=== PATIENT | male | born 1955 | race Caucasian/White ===

== ENCOUNTER 2016-10-27 09:12 | Emergency (ER) | payer OTHER ==
[~2016-10-27] VITALS: Ht 182.9 cm; Wt 124.7 kg
[~2016-10-27 09:12] MED LIST: ALBUTEROL0.63 MG/1 INH/SOL; AMLODIPINE BESY10 M1 PO; BRILINTA90 M1 PO; BYETTA250 MCG/ML SC; CALCIUM CARBON200 MG PO; CARAFATE1 G1 PO; COMBIVENT RESPIM4 GM PO; COUMADIN 5 MG TA5 MG PO; COUMADIN 7.5 M7.5 MG PO; CRESTOR20 M2 PO; FERROUS SULFAT325 M2 PO; FLUOXETINE HCL40 M1 PO; LABETALOL HYDR200 MG PO; LEVEMIR100 UNIT/1 SC; LISINOPRIL20 MG PO; MEROPENEM1 G1 IV; METOPROLOL TART50 M1 PO; MIRALAX119 GM PO; NOVOLIN R100 UNIT/1 SC; NOVOLOG100 U/ML; NOVOLOG100 UNIT/2 SC; ONE DAILY MULT1 EAC2 PO; OXYCODONE-ACET1 EAC1 PO; PERCOCET 325 MG1 TA3 PO; PERCOCET 5-3251 EACH PO; PRAVASTATIN40 MG PO; PROTONIX40 M3 IV; PROTONIX40 M3 PO; PROZAC40 M1 PO; SOMA350 M1 PO; SYMBICORT 16010.2 GM INH; UNASYN 3000MG3000 MG IV; ZOSYN 4 GM/100100 ML IV
--- NOTE | 2016-10-27 09:20 | ED GENERAL ADULT ---
History of Present Illness General Chief Complaint: Fall Stated Complaint: BIB AMBULANCE FOR FALL Vital Signs & Intake/Output Vital Signs & Intake/Output Vital Signs Date Time Temp Pulse Resp B/P Pulse O2 O2 Flow FiO2 Ox Delivery Rate 10/27 0916 98.1 101 20 178/81 100 Nasal 2.0L Cannula Allergies Coded Allergies: niacin (ITCHING 11/02/15) Reconcile Medications Albuterol Sulfate (Albuterol Sulfate Nebulizer Soln) 1.25 MG/3 ML VIAL.NEB 1 Vial INH/CARON Q8P PRN COPD (Reported) Amlodipine Besylate (Amlodipine) 10 MG TABLET 1 TAB PO DAILY HYPERTENSION ( Reported) Budesonide/Formoterol Fumara (Symbicort 160-4.5 Mcg Inhaler) 160 MCG/4.5 MCG PUF 2 PUF INH BID COPD (Reported) Calcium Carbonate 200 MG TAB.CHEW 500 MG PO BID Gastric Ulcer Carisoprodol (Soma 350MG Tab) 350 MG TABLET 1 TAB PO Q6 PRN PAIN (Reported) Ferrous Sulfate 325 MG TABLET.DR 1 TAB PO BID Anemia Fluoxetine HCl (Prozac) 40 MG CAPSULE 2 CAP PO DAILY MENTAL HEALTH (Reported) Insulin Aspart (Novolog) 100 UNIT/1 ML VIAL 1 UNIT SC TIDAC Blood Suger Blood suger Below 80 Hypoglycemia protocol 80-150 no change 151-200 1 units 201-250 2 units 251-300 3 units 301-350 4 units 351-400 6 units More than 400 10 units call M.D. Insulin Detemir (Levemir) 100 UNIT/1 ML VIAL 20 UNITS SC QPM DIABETES IPRATROPIUM/ALBUTEROL SULFATE (Combivent Inhaler) 14.7 GM AER.W.ADAP 2 PUF INH 4 TIMES/DAY COPD (Reported) Meropenem 1 GM VIAL 1 GM IV IQ8 OsteoMyleitis Metoprolol Tartrate 50 MG TABLET 1 TAB PO BID BLOOD PRESSURE (Reported) Multivitamin (One Daily Multivitamin) 1 EACH TABLET 1 TAB PO DAILY General Well being Oxycodone HCl/Acetaminophen (Oxycodone-Acetaminophen 10-325) 1 EACH TABLET 1 TAB PO Q6H PRN PAIN Pantoprazole Sodium (Protonix) 40 MG TABLET.DR 1 TAB PO DAILY GERD Polyethylene Glycol 3350 (Miralax) 119 GM POWDER 17 GM PO DAILY PRN constipation Rosuvastatin Calcium (Crestor) 20 MG TABLET 1 TAB PO DAILY HIGH CHOLESTEROL ( Reported) Sucralfate (Carafate) 1 GM TABLET 1,000 MG PO 4 TIMES/DAY gastric Ulcer Past History Travel History Traveled to [place] past 21 day No Medical History Neurological: NONE EENT: HEARING LOSS R EAR Cardiovascular: CAD, hypertension, hyperlipidemia, NSTEMI (status post [place]), PVD, STEMI (LOWER EXTREMITY VASCULAR) Respiratory: COPD, HX PE Gastrointestinal: NONE Hepatic: NONE Renal: nephrolithiasis Psychiatric: depression Endocrine: diabetes Blood Disorders: NONE Cancer(s): 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 Flores [facility] Psychosocial History Who do you live with Spouse Services at Home Nursing What is your primary language Turkmen Tobacco Use: Never used ETOH Use: denies use Illicit Drug Use: denies illicit drug use Family History Family History, If Any: FATHER (3 CVAs). , Age 50-60; Cause: CVA (cerebral vascular accident). MOTHER, , Age 60+; Cause: Natural . Departure Departure Condition: Stable Referrals: CHANO SANCHEZ,LAURA Lora (PCP/Family) Departure Forms: Customer Survey General Discharge Information
--- NOTE | 2016-10-27 09:52 | ED UPPER/LOWER EXTREMITY COMPL ---
History of Present Illness General Chief Complaint: Fall Stated Complaint: BIB AMBULANCE FOR FALL Source: patient, family, old records Exam Limitations: no limitations Vital Signs & Intake/Output Vital Signs & Intake/Output Vital Signs Date Time Temp Pulse Resp B/P Pulse O2 O2 Flow FiO2 Ox Delivery Rate 10/27 1037 98.5 90 20 112/60 96 Room Air 10/27 0916 98.1 101 20 178/81 100 Nasal 2.0L Cannula Allergies Coded Allergies: niacin (ITCHING 11/02/15) Reconcile Medications Albuterol Sulfate (Albuterol Sulfate Nebulizer Soln) 1.25 MG/3 ML VIAL.NEB 1 Vial INH/CARON Q8P PRN COPD (Reported) Amlodipine Besylate (Amlodipine) 10 MG TABLET 1 TAB PO DAILY HYPERTENSION ( Reported) Budesonide/Formoterol Fumara (Symbicort 160-4.5 Mcg Inhaler) 160 MCG/4.5 MCG PUF 2 PUF INH BID COPD (Reported) Calcium Carbonate 200 MG TAB.CHEW 500 MG PO BID Gastric Ulcer Carisoprodol (Soma 350MG Tab) 350 MG TABLET 1 TAB PO Q6 PRN PAIN (Reported) Ferrous Sulfate 325 MG TABLET.DR 1 TAB PO BID Anemia Fluoxetine HCl (Prozac) 40 MG CAPSULE 2 CAP PO DAILY MENTAL HEALTH (Reported) Insulin Aspart (Novolog) 100 UNIT/1 ML VIAL 1 UNIT SC TIDAC Blood Suger Blood suger Below 80 Hypoglycemia protocol 80-150 no change 151-200 1 units 201-250 2 units 251-300 3 units 301-350 4 units 351-400 6 units More than 400 10 units call M.D. Insulin Detemir (Levemir) 100 UNIT/1 ML VIAL 20 UNITS SC QPM DIABETES IPRATROPIUM/ALBUTEROL SULFATE (Combivent Inhaler) 14.7 GM AER.W.ADAP 2 PUF INH 4 TIMES/DAY COPD (Reported) Meropenem 1 GM VIAL 1 GM IV IQ8 OsteoMyleitis Metoprolol Tartrate 50 MG TABLET 1 TAB PO BID BLOOD PRESSURE (Reported) Multivitamin (One Daily Multivitamin) 1 EACH TABLET 1 TAB PO DAILY General Well being Oxycodone HCl/Acetaminophen (Oxycodone-Acetaminophen 10-325) 1 EACH TABLET 1 TAB PO Q6H PRN PAIN Pantoprazole Sodium (Protonix) 40 MG TABLET. 1 TAB PO DAILY GERD Polyethylene Glycol 3350 (Miralax) 119 GM POWDER 17 GM PO DAILY PRN constipation Rosuvastatin Calcium (Crestor) 20 MG TABLET 1 TAB PO DAILY HIGH CHOLESTEROL ( Reported) Sucralfate (Carafate) 1 GM TABLET 1,000 MG PO 4 TIMES/DAY gastric Ulcer Triage Note: 61 YEAR OLD MALE TO ER VIA AMBULANCE FROM HIS HOME AFTER A MECHANICAL FALL, PT STATES THAT HE WAS WALKING THROUGH DO[address] AT HOME WITH HIS WALKER WHEN HE MISSED A STEP, PT STATES THAT HE DID NOT FALL , THAT HE WAS ABLE TO CATCH HIMSELF. PT HAS DRESSINGS IN PLACE, TO L FOOT THAT HE HAD DEBREDMENT YESTERDAY BY DR WHITAKER AND DRESSING IN PLACE TO R HEEL, PT NOTED TO HAVE AMPUTATION OF MOST OF HIS R FOOT. PT NOTED TO HAVE BLEEDING SOAKING THROUGH HIS DRESSINGS TO BILATERAL LOWER EXTREMITIES. PT REQUESTING PAIN MEDS , STATES THAT HE TOOK HIS LAST PERCOCET AT 0100 THIS AM AND WAS ON HIS WAY TTO PAIN MANAGEMENT FOR HIS REFILL WHEN HE FELL. Triage Nurses Notes Reviewed? yes HPI: 61-year-old male brought in by ambulance here with his daughter after a fall. 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 He continues to have chronic nonhealing wounds of bilateral lower extremities and was seen by his returning officer Dr. Longoria yesterday and had debridement of these wounds on his feet. He is wearing a special shoe on his left side, he is nonweightbearing on his right side. He was using his roller walker outside trying to get to his pain management doctor's appointment when the walker slid out from in front of him and he fell onto his right stump and also struck his left foot on the ground. He started getting bleeding from both sites which was coming through the dressing and he was transferred here by ambulance for further evaluation. He has moderate pain however he has not taken his usual pain medication today because he was out of his prescription and following up with his pain management doctor today for this. (JOYCE ARREDONDO) Past History Travel History Traveled to [place] past 21 day No Medical History Any Pertinent Medical History? 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 [facility] Psychosocial History Who do you live with Spouse Services at Home Nursing What is your primary language Citizen [place] Tobacco Use: Never used ETOH Use: denies use Illicit Drug Use: denies illicit drug use Family History Family History, If Any: FATHER (3 CVAs). , Age 50-60; Cause: CVA (cerebral vascular accident). MOTHER, , Age 60+; Cause: Natural . Hx Contributory? No (JOYCE ARREDONDO) Review of Systems Review of Systems Constitutional: Reports: see HPI. EENTM: Reports: no symptoms. Respiratory: Reports: no symptoms. Cardiovascular: Reports: no symptoms. Gastrointestinal/Abdominal: Reports: no symptoms. Genitourinary: Reports: no symptoms. Musculoskeletal: Reports: see HPI. Skin: Reports: no symptoms. Neurological/Psychological: Reports: no symptoms. Hematologic/Endocrine: Reports: no symptoms. Immunological: Reports: no symptoms. All Other Systems: Reviewed and Negative (JOYCE ARREDONDO) Physical Exam Physical Exam General Appearance: well developed/nourished Head: atraumatic, normal appearance Eyes: Bilateral: normal appearance, PERRL. Ears, Nose, Throat: normal ENT inspection Neck: normal inspection, supple, full range of motion Cardiovascular/Respiratory: no respiratory distress Back: normal inspection Skin: intact, normal color, warm/dry Comments: Left lower extremity:, Dressing has mild blood noted staining through the dressing. Dressing was removed, the wound on the lateral aspect of the foot shows that there is no active bleeding. There is good healthy tissue present in the wound and no signs of tissue necrosis. There is no swelling or ecchymosis suggestive of fracture. Right lower extremity: Stump site has moderate bloody staining noted through the dressing. Dressing was removed, multiple wounds to the undersurface of the stump site are open but not actively bleeding. There is healthy-appearing tissue without any signs of tissue necrosis. There is no significant acute swelling or ecchymosis suggestive of fracture (JOYCE ARREDONDO) Progress Differential Diagnosis: arterial insufficiency, cellulitis, CHF, compartment syndrome, contusion, dislocation, DVT, fracture, gout, septic arthritis, sprain, tendon injury Plan of Care: Patient was given 10 mg of oxycodone for his chronic pain. I do not feel as though he has any significant injury. His dressings were changed, dry sterile dressing was applied with Coban overtop. Patient tolerated well without complications. He is stable for discharge home, he does not require any further treatment. He needs follow-up with his returning officer as scheduled (JOYCE ARREDONDO) Departure Departure Disposition: HOME OR SELF CARE Condition: Stable Clinical Impression Primary Impression: Visit for wound check Secondary Impressions: Fall Qualifiers: Encounter type: initial encounter Qualified Code: W19.XXXA - Unspecified fall, initial encounter Referrals: CHANO SANCHEZ,LAURA Lora (PCP/Family) Additional Instructions: Please follow up with Dr. Whtiaker as scheduled. Do not put any weight on your right foot as this may cause increased bleeding. Watch for any signs of infection such as redness streaking up the leg, foul- smelling discharge from the wounds, fever or flulike illness Departure Forms: Customer Survey General Discharge Information (JOYCE ARREDONDO) PA/MAINTENANCE PORTER Co-Sign Statement Statement: ED Attending supervision documentation- [] I saw and evaluated the patient. I have also reviewed all the pertinent lab results and diagnostic results. I agree with the findings and the plan of care as documented in the PA's/MAINTENANCE PORTER's documentation. [x] I have reviewed the ED Record and agree with the PA's/MAINTENANCE PORTER's documentation. [] Additions or exceptions (if any) to the PAs/MAINTENANCE PORTER's note and plan are summarized below: [] (KAMILA CHEEMA DO
[2016-10-27 10:37] VITALS: BP 112/60
== END 2016-10-27 11:48 ==
LOC: ERH 09:12
DX: T87.89 Other complications of amputation stump (principal)
CPT/HCPCS: 99281

== ENCOUNTER 2016-11-02 13:23 | Inpatient (IN) | payer OTHER ==
[~2016-11-02] VITALS: Ht 182.9 cm; Wt 124.9 kg
--- NOTE | 2016-11-02 15:17 | ED GENERAL ADULT ---
History of Present Illness General Chief Complaint: Lower Extremity Problems Stated Complaint: BILATERAL FOOT WOUNDS Source: patient, old records Exam Limitations: no limitations Vital Signs & Intake/Output Vital Signs & Intake/Output Vital Signs Date Time Temp Pulse Resp B/P Pulse O2 O2 Flow FiO2 Ox Delivery Rate 11/02 1328 98.2 74 20 157/74 98 Room Air Allergies Coded Allergies: niacin (ITCHING 11/02/15) Reconcile Medications Albuterol Sulfate 0.63 MG/3 ML VIAL.NEB 1 Vial INH/CARON TID PRN BREATHING PROBLEMS (Reported) Amlodipine Besylate 10 MG TABLET 1 TAB PO DAILY HTN (Reported) Budesonide/Formoterol Fumarate (Symbicort 160-4.5 Mcg Inhaler) 160 MCG-4.5 MCG/ ACTUATION HFA.AER.AD 2 PUF INH BID COPD (Reported) Calcium Carbonate 200 MG TAB.CHEW 500 MG PO BID Gastric Ulcer Carisoprodol (SOMA) 350 MG TABLET 1 TAB PO Q6-PRN PRN PAIN (Reported) Ferrous Sulfate 325 MG TABLET.DR 1 TAB PO BID Anemia Fluoxetine HCl (Prozac) 40 MG CAPSULE 2 CAP PO DAILY MENTAL HEALTH (Reported) Insulin Aspart (Novolog) 100 UNIT/1 ML VIAL 1 UNIT SC TIDAC Blood Suger Blood suger Below 80 Hypoglycemia protocol 80-150 no change 151-200 1 units 201-250 2 units 251-300 3 units 301-350 4 units 351-400 6 units More than 400 10 units call M.D. Insulin Detemir (Levemir) 100 UNIT/1 ML VIAL 20 UNITS SC QPM DIABETES Ipratropium/Albuterol Sulfate (Combivent Respimat Inhal [place]) 20 MCG-100 MCG/ ACTUATION MIST.INHAL 2 PUF PO 4 TIMES/DAY COPD (Reported) Metoprolol Tartrate 50 MG TABLET 1 TAB PO BID BLOOD PRESSURE (Reported) Multivitamin (One Daily Multivitamin) 1 EACH TABLET 1 TAB PO DAILY General Well being Oxycodone HCl/Acetaminophen (Oxycodone-Acetaminophen 10-325) 1 EACH TABLET 1 TAB PO Q6H PRN PAIN Pantoprazole Sodium (Protonix) 40 MG TABLET.DR 1 TAB PO DAILY GERD Polyethylene Glycol 3350 (Miralax) 119 GM POWDER 17 GM PO DAILY PRN constipation Rosuvastatin Calcium (Crestor) 20 MG TABLET 1 TAB PO DAILY CHOLESTEROL ( Reported) Sucralfate (Carafate) 1 GM TABLET 1,000 MG PO 4 TIMES/DAY gastric Ulcer Triage Note: PT SENT IN BY DR. WHITAKER TO QUESTIONABLE LEFT FOOT OSTEO. PER DR. WHITAKER PT HAD XRAYS OF LEFT FOOT AND NEED LABS. PT STATES HE IS HAVING ALOT OF PAIN IN HIS LEFT FOOT AND WOULD LIKE PEROCET. PER PT "PLEASE DON'T GIVE ME TYLENOL OR MOTRIN THAT STUFF DOESN'T WORK LIKE PERCOCET DOES" Triage Nurses Notes Reviewed? yes HPI: Patient was seen in the emergency department 6 days ago and followed up at the wound center today. Patient was sent down to the emergency department from the wound center for admission for osteomyelitis. Patient denies any fever or chills. There is no nausea or vomiting. Patient has chronic ulcerations to both lower extremities. Patient has a throbbing pain to his left foot. The pain is constant. The pain increases with ambulation. The patient rates the pain as 6 out of 10. There is no radiation of pain. Past History Travel History Traveled to [place] past 21 day No Medical History Any Pertinent Medical History? 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 Flores [facility] Psychosocial History Who do you live with Spouse Services at Home Nursing What is your primary language Nigerien Tobacco Use: Current Daily Use Daily Tobacco Use Amount/Type: => 5 Cigarettes daily ETOH Use: denies use Illicit Drug Use: denies illicit drug use Family History Family History, If Any: FATHER (3 CVAs). , Age 50-60; Cause: CVA (cerebral vascular accident). MOTHER, , Age 60+; Cause: Natural . Hx Contributory? No Review of Systems Review of Systems Constitutional: Reports: no symptoms. EENTM: Reports: no symptoms. Respiratory: Reports: no symptoms. Cardiovascular: Reports: no symptoms. GI: Reports: no symptoms. Genitourinary: Reports: no symptoms. Musculoskeletal: Reports: see HPI. Skin: Reports: no symptoms. Neurological/Psychological: Reports: no symptoms. Hematologic/Endocrine: Reports: no symptoms. Immunologic/Allergic: Reports: no symptoms. All Other Systems: Reviewed and Negative Physical Exam Physical Exam General Appearance: well developed/nourished, alert, awake, mild distress Head: atraumatic, normal appearance Eyes: Bilateral: PERRL, EOMI. Ears, Nose, Throat: normal pharynx, normal ENT inspection Neck: normal inspection, supple, full range of motion Respiratory: normal breath sounds, chest non-tender, no respiratory distress, lungs clear Cardiovascular: regular rate/rhythm, normal peripheral pulses Gastrointestinal: normal bowel sounds, soft, non-tender Back: normal inspection, normal range of motion Extremities: ULCERATIONS TO BOTH LOWER EXTREMITIES. pARTIAL AMPUTATION OF RIGHT FOOT. Neurologic/Psych: no motor/sensory deficits, awake, alert, oriented x 3 Skin: normal color, warm/dry Core Measures ACS in differential dx? No CVA/TIA Diagnosis: No Severe Sepsis Present: No Septic Shock Present: No Progress Differential Diagnoses I considered the following diagnoses in my evaluation of the patient: [ Osteomyelitis] Plan of Care: Orders Procedure Date/time Status Patient Data 11/02 1616 Active XRY-PORTABLE CHEST XRAY 11/02 1613 Active Admit to inpatient 11/02 1608 Active EKG 11/02 1544 Active BLOOD CULTURE 11/02 1518 Active PARTIAL THROMBOPLASTIN TIME 11/02 1518 Complete PROTHROMBIN TIME 11/02 1518 Complete COMPREHENSIVE METABOLIC PANEL 11/02 1518 Active CBC WITHOUT DIFFERENTIAL 11/02 1518 Complete Current Medications Sig/Taylor Start time Last Medication Dose Stop Time Status Admin Morphine Sulfate 4 MG ONCE ONE 11/02 1630 UNVr (Morphine) 11/02 1631 Laboratory Tests 11/02/16 1552: Sodium Pending, Potassium Pending, Chloride Pending, Carbon Dioxide Pending, Anion Gap Pending, BUN Pending, Creatinine Pending, BUN/Creatinine Ratio Pending , Glucose Pending, Calcium Pending, Total Bilirubin Pending, AST Pending, ALT Pending, Alkaline Phosphatase Pending, Total Protein Pending, Albumin Pending, Globulin Pending, Albumin/Globulin Ratio Pending, PT 12.6 H, INR 1.20 H, APTT 37, CBC w Diff NO MAN DIFF REQ, RBC 3.62 L, MCV 82.3, MCH 26.2 L, RDW 15.1 H, MPV 7.8, Gran % 72.5, Lymphocytes % 16.3 L, Monocytes % 5.8, Eosinophils % 4.9, Basophils % 0.5, Absolute Granulocytes 8.5 H, Absolute Lymphocytes 1.9, Absolute Monocytes 0.7 H, Absolute Eosinophils 0.6, Absolute Basophils 0.1, PUBS MCHC 31.9 L Microbiology 11/02 1552 BLOOD: Blood Culture - RECD 11/02 1518 BLOOD: Blood Culture - ORD Initial ED EKG: NSR, nonspecific ST T wave chg Prior EKG: unchanged Departure Departure Disposition: STILL A PATIENT Condition: Stable Clinical Impression Primary Impression: Osteomyelitis Qualifiers: Osteomyelitis type: other Osteomyelitis location: foot Laterality: left Qualified Code: M86.8X7 - Other osteomyelitis, ankle and foot Referrals: CHANO SANCHEZ,LAURA Lora (PCP/Family) Departure Forms: Customer Survey General Discharge Information Admission Note Spoke With: ZAYRA SANCHEZ,MARIA DE JESUS Alexandre Documentation of Exam: Documentation of any treatments & extenuating circumstances including Concerns Regarding Discharge (functional status, medication knowledge or non-compliance, living conditions, etc.) that warrant an admission rather than observation: [ Patient has osteomyelitis seen on x-ray. Patient will go to the operating room tonight for bone biopsy and then will be admitted for further treatment.] Critical Care Note Critical Care Note Critical Care Time: non-applicable
[2016-11-02 16:02] LABS: ABSOLUTE BASOPHIL COUNT 0.1 /CUMM (0.0-0.2); ABSOLUTE EOSINOPHIL COUNT 0.6 /CUMM (0.0-0.7); ABSOLUTE GRANULOCYTE CT 8.5 /CUMM (1.4-6.5); ABSOLUTE LYMPH COUNT 1.9 /CUMM (1.2-3.4); ABSOLUTE MONOCYTE COUNT 0.7 /CUMM (0.10-0.60); BASOPHIL % 0.5 % (0.0-2.0); EOSINOPHIL % 4.9 % (0-5); GRANULOCYTE % 72.5 % (42.2-75.2); HEMATOCRIT 29.8 % (42-52); MEAN CORPUSCULAR HGB 26.2 PG (27.0-31.0); MEAN CORPUSCULAR HGB CONC 31.9 G/DL (33.0-37.0); MEAN CORPUSCULAR VOLUME 82.3 FL (80.0-94.0); MEAN PLATELET VOLUME 7.8 FL (7.4-10.4); PLATELET COUNT 546 /CUMM (130-400); RBC DISTRIBUTION WIDTH 15.1 % (11.5-14.5); RED BLOOD CELL CT 3.62 /CUMM (4.70-6.10); WHITE BLOOD CELL COUNT 11.7 /CUMM (4.8-10.8)
[2016-11-02 16:12] LABS: PT 12.6 SEC (9.4-12.5); PTT 37 SEC (25-37)
--- NOTE | 2016-11-02 16:21 | History & Physical ---
EFRAIN SANCHEZ,ALF 11/02/16 1270: General Information and HPI MD Statement: I have seen and personally examined JAH CABA and documented this H&P. The patient is a 61 year old M who presented with bilateral foot wounds. Source of Information: patient Exam Limitations: no limitations History of Present Illness: 61 year old male with past medical history of diabetes mellitus, hypertension, CKD, PVD status post stenting in 2009, CAD status post cardiac catheterization in 2014, COPD, obstructive sleep apnea, pulmonary embolism not on anticoagulants , nonhealing ulceration of left foot with osteomyelitis, status post right metatarsal amputation, was sent to the emergency department by wound care clinic earlier today to get assessed for osteomyelitis and possible bone biopsy today. According to patient, he has chronic nonhealing bilateral foot 1, 3 separate lesions on his right foot stump which is status post metatarsal amputation, and some vague linear ulceration on his left sole. He usually has his wound care at [facility] and he recently came to the emergency department 7 days ago after he stomped and started bleeding from right foot, was sent home after 3 hours, and came for a follow-up at [address] Zheng examined him earlier today and referred him to the emergency department for workup of osteomyelitis and possible debridement/bone biopsy if required today. He does not offer any other symptoms, including fever/chills/cough/chest pain/shortness of breath/palpitations/sick contacts/recent travel/vomiting. Of note, he is wheelchair bound and recently, according to the patient, he has been crawling to move around. He was admitted to [facility] in March 2016 for osteomyelitis and was sent to [facility] for 7 months, and was sent back to home only 2 weeks ago. Allergies/Medications Home Med list Albuterol Sulfate 0.63 MG/3 ML VIAL.NEB 1 Vial INH/CARON TID PRN BREATHING PROBLEMS (Reported) Amlodipine Besylate 10 MG TABLET 1 TAB PO DAILY HTN (Reported) Budesonide/Formoterol Fumarate (Symbicort 160-4.5 Mcg Inhaler) 160 MCG-4.5 MCG/ ACTUATION HFA.AER.AD 2 PUF INH BID COPD (Reported) Calcium Carbonate 200 MG TAB.CHEW 500 MG PO BID Gastric Ulcer Carisoprodol (SOMA) 350 MG TABLET 1 TAB PO Q6-PRN PRN PAIN (Reported) Ferrous Sulfate 325 MG TABLET.DR 1 TAB PO BID Anemia Fluoxetine HCl (Prozac) 40 MG CAPSULE 2 CAP PO DAILY MENTAL HEALTH (Reported) Insulin Aspart (Novolog) 100 UNIT/1 ML VIAL 1 UNIT SC TIDAC Blood Suger Blood suger Below 80 Hypoglycemia protocol 80-150 no change 151-200 1 units 201-250 2 units 251-300 3 units 301-350 4 units 351-400 6 units More than 400 10 units call M.D. Insulin Detemir (Levemir) 100 UNIT/1 ML VIAL 20 UNITS SC QPM DIABETES Ipratropium/Albuterol Sulfate (Combivent Respimat Inhal Kensal) 20 MCG-100 MCG/ ACTUATION MIST.INHAL 2 PUF PO 4 TIMES/DAY COPD (Reported) Metoprolol Tartrate 50 MG TABLET 1 TAB PO BID BLOOD PRESSURE (Reported) Multivitamin (One Daily Multivitamin) 1 EACH TABLET 1 TAB PO DAILY General Well being Oxycodone HCl/Acetaminophen (Oxycodone-Acetaminophen 10-325) 1 EACH TABLET 1 TAB PO Q6H PRN PAIN Pantoprazole Sodium (Protonix) 40 MG TABLET.DR 1 TAB PO DAILY GERD Polyethylene Glycol 3350 (Miralax) 119 GM POWDER 17 GM PO DAILY PRN constipation Rosuvastatin Calcium (Crestor) 20 MG TABLET 1 TAB PO DAILY CHOLESTEROL ( Reported) Sucralfate (Carafate) 1 GM TABLET 1,000 MG PO 4 TIMES/DAY gastric Ulcer Past History Travel History Traveled to [place] past 21 day No Medical History Neurological: NONE EENT: HEARING LOSS R EAR Cardiovascular: CAD, hypertension, hyperlipidemia, NSTEMI (status post [place]), PVD, STEMI (LOWER EXTREMITY VASCULAR) Respiratory: COPD, HX PE Gastrointestinal: NONE Hepatic: NONE Renal: nephrolithiasis Psychiatric: depression Endocrine: diabetes Blood Disorders: NONE Cancer(s): NONE CREDIT PROCESSOR/Reproductive: NONE History of MRSA: No History of VRE: No History of CDIFF: No Surgical History Surgical History: STATUS POST RIGHT TMA NEARLY 2 YEARS PRIOR TO ADMISSION STATUS POST GASTRIC BYPASS 2009 STATUS POST RIGHT ESWL s/p lap gastric bypass surgery 2009- Dr. Flores [facility] Past Family/Social History Family History Relations & Conditions if any FATHER (3 CVAs). , Age 50-60; Cause: CVA (cerebral vascular accident). MOTHER, , Age 60+; Cause: Natural . Psychosocial History Where do you live? Home Who Do You Live With? spouse Services at Home: Nursing Primary Language: Tajik Smoking Status: Current Everyday Smoker ETOH Use: denies use Illicit Drug Use: denies illicit drug use Functional Ability ADLs Unknown: dressing, eating, toileting, bathing. Ambulation: unknown IADLs Unknown: shopping, housework, finances, food prep, telephone, transportation, medication admin. Review of Systems Review of Systems Constitutional: Reports: no symptoms. EENTM: Reports: no symptoms. Cardiovascular: Reports: no symptoms. Respiratory: Reports: no symptoms. GI: Reports: no symptoms. Genitourinary: Reports: no symptoms. Musculoskeletal: Reports: no symptoms. Skin: Reports: see HPI. Neurological/Psychological: Reports: no symptoms. Hematologic/Endocrine: Reports: no symptoms. All Other Systems: Reviewed and Negative Exam & Diagnostic Data Last 24 Hrs of Vital Signs/I&O Vital Signs Date Time Temp Pulse Resp B/P Pulse O2 O2 Flow FiO2 Ox Delivery Rate 11/02 1900 96 Nasal 2.0L Cannula 11/02 1847 97.2 89 26 186/84 84 Room Air 11/02 1722 97.6 76 18 183/81 91 Room Air 11/02 1600 Room Air Room Air 11/02 1328 98.2 74 20 157/74 98 Room Air Last 24 Hrs of Labs/Enrique: Laboratory Tests 11/02/16 1552: Anion Gap 9, Estimated GFR 57 L, BUN/Creatinine Ratio 18.5, Glucose 109 H, Calcium 9.6, Total Bilirubin 0.4, AST 28, ALT 39, Alkaline Phosphatase 95, Total Protein 7.4, Albumin 3.3 L, Globulin 4.1, Albumin/Globulin Ratio 0.8 L, PT 12.6 H, INR 1.20 H, APTT 37, CBC w Diff NO MAN DIFF REQ, RBC 3.62 L, MCV 82.3 , MCH 26.2 L, RDW 15.1 H, MPV 7.8, Gran % 72.5, Lymphocytes % 16.3 L, Monocytes % 5.8, Eosinophils % 4.9, Basophils % 0.5, Absolute Granulocytes 8.5 H, Absolute Lymphocytes 1.9, Absolute Monocytes 0.7 H, Absolute Eosinophils 0.6 , Absolute Basophils 0.1, PUBS MCHC 31.9 L Microbiology 11/02 2034 EXTREMITIE: Gross Specimen Examination - RECD 11/02 2034 EXTREMITIE: Gram Stain - RECD 11/02 2034 EXTREMITIE: Gross Specimen Examination - RECD 11/02 2034 EXTREMITIE: Gram Stain - RECD 11/02 1615 BLOOD: Blood Culture - RECD 11/02 1552 BLOOD: Blood Culture - RECD Diagnostic Data EKG Results Normal sinus rhythm with rate 83, low voltage EKG, QRS duration 96, QTC is 456, no obvious ST-T changes noticed CXR Results IMPRESSION: Left basilar airspace disease is concerning for pneumonia given the history of fever. Small left pleural effusion. Recommend follow-up chest x-ray in 6-8 weeks after completion of medical treatment to insure complete resolution and exclude other underlying disease process. DICTATED BY: RICHI SANCHEZ,LADAN DATE/TIME DICTATED:11/02/161638 PACKING HOUSE SUPERVISOR:TURNER DATE/TIME TRANSCRIBED:11/02/161638 Other Results Physical examnination: General: alert, oriented patient, not in distress Head: Normocephalic, atraumatic Eyes: Pupils normal in size, regular, reacting to light and accommodation, EOM normal Ears: B/l normal on inspection Nose: Normal on inspection Throat/mouth: Moist mucosa Neck: Supple, full range of motion, no thyromegaly Heart: Regular rate, regular rhythm Lung: Normal breath sound bilaterally, b/l basal crepts heard, no wheeze heard Abd: Soft, non-tender, no distention appreciated Back: Normal range of motion Extremities: b/l pedal edema present, right foort has metatarsal amputation and three open ulcers over his heel, and left foot has one ulcer over lateral side of his sole extending upto his heel; well-dressed currently with some soakage present b/l Neurologic: Alert, oriented x3, Cranial exam grossly intact, Speech is clear and coherent Psychiatric: Calm, cooperative, coherant Assessment/Plan Assessment: 61 year old male with past medical history of diabetes mellitus, hypertension, CKD, PVD status post stenting in 2009, CAD status post cardiac catheterization in 2014, COPD, obstructive sleep apnea, pulmonary embolism not on anticoagulants , nonhealing ulceration of left foot with osteomyelitis, status post right metatarsal amputation, was sent to the emergency department by wound care clinic earlier today to get assessed for osteomyelitis and possible bone biopsy today. Patient's vitals were stable when he came to the emergency department, labs were significant for leukocytosis at 11.7, anemia with 9.5 hemoglobin and 29.8 hematocrit, platelets 546, potassium slightly high at 5.5, sodium slightly higher range at 142, and creatinine at 1.3. 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 Chest x-ray is suggestive for left-sided pneumonia with small left sided pleural effusion, and suggests follow-up. Patient has not received any antibiotic in the emergency department. Currently, patient is being managed in the general medical floor for the following issues: #Left foot osteomyelitis Patient has obvious signs of posterior myelitis, evident from the wound, x-ray, lab works with leukocytosis, and is planned to undergo the right and bone biopsy later today in the operating theater. -send specimen for bone biopsy, including for culture -Start IV antibiotics only after the specimen has been sent for culture -Await culture reports and narrow antibiotics accordingly -Podiatry service involved, will follow their recommendations #Right-sided foot ulcers -Currently well-dressed -Will follow podiatry recommendation for right-sided pulses as well #Wound care to follow from tomorrow onwards for bilateral wounds and surgery on the left side #Questionable pneumonia Pneumonia is suggested in the chest x-ray, but given his lack of symptoms, will not start IV antibiotics right away, and watch for his symptoms #Diabetes mellitus -Currently on insulin NPO regimen, as he is awaiting surgery -Regular Accu-Cheks ordered -Need to advance diet after surgery according to surgery recommendations, and change the insulin to NovoLog sliding scale #Continue with the rest of the medications for hypertension, hyperlipidemia, chronic kidney disease, anemia, severe peripheral vascular disease -Continue total respiratory care/nebs -We will continue to monitor for any electrolyte disturbance as he has slight hyperkalemia today #Nothing by mouth for now awaiting surgery #Subcutaneous heparin and Alps for DVT prophylaxis, as he has CKD #Full CODE STATUS As Ranked By This Provider Problem List: 1. Osteomyelitis Qualifiers Osteomyelitis type: other Osteomyelitis location: foot Laterality: left Qualified Code: M86.8X7 - Other osteomyelitis, ankle and foot Core Measures/Miscellaneous Acute Coronary Syndrome ACS Diagnosis: No Cerebrovascular Accident CVA/TIA Diagnosis: No Congestive Heart Failure CHF Diagnosis: No Venous Thromboembolism VTE Risk Factors: Age > 40, Previous VTE, Smoking No [facility] VTE prophylaxis d/t: No contraindications No VTE Pharm Prophylaxis d/t: No contraindications VTE Diagnosis: No VTE Type: NONE VTE Confirmed by (Test): NONE Severe Sepsis Severe Sepsis Present: No Septic Shock Septic Shock Present: No Miscellaneous Documentation Attending Case Discussed With: ZAYRA SANCHEZ,MARIA DE JESUS Alexandre Primary Care Physician: LAURA MADDEN MD Patient sees these Specialists Podiatry Level of Patient Care: General Medicine EDU DOYLE 11/02/16 1499: General Information and HPI Allergies/Medications Allergies: Coded Allergies: niacin (ITCHING 11/02/16) Resident Review Statement Resident Statement: examined this patient, discussed with international relations teacher Other Findings: 60-year-old morbidly obese gentleman with past medical history of nonhealing ulceration and osteomyelitis x 2 , status post right transmetatarsal amputation, multiple debridements, right renal stone status post ESWL procedure (03/2016), DM , depression, HTN,CKD,peripheral vascular disease status post stenting (2009), coronary artery disease status post cardiac catheterization (2014), COPD, JOSÉ MIGUEL, PE (not on AC) was sent in by Dr. Zheng from the wound center for bone biopsy for osteomyelitis. The patient has chronic bilateral foot wounds with multiple debridements for osteomyelitis in the past. He follows up with the [facility] with Dr. Zheng. He was seen at the Center last week for bleeding from his wounds and the x-ray of the foot was done. Foot x-ray from October 26 showed ulceration and bilateral feet with soft tissue swelling, irregularity of the left lateral cuneiform and cuboid bone which was concerning for osteomyelitis. He was seen by Dr. Zheng this morning and recommended toget admitted for bone biopsy and possible debridement. Patient reports that he has been having pain in both legs for the past few days. Denies any fever, chills, nausea, vomiting, abdominal pain, chest pain, palpitations, urinary or bowel symptoms. He had a recent fall about a week ago while going to visit his pain doctor. He used to use his walker/wheelchair but now he has been crawling at home for ambulation. He visits the [facility] every week and his takes care of them at home. He had 2 episodes of post pneumonitis in the past and had required PICC lines. His wounds have grown multiple resistant organisms in the past. In the ED temperature 98.2, pulse 74, respiration 20, blood pressure 157/74, saturating 98% on room air Labs showed a count of 11.7, no bandemia, H&H 9.5/29.8(chronic anemia), platelets 546(chronic), potassium 5.5, sodium 142, creatinine 1.3(baseline 1.2- 1.7), normal LFTs, albumin 3.3., INR 1.20 Chest x-ray:Left basilar airspace disease is concerning for pneumonia given the history of fever. Small left pleural effusion. Foot x-ray:Evaluation is very limited due to the extensive foot deformity. There is ulceration in the bilateral feet with soft tissue swelling. Irregularity of the left lateral cuneiform and cuboid bone is concerning for osteomyelitis. Examination: General: Obese, no apparent distress, HEENT: PERRLA, EOMI Neck: Carotids 2+ without bruits. Respiratory: Clear to auscultation Heart: Regular rate and rhythm, without murmurs, without JVD. Abdomen: Soft, nontender, no masses, normoactive bowel sounds. Extremities: Bilateral lower extremity edema 3+. Right foot transmetatarsal resection. Chronic bilateral foot wounds and erythema. . The left foot are unkept and dirty Assessment: * Left foot osteomyelitis * Chronic bilateral leg wounds * ? Pneumonia as seen on chest x-ray * Diabetes mellitus * Hyperkalemia * Hypertension * Hyperlipidemia * CKD * Anemia * Severe peripheral vascular disease * Chronic pains Plan: * Patient is currently going to OR for debridement by Dr. Zheng. Patient has a slight white count however no fevers and he is not and sepsis. We will continue to watch off antibiotics until we have the OR culture results back. Patient has grown multiple resistant organisms in the past and has required broad-spectrum antibiotics. * Continue gentle hydration with IV normal saline. * Blood cultures sent * Wound care consult for chronic leg wounds * BEP tomorrow morning to check potassium levels. No intervention at this time. * Patient's kidney disease and anemia of chronic and is at baseline * NovoLog sliding scale, Levemir(half) the home dose. Accu-Cheks and diabetic diet post OR * Continue home medications amlodipine, metoprolol, rosuvastatin, ipratropium, iron, calcium carbonate * Pain management with Percocet, and IV morphine * Diabetic diet * Subcutaneous heparin and Alps for DVT prophylaxis * Full code ZAYRA SANCHEZ,MARIA DE JESUS 11/02/16 2108: Attending MD Review Statement Attending Statement Attending MD Statement: examined this patient, discuss w/resident/PA/SURGICAL INSTRUMENT MAKER, agreed w/resident/PA/SURGICAL INSTRUMENT MAKER, reviewed EMR data (avail), discussed with nursing, reviewed images Attending Assessment/Plan: 61-year-old male with past medical history of diabetes on insulin, hypertension and previous transmetatarsal amputation of his right foot. He was sent in from the wound care center by Dr. Zheng for suspected osteomyelitis of the left foot. He has known peripheral vascular disease and obesity. At this point the wound doesn't appear cellulitic with no erythema, no fevers and I think we can safely watch him off antibiotics. Dr. Zheng is planning to take him to the OR tonight to get a bone biopsy and a washout and we can tailor antibiotics based on the path and micro. Watch his white count closely off antibiotics. Give his Norvasc and metoprolol for his blood pressure continue his statin. Continue his iron for his chronic anemia. He has mild hyperkalemia with probable CKD and will need to watch that closely. After he comes back from the OR will start him on DVT prophylaxis. Treat his pain now and a bowel regimen
--- NOTE | 2016-11-02 16:52 | RADIOLOGY REPORT ---
EXAMINATION: XR PORTABLE CHEST CLINICAL INFORMATION: Fever. COMPARISON: Chest x-ray of 04/14/2016, 04/04/2016, 01/14/2016 and 07/19/2015. TECHNIQUE: Portable AP view of the chest was obtained. FINDINGS: The cardiomediastinal silhouette is stable with either mild cardiomegaly or prominence of normal cardiac size. There is some retrocardiac opacification with obscuration of the left hemidiaphragm. Mild blunting of the left lateral costal mid sulcus is also noted. There is additionally white band of patchy opacity in the left mid to lower lung field. Right lung is relatively clear. No pneumothorax or pulmonary edema. No acute osseous abnormality. IMPRESSION: Left basilar airspace disease is concerning for pneumonia given the history of fever. Small left pleural effusion. Recommend follow-up chest x-ray in 6-8 weeks after completion of medical treatment to insure complete resolution and exclude other underlying disease process.
--- NOTE | 2016-11-02 17:33 | Admission Certification ---
Admission Certification Certification Statement - As attending physician, I certify that at the time of - admission, based on clinical presentation, severity of - symptoms, need for further diagnostic testing and - therapeutic interventions, and risk of adverse outcomes - without in-hospital treatment, in my clinical assessment, - this patient requires an acute hospital stay for a minimum - of two nights or longer. I have also considered psychsocial - factors such as support system, advanced age, financial - issues, cognitive issues, and failed out-patient treatments, - past re-admission history, safety of patient, and lack of - compliance as applicable. Specific rationale supporting this admission is: Suspected osteomyelitis in a patient with diabetes
--- NOTE | 2016-11-02 21:51 | Operative Report ---
Operative/Inv Procedure Report Surgery Date: 11/02/16 Name of Procedure: 1 open incision and drainage deep to the deep fascia with exposure of the flexor tendon and tendon sheath multiple sites right foot 2 open incision and drainage deep to the D fashion with exposure of the flexor tendon and tendon sheath multiple sites left foot 3 debridement of necrotic bone right foot 4 debridement of necrotic bone left foot 5 intraoperative administration of ankle block anesthesia 6 excisional debridement Pre-Operative Diagnosis: 1 open infected wound right foot 2 open infected wound left foot 3 osteomyelitis right foot 4 osteomyelitis left foot 5 diabetic peripheral neuropathy Post-Operative Diagnosis: The same Estimated Blood Loss: less than 50ml Surgeon/Mathematical Engineering Technician: CECY WHITAKER DPM Anesthesia: moderate sedation, block Operative/Procedure Note Note: After obtaining informed consent the patient was brought to the operating room and placed on the operating table in the supine position. The patient was then securely fastened to the operating table utilizing safety belt. After administration of IV sedation, 10 mL of 0.5% Marcaine plain was infiltrated about the patient's left and right ankles. Within scrubbed prepped and draped in usual aseptic manner. Attention directed to the left foot, where an 8 cm x 6 cm Reeder grade 4 ulceration was identified. A 15 blade was utilized sharply revised skin margins. He dissection was then carried down deep to the D fashion with exposure of the flexor tendon and tendon sheath multiple sites, both proximally and distally. All necrotic and nonviable, infected tissue sharply evacuated from the wound bed. The dissection was then carried down to the periosteum overlying the cuboid laterally. An osteotome and mallet was then utilized to harvest bone specimen from the cuboid. The specimen was sent for both microbiologic and pathologic inspection. Nipple was then irrigated with 3 L of normal sterile saline infusion 50,000 units of bacitracin. Following this, the foot was redraped and the surgeon's top gloves were changed clean gloves. Any bleeding vessels identified were cauterized or ligated as encountered. The foot was then packed with iodoform followed by 4 x 4's EBD pad Kerlix and an Michele wrap. Attention was then directed to the right foot, where again a large full- thickness chronic was identified. A 10 cm x 8 cm Reeder grade 4 ulceration was identified. The wound margins were sharply revised with a 15 blade. The dissection was then carried down deep to the D fashion with exposure of the flexor tendon and tendon sheath multiple sites, both proximally and distally. All necrotic nonviable infected tissue sharply evacuated from the wound bed. Bone specimen identified at the central aspect of the wound bed was then debrided and sent for both pathologic and microbiologic inspection. The open wound was then irrigated with 3 L of normal sterile saline infused with 50,000 units of bacitracin. Following this, the foot was redraped and the surgeon's top gloves were changed clean gloves. Any bleeding vessels identified were cauterized or ligated as encountered. Nipple was then packed with iodoform 4 x 4's EBD pads Kerlix and Michele wrap. The patient was noted to tolerate both procedure and anesthesia well and the patient was transported from the operating room to recovery via signs stable
[2016-11-02 22:56] VITALS: BP 168/78
--- NOTE | 2016-11-03 07:08 | PN- Housestaff ---
Subjective Follow-up For: Possible osteomyelitis Complaints: no complaints Subjective: I followed up and examined the patient today. He underwent surgery yesterday involving incision and drainage of the wound for bilateral feet, including debridement of necrotic bone bilaterally. He was put on supplemental oxygen via nasal cannula since last night, unsure about his respiratory status after the surgery as he normally does not require additional oxygen at home. When I examined him this morning, he was on supplemental oxygen via nasal cannula, resting comfortably, not in distress, and offered no complaints. His vitals have been stable, and no issues reported overnight. However, he started having respiratory distress around 8:45am, was later found to have pulmonary edema, and was managed accordingly. Please see event note from today for details. Review of Systems Constitutional: Reports: no symptoms. EENTM: Reports: no symptoms. Cardiovascular: Reports: no symptoms. Respiratory: Reports: no symptoms. Gastrointestinal: Reports: no symptoms. Genitourinary: Reports: no symptoms. Musculoskeletal: Reports: no symptoms. Skin: Reports: see HPI. Neurological/Psychological: Reports: no symptoms. Hematologic/Endocrine: Reports: no symptoms. Objective Last 24 Hrs of Vital Signs/I&O Vital Signs Date Time Temp Pulse Resp B/P Pulse O2 O2 Flow FiO2 Ox Delivery Rate 11/03 1745 95 Nasal 6.0L Cannula 11/03 1405 98.5 62 22 132/70 97 Nasal 5.0L Cannula 11/03 1345 98.5 62 22 136/74 95 Nasal 6.0L Cannula 11/03 1100 132/72 11/03 1019 24 96 Nasal 8L Cannula 11/03 0909 92 172/88 11/03 0908 92 172/88 11/03 0850 Nasal 8L Cannula 11/03 0850 96 Nasal 8L Cannula 11/03 0845 98.5 92 28 172/88 85 Nasal 7.0L Cannula 11/03 0800 92 Nasal 6.0L Cannula 11/03 0711 99.0 64 18 130/60 97 Nasal 6.0L Cannula 11/03 0000 Nasal 6.0L Cannula 11/02 2301 80 168/78 11/02 2300 91 Nasal 6.0L Cannula 11/02 2256 98.3 80 24 168/78 88 Nasal 5.0L Cannula 11/02 2201 Nasal 2.0L Cannula 11/02 1900 96 Nasal 2.0L Cannula 11/02 1847 97.2 89 26 186/84 84 Room Air Intake & Output 11/03 1600 11/03 0800 11/03 0000 Intake Total 1210 Output Total 1850 750 250 Balance -640 -750 -250 Intake, IV 110 Intake, Oral 1100 Number 0 Bowel Movements Output, Urine 1850 750 250 Patient 122.47 kg 122.47 kg Weight Physical Exam General Appearance: Alert, Oriented X3, Cooperative, No Acute Distress Other Physical Findings: General: alert, oriented patient, not in distress Head: Normocephalic, atraumatic Eyes: Pupils normal in size, regular, reacting to light and accommodation, EOM normal Ears: B/l normal on inspection Nose: Normal on inspection Throat/mouth: Moist mucosa Neck: Supple, full range of motion, no thyromegaly Heart: Regular rate, regular rhythm Lung: Normal breath sound bilaterally, b/l basal crepts heard, no wheeze heard Abd: Soft, non-tender, no distention appreciated Back: Normal range of motion Extremities: b/l pedal edema present, both feet were well dressed, after the surgery yesterday, nose showcase, no bleeding Neurologic: Alert, oriented x3, Cranial exam grossly intact, Speech is clear and coherent Psychiatric: Calm, cooperative, coherant Current Medications: Current Medications Sig/Taylor Start time Last Medication Dose Route Stop Time Status Admin Acetaminophen 325 MG Q6P PRN 11/02 1715 AC PO Albuterol Sulfate 3 ML BID 11/03 1000 AC 11/03 INH 1745 Albuterol Sulfate 3 ML Q6P PRN 11/02 1930 AC INH Albuterol Sulfate 3 ML ONCE ONE 11/02 191 DC 11/02 INH 11/02 191 1900 Amlodipine Besylate 10 MG DAILY 11/03 1000 AC 11/03 PO 0909 Atorvastatin Calcium 20 MG 1700 11/03 1700 DC PO Atorvastatin Calcium 20 MG 1700 11/03 1700 AC 11/03 PO 1722 Budesonide/ 2 PUF BID 11/02 2200 AC 11/03 Formoterol Fumarate INH 0909 Calcium Carbonate 500 MG BID 11/02 2200 AC 11/03 PO 0909 Carisoprodol 350 MG Q6-PRN PRN 11/02 1930 AC 11/03 PO 1317 Fentanyl Citrate 100 MCG .STK-MED ONE 11/02 1944 DC IM 11/02 1945 Ferrous Sulfate 325 MG BID 11/02 2200 AC 11/03 PO 0908 Fluoxetine HCl 40 MG DAILY 11/03 1000 AC 11/03 PO 0909 Furosemide 20 MG DAILY 11/04 1000 AC IV Furosemide 20 MG ONCE ONE 11/03 1700 DC 11/03 IV 11/03 1701 1722 Furosemide 40 MG ONCE ONE 11/03 0900 DC 11/03 IV 11/03 0901 0853 Heparin Sodium 5,000 UNIT Q8 11/03 0837 AC 11/03 (Porcine) SC 1417 Insulin Aspart 0 TIDAC 11/03 0800 AC 11/03 SC 1722 Insulin Detemir 10 UNITS BID 11/02 2200 AC 11/03 SC 1101 Insulin Human Regular 0 Q6 11/02 1914 DC SC Ipratropium [employer] 2.5 ML ONCE ONE 11/02 193 DC INH 11/02 193 Ipratropium [employer] 2.5 ML ONCE ONE 11/02 1915 DC 11/02 INH 11/02 1916 1900 Meropenem 1 GM IQ8 11/03 1800 AC IV Metoprolol Tartrate 50 MG BID 11/02 2200 AC 11/03 PO 0908 Midazolam HCl 2 MG .STK-MED ONE 11/02 194 DC IM 11/02 194 Morphine Sulfate 2 MG Q4P PRN 11/02 171 AC IV Omeprazole 40 MG DAILY AC 11/03 0700 AC PO Ondansetron HCl 8 MG .STK-MED ONE 11/02 194 DC IM 11/02 194 Oxycodone HCl 5 MG Q6P PRN 11/02 1715 AC 11/03 PO 1748 Polyethylene Glycol 17 GM DAILY PRN 11/02 1930 AC PO Sodium Chloride 1,000 ML Q13H 11/02 2000 DC IV 11/03 0859 Sodium Chloride 1,000 ML .Q8H 11/02 1700 DC 11/02 IV 1740 Sodium Polystyrene 60 ML ONCE ONE 11/03 0900 DC 11/03 Sulfonate PO 11/03 0901 0917 Sucralfate 1,000 MG 4 TIMES/DAY 11/02 220 AC 11/03 PO 1722 Last 24 Hrs of Lab/Enrique Results Last 24 Hrs of Labs/Mics: Laboratory Tests 11/03/16 0940: pH 7.30 *L, pCO2 47 H, pO2 82, HCO3 24, ABG O2 Sat (Measured) 93.0 L, Carboxyhemoglobin 1.5, O2 Concentration % 8L, O2 Delivery Method NC, Phlebotomy Draw Site RIGHT RADIAL 11/03/16 0920: Troponin I < 0.01, Yni-V-Lpxpmilqbzq Pept 9010 H 11/03/16 0634: Anion Gap 4 L, Estimated GFR 52 L, BUN/Creatinine Ratio 17.1, CBC w Diff NO MAN DIFF REQ, RBC 2.78 L, MCV 82.4, MCH 26.5 L, RDW 15.0 H, MPV 8.1, Gran % 67.3, Lymphocytes % 18.2 L, Monocytes % 10.9 H, Eosinophils % 2.9, Basophils % 0.7, Absolute Granulocytes 5.4, Absolute Lymphocytes 1.5, Absolute Monocytes 0.9 H, Absolute Eosinophils 0.2, Absolute Basophils 0.1, PUBS MCHC 32.1 L Microbiology 11/02 2034 EXTREMITIE: Gross Specimen Examination - RES 11/02 2034 EXTREMITIE: Gram Stain - RES 11/02 2034 EXTREMITIE: Gross Specimen Examination - RES 11/02 2034 EXTREMITIE: Gram Stain - RES Assessment/Plan Assessment: 61 year old male with past medical history of diabetes mellitus, hypertension, CKD, PVD status post stenting in 2009, CAD status post cardiac catheterization without stent placement in 2014, COPD, obstructive sleep apnea not using O2 at home, pulmonary embolism not on anticoagulants >5 yrs ago, nonhealing ulceration of left foot with osteomyelitis, status post right metatarsal amputation, was sent to the emergency department by wound care clinic earlier today to get assessed for osteomyelitis and possible bone biopsy on 11/02/16. Patient's vitals were stable when he came to the emergency department, labs were significant for leukocytosis at 11.7, anemia with 9.5 hemoglobin and 29.8 hematocrit, platelets 546, potassium slightly high at 5.5, sodium slightly higher range at 142, and creatinine at 1.3. 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 Chest x-ray is suggestive for left-sided pneumonia with small left sided pleural effusion, and suggests follow-up. Patient has not received any antibiotic in the emergency department. Currently, patient is being managed in the general medical floor for the following issues: #Suspected bilateral feet osteomyelitis Patient underwent debridement yesterday and a sample was sent to the lab for analysis. Awaiting results. Hasn't been started on abx so far. Infectious disease service consult appreciated. Will consider vascular surgery reevaluation tomorrow. IV meropenem 1g q8hr started per ID. -Await culture reports and narrow antibiotics accordingly -Will await further Podiatry service recommendations #Acute dyspnea earlier this morning Patient had an acute episode of shortness of breath, was found to be having congestive heart failure/flash pulmonary edema, and was managed accordingly. Please see today's event note for details. #Questionable pneumonia Pneumonia is suggested in the chest x-ray, but given his lack of symptoms, will not start IV antibiotics right away, and watch for his symptoms. -Meropenem started today will cover agents for PNA as well. #Diabetes mellitus -Continue regular Accu-Cheks, Insulin NovoLog Sliding scale, and diabetic diet #Continue with the rest of the medications for hypertension, hyperlipidemia, chronic kidney disease, anemia, severe peripheral vascular disease -Continue total respiratory care/nebs -We will continue to monitor for any electrolyte disturbance as he has slight hyperkalemia today #Nothing by mouth for now awaiting surgery #Subcutaneous heparin and Alps for DVT prophylaxis, as he has CKD #Full CODE STATUS Problem List: 1. Osteomyelitis 2. Flash pulmonary edema 3. CHF (congestive heart failure) 4. Diabetes mellitus 5. CKD (chronic kidney disease) 6. Hypertension 7. Hyperlipidemia Pain Ratin Pain Location: feet Pain Goal: Pain 4 or less Pain Plan: prn Tomorrow's Labs & Rationales: CBC, BEP to follow up on sepsis, syselectrolytemia, patient is receiving lasix from today
[2016-11-03 07:11] VITALS: BP 130/60
[2016-11-03 07:55] LABS: ABSOLUTE BASOPHIL COUNT 0.1 /CUMM (0.0-0.2); ABSOLUTE EOSINOPHIL COUNT 0.2 /CUMM (0.0-0.7); ABSOLUTE GRANULOCYTE CT 5.4 /CUMM (1.4-6.5); ABSOLUTE LYMPH COUNT 1.5 /CUMM (1.2-3.4); ABSOLUTE MONOCYTE COUNT 0.9 /CUMM (0.10-0.60); BASOPHIL % 0.7 % (0.0-2.0); EOSINOPHIL % 2.9 % (0-5); GRANULOCYTE % 67.3 % (42.2-75.2); MEAN CORPUSCULAR HGB 26.5 PG (27.0-31.0); MEAN CORPUSCULAR HGB CONC 32.1 G/DL (33.0-37.0); MEAN CORPUSCULAR VOLUME 82.4 FL (80.0-94.0); MEAN PLATELET VOLUME 8.1 FL (7.4-10.4); PLATELET COUNT 398 /CUMM (130-400); RED BLOOD CELL CT 2.78 /CUMM (4.70-6.10); WHITE BLOOD CELL COUNT 8.1 /CUMM (4.8-10.8)
[2016-11-03 08:24] LABS: HEMATOCRIT 22.9 % (42-52)
[2016-11-03 08:45] VITALS: BP 172/88
--- NOTE | 2016-11-03 08:49 | Event Note ---
Event Note Event Note: Acute Dyspnea today: At 8:30 a.m., I was called by the nursing staff after the patient started having acute episode of shortness of breath, was diaphoretic, could not speak in full sentences, and was also complaining of chest pain. He was requiring more than 6 L of oxygen per minute via nasal cannula. He was put on sitting position, respiratory therapist was by the side who started him on additional oxygen via mask and nebulization as his lungs seemed congested, and had some crackles especially at the bases. His vitals were significant for hypertension with blood pressure 170/88, tachycardia, oxygen saturation 80% with oxygen, tachypnea at 32/min, and afebrile. Patient was given 40 mg of IV Lasix, stat EKG was done which did not show any new changes, stat troponin was sent, which was later found to be less than 0.01 which is normal, stat portable chest x-ray was ordered which showed signs of congestion, resident was notified, attending notified, proBNP ordered as at home which was high. With the suspicion of DVT/PE as he has a history of pulmonary embolism more than 5 years ago in the past and is not in any anticoagulation, ultrasound of bilateral lower extremities was done which was negative, ventilation/perfusion scan of chest was done as his kidney function did not allow a CT angiogram of chest, which also showed low probably of having pulmonary embolism. Patient feels a lot better after IV Lasix, his respiratory status has improved, vitals stable. He is no longer in any distress but oxygen is being continued to be delivered via nasal cannula. Patient also had dropped his hemoglobin from 9.5 to 7.4 after surgery from the labs drawn today, and was thus transfused with 1 unit of PRBC after obtaining consent. Guiac test performed by me: Negative, no GI consult for now. -20 mg of IV Lasix has been ordered to be given after transfusion -20 mg of IV Lasix has been ordered for 10 AM everyday
--- NOTE | 2016-11-03 09:47 | RADIOLOGY REPORT ---
EXAMINATION: XR PORTABLE CHEST CLINICAL INFORMATION: Acute onset shortness of breath. COMPARISON: 04/14/2016 and 11/02/2016 TECHNIQUE: Portable AP view of the chest was obtained. FINDINGS: Cardiac silhouette is mildly enlarged. Also, pulmonary vessels are enlarged and there are interstitial opacities in middle lower lung zones, suggestive of slight worsening interstitial edema. The hazy opacity in the right lower lung zone could be related to edema and/or small layering right pleural effusion. Persistent small left pleural effusion and left retrocardiac opacity. In addition, there is persistent plate like opacity of atelectasis in the left midlung. Atherosclerotic aorta. No acute skeletal findings. IMPRESSION: 1. Cardiomegaly and interstitial pulmonary edema. 2. Persistent nonspecific opacity within the retrocardiac region of the left lower lobe. This opacity could be caused by consolidation and/or atelectasis in addition to the small pleural effusion.
[2016-11-03 11:00] VITALS: BP 132/72
--- NOTE | 2016-11-03 11:21 | ULTRASOUND REPORT ---
EXAMINATION: US TRIPLEX LOWER EXTREMITY, BILATERAL CLINICAL INFORMATION: Shortness of breath. COMPARISON: None TECHNIQUE: Color-flow triplex imaging with spectral analysis and compression Doppler were performed on the bilateral lower extremities. FINDINGS: RIGHT: Common femoral vein is compressible and exhibits a normal phasic waveform; this suggests that the iliac veins are widely patent above. Within the proximal thigh, the visualized profunda femoris vein is patent and the examined greater saphenous vein and saphenofemoral junction are normal. The superficial femoral vein is patent in the proximal, mid and distal thigh. The popliteal vein is patent to the level of the trifurcation. Subcutaneous tissue edema is present within the leg. Calf veins are suboptimally visualized but there is no gross evidence of calf vein thrombosis on color Doppler images. No evidence of Parnell's cyst. LEFT: Common femoral vein is compressible and exhibits a normal phasic waveform. Within the proximal thigh, the visualized profunda femoris vein is patent and the examined greater saphenous vein and saphenofemoral junction are normal. The superficial femoral vein is patent and compressible in the proximal, mid and distal thigh. The popliteal vein is patent to the level of the trifurcation. There is a 3 x 1.2 x 2.2 cm Parnell's cyst. Subcutaneous tissue edema is present within the leg. Calf veins are suboptimally visualized but there is no gross evidence of calf vein thrombosis on color Doppler images. IMPRESSION: 1. No evidence of deep vein thrombosis in either lower extremity. 2. Subcutaneous tissue edema is present within both legs. 3. There is a 3 x 1.2 x 2.2 cm Parnell's cyst of the left popliteal fossa.
[2016-11-03 13:45] VITALS: BP 136/74
[2016-11-03 14:05] VITALS: BP 132/70
--- NOTE | 2016-11-03 14:11 | NUCLEAR MEDICINE REPORT ---
EXAMINATION: PULMONARY VENTILATION PERFUSION STUDY CLINICAL INFORMATION: Acute shortness of breath. COMPARISON: The previous lung scan dated 09/11/2006 is available for comparison. A chest radiograph dated 11/03/2016 is also available for comparison. TECHNIQUE: Serial gamma scintillation camera images were obtained over the posterior chest during the single breath, equilibrium rebreathing and washout of 17.4 mCi Xe 133 gas. The patient then received 4.4 mCi Tc-99m MAA intravenously and a 6-view perfusion study was performed. FINDINGS: Ventilation images: On the single breath image there is volume loss in the left, probably in part due to dilatation of the cardiac silhouette. Decreased ventilation is present across the inferior aspect of the left upper lobe. There is also focal ventilatory defect present laterally in the right upper lobe as well as some mild decrease in activity more inferiorly. There is some redistribution into the right upper lobe and equilibrium phase. During the washout phase is mild diffuse retention in the right lung. Perfusion images: No segmental perfusion defects are present. A nonsegmental perfusion defect is present prostate inferior aspect of the left upper lobe well matched to the ventilation abnormality in this region. The left lung volume appears diminished but is similar in appearance to the ventilation images with dilatation the cardiac silhouette present. No significant perfusion abnormalities are present in the right lung. The decreased volume present on the current study on both the ventilation and perfusion images was not present on the previous study dated 09/11/2006. Some decreased perfusion and ventilation in the left mid lung field is similar but less severe than the abnormality in this region in the inferior aspect of the left upper lobe on the current study. The chest radiograph dated 11/03/2016 shows cardiomegaly and interstitial pulmonary edema. There is an opacity in the mid left lung that corresponds to the focal ventilation and perfusion abnormality described above. IMPRESSION: Very low probability of pulmonary embolism. Ventilation and perfusion abnormality in the left upper lobe, or possibly in the superior segment of the left lower lobe is noted and is in the region of consolidation or atelectasis on the recent chest radiograph. The perfusion abnormality appears smaller than the ventilation abnormality. Additional ventilation abnormality laterally in the right upper lobe is present without corresponding perfusion abnormality, likely due to obstructive airway disease. Cardiomegaly.
--- NOTE | 2016-11-03 15:40 | PN- Att Addend ---
Attending MD Review Statement Attending Statement Attending MD Statement: examined this patient, discuss w/resident/PA/DOMINATRIX, agreed w/resident/PA/DOMINATRIX, reviewed EMR data (avail), discussed w/nursing Attending Assessment/Plan: Laboratory Tests 11/03/16 0940: pH 7.30 *L, pCO2 47 H, pO2 82, HCO3 24, ABG O2 Sat (Measured) 93.0 L, Carboxyhemoglobin 1.5, O2 Concentration % 8L, O2 Delivery Method NC, Phlebotomy Draw Site RIGHT RADIAL 11/03/16 0920: Troponin I < 0.01, Ydk-I-Blmhqhxvoao Pept 9010 H 11/03/16 0634: Anion Gap 4 L, Estimated GFR 52 L, BUN/Creatinine Ratio 17.1, CBC w Diff NO MAN DIFF REQ, RBC 2.78 L, MCV 82.4, MCH 26.5 L, RDW 15.0 H, MPV 8.1, Gran % 67.3, Lymphocytes % 18.2 L, Monocytes % 10.9 H, Eosinophils % 2.9, Basophils % 0.7, Absolute Granulocytes 5.4, Absolute Lymphocytes 1.5, Absolute Monocytes 0.9 H, Absolute Eosinophils 0.2, Absolute Basophils 0.1, PUBS MCHC 32.1 L 11/02/16 1552: Anion Gap 9, Estimated GFR 57 L, BUN/Creatinine Ratio 18.5, Glucose 109 H, Calcium 9.6, Total Bilirubin 0.4, AST 28, ALT 39, Alkaline Phosphatase 95, Total Protein 7.4, Albumin 3.3 L, Globulin 4.1, Albumin/Globulin Ratio 0.8 L, PT 12.6 H, INR 1.20 H, APTT 37, CBC w Diff NO MAN DIFF REQ, RBC 3.62 L, MCV 82.3 , MCH 26.2 L, RDW 15.1 H, MPV 7.8, Gran % 72.5, Lymphocytes % 16.3 L, Monocytes % 5.8, Eosinophils % 4.9, Basophils % 0.5, Absolute Granulocytes 8.5 H, Absolute Lymphocytes 1.9, Absolute Monocytes 0.7 H, Absolute Eosinophils 0.6 , Absolute Basophils 0.1, PUBS MCHC 31.9 L Vital Signs Date Time Temp Pulse Resp B/P Pulse O2 O2 Flow FiO2 Ox Delivery Rate 11/03 1405 98.5 62 22 132/70 97 Nasal 5.0L Cannula 11/03 1345 98.5 62 22 136/74 95 Nasal 6.0L Cannula 11/03 1100 132/72 11/03 1019 24 96 Nasal 8L Cannula 11/03 0909 92 172/88 11/03 0908 92 172/88 11/03 0850 Nasal 8L Cannula 11/03 0850 96 Nasal 8L Cannula 11/03 0845 98.5 92 28 172/88 85 Nasal 7.0L Cannula 11/03 0800 92 Nasal 6.0L Cannula 11/03 0711 99.0 64 18 130/60 97 Nasal 6.0L Cannula 11/03 0000 Nasal 6.0L Cannula 11/02 2301 80 168/78 11/02 2300 91 Nasal 6.0L Cannula 11/02 2256 98.3 80 24 168/78 88 Nasal 5.0L Cannula 11/02 2201 Nasal 2.0L Cannula 11/02 1900 96 Nasal 2.0L Cannula 11/02 1847 97.2 89 26 186/84 84 Room Air 11/02 1722 97.6 76 18 183/81 91 Room Air 11/02 1600 Room Air Room Air Patient seen and examined at bedside. Patient had an episode of shortness of breath this morning with increased oxygen requirement. Patient had an EKG done which did not show any ST T changes suggestive of ischemia. He also had one set of troponin which was negative. Patient also had the chest x-ray which showed pulmonary edema. Patient was given 40 mg of IV Lasix and her proBNP was done which was 9010. His shortness of breath improved with Lasix. His hemoglobin checked this morning was low so patient is being given 1 unit of packed RBC. He will be given another dose of 20 IV Lasix after the transfusion. We will repeat an echocardiogram. His VQ scan done this morning was low probability for pulmonary embolism. We'll follow-up on the Doppler of his lower extremity to rule out DVT . We will do guaiac test on him as he has drop in hemoglobin. If positive will get GI to see the patient. Discussed with patient the care plan. Most likely patient had flash pulmonary edema secondary to CHF. He likely has systolic CHF acute on chronic.
--- NOTE | 2016-11-03 16:23 | Cons- Infect Disease ---
General Information and HPI Consulting Request Date of Consult: 11/03/16 Requested By: RONY SANCHEZ,FROILAN Wiley Reason for Consult: Rule out osteomyelitis both feet Source of Information: patient, old records History of Present Illness: This is a 61-year-old man with diabetes, status post gastric bypass surgery, chronic renal insufficiency, nephrolithiasis, coronary artery disease, status post HI, COPD, pulmonary emboli and peripheral vascular disease, status post right TMA 2-1/2 years prior to admission, with a nonhealing wound since then, treated with 3 courses of IV antibiotics, most recently 6 months prior to admission, at which time he underwent resection of the cuneiforms and midfoot bones of the right foot and resection of the left fourth and fifth toes for osteomyelitis, with an angiogram at that time revealing less than 50% stenosis in the distal left SFA, and with his hospital course complicated by a GI bleed secondary to a large perianastomotic ulcer, discharged to a rehabilitation facility on Meropenem for a 4 week course, with wound VACs in place, debrided periodically by Podiatry and discharged home 2-3 weeks prior to admission, admitted on November 02 after he was sent to the emergency room by Podiatry because of the concern regarding the appearance of both feet with no history of fevers, chills, increased pain or other systemic symptoms. On admission he was afebrile. Laboratory data revealed a white blood cell count of 12,000, BUN/ creatinine 24 and 1.3, with normal liver enzymes, INR 1.20. Urinalysis 15-25 RBC/1-3 WBCs. Chest x-ray revealed left basilar airspace disease with a small left pleural effusion. He was taken to the OR for I&D to the deep fascia and debridement of necrotic bone of both feet. Postop he was followed off antibiotics. He has been afebrile since admission and reports no change in his usual "neuropathic" pain. Allergies/Medications Allergies: Coded Allergies: niacin (ITCHING 11/02/16) Home Med List: Albuterol Sulfate 0.63 MG/3 ML VIAL.NEB 1 Vial INH/CARON TID PRN BREATHING PROBLEMS (Reported) Amlodipine Besylate 10 MG TABLET 1 TAB PO DAILY HTN (Reported) Budesonide/Formoterol Fumarate (Symbicort 160-4.5 Mcg Inhaler) 160 MCG-4.5 MCG/ ACTUATION HFA.AER.AD 2 PUF INH BID COPD (Reported) Calcium Carbonate 200 MG TAB.CHEW 500 MG PO BID Gastric Ulcer Carisoprodol (SOMA) 350 MG TABLET 1 TAB PO Q6-PRN PRN PAIN (Reported) Ferrous Sulfate 325 MG TABLET.DR 1 TAB PO BID Anemia Fluoxetine HCl (Prozac) 40 MG CAPSULE 2 CAP PO DAILY MENTAL HEALTH (Reported) Insulin Aspart (Novolog) 100 UNIT/1 ML VIAL 1 UNIT SC TIDAC Blood Suger Blood suger Below 80 Hypoglycemia protocol 80-150 no change 151-200 1 units 201-250 2 units 251-300 3 units 301-350 4 units 351-400 6 units More than 400 10 units call M.D. Insulin Detemir (Levemir) 100 UNIT/1 ML VIAL 20 UNITS SC QPM DIABETES Ipratropium/Albuterol Sulfate (Combivent Respimat Inhal [place]) 20 MCG-100 MCG/ ACTUATION MIST.INHAL 2 PUF PO 4 TIMES/DAY COPD (Reported) Metoprolol Tartrate 50 MG TABLET 1 TAB PO BID BLOOD PRESSURE (Reported) Multivitamin (One Daily Multivitamin) 1 EACH TABLET 1 TAB PO DAILY General Well being Oxycodone HCl/Acetaminophen (Oxycodone-Acetaminophen 10-325) 1 EACH TABLET 1 TAB PO Q6H PRN PAIN Pantoprazole Sodium (Protonix) 40 MG TABLET. 1 TAB PO DAILY GERD Polyethylene Glycol 3350 (Miralax) 119 GM POWDER 17 GM PO DAILY PRN constipation Rosuvastatin Calcium (Crestor) 20 MG TABLET 1 TAB PO DAILY CHOLESTEROL ( Reported) Sucralfate (Carafate) 1 GM TABLET 1,000 MG PO 4 TIMES/DAY gastric Ulcer Past History Travel History Traveled to [place] past 21 day No Medical History Blood Transfusion Hx: Yes Neurological: NONE EENT: HEARING LOSS R EAR Cardiovascular: CAD, hypertension, hyperlipidemia, NSTEMI (status post HI), PVD, STEMI (LOWER EXTREMITY VASCULAR) Respiratory: COPD Gastrointestinal: NONE Hepatic: NONE Renal: nephrolithiasis Musculoskeletal: NONE Psychiatric: depression Endocrine: diabetes Blood Disorders: NONE, PE Cancer(s): NONE 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 Flores [facility], status post left fourth and fifth toe amputations Family History Relations & Conditions If Any: FATHER (3 CVAs). , Age 50-60; Cause: CVA (cerebral vascular accident). MOTHER, , Age 60+; Cause: Natural . Psychosocial History Where Do You Live? Home Who Do You Live With? spouse Primary Language: Frisian Smoking Status: Current Everyday Smoker ETOH Use: denies use Illicit Drug Use: denies illicit drug use Functional Ability ADLs Unknown: dressing, eating, toileting, bathing. Ambulation: unknown IADLs Unknown: shopping, housework, finances, food prep, telephone, transportation, medication admin. Review of Systems Review of Systems All Other Systems: Reviewed and Negative Exam & Diagnostic Data Last 24 Hrs of Vital Signs/I&O Vital Signs Date Time Temp Pulse Resp B/P Pulse O2 O2 Flow FiO2 Ox Delivery Rate 11/03 1405 98.5 62 22 132/70 97 Nasal 5.0L Cannula 11/03 1345 98.5 62 22 136/74 95 Nasal 6.0L Cannula 11/03 1100 132/72 11/03 1019 24 96 Nasal 8L Cannula 11/03 0909 92 172/88 11/03 0908 92 172/88 11/03 0850 Nasal 8L Cannula 11/03 0850 96 Nasal 8L Cannula 11/03 0845 98.5 92 28 172/88 85 Nasal 7.0L Cannula 11/03 0800 92 Nasal 6.0L Cannula 11/03 0711 99.0 64 18 130/60 97 Nasal 6.0L Cannula 11/03 0000 Nasal 6.0L Cannula 11/02 2301 80 168/78 11/02 2300 91 Nasal 6.0L Cannula 11/02 2256 98.3 80 24 168/78 88 Nasal 5.0L Cannula 11/02 2201 Nasal 2.0L Cannula 11/02 1900 96 Nasal 2.0L Cannula 11/02 1847 97.2 89 26 186/84 84 Room Air 11/02 1722 97.6 76 18 183/81 91 Room Air Intake & Output 11/03 1600 11/03 0800 11/03 0000 Intake Total 1210 Output Total 1850 750 250 Balance -640 -750 -250 Intake, IV 110 Intake, Oral 1100 Number 0 Bowel Movements Output, Urine 1850 750 250 Patient 270 lb 270 lb Weight Physical Exam Other Physical Findings: He is awake and alert, appearing moderately dyspneic. He is afebrile. Skin reveals no rash. HEENT exam is negative. Neck is supple with no adenopathy. Lungs decreased breath sounds at the left base. Heart regular rhythm with no murmur. Abdomen is soft, nontender with positive bowel sounds. Back no CVA tenderness. Extremities dressings intact both feet; bilateral lower extremity edema with mild erythema, nontender to palpation. Neuro is without focality. Last 24 Hours of Lab Results: Laboratory Tests 11/03 11/03 0940 0920 Blood Gas pH (7.35 - 7.45 PH) 7.30 *L pCO2 (35 - 45 TORR) 47 H pO2 (80 - 100 TORR) 82 HCO3 (21 - 28 MEQ/L) 24 ABG O2 Sat (Measured) (>96.0 %) 93.0 L Carboxyhemoglobin (1.5 - 5.0 %) 1.5 O2 Concentration % 8L O2 Delivery Method NC Chemistry Troponin I (<0.11 ng/ml) < 0.01 [id number] Pept (<125 pg/mL) 9010 H Miscellaneous Phlebotomy Draw Site RIGHT RADIAL 11/03 0634 Chemistry Sodium (137 - 145 mmol/L) 139 Potassium (3.5 - 5.1 mmol/L) 5.6 H Chloride (98 - 107 mmol/L) 108 H Carbon Dioxide (22 - 30 mmol/L) 26 Anion Gap (5 - 16) 4 L BUN (9 - 20 mg/dL) 24 H Creatinine (0.7 - 1.2 mg/dL) 1.4 H Estimated GFR (>60 ml/min) 52 L BUN/Creatinine Ratio (7 - 25 %) 17.1 Hematology CBC w Diff NO MAN DIFF REQ WBC (4.8 - 10.8 /CUMM) 8.1 RBC (4.70 - 6.10 /CUMM) 2.78 L Hgb (14.0 - 18.0 G/DL) 7.4 *L Hct (42 - 52 %) 22.9 L MCV (80.0 - 94.0 FL) 82.4 MCH (27.0 - 31.0 PG) 26.5 L RDW (11.5 - 14.5 %) 15.0 H Plt Count (130 - 400 /CUMM) 398 MPV (7.4 - 10.4 FL) 8.1 Gran % (42.2 - 75.2 %) 67.3 Lymphocytes % (20.5 - 51.1 %) 18.2 L Monocytes % (1.7 - 9.3 %) 10.9 H Eosinophils % (0 - 5 %) 2.9 Basophils % (0.0 - 2.0 %) 0.7 Absolute Granulocytes (1.4 - 6.5 /CUMM) 5.4 Absolute Lymphocytes (1.2 - 3.4 /CUMM) 1.5 Absolute Monocytes (0.10 - 0.60 /CUMM) 0.9 H Absolute Eosinophils (0.0 - 0.7 /CUMM) 0.2 Absolute Basophils (0.0 - 0.2 /CUMM) 0.1 PUBS MCHC (33.0 - 37.0 G/DL) 32.1 L Last 24 Hours of Enrique Results: Blood cultures 2 November 02 negative OR cultures November 02 labeled left foot bone pending with gram stain of the right foot specimen revealing rare gram-positive cocci and many gram-negative rods and gram stain of the left foot specimen revealing few white blood cells and few gram-negative rods Diagnostic Data Recent Imaging Findings: Chest x-ray November 03, personally reviewed, reveals cardiomegaly and interstitial pulmonary edema with a persistent nonspecific opacity within the retrocardiac region of the left lower lobe Bilateral lower extremity Dopplers November 03 are negative for DVT; a Parnell's cyst of the left popliteal fossa is noted V/Q scan November 03 very low probability of pulmonary embolism Assessment/Plan Assessment/Plan Impression: This is a 61-year-old man with diabetes, chronic renal insufficiency, coronary artery disease, COPD and peripheral vascular disease, status post right TMA and treatment with several courses of antibiotics for osteomyelitis since then, most recently 6 months prior to admission, with amputation of the left fourth and fifth toes at that time, admitted on November 02 with nonhealing ulcers of both feet, status post debridement of the bone and I&D to the deep fascia of both feet yesterday. His clinical picture is consistent with chronic osteomyelitis of both feet, and he will likely require another prolonged course of IV antibiotics. On his last admission there was discussion regarding BKA of the right foot and, possibly, the left foot, and this may again need to be considered. His angiogram on his last admission did not reveal significant vascular disease, but he may warrant vascular surgery reevaluation. His respiratory distress may be a combination of fluid overload and COPD. Suggestion: 1. Management of CHF and COPD per Medicine 2. Follow-up recent OR cultures 3. Vascular surgery reevaluation 4. Would begin Meropenem 1 g IV every 8 hours pending above Consult Acknowledgment - Thank you for your consult request.
[2016-11-03 21:37] VITALS: BP 170/88
[2016-11-04 06:01] VITALS: BP 160/90
--- NOTE | 2016-11-04 07:31 | PN- Housestaff ---
Subjective Follow-up For: Right foot osteomyelitis Complaints: no complaints Subjective: Patient was in mild respiratory distress since the first thing this morning. He also received additional 20 and 20 mg of IV Lasix overnight. Upon assessment, he was provided with IV methylprednisolone, nebulizations, pulmonary consult, and cardiology consult immediately. Silva catheter was placed to measure his input/output. Patient has been in mild distress overnight, his vitals stable except for his tachypnea. He does not have any complaints. No change in feet wound. Review of Systems Constitutional: Reports: no symptoms. Cardiovascular: Reports: no symptoms. Respiratory: Reports: see HPI, short of breath. Denies: hemoptysis, sputum production, wheezing. Gastrointestinal: Reports: no symptoms. Genitourinary: Reports: no symptoms. Skin: Reports: see HPI. Objective Last 24 Hrs of Vital Signs/I&O Vital Signs Date Time Temp Pulse Resp B/P Pulse O2 O2 Flow FiO2 Ox Delivery Rate 11/04 1348 98.3 69 20 116/84 94 Nasal 8L Cannula 11/04 1014 68 140/60 11/04 1013 68 140/60 11/04 0835 94 Nasal 7.0L Cannula 11/04 0800 93 Nasal 7.0L Cannula 11/04 0747 98.4 62 18 145/64 100 Nasal 6.0L Cannula 11/04 0601 82 28 160/90 93 Nasal 7.0L Cannula 11/04 0556 85 Nasal 7.0L Cannula 11/04 0000 94 Nasal 8L Cannula 11/03 2137 80 24 170/88 94 Nasal 8L Cannula 11/03 2133 80 170/88 Intake & Output 11/04 1600 11/04 0800 11/04 0000 Intake Total 800 830 Output Total 1400 1450 1000 Balance -600 -1450 -170 Intake, Blood 350 Product Intake, Oral 800 480 Number 1 Bowel Movements Output, Urine 1400 1450 1000 Physical Exam General Appearance: Alert, Oriented X3, Cooperative, Moderate Distress Other Physical Findings: General: alert, oriented patient, not in distress Head: Normocephalic, atraumatic Eyes: Pupils normal in size, regular, reacting to light and accommodation, EOM normal Ears: B/l normal on inspection Nose: Normal on inspection Throat/mouth: Moist mucosa Neck: Supple, full range of motion, no thyromegaly Heart: Regular rate, regular rhythm Lung: decreased sound b/l initially today, improved later on repeat exam, b/l basal crepts heard, wheeze heard occassionally Abd: Soft, non-tender, no distention appreciated Back: Normal range of motion Extremities: b/l pedal edema present, both feet were well dressed, no bleeding Neurologic: Alert, oriented x3, Cranial exam grossly intact, Speech is clear and coherent Psychiatric: Calm, cooperative, coherant Current Medications: Current Medications Sig/Taylor Start time Last Medication Dose Route Stop Time Status Admin Acetaminophen 325 MG Q6P PRN 11/02 1715 AC PO Albuterol Sulfate 3 ML BID 11/03 1000 AC 11/04 INH 0835 Albuterol Sulfate 3 ML Q6P PRN 11/02 1930 AC INH Amlodipine Besylate 10 MG DAILY 11/03 1000 AC 11/04 PO 1014 Atorvastatin Calcium 20 MG 1700 11/03 1700 AC 11/04 PO 1720 Budesonide/ 2 PUF BID 11/02 2200 AC 11/04 Formoterol Fumarate INH 1010 Calcium Carbonate 500 MG BID 11/02 2200 AC 11/04 PO 1016 Carisoprodol 350 MG Q6-PRN PRN 11/02 1930 AC 11/04 PO 1028 Dextrose/Sodium 1,000 ML Q13H 11/04 0800 CAN Chloride IV Ferrous Sulfate 325 MG BID 11/02 2200 AC 11/04 PO 1012 Fluoxetine HCl 40 MG DAILY 11/03 1000 AC 11/04 PO 1015 Furosemide 40 MG BID 11/04 2200 DC IV PUSH Furosemide 40 MG 0800,1700 11/04 1700 AC IV PUSH Furosemide 20 MG DAILY 11/04 1000 DC 11/04 IV 0614 Furosemide 20 MG .[IV] 11/04 0715 DC 11/04 IV PUSH 11/04 0716 0718 Furosemide 20 MG ONCE ONE 11/03 2114 DC 11/03 IV 11/03 2116 2119 Heparin Sodium 5,000 UNIT Q8 11/03 0837 AC 11/04 (Porcine) SC 1307 Insulin Aspart 0 TIDAC 11/03 0800 AC 11/04 SC 1720 Insulin Detemir 5 UNITS AT BEDTIME 11/03 2200 AC SC Insulin Detemir 10 UNITS BID 11/02 2200 DC 11/03 SC 1101 Insulin Human Regular 3 UNITS .ST-MED ONE 11/04 0025 DC IV 11/04 0026 Insulin Human Regular 0 Q6 11/03 2359 DC 11/04 SC 0034 Meropenem 1 GM Q8H 11/04 0200 AC 11/04 IV 1036 Meropenem 1 GM IQ8 11/03 1800 DC 11/03 IV 1828 Methylprednisolone 40 MG Q8 11/04 0714 DC 11/04 IV 0718 Metoprolol Tartrate 50 MG BID 11/02 2200 AC 11/04 PO 1013 Morphine Sulfate 2 MG Q4P PRN 11/02 1715 AC 11/04 IV 0647 Omeprazole 40 MG DAILY AC 11/03 0700 AC PO Oxycodone HCl 10 MG Q6P PRN 11/04 1130 AC 11/04 PO 1205 Oxycodone HCl 5 MG Q6P PRN 11/02 1715 DC 11/04 PO 0624 Patient Medication 1 ED .STK-MED ONE 11/04 1337 TN Teaching ED 11/04 1338 Polyethylene Glycol 17 GM DAILY PRN 11/02 1930 AC PO Prednisone 40 MG DAILY 11/05 1000 AC PO 11/08 1001 Sodium Chloride 2 SPRAY Q4P PRN 11/03 2230 AC NIYA Sucralfate 1,000 MG 4 TIMES/DAY 11/02 2200 AC 11/04 PO 1307 Tiotropium [place] 1 PUF DAILY 11/04 1317 AC 11/04 INH 1431 Last 24 Hrs of Lab/Enrique Results Last 24 Hrs of Labs/Mics: Laboratory Tests 11/04/16 1725: pH 7.27 *L, pCO2 56 H, pO2 71 L, HCO3 25, ABG O2 Sat (Measured) 93.0 L, P-50 (Temp Corrected) Y, Carboxyhemoglobin 0.2 L, O2 Concentration % 7L, Temperature 97.1, O2 Delivery Method N/C, Phlebotomy Draw Site RIGHT RADIAL 11/04/16 1707: Troponin I Pending 11/04/16 0730: Anion Gap 7, Estimated GFR 36 L, BUN/Creatinine Ratio 17.4, CBC w Diff NO MAN DIFF REQ, RBC 3.46 L, MCV 83.7, MCH 26.7 L, RDW 15.3 H, MPV 8.4, Gran % 75.3 H, Lymphocytes % 12.1 L, Monocytes % 9.3, Eosinophils % 2.7, Basophils % 0.6, Absolute Granulocytes 9.8 H, Absolute Lymphocytes 1.6, Absolute Monocytes 1.2 H, Absolute Eosinophils 0.4, Absolute Basophils 0.1, PUBS MCHC 31.9 L Microbiology 11/04 1310 LOWER RESP: Respiratory Culture - RES 11/04 1310 LOWER RESP: Gram Stain - RES Assessment/Plan Assessment: 61 year old male with past medical history of diabetes mellitus, hypertension, CKD, PVD status post stenting in 2009, CAD status post cardiac catheterization without stent placement in 2014, COPD, obstructive sleep apnea not using O2 at home, pulmonary embolism not on anticoagulants >5 yrs ago, nonhealing ulceration of left foot with osteomyelitis, status post right metatarsal amputation, was sent to the emergency department by wound care clinic earlier today to get assessed for osteomyelitis and possible bone biopsy on 11/02/16. Patient's vitals were stable when he came to the emergency department, labs were significant for leukocytosis at 11.7, anemia with 9.5 hemoglobin and 29.8 hematocrit, platelets 546, potassium slightly high at 5.5, sodium slightly higher range at 142, and creatinine at 1.3. 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 Chest x-ray is suggestive for left-sided pneumonia with small left sided pleural effusion, and suggests follow-up. Patient has not received any antibiotic in the emergency department. Currently, patient is being managed in the general medical floor for the following issues: #Suspected bilateral feet osteomyelitis Patient underwent debridement yesterday and a sample was sent to the lab for analysis. Awaiting results. Hasn't been started on abx so far. Infectious disease service consult appreciated. Will consider vascular surgery reevaluation tomorrow. IV meropenem 1g q8hr started per ID. -Await culture reports and narrow antibiotics accordingly -Will await further Podiatry service recommendations #Acute hypoxic hypercarbic respiratory failure, secondary to congestive heart failure -Patient still had bilateral chest congestion today, was in moderate respiratory distress, Lasix was given twice overnight, cardio and pulmonary consultation placed. -Patient is also on IV meropenem since yesterday to cover his multiple organisms that were growing according to his microbiology report. While the CT scan shows likelihood of pneumonia, meropenem would cover most of the bugs emperically. -Patient does not have any IV fluids running -Awaiting echo results. -Continue TRC/nebs -Continue Symbicort, started Spiriva according to pulmonary consult -ABG results so 7.27, 56, 71, 25, 93, that is, respiratory acidosis with hypoxia and hypercarbia, requiring a BiPAP. Respiratory therapist called by me to place him on BiPAP after getting consent. -Awaiting troponin and EKG -Pulmonary consult appreciated -Cardiology consult awaited #Diabetes mellitus -Continue regular Accu-Cheks, Insulin NovoLog Sliding scale, and diabetic diet #Continue with the rest of the medications for hypertension, hyperlipidemia, chronic kidney disease, anemia, severe peripheral vascular disease -Continue total respiratory care/nebs -We will continue to monitor for any electrolyte disturbance as he has slight hyperkalemia today #Nothing by mouth for now awaiting surgery #Subcutaneous heparin and Alps for DVT prophylaxis, as he has CKD #Full CODE STATUS Problem List: 1. Osteomyelitis 2. CHF (congestive heart failure) 3. Pneumonia Pain Ratin Pain Location: feet Pain Goal: Pain 4 or less Pain Plan: prn, oxycodone increased from 5 to 10 mg for moderate pain Tomorrow's Labs & Rationales: CBC, BEP, INR, Mg. sepsis patient not doing better.
[2016-11-04 07:47] VITALS: BP 145/64
[2016-11-04 08:43] LABS: ABSOLUTE BASOPHIL COUNT 0.1 /CUMM (0.0-0.2); ABSOLUTE EOSINOPHIL COUNT 0.4 /CUMM (0.0-0.7); ABSOLUTE GRANULOCYTE CT 9.8 /CUMM (1.4-6.5); ABSOLUTE LYMPH COUNT 1.6 /CUMM (1.2-3.4); ABSOLUTE MONOCYTE COUNT 1.2 /CUMM (0.10-0.60); BASOPHIL % 0.6 % (0.0-2.0); EOSINOPHIL % 2.7 % (0-5); GRANULOCYTE % 75.3 % (42.2-75.2); MEAN CORPUSCULAR HGB 26.7 PG (27.0-31.0); MEAN CORPUSCULAR HGB CONC 31.9 G/DL (33.0-37.0); MEAN CORPUSCULAR VOLUME 83.7 FL (80.0-94.0); MEAN PLATELET VOLUME 8.4 FL (7.4-10.4); PLATELET COUNT 465 /CUMM (130-400); RBC DISTRIBUTION WIDTH 15.3 % (11.5-14.5); RED BLOOD CELL CT 3.46 /CUMM (4.70-6.10)
--- NOTE | 2016-11-04 12:15 | Cons- Pulmonary ---
General Information and HPI Consulting Request Date of Consult: 11/04/16 Requested By: Dr. Hickey Reason for Consult: Hypoxemia and dyspnea in the setting of COPD Source of Information: patient Exam Limitations: no limitations History of Present Illness: Mr. Montes is a 61 year old man. Previously seen in office 05/2014. Followed for hx COPD, Sleep apnea, pulmonary emboli remotely currently not on a/ c, tobacco dependence. Admitted for osteomyelitis. S/p podiatric surgery. Developed post operative hypoxemia. V/Q scan with low probability for VTE. Dopplers negative for VTE. CXR with cardiomegaly and interstitial pulmonary edema, retrocardiac opacity on left. He is currently on Symbicort. Has used CPAP previously for JOSÉ MIGUEL, has not followed up in 3 years. o2 saturation 94% on 7LNC. Hemoglobin was 7.4 yesterday. Creatinine worsened to 1.9. Dyspnea overall however improved subjectively, no fevers, no chills. Legs are edematous, dressing intact. Allergies/Medications Allergies: Coded Allergies: niacin (ITCHING 11/02/16) Home Med List: Albuterol Sulfate 0.63 MG/3 ML VIAL.NEB 1 Vial INH/CARON TID PRN BREATHING PROBLEMS (Reported) Amlodipine Besylate 10 MG TABLET 1 TAB PO DAILY HTN (Reported) Budesonide/Formoterol Fumarate (Symbicort 160-4.5 Mcg Inhaler) 160 MCG-4.5 MCG/ ACTUATION HFA.AER.AD 2 PUF INH BID COPD (Reported) Calcium Carbonate 200 MG TAB.CHEW 500 MG PO BID Gastric Ulcer Carisoprodol (SOMA) 350 MG TABLET 1 TAB PO Q6-PRN PRN PAIN (Reported) Ferrous Sulfate 325 MG TABLET.DR 1 TAB PO BID Anemia Fluoxetine HCl (Prozac) 40 MG CAPSULE 2 CAP PO DAILY MENTAL HEALTH (Reported) Insulin Aspart (Novolog) 100 UNIT/1 ML VIAL 1 UNIT SC TIDAC Blood Suger Blood suger Below 80 Hypoglycemia protocol 80-150 no change 151-200 1 units 201-250 2 units 251-300 3 units 301-350 4 units 351-400 6 units More than 400 10 units call M.D. Insulin Detemir (Levemir) 100 UNIT/1 ML VIAL 20 UNITS SC QPM DIABETES Ipratropium/Albuterol Sulfate (Combivent Respimat Inhal [place]) 20 MCG-100 MCG/ ACTUATION MIST.INHAL 2 PUF PO 4 TIMES/DAY COPD (Reported) Metoprolol Tartrate 50 MG TABLET 1 TAB PO BID BLOOD PRESSURE (Reported) Multivitamin (One Daily Multivitamin) 1 EACH TABLET 1 TAB PO DAILY General Well being Oxycodone HCl/Acetaminophen (Oxycodone-Acetaminophen 10-325) 1 EACH TABLET 1 TAB PO Q6H PRN PAIN Pantoprazole Sodium (Protonix) 40 MG TABLET.DR 1 TAB PO DAILY GERD Polyethylene Glycol 3350 (Miralax) 119 GM POWDER 17 GM PO DAILY PRN constipation Rosuvastatin Calcium (Crestor) 20 MG TABLET 1 TAB PO DAILY CHOLESTEROL ( Reported) Sucralfate (Carafate) 1 GM TABLET 1,000 MG PO 4 TIMES/DAY gastric Ulcer Current Medications: Current Medications Sig/Taylor Start time Last Medication Dose Route Stop Time Status Admin Acetaminophen 325 MG Q6P PRN 11/02 1715 AC PO Albuterol Sulfate 3 ML BID 11/03 1000 AC 11/04 INH 0835 Albuterol Sulfate 3 ML Q6P PRN 11/02 1930 AC INH Amlodipine Besylate 10 MG DAILY 11/03 1000 AC 11/04 PO 1014 Atorvastatin Calcium 20 MG 1700 11/03 1700 DC PO Atorvastatin Calcium 20 MG 1700 11/03 1700 AC 11/03 PO 1722 Budesonide/ 2 PUF BID 11/02 2200 AC 11/04 Formoterol Fumarate INH 1010 Calcium Carbonate 500 MG BID 11/02 2200 AC 11/04 PO 1016 Carisoprodol 350 MG Q6-PRN PRN 11/02 1930 AC 11/04 PO 1028 Dextrose/Sodium 1,000 ML Q13H 11/04 0800 CAN Chloride IV Ferrous Sulfate 325 MG BID 11/02 2200 AC 11/04 PO 1012 Fluoxetine HCl 40 MG DAILY 11/03 1000 AC 11/04 PO 1015 Furosemide 40 MG BID 11/04 2200 DC IV PUSH Furosemide 40 MG 0800,1700 11/04 1700 AC IV PUSH Furosemide 20 MG DAILY 11/04 1000 DC 11/04 IV 0614 Furosemide 20 MG .[IV] 11/04 0715 DC 11/04 IV PUSH 11/04 0716 0718 Furosemide 20 MG ONCE ONE 11/03 2114 DC 11/03 IV 11/03 Furosemide 20 MG ONCE ONE 11/03 1700 DC 11/03 IV 11/03 1701 1722 Heparin Sodium 5,000 UNIT Q8 11/03 0837 AC 11/03 (Porcine) SC 2131 Insulin Aspart 0 TIDAC 11/03 0800 AC 11/03 SC 1722 Insulin Detemir 5 UNITS AT BEDTIME 11/03 2200 AC SC Insulin Detemir 10 UNITS BID 11/02 2200 DC 11/03 SC 1101 Insulin Human Regular 3 UNITS .STK-MED ONE 11/04 0025 DC IV 11/04 0026 Insulin Human Regular 0 Q6 11/03 2359 DC 11/04 SC 0034 Meropenem 1 GM Q8H 11/04 0200 AC 11/04 IV 1036 Meropenem 1 GM IQ8 11/03 1800 DC 11/03 IV 1828 Methylprednisolone 40 MG Q8 11/04 0714 DC 11/04 IV 0718 Metoprolol Tartrate 50 MG BID 11/02 2200 AC 11/04 PO 1013 Morphine Sulfate 2 MG Q4P PRN 11/02 1715 AC 11/04 IV 0647 Omeprazole 40 MG DAILY AC 11/03 0700 AC PO Oxycodone HCl 10 MG Q6P PRN 11/04 1130 AC PO Oxycodone HCl 5 MG Q6P PRN 11/02 1715 DC 11/04 PO 0624 Polyethylene Glycol 17 GM DAILY PRN 11/02 1930 AC PO Prednisone 40 MG DAILY 11/05 1000 AC PO 11/08 1001 Sodium Chloride 2 SPRAY Q4P PRN 11/03 2230 AC NIYA Sucralfate 1,000 MG 4 TIMES/DAY 11/02 2200 AC 11/04 PO 1011 Review of Systems Comments 18 point Review of Systems performed. Positive and negative pertinent findings are deliniated in the HPI. Otherwise the ROS is negative. 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 Mark [facility] status post left fourth and fifth toe amputations Family History Relations & Conditions If Any: FATHER (3 CVAs). , Age 50-60; Cause: CVA (cerebral vascular accident). MOTHER, , Age 60+; Cause: Natural . Psychosocial History Where Do You Live? Home Who Do You Live With? spouse Primary Language: Sami Smoking Status: Current Everyday Smoker ETOH Use: denies use Illicit Drug Use: denies illicit drug use Functional Ability ADLs Unknown: dressing, eating, toileting, bathing. Ambulation: unknown IADLs Unknown: shopping, housework, finances, food prep, telephone, transportation, medication admin. Exam & Diagnostic Data Last 24 Hrs of Vital Signs/I&O Vital Signs Date Time Temp Pulse Resp B/P Pulse O2 O2 Flow FiO2 Ox Delivery Rate 11/04 1014 68 140/60 11/04 1013 68 140/60 11/04 0835 94 Nasal 7.0L Cannula 11/04 0800 93 Nasal 7.0L Cannula 11/04 0747 98.4 62 18 145/64 100 Nasal 6.0L Cannula 11/04 0601 82 28 160/90 93 Nasal 7.0L Cannula 11/04 0556 85 Nasal 7.0L Cannula 11/04 0000 94 Nasal 8L Cannula 11/03 2137 80 24 170/88 94 Nasal 8L Cannula 11/03 2133 80 170/88 11/03 1745 95 Nasal 6.0L Cannula 11/03 1600 95 Nasal 6.0L Cannula 11/03 1405 98.5 62 22 132/70 97 Nasal 5.0L Cannula 11/03 1345 98.5 62 22 136/74 95 Nasal 6.0L Cannula Intake & Output 11/04 1600 11/04 0800 11/04 0000 Intake Total 830 Output Total 250 1450 1000 Balance -250 -1450 -170 Intake, Blood 350 Product Intake, Oral 480 Number 1 Bowel Movements Output, Urine 250 1450 1000 Physical Exam Other Physical Findings: gen awake and alert heent ncat cvs s1, s2 lungs diminished bibasilar abd soft bs+ ext edematous, dressing intact Last 48 Hrs of Labs/Enrique: Laboratory Tests 11/04/16 0730: Anion Gap 7, Estimated GFR 36 L, BUN/Creatinine Ratio 17.4, CBC w Diff NO MAN DIFF REQ, RBC 3.46 L, MCV 83.7, MCH 26.7 L, RDW 15.3 H, MPV 8.4, Gran % 75.3 H, Lymphocytes % 12.1 L, Monocytes % 9.3, Eosinophils % 2.7, Basophils % 0.6, Absolute Granulocytes 9.8 H, Absolute Lymphocytes 1.6, Absolute Monocytes 1.2 H, Absolute Eosinophils 0.4, Absolute Basophils 0.1, PUBS MCHC 31.9 L 11/03/16 0940: pH 7.30 *L, pCO2 47 H, pO2 82, HCO3 24, ABG O2 Sat (Measured) 93.0 L, Carboxyhemoglobin 1.5, O2 Concentration % 8L, O2 Delivery Method NC, Phlebotomy Draw Site RIGHT RADIAL 11/03/16 0920: Troponin I < 0.01, [id number] Pept 9010 H 11/03/16 0634: Anion Gap 4 L, Estimated GFR 52 L, BUN/Creatinine Ratio 17.1, CBC w Diff NO MAN DIFF REQ, RBC 2.78 L, MCV 82.4, MCH 26.5 L, RDW 15.0 H, MPV 8.1, Gran % 67.3, Lymphocytes % 18.2 L, Monocytes % 10.9 H, Eosinophils % 2.9, Basophils % 0.7, Absolute Granulocytes 5.4, Absolute Lymphocytes 1.5, Absolute Monocytes 0.9 H, Absolute Eosinophils 0.2, Absolute Basophils 0.1, PUBS MCHC 32.1 L 11/02/16 1552: Anion Gap 9, Estimated GFR 57 L, BUN/Creatinine Ratio 18.5, Glucose 109 H, Calcium 9.6, Total Bilirubin 0.4, AST 28, ALT 39, Alkaline Phosphatase 95, Total Protein 7.4, Albumin 3.3 L, Globulin 4.1, Albumin/Globulin Ratio 0.8 L, PT 12.6 H, INR 1.20 H, APTT 37, CBC w Diff NO MAN DIFF REQ, RBC 3.62 L, MCV 82.3 , MCH 26.2 L, RDW 15.1 H, MPV 7.8, Gran % 72.5, Lymphocytes % 16.3 L, Monocytes % 5.8, Eosinophils % 4.9, Basophils % 0.5, Absolute Granulocytes 8.5 H, Absolute Lymphocytes 1.9, Absolute Monocytes 0.7 H, Absolute Eosinophils 0.6 , Absolute Basophils 0.1, PUBS MCHC 31.9 L Assessment/Plan Impression/Plan: Impression 61 year old man * Hypoxemic respiratory failure - most likely secondary to volume overload, however his anemia and renal failure likely are contributing as well. Hypoxemia also secondary to post operative causes * COPD history * History of pulmonary embolism Plan - prednisone 40mg x 4 days - CT chest without contrast - ECHO - cardiology evaluation recommended - ins/outs - trc/nebs - will need outpt sleep re-evaluation - continue symbicort - pt supposed to be on spiriva - if no contraindication would add DVT prophylaxis at all times Consult Acknowledgment - Thank you for your consult request.
--- NOTE | 2016-11-04 13:04 | CT SCAN REPORT ---
EXAMINATION: CT CHEST WITHOUT CONTRAST CLINICAL INFORMATION: Acute dyspnea since yesterday, partially responding to Lasix. COMPARISON: Radiograph 11/03/2016. TECHNIQUE: Multidetector volumetric CT imaging of the chest was done. Axial MIP volume rendering provided. Sagittal and coronal reformatted images were obtained. DLP: 786 mGy-cm FINDINGS: MAST MAKER: Dense retrocardiac opacity noted. LUNGS: The central airways are patent. Moderate bilateral pleural effusions are present with associated airspace opacity. There is likely a degree of compressive atelectasis of both lower lobes. Additional consolidation is seen within the lingula and dependently in the right upper lobe. Mild septal thickening. Groundglass opacities are seen within the right middle lobe. There is peribronchial cuffing. No pneumothorax. Motion limits evaluation for small nodules. MEDIASTINUM: The heart is enlarged. Coronary artery calcifications are present. There are enlarged mediastinal lymph nodes. For instance, there is a pretracheal node which measures 2.3 x 2.4 cm, series 2 image 24. AXILLA: No lymphadenopathy. UPPER ABDOMEN: Post surgical changes in the region of the stomach suggestive of gastric bypass. OSSEOUS STRUCTURES: No acute or suspicious osseous abnormality. DISH. Multilevel degenerative changes of the spine. IMPRESSION: Moderate bilateral pleural effusions with bilateral lower lobe compressive atelectasis. Additional consolidation seen in the lingula and dependent right upper lobe. Groundglass opacities in the right middle lobe. While some of this could represent atelectasis, an infectious process is also suspected, superimposed on pulmonary edema. Enlarged mediastinal lymph nodes may be reactive, although follow-up is recommended after clinical improvement to assess for change.
--- NOTE | 2016-11-04 13:44 | PN- Infect Dx ---
Subjective Subjective: Afebrile. He notes mild shortness of breath and pain in both feet, similar to his usual "neuropathic" pain Objective Last 24 Hrs of Vital Signs/I&O Vital Signs Date Time Temp Pulse Resp B/P Pulse O2 O2 Flow FiO2 Ox Delivery Rate 11/04 1014 68 140/60 11/04 1013 68 140/60 11/04 0835 94 Nasal 7.0L Cannula 11/04 0800 93 Nasal 7.0L Cannula 11/04 0747 98.4 62 18 145/64 100 Nasal 6.0L Cannula 11/04 0601 82 28 160/90 93 Nasal 7.0L Cannula 11/04 0556 85 Nasal 7.0L Cannula 11/04 0000 94 Nasal 8L Cannula 11/03 2137 80 24 170/88 94 Nasal 8L Cannula 11/03 2133 80 170/88 11/03 1745 95 Nasal 6.0L Cannula 11/03 1600 95 Nasal 6.0L Cannula 11/03 1405 98.5 62 22 132/70 97 Nasal 5.0L Cannula 11/03 1345 98.5 62 22 136/74 95 Nasal 6.0L Cannula Intake & Output 11/04 1600 11/04 0800 11/04 0000 Intake Total 830 Output Total 250 1450 1000 Balance -250 -1450 -170 Intake, Blood 350 Product Intake, Oral 480 Number 1 Bowel Movements Output, Urine 250 1450 1000 Physical Exam Other Physical Findings: He is lethargic but responsive in mild respiratory distress Lungs bilateral rhonchi with crackles at the bases Heart regular rhythm with a 2/6 systolic ejection murmur Extremities dressings intact over both feet Silva catheter now in place Results Last 24 Hours of Lab Results: Laboratory Tests 11/04 729 Chemistry Sodium (137 - 145 mmol/L) 139 Potassium (3.5 - 5.1 mmol/L) 5.3 H Chloride (98 - 107 mmol/L) 107 Carbon Dioxide (22 - 30 mmol/L) 25 Anion Gap (5 - 16) 7 BUN (9 - 20 mg/dL) 33 H Creatinine (0.7 - 1.2 mg/dL) 1.9 H Estimated GFR (>60 ml/min) 36 L BUN/Creatinine Ratio (7 - 25 %) 17.4 Hematology CBC w Diff NO MAN DIFF REQ WBC (4.8 - 10.8 /CUMM) 13.0 H RBC (4.70 - 6.10 /CUMM) 3.46 L Hgb (14.0 - 18.0 G/DL) 9.2 L Hct (42 - 52 %) 29.0 L MCV (80.0 - 94.0 FL) 83.7 MCH (27.0 - 31.0 PG) 26.7 L RDW (11.5 - 14.5 %) 15.3 H Plt Count (130 - 400 /CUMM) 465 H MPV (7.4 - 10.4 FL) 8.4 Gran % (42.2 - 75.2 %) 75.3 H Lymphocytes % (20.5 - 51.1 %) 12.1 L Monocytes % (1.7 - 9.3 %) 9.3 Eosinophils % (0 - 5 %) 2.7 Basophils % (0.0 - 2.0 %) 0.6 Absolute Granulocytes (1.4 - 6.5 /CUMM) 9.8 H Absolute Lymphocytes (1.2 - 3.4 /CUMM) 1.6 Absolute Monocytes (0.10 - 0.60 /CUMM) 1.2 H Absolute Eosinophils (0.0 - 0.7 /CUMM) 0.4 Absolute Basophils (0.0 - 0.2 /CUMM) 0.1 PUBS MCHC (33.0 - 37.0 G/DL) 31.9 L Last 24 Hours of Enrique Results: Blood cultures 2 November 02 negative OR culture November 02 labeled right foot bone positive for gram-positive cocci and gram-negative rods OR culture November 02 labeled left foot bone positive for gram-positive cocci, gram-negative rods and diphtheroids Recent Imaging Studies: CT the chest November 04 reveals moderate bilateral pleural effusions with bilateral lower lobe compressive atelectasis, additional consolidation in the lingula and dependent right upper lobe and ground glass opacities in the right middle lobe Assessment/Plan Impression: Respiratory failure, most likely secondary to fluid overload in the setting of anemia, with a possible component of COPD, for which he was begun on prednisone today, per Pulmonary. Am not convinced he has pneumonia, but Meropenem, begun yesterday for the presumption of bilateral polymicrobial osteomyelitis should cover most of the likely pulmonary pathogens. He remains afebrile but white blood cell count is elevated today, status post debridement of the bone and I&D to the deep fascia of both feet 2 days ago. Given the failure of his wounds to heal feel that further amputation, for example BKA, at least of the right foot, will need to be considered. His creatinine is elevated, possibly secondary to diuresis, status post a dose of Lasix yesterday, versus sepsis versus medication. A Silva catheter was inserted this morning, with no evidence of urinary retention reported. Suggestion: 1. Cardiology evaluation for management of CHF 2. Follow-up final OR cultures 3. Vascular surgery reevaluation 4. Further debridement, with consideration of right BKA, per Podiatry 5. Continue Meropenem pending above
[2016-11-04 13:48] VITALS: BP 116/84
--- NOTE | 2016-11-04 14:05 | ECHOCARDIOGRAM REPORT ---
JAH CABA Age: 61 : 1955 Gender: M Exam Date: 11/03/2016 13:32 Exam Location: [address] [place] [address] Ht (in): 72 Wt (lb): 270 BSA: 2.54 BP: 132 / 72 Ordering Physician: EDU DOYLE, Referring Physician: Eduar Anders MD Technologist: Caryn Hairston [facility] Room Number: 215-02 Indications: SHORTNESS OF BREATH Rhythm: Sinus Technical Quality: Technically difficult study FINDINGS Left Ventricle Mild left ventricular dilatation. Normal left ventricular ejection fraction visually estimated at >55 %. No obvious regional wall motion abnormalities. Normal left ventricular wall thickness. Right Ventricle Normal right ventricular size and function. Right Atrium Normal right atrial size. Left Atrium Normal left atrial size. Mitral Valve Mitral valve thickened. Trace mitral regurgitation. Moderate mitral annular calcification. Mild mitral regurgitation. Aortic Valve Diffuse thickening (sclerosis) of the aortic valve cusps without reduced excursion. Moderate aortic stenosis. Trace to mild aortic regurgitation. Tricuspid Valve Tricuspid valve not well visualized, grossly normal. Trace tricuspid regurgitation. Pulmonic Valve Pulmonic valve not well visualized, grossly normal. Trace pulmonic regurgitation. Pericardium No pericardial effusion. Great Vessels Normal size aortic root. CONCLUSIONS Mild left ventricular dilatation. Normal left ventricular ejection fraction visually estimated at >55 Mild mitral regurgitation. Moderate aortic stenosis. Trace to mild aortic regurgitation. Trace tricuspid regurgitation. Trace pulmonic regurgitation. Eduar Anders M.D. (Electronically Signed) Final Date: 04 November 2016 14:04 MEASUREMENTS (Male / Female) Normal Values 2D ECHO LV Diastolic Diameter PLAX 5.9 cm 4.2 - 5.9 / 3.9 - 5.3 cm LV Systolic Diameter PLAX 4.2 cm 2.1 - 4.0 cm LV Fractional Shortening PLAX 28.8 % 25 - 46 % LV Ejection Fraction 2D Teich 54.6 % IVS Diastolic Thickness 1.1 cm LVPW Diastolic Thickness 1.2 cm LV Relative Wall Thickness 0.4 RV Internal Dim ED PLAX 4.6 cm 1.9 - 3.8 cm LVOT Diameter 2.0 cm Aortic Root Diameter 2.8 cm LA Systolic Diameter LX 3.5 cm 3.0 - 4.0 / 2.7 - 3.8 cm LA Volume 67.0 cm 18 - 58 / 22 - 52 cm DOPPLER AV Peak Velocity 313.0 cm/s AV Peak Gradient 39.2 mmHg AV Mean Velocity 208.0 cm/s AV Mean Gradient 21.0 mmHg AV Velocity Time Integral 73.7 cm LVOT Peak Velocity 122.0 cm/s LVOT Peak Gradient 6.0 mmHg LVOT Mean Velocity 87.1 cm/s LVOT Mean Gradient 3.0 mmHg LVOT Velocity Time Integral 30.3 cm LVOT Stroke Volume 95.2 cm AV Area Cont Eq vti 1.3 cm AV Area Cont Eq pk 1.2 cm MV Peak Velocity 198.0 cm/s MV Peak Gradient 15.7 mmHg MV Mean Velocity 90.9 cm/s MV Mean Gradient 4.3 mmHg Mitral E Point Velocity 167.0 cm/s Mitral A Point Velocity 95.6 cm/s Mitral E to A Ratio 1.7 MV PHT Velocity 203.3 cm/s MV Deceleration Alpine 670.0 cm/s MV Pressure Half Time 91.0 ms MV Area PHT 2.4 cm MV Deceleration Time 257.0 ms TR Peak Velocity 339.0 cm/s TR Peak Gradient 46.0 mmHg Right Atrial Pressure 10.0 mmHg Pulmonary Artery Systolic Pressu 56.0 mmHg Right Ventricular Systolic Press 56.0 mmHg PV Peak Velocity 105.0 cm/s PV Peak Gradient 4.4 mmHg PV Mean Velocity 66.9 cm/s PV Mean Gradient 2.0 mmHg PV Velocity Time Integral 21.5 cm LV E' Lateral Velocity 5.9 cm/s Mitral E to LV E' Lateral Ratio 28.1 LV E' Septal Velocity 5.6 cm/s Mitral E to LV E' Septal Ratio 30.0
--- NOTE | 2016-11-04 16:39 | PN- Att Addend ---
Attending MD Review Statement Attending Statement Attending MD Statement: examined this patient, discuss w/resident/PA/RAILROAD CARMAN, agreed w/resident/PA/RAILROAD CARMAN, reviewed EMR data (avail), discussed w/nursing Attending Assessment/Plan: Laboratory Tests 11/04/16 0730: Anion Gap 7, Estimated GFR 36 L, BUN/Creatinine Ratio 17.4, CBC w Diff NO MAN DIFF REQ, RBC 3.46 L, MCV 83.7, MCH 26.7 L, RDW 15.3 H, MPV 8.4, Gran % 75.3 H, Lymphocytes % 12.1 L, Monocytes % 9.3, Eosinophils % 2.7, Basophils % 0.6, Absolute Granulocytes 9.8 H, Absolute Lymphocytes 1.6, Absolute Monocytes 1.2 H, Absolute Eosinophils 0.4, Absolute Basophils 0.1, PUBS MCHC 31.9 L Vital Signs Date Time Temp Pulse Resp B/P Pulse O2 O2 Flow FiO2 Ox Delivery Rate 11/04 1348 98.3 69 20 116/84 94 Nasal 8L Cannula 11/04 1014 68 140/60 11/04 1013 68 140/60 11/04 0835 94 Nasal 7.0L Cannula 11/04 0800 93 Nasal 7.0L Cannula 11/04 0747 98.4 62 18 145/64 100 Nasal 6.0L Cannula 11/04 0601 82 28 160/90 93 Nasal 7.0L Cannula 11/04 0556 85 Nasal 7.0L Cannula 11/04 0000 94 Nasal 8L Cannula 11/03 2137 80 24 170/88 94 Nasal 8L Cannula 11/03 2133 80 170/88 11/03 1745 95 Nasal 6.0L Cannula Patient seen and examined at bedside in mild respiratory distress. Patient continues to need high flow of oxygen at 7-8 L/m. Patient was seen by logistics supply officer and was given additional Lasix last night as well as a this a.m. and is in put on Lasix 40 mg IV every 12 hours. His creatinine has worsened to 1.9 today and his BUN has also gone up. CT scan of the chest done shows some areas of atelectasis as well as some areas of consolidation. Patient is already on meropenem will continue with that. Given the worsening of his creatinine and him still requiring high flow oxygen and we will hold his evening dose of creatinine and will repeat an ABG, EKG and troponin. Echocardiogram done was reviewed and shows moderate aortic stenosis and right ventricular systolic pressures which is high suggestive of moderate-to -severe pulmonary hypertension. Based on the ABG results we will decide if the patient may benefit from being on BiPAP. Discussed with patient the care plan. We'll increase his Percocet dose to 10 mg instead of the 12/07/24 because of patient complaining that his pain is not well controlled.
--- NOTE | 2016-11-04 19:36 | Cons- Cardiology ---
General Information and HPI Consulting Request Date of Consult: 11/04/16 Requested By: RONY SANCHEZ,FROILAN Wiley Reason for Consult: Persistent dyspnea: ?CHF vs Pulmonary Source of Information: patient, old records Exam Limitations: no limitations History of Present Illness: 61 year old male who appears older than stated age, with past medical history of diabetes mellitus, hypertension, CKD, PVD status post stenting in 2009, CAD status post cardiac catheterization in 2014, COPD, obstructive sleep apnea, prior pulmonary embolism (not on anticoagulants), nonhealing ulceration of left foot with osteomyelitis, status post right metatarsal amputation, who was admitted via the ER after being sent there by the wound care clinic earlier today to get assessed for osteomyelitis. The patient has had one intervention and was apparently scheduled for surgery today which was cancelled due to persistent dyspnea and possible CHF. I was asked to see the patient for further evaluation of his cardiac status. The patient notes to me that he feels his respiratory status in relatively unchanged since admission. He denies any cardiovascular symptoms. He does have a cardiac history as noted above. Allergies/Medications Allergies: Coded Allergies: niacin (ITCHING 11/02/16) Home Med List: Albuterol Sulfate 0.63 MG/3 ML VIAL.NEB 1 Vial INH/CARON TID PRN BREATHING PROBLEMS (Reported) Amlodipine Besylate 10 MG TABLET 1 TAB PO DAILY HTN (Reported) Budesonide/Formoterol Fumarate (Symbicort 160-4.5 Mcg Inhaler) 160 MCG-4.5 MCG/ ACTUATION HFA.AER.AD 2 PUF INH BID COPD (Reported) Calcium Carbonate 200 MG TAB.CHEW 500 MG PO BID Gastric Ulcer Carisoprodol (SOMA) 350 MG TABLET 1 TAB PO Q6-PRN PRN PAIN (Reported) Ferrous Sulfate 325 MG TABLET.DR 1 TAB PO BID Anemia Fluoxetine HCl (Prozac) 40 MG CAPSULE 2 CAP PO DAILY MENTAL HEALTH (Reported) Insulin Aspart (Novolog) 100 UNIT/1 ML VIAL 1 UNIT SC TIDAC Blood Suger Blood suger Below 80 Hypoglycemia protocol 80-150 no change 151-200 1 units 201-250 2 units 251-300 3 units 301-350 4 units 351-400 6 units More than 400 10 units call M.D. Insulin Detemir (Levemir) 100 UNIT/1 ML VIAL 20 UNITS SC QPM DIABETES Ipratropium/Albuterol Sulfate (Combivent Respimat Inhal Olga) 20 MCG-100 MCG/ ACTUATION MIST.INHAL 2 PUF PO 4 TIMES/DAY COPD (Reported) Metoprolol Tartrate 50 MG TABLET 1 TAB PO BID BLOOD PRESSURE (Reported) Multivitamin (One Daily Multivitamin) 1 EACH TABLET 1 TAB PO DAILY General Well being Oxycodone HCl/Acetaminophen (Oxycodone-Acetaminophen 10-325) 1 EACH TABLET 1 TAB PO Q6H PRN PAIN Pantoprazole Sodium (Protonix) 40 MG TABLET.DR 1 TAB PO DAILY GERD Polyethylene Glycol 3350 (Miralax) 119 GM POWDER 17 GM PO DAILY PRN constipation Rosuvastatin Calcium (Crestor) 20 MG TABLET 1 TAB PO DAILY CHOLESTEROL ( Reported) Sucralfate (Carafate) 1 GM TABLET 1,000 MG PO 4 TIMES/DAY gastric Ulcer Past History Travel History Traveled to [place] past 21 day No Medical History Blood Transfusion Hx: Yes Neurological: NONE EENT: HEARING LOSS R EAR Cardiovascular: CAD, hypertension, hyperlipidemia, NSTEMI (status post NM), PVD, STEMI (LOWER EXTREMITY VASCULAR) Respiratory: COPD Gastrointestinal: NONE Hepatic: NONE Renal: nephrolithiasis Musculoskeletal: NONE Psychiatric: depression Endocrine: diabetes Blood Disorders: NONE, PE Cancer(s): NONE 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 Flores [facility] status post left fourth and fifth toe amputations Family History Relations & Conditions If Any: FATHER (3 CVAs). , Age 50-60; Cause: CVA (cerebral vascular accident). MOTHER, , Age 60+; Cause: Natural . Psychosocial History Where Do You Live? Home Who Do You Live With? spouse Primary Language: Togolese Smoking Status: Current Everyday Smoker ETOH Use: denies use Illicit Drug Use: denies illicit drug use Functional Ability ADLs Unknown: dressing, eating, toileting, bathing. Ambulation: unknown IADLs Unknown: shopping, housework, finances, food prep, telephone, transportation, medication admin. ECHO Results (as available) Date of last Echo 11/03/16 EF% 55 Report: CONCLUSIONS Mild left ventricular dilatation. Normal left ventricular ejection fraction visually estimated at >55 Mild mitral regurgitation. Moderate aortic stenosis. Trace to mild aortic regurgitation. Trace tricuspid regurgitation. Trace pulmonic regurgitation. Exam & Diagnostic Data Vital Signs and I&O Vital Signs Date Time Temp Pulse Resp B/P Pulse O2 O2 Flow FiO2 Ox Delivery Rate 11/04 1348 98.3 69 20 116/84 94 Nasal 8L Cannula 11/04 1014 68 140/60 11/04 1013 68 140/60 11/04 0835 94 Nasal 7.0L Cannula 11/04 0800 93 Nasal 7.0L Cannula 11/04 0747 98.4 62 18 145/64 100 Nasal 6.0L Cannula 11/04 0601 82 28 160/90 93 Nasal 7.0L Cannula 11/04 0556 85 Nasal 7.0L Cannula 11/04 0000 94 Nasal 8L Cannula 11/03 2137 80 24 170/88 94 Nasal 8L Cannula 11/03 2133 80 170/88 Intake & Output 11/04 1600 11/04 0800 11/04 0000 11/03 1600 11/03 0800 11/03 0000 Intake Total 723 462 5135 Output Total 1400 1450 1000 1850 750 250 Balance -600 -1450 -170 -640 -750 -250 Intake, Blood 350 Product Intake, IV 110 Intake, Oral 746 637 3112 Number 1 0 Bowel Movements Output, Urine 1400 1450 1000 1850 750 250 Patient 270 lb 270 lb Weight Physical Exam: General: alert, oriented patient, not in distress: VSS; increased FiO2 requirement HEENT: normal Neck: Supple, full range of motion, no thyromegaly; JVP normal; carotids normal bilaterally Heart: Regular rate, regular rhythm; 1/6 systolic murmur Lung: Bilateral rhonchi with slightly decreased breath sounds Abd: Soft, non-tender, no distention appreciated Extremities: b/l pedal edema present, right foort has metatarsal amputation and three open ulcers over his heel, and left foot has one ulcer over lateral side of his sole extending upto his heel; well-dressed currently with some soakage present b/l Neurologic: Nonfocal Labs/Enrique Results: Laboratory Tests 11/04 11/04 11/04 1725 1707 0730 Blood Gas pH (7.35 - 7.45 PH) 7.27 *L pCO2 (35 - 45 TORR) 56 H pO2 (80 - 100 TORR) 71 L HCO3 (21 - 28 MEQ/L) 25 ABG O2 Sat (Measured) (>96.0 %) 93.0 L P-50 (Temp Corrected) Y Carboxyhemoglobin (1.5 - 5.0 %) 0.2 L O2 Concentration % 7L Temperature (97.0 - 100.0 FARH) 97.1 O2 Delivery Method N/C Chemistry Sodium (137 - 145 mmol/L) 139 Potassium (3.5 - 5.1 mmol/L) 5.3 H Chloride (98 - 107 mmol/L) 107 Carbon Dioxide (22 - 30 mmol/L) 25 Anion Gap (5 - 16) 7 BUN (9 - 20 mg/dL) 33 H Creatinine (0.7 - 1.2 mg/dL) 1.9 H Estimated GFR (>60 ml/min) 36 L BUN/Creatinine Ratio (7 - 25 %) 17.4 Troponin I (<0.11 ng/ml) < 0.01 Hematology CBC w Diff NO MAN DIFF REQ WBC (4.8 - 10.8 /CUMM) 13.0 H RBC (4.70 - 6.10 /CUMM) 3.46 L Hgb (14.0 - 18.0 G/DL) 9.2 L Hct (42 - 52 %) 29.0 L MCV (80.0 - 94.0 FL) 83.7 MCH (27.0 - 31.0 PG) 26.7 L RDW (11.5 - 14.5 %) 15.3 H Plt Count (130 - 400 /CUMM) 465 H MPV (7.4 - 10.4 FL) 8.4 Gran % (42.2 - 75.2 %) 75.3 H Lymphocytes % (20.5 - 51.1 %) 12.1 L Monocytes % (1.7 - 9.3 %) 9.3 Eosinophils % (0 - 5 %) 2.7 Basophils % (0.0 - 2.0 %) 0.6 Absolute Granulocytes (1.4 - 6.5 /CUMM) 9.8 H Absolute Lymphocytes (1.2 - 3.4 /CUMM) 1.6 Absolute Monocytes (0.10 - 0.60 /CUMM) 1.2 H Absolute Eosinophils (0.0 - 0.7 /CUMM) 0.4 Absolute Basophils (0.0 - 0.2 /CUMM) 0.1 PUBS MCHC (33.0 - 37.0 G/DL) 31.9 L Miscellaneous Phlebotomy Draw Site RIGHT RADIAL 11/03 11/03 0940 0920 Blood Gas pH (7.35 - 7.45 PH) 7.30 *L pCO2 (35 - 45 TORR) 47 H pO2 (80 - 100 TORR) 82 HCO3 (21 - 28 MEQ/L) 24 ABG O2 Sat (Measured) (>96.0 %) 93.0 L Carboxyhemoglobin (1.5 - 5.0 %) 1.5 O2 Concentration % 8L O2 Delivery Method NC Chemistry Troponin I (<0.11 ng/ml) < 0.01 Qsv-Q-Imannuxvlar Pept (<125 pg/mL) 9010 H Miscellaneous Phlebotomy Draw Site RIGHT RADIAL 11/03 0634 Chemistry Sodium (137 - 145 mmol/L) 139 Potassium (3.5 - 5.1 mmol/L) 5.6 H Chloride (98 - 107 mmol/L) 108 H Carbon Dioxide (22 - 30 mmol/L) 26 Anion Gap (5 - 16) 4 L BUN (9 - 20 mg/dL) 24 H Creatinine (0.7 - 1.2 mg/dL) 1.4 H Estimated GFR (>60 ml/min) 52 L BUN/Creatinine Ratio (7 - 25 %) 17.1 Hematology CBC w Diff NO MAN DIFF REQ WBC (4.8 - 10.8 /CUMM) 8.1 RBC (4.70 - 6.10 /CUMM) 2.78 L Hgb (14.0 - 18.0 G/DL) 7.4 *L Hct (42 - 52 %) 22.9 L MCV (80.0 - 94.0 FL) 82.4 MCH (27.0 - 31.0 PG) 26.5 L RDW (11.5 - 14.5 %) 15.0 H Plt Count (130 - 400 /CUMM) 398 MPV (7.4 - 10.4 FL) 8.1 Gran % (42.2 - 75.2 %) 67.3 Lymphocytes % (20.5 - 51.1 %) 18.2 L Monocytes % (1.7 - 9.3 %) 10.9 H Eosinophils % (0 - 5 %) 2.9 Basophils % (0.0 - 2.0 %) 0.7 Absolute Granulocytes (1.4 - 6.5 /CUMM) 5.4 Absolute Lymphocytes (1.2 - 3.4 /CUMM) 1.5 Absolute Monocytes (0.10 - 0.60 /CUMM) 0.9 H Absolute Eosinophils (0.0 - 0.7 /CUMM) 0.2 Absolute Basophils (0.0 - 0.2 /CUMM) 0.1 PUBS MCHC (33.0 - 37.0 G/DL) 32.1 L Diagnostic Data CXR Results FINDINGS: Cardiac silhouette is mildly enlarged. Also, pulmonary vessels are enlarged and there are interstitial opacities in middle lower lung zones, suggestive of slight worsening interstitial edema. The hazy opacity in the right lower lung zone could be related to edema and/or small layering right pleural effusion. Persistent small left pleural effusion and left retrocardiac opacity. In addition, there is persistent plate like opacity of atelectasis in the left midlung. Atherosclerotic aorta. No acute skeletal findings. IMPRESSION: 1. Cardiomegaly and interstitial pulmonary edema. 2. Persistent nonspecific opacity within the retrocardiac region of the left lower lobe. This opacity could be caused by consolidation and/or atelectasis in addition to the small pleural effusion. Other Results Chest CT: IMPRESSION: Moderate bilateral pleural effusions with bilateral lower lobe compressive atelectasis. Additional consolidation seen in the lingula and dependent right upper lobe. Groundglass opacities in the right middle lobe. While some of this could represent atelectasis, an infectious process is also suspected, superimposed on pulmonary edema. Enlarged mediastinal lymph nodes may be reactive, although follow-up is recommended after clinical improvement to assess for change. V/Q scan: MPRESSION: Very low probability of pulmonary embolism. Ventilation and perfusion abnormality in the left upper lobe, or possibly in the superior segment of the left lower lobe is noted and is in the region of consolidation or atelectasis on the recent chest radiograph. The perfusion abnormality appears smaller than the ventilation abnormality. Additional ventilation abnormality laterally in the right upper lobe is present without corresponding perfusion abnormality, likely due to obstructive airway disease. Cardiomegaly. Assessment/Plan Assessment/Plan Assesment: 1. Hypoxemic respiratory failure - likley multifactorial (HFpEF, COPD, atelectasis / consolidation; etc) with moderate bilateral pleural effusions and elevated proBNP 2. HFpEF 3. COPD 4. History of CAD 5. Left foot osteomyelitis. 6. Worsening acute renal insufficiency 7. Normocytic anemia 8. Mild hyperkalemia Recommendations: -For now I would either back off on lasix diuresis in view of the patient's increasing creatinine or diurese more gently with close monitoring of the creatinine. Note that the patient's I/Os are 4000- over the last 48 hours. -Consider renal ultraound to rule out other causes of creatinine elevation. -Follow recommendations as per Pulmonary -Consideration for possible thoracentesis if necessary to improve respiratory status. -Echo reports moderate although examination and the doppler values on the echo do not support this. Echo to be reviewed. -Further plans after the above. Consult Acknowledgment - Thank you for your consult request.
--- NOTE | 2016-11-04 21:35 | ULTRASOUND REPORT ---
EXAMINATION: RENAL ULTRASOUND CLINICAL INFORMATION: Worsening creatinine. COMPARISON: None. TECHNIQUE: Real-time imaging of the kidneys and bladder. FINDINGS: RIGHT KIDNEY: There is neither hydronephrosis nor nephrolithiasis. The right kidney measures 11.7 cm. LEFT KIDNEY: There is neither hydronephrosis nor nephrolithiasis. The left kidney measures 11.2 cm. BLADDER: A catheter is in place within the urinary bladder. There is no pelvic free fluid. IMPRESSION: Neither hydronephrosis nor nephrolithiasis.
[2016-11-04 22:00] VITALS: BP 125/70
[2016-11-05 07:08] VITALS: BP 130/58
[2016-11-05 08:17] LABS: ABSOLUTE BASOPHIL COUNT 0.1 /CUMM (0.0-0.2); ABSOLUTE EOSINOPHIL COUNT 0.1 /CUMM (0.0-0.7); ABSOLUTE GRANULOCYTE CT 6.3 /CUMM (1.4-6.5); ABSOLUTE LYMPH COUNT 2.2 /CUMM (1.2-3.4); ABSOLUTE MONOCYTE COUNT 0.8 /CUMM (0.10-0.60); BASOPHIL % 0.6 % (0.0-2.0); EOSINOPHIL % 1.2 % (0-5); GRANULOCYTE % 66.1 % (42.2-75.2); HEMATOCRIT 25.7 % (42-52); MEAN CORPUSCULAR HGB 26.7 PG (27.0-31.0); MEAN CORPUSCULAR VOLUME 83.2 FL (80.0-94.0); PLATELET COUNT 333 /CUMM (130-400); RBC DISTRIBUTION WIDTH 15.1 % (11.5-14.5); RED BLOOD CELL CT 3.09 /CUMM (4.70-6.10); WHITE BLOOD CELL COUNT 9.5 /CUMM (4.8-10.8)
[2016-11-05 08:29] LABS: PT 11.8 SEC (9.4-12.5)
--- NOTE | 2016-11-05 09:05 | PN- Housestaff ---
See Addendum Subjective Follow-up For: Osteomyelitis Subjective: Patient is seen and examined at bedside. He is seated comfortably in bed and having breakfast. Patient does not endorse any acute complaints including fever , chills, nausea, vomiting or chest pain, palpitation or dizziness, shortness of breath, abdominal pain or dysuria. No acute overnight event reported by nursing staff. Review of Systems Constitutional: Reports: no symptoms. Objective Last 24 Hrs of Vital Signs/I&O Vital Signs Date Time Temp Pulse Resp B/P Pulse O2 O2 Flow FiO2 Ox Delivery Rate 11/05 1534 97.8 80 22 126/70 98 Nasal 2.0L Cannula 11/05 1016 97 Nasal 8L Cannula 11/05 0804 61 130/58 11/05 0804 61 130/58 11/05 0800 Nasal 8L Cannula 11/05 0708 98.2 61 20 130/58 99 Nasal 8L Cannula 11/05 0558 81 99 11/05 0251 57 98 11/05 0026 55 98 11/05 0020 58 99 11/05 0000 BIPAP 40% 11/04 2200 97.1 59 22 125/70 100 BIPAP 11/04 2159 59 125/70 Intake & Output 11/05 1600 11/05 0800 04 0000 Intake Total 720 120 480 Output Total 800 250 450 Balance -80 -130 30 Intake, Oral 720 120 480 Number 1 Bowel Movements Output, Urine 800 250 450 Physical Exam General Appearance: Alert, Oriented X3, Cooperative Other Physical Findings: Head: Normocephalic, atraumatic Eyes: Pupils normal in size, regular, reacting to light and accommodation, EOM normal Ears: B/l normal on inspection Nose: Normal on inspection Throat/mouth: Moist mucosa Neck: Supple, full range of motion, no thyromegaly Heart: Regular rate, regular rhythm Lung: decreased sound b/l initially today, improved later on repeat exam, b/l basal crepts heard, wheeze heard occassionally Abd: Soft, non-tender, no distention appreciated Back: Normal range of motion Extremities: b/l pedal edema present, both feet were well dressed, no bleeding Current Medications: Current Medications Sig/Taylor Start time Last Medication Dose Route Stop Time Status Admin Acetaminophen 325 MG Q6P PRN 11/02 1715 AC PO Albuterol Sulfate 3 ML BID 11/03 1000 AC 11/05 INH 1004 Albuterol Sulfate 3 ML Q6P PRN 11/02 1930 AC INH Amlodipine Besylate 10 MG DAILY 11/03 1000 AC 11/05 PO 0804 Atorvastatin Calcium 20 MG 1700 11/03 1700 AC 11/04 PO 1720 Budesonide/ 2 PUF BID 11/02 2200 AC 11/05 Formoterol Fumarate INH 0805 Calcium Carbonate 500 MG BID 11/02 2200 AC 11/05 PO 0804 Carisoprodol 350 MG Q6-PRN PRN 11/02 1930 AC 11/04 PO 1028 Ferrous Sulfate 325 MG BID 11/02 2200 AC 11/05 PO 0804 Fluoxetine HCl 40 MG DAILY 11/03 1000 AC 11/05 PO 0804 Furosemide 40 MG BID 11/04 2200 DC IV PUSH Furosemide 40 MG 0800,1700 11/04 1700 AC 11/05 IV PUSH 0803 Heparin Sodium 5,000 UNIT Q8 11/03 0837 AC 11/05 (Porcine) SC 1253 Insulin Aspart 0 TIDAC 11/03 0800 AC 11/05 SC 1254 Insulin Detemir 5 UNITS AT BEDTIME 11/03 2200 AC SC Meropenem 1 GM Q8H 11/04 0200 AC 11/05 IV 0803 Metoprolol Tartrate 50 MG BID 11/02 2200 AC 11/05 PO 0804 Morphine Sulfate 2 MG Q4P PRN 11/02 1715 AC 11/05 IV 1254 Omeprazole 40 MG DAILY AC 11/03 0700 AC 11/05 PO 0604 Oxycodone HCl 10 MG Q6P PRN 11/04 1130 AC 11/05 PO 1253 Polyethylene Glycol 17 GM DAILY PRN 11/02 1930 AC PO Prednisone 40 MG DAILY 11/05 1000 AC 11/05 PO 11/08 1001 0804 Sodium Chloride 2 SPRAY Q4P PRN 11/03 2230 AC NIYA Sucralfate 1,000 MG 4 TIMES/DAY 11/02 2200 AC 11/05 PO 1253 Tiotropium [place] 1 PUF DAILY 11/04 1317 AC 11/05 INH 0804 Last 24 Hrs of Lab/Enrique Results Last 24 Hrs of Labs/Mics: Laboratory Tests 11/05/16 0634: Anion Gap 8, Estimated GFR 39 L, BUN/Creatinine Ratio 25.6 H, Magnesium 1.7, PT 11.8, INR 1.13, CBC w Diff NO MAN DIFF REQ, RBC 3.09 L, MCV 83.2, MCH 26.7 L, RDW 15.1 H, MPV 9.0, Gran % 66.1, Lymphocytes % 23.4, Monocytes % 8.7, Eosinophils % 1.2, Basophils % 0.6, Absolute Granulocytes 6.3, Absolute Lymphocytes 2.2, Absolute Monocytes 0.8 H, Absolute Eosinophils 0.1, Absolute Basophils 0.1, PUBS MCHC 32.0 L 11/05/16 0210: pH 7.31 L, pCO2 51 H, pO2 102 H, HCO3 25, ABG O2 Sat (Measured) 97.0, P-50 ( Temp Corrected) Y, Carboxyhemoglobin 0.6 L, O2 Concentration % 40%, Temperature 97.1, Respiration Rate 20, O2 Delivery Method VISION-FFM, Vent Mode ST, Expiratory Pressure 6, Inspiratory Pressure 16, Phlebotomy Draw Site RIGHT RADIAL 11/04/16 1725: pH 7.27 *L, pCO2 56 H, pO2 71 L, HCO3 25, ABG O2 Sat (Measured) 93.0 L, P-50 (Temp Corrected) Y, Carboxyhemoglobin 0.2 L, O2 Concentration % 7L, Temperature 97.1, O2 Delivery Method N/C, Phlebotomy Draw Site RIGHT RADIAL 11/04/16 1707: Troponin I < 0.01 Assessment/Plan Assessment: 61 year old male with past medical history of diabetes mellitus, hypertension, CKD, PVD status post stenting in 2009, CAD status post cardiac catheterization without stent placement in 2014, COPD, obstructive sleep apnea not using O2 at home, pulmonary embolism not on anticoagulants >5 yrs ago, nonhealing ulceration of left foot with osteomyelitis, status post right metatarsal amputation, was sent to the emergency department by wound care clinic earlier today to get assessed for osteomyelitis and possible bone biopsy on 11/02/16. Patient's vitals were stable when he came to the emergency department, labs were significant for leukocytosis at 11.7, anemia with 9.5 hemoglobin and 29.8 hematocrit, platelets 546, potassium slightly high at 5.5, sodium slightly higher range at 142, and creatinine at 1.3. 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 Chest x-ray is suggestive for left-sided pneumonia with small left sided pleural effusion, and suggests follow-up. Patient has not received any antibiotic in the emergency department. Currently, patient is being managed in the general medical floor for the following issues: #Suspected bilateral feet osteomyelitis Patient underwent debridement yesterday and a sample was sent to the lab for analysis. Awaiting results. Hasn't been started on abx so far. Infectious disease service consult appreciated. Will consider vascular surgery reevaluation tomorrow. IV meropenem 1g q8hr started per ID. -Microbial cultures remarkable for multiple organisms including Pseudomonas and enterococcus. Patient was initially placed on meropenem therefore this will provide adequate coverage. -In anticipation of worsening renal function, and the requirement of prolonged antibiotic therapy, probably line will be more feasible. -Will await further Podiatry service recommendations #Acute hypoxic hypercarbic respiratory failure, secondary to congestive heart failure -Patient still had bilateral chest congestion today, was in moderate respiratory distress, Lasix was given twice overnight, cardio and pulmonary consultation placed. ACS was ruled out. Possible cause of acute hypoxic hypercarbic respiratory failure is multifactorial. Repeat ABG showed improvement in with CO2 and resolved acidosis, patient did receive BiPAP therapy. In the setting of worsening creatinine, cardiology recommended holding off diuretics for now. We' ll continue with prednisone taper for now. #Diabetes mellitus -Continue regular Accu-Cheks, Insulin NovoLog Sliding scale, and diabetic diet #Continue with the rest of the medications for hypertension, hyperlipidemia, chronic kidney disease, anemia, severe peripheral vascular disease -Continue total respiratory care/nebs -We will continue to monitor for any electrolyte disturbance as he has slight hyperkalemia today #Subcutaneous heparin and Alps for DVT prophylaxis, as he has CKD #Full CODE STATUS Problem List: 1. LAINA (acute kidney injury) 2. Osteomyelitis Pain Ratin Pain Location: extremities Pain Goal: Remain pain free Pain Plan: Per pain pathway Tomorrow's Labs & Rationales: CBC-turning infection BEP-AK
--- NOTE | 2016-11-05 10:48 | PN- Infect Dx ---
Subjective Subjective: Afebrile. He reports improvement in his shortness of breath. He continues to note pain in both feet. Objective Last 24 Hrs of Vital Signs/I&O Vital Signs Date Time Temp Pulse Resp B/P Pulse O2 O2 Flow FiO2 Ox Delivery Rate 11/05 1016 97 Nasal 8L Cannula 11/05 0804 61 130/58 11/05 0804 61 130/58 11/05 0800 Nasal 8L Cannula 11/05 0708 98.2 61 20 130/58 99 Nasal 8L Cannula 11/05 0558 81 99 11/05 0251 57 98 11/05 0026 55 98 11/05 0020 58 99 11/05 0000 BIPAP 40% 11/04 2200 97.1 59 22 125/70 100 BIPAP 11/04 2159 59 125/70 11/04 1600 Nasal 8L Cannula 11/04 1348 98.3 69 20 116/84 94 Nasal 8L Cannula Intake & Output 11/05 1600 11/05 0800 11/05 0000 Intake Total 120 480 Output Total 250 450 Balance -130 30 Intake, Oral 120 480 Output, Urine 250 450 Physical Exam Other Physical Findings: He appears comfortable in no acute distress Lungs scattered rhonchi, improved from yesterday's exam Heart regular rhythm with a 2/6 systolic ejection murmur Extremities both feet with dressings intact Silva catheter is in place Results Last 24 Hours of Lab Results: Laboratory Tests 11/05 11/05 0634 0210 Blood Gas pH (7.35 - 7.45 PH) 7.31 L pCO2 (35 - 45 TORR) 51 H pO2 (80 - 100 TORR) 102 H HCO3 (21 - 28 MEQ/L) 25 ABG O2 Sat (Measured) (>96.0 %) 97.0 P-50 (Temp Corrected) Y Carboxyhemoglobin (1.5 - 5.0 %) 0.6 L O2 Concentration % 40% Temperature (97.0 - 100.0 FARH) 97.1 Respiration Rate (BPM) 20 O2 Delivery Method VISION-FFM Vent Mode ST Expiratory Pressure (CM H2O P) 6 Inspiratory Pressure (CM H2O P) 16 Chemistry Sodium (137 - 145 mmol/L) 139 Potassium (3.5 - 5.1 mmol/L) 4.9 Chloride (98 - 107 mmol/L) 105 Carbon Dioxide (22 - 30 mmol/L) 26 Anion Gap (5 - 16) 8 BUN (9 - 20 mg/dL) 46 H Creatinine (0.7 - 1.2 mg/dL) 1.8 H Estimated GFR (>60 ml/min) 39 L BUN/Creatinine Ratio (7 - 25 %) 25.6 H Magnesium (1.6 - 2.3 mg/dL) 1.7 Coagulation PT (9.4 - 12.5 SEC) 11.8 INR (0.90 - 1.17) 1.13 Hematology CBC w Diff NO MAN DIFF REQ WBC (4.8 - 10.8 /CUMM) 9.5 RBC (4.70 - 6.10 /CUMM) 3.09 L Hgb (14.0 - 18.0 G/DL) 8.2 L Hct (42 - 52 %) 25.7 L MCV (80.0 - 94.0 FL) 83.2 MCH (27.0 - 31.0 PG) 26.7 L RDW (11.5 - 14.5 %) 15.1 H Plt Count (130 - 400 /CUMM) 333 MPV (7.4 - 10.4 FL) 9.0 Gran % (42.2 - 75.2 %) 66.1 Lymphocytes % (20.5 - 51.1 %) 23.4 Monocytes % (1.7 - 9.3 %) 8.7 Eosinophils % (0 - 5 %) 1.2 Basophils % (0.0 - 2.0 %) 0.6 Absolute Granulocytes (1.4 - 6.5 /CUMM) 6.3 Absolute Lymphocytes (1.2 - 3.4 /CUMM) 2.2 Absolute Monocytes (0.10 - 0.60 /CUMM) 0.8 H Absolute Eosinophils (0.0 - 0.7 /CUMM) 0.1 Absolute Basophils (0.0 - 0.2 /CUMM) 0.1 PUBS MCHC (33.0 - 37.0 G/DL) 32.0 L Miscellaneous Phlebotomy Draw Site RIGHT RADIAL 11/04 11/04 1384 1988 Blood Gas pH (7.35 - 7.45 PH) 7.27 *L pCO2 (35 - 45 TORR) 56 H pO2 (80 - 100 TORR) 71 L HCO3 (21 - 28 MEQ/L) 25 ABG O2 Sat (Measured) (>96.0 %) 93.0 L P-50 (Temp Corrected) Y Carboxyhemoglobin (1.5 - 5.0 %) 0.2 L O2 Concentration % 7L Temperature (97.0 - 100.0 FARH) 97.1 O2 Delivery Method N/C Chemistry Troponin I (<0.11 ng/ml) < 0.01 Miscellaneous Phlebotomy Draw Site RIGHT RADIAL Last 24 Hours of Enrique Results: Blood cultures 2 November 02 remain negative OR culture November 02 labeled right foot positive for Enterobacter sensitive to Meropenem, Pseudomonas sensitive to Meropenem and Enterococcus sensitivities pending OR culture November 02 labeled left foot positive for Serratia sensitive to Meropenem, Pseudomonas sensitive to Meropenem, and Staph coag-negative Sputum culture November 04 mixed norbert Recent Imaging Studies: Renal ultrasound November 04 negative Assessment/Plan Impression: Improved with decreased respiratory distress with diuresis and now on steroids for what is felt to be a combination of fluid overload and, possibly, an exacerbation of COPD. 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 He remains afebrile with white blood cell count now normal, status post debridement of the bone and I&D to the deep fascia of both feet 3 days ago. Given the failure of his wounds to heal feel that further amputation, for example BKA, at least of the right foot, which was considered on his previous admission, will need to be considered. In any event he will likely require long-term IV access in anticipation of another prolonged course of IV antibiotics. His creatinine remains elevated though slightly decreased from yesterday, and, given his chronic renal insufficiency, he may require Pro-Line a rather than a PICC. Suggestion: 1. Vascular surgery reevaluation 2. Further debridement, with consideration of right BKA, per Podiatry 3. Will need to consider long-term IV access (for example Pro-Line) as noted above 4. Continue Meropenem
--- NOTE | 2016-11-05 13:32 | PN- Pulmonary ---
Subjective HPI/Critical Care Issues: The patient is awake and alert. Chart reviewed. The patient was admitted for osteomyelitis and is status post podiatry surgery. He developed postoperative hypoxemia, and was worked up for VTE without any significant findings. Chest x- ray did show cardiomegaly and pulmonary edema with a retrocardiac left opacity. He reports having ongoing chest congestion and dyspnea on exertion however he feels improved overall. He denies any chest pain, fever or chills. His oxygen requirement remains at 8 L nasal cannula with saturations in the high 90s. Objective Current Medications: Current Medications Sig/Taylor Start time Last Medication Dose Route Stop Time Status Admin Acetaminophen 325 MG Q6P PRN 11/02 1715 AC PO Albuterol Sulfate 3 ML BID 11/03 1000 AC 11/05 INH 1004 Albuterol Sulfate 3 ML Q6P PRN 11/02 1930 AC INH Amlodipine Besylate 10 MG DAILY 11/03 1000 AC 11/05 PO 0804 Atorvastatin Calcium 20 MG 1700 11/03 1700 AC 11/04 PO 1720 Budesonide/ 2 PUF BID 11/02 2200 AC 11/05 Formoterol Fumarate INH 0805 Calcium Carbonate 500 MG BID 11/02 2200 AC 11/05 PO 0804 Carisoprodol 350 MG Q6-PRN PRN 11/02 1930 AC 11/04 PO 1028 Ferrous Sulfate 325 MG BID 11/02 2200 AC 11/05 PO 0804 Fluoxetine HCl 40 MG DAILY 11/03 1000 AC 11/05 PO 0804 Furosemide 40 MG BID 11/04 2200 DC IV PUSH Furosemide 40 MG 0800,1700 11/04 1700 AC 11/05 IV PUSH 0803 Heparin Sodium 5,000 UNIT Q8 11/03 0837 AC 11/05 (Porcine) SC 1253 Insulin Aspart 0 TIDAC 11/03 0800 AC 11/05 SC 1254 Insulin Detemir 5 UNITS AT BEDTIME 11/03 2200 AC SC Meropenem 1 GM Q8H 11/04 0200 AC 11/05 IV 0803 Metoprolol Tartrate 50 MG BID 11/02 2200 AC 11/05 PO 0804 Morphine Sulfate 2 MG Q4P PRN 11/02 1715 AC 11/05 IV 1254 Omeprazole 40 MG DAILY AC 11/03 0700 AC 11/05 PO 0604 Oxycodone HCl 10 MG Q6P PRN 11/04 1130 AC 11/05 PO 1253 Patient Medication 1 ED .STK-MED ONE 11/04 1337 DC Teaching ED 11/04 1338 Polyethylene Glycol 17 GM DAILY PRN 11/02 1930 AC PO Prednisone 40 MG DAILY 11/05 1000 AC 11/05 PO 11/08 1001 0804 Sodium Chloride 2 SPRAY Q4P PRN 11/03 2230 AC NIYA Sucralfate 1,000 MG 4 TIMES/DAY 11/02 2200 AC 11/05 PO 1253 Tiotropium [place] 1 PUF DAILY 11/04 1317 AC 11/05 INH 0804 Vital Signs & I&O Last 24 Hrs of Vitals and I&O: Vital Signs Date Time Temp Pulse Resp B/P Pulse O2 O2 Flow FiO2 Ox Delivery Rate 11/05 1016 97 Nasal 8L Cannula 11/05 0804 61 130/58 11/05 0804 61 130/58 11/05 0800 Nasal 8L Cannula 11/05 0708 98.2 61 20 130/58 99 Nasal 8L Cannula 11/05 0558 81 99 11/05 0251 57 98 11/05 0026 55 98 11/05 0020 58 99 11/05 0000 BIPAP 40% 11/04 2200 97.1 59 22 125/70 100 BIPAP 11/04 2159 59 125/70 11/04 1600 Nasal 8L Cannula 11/04 1348 98.3 69 20 116/84 94 Nasal 8L Cannula Intake & Output 11/05 1600 11/05 0800 11/05 0000 Intake Total 120 480 Output Total 250 450 Balance -130 30 Intake, Oral 120 480 Output, Urine 250 450 Exam General Appearance: obese, no acute distress Head: atraumatic, normal appearance Neck: supple Respiratory: bilateral rhonchi with adequate air entry, the lungs expand symmetrically Cardiovascular: regular rate/rhythm, soft systolic ejection murmur heard Abdomen: obese, soft, nontender Extremities: chronic lower extremity edema with bilateral dressings intact Skin: warm/dry Results Last 24 Hrs of Lab Results: Laboratory Tests 11/05/16 0634: Anion Gap 8, Estimated GFR 39 L, BUN/Creatinine Ratio 25.6 H, Magnesium 1.7, PT 11.8, INR 1.13, CBC w Diff NO MAN DIFF REQ, RBC 3.09 L, MCV 83.2, MCH 26.7 L, RDW 15.1 H, MPV 9.0, Gran % 66.1, Lymphocytes % 23.4, Monocytes % 8.7, Eosinophils % 1.2, Basophils % 0.6, Absolute Granulocytes 6.3, Absolute Lymphocytes 2.2, Absolute Monocytes 0.8 H, Absolute Eosinophils 0.1, Absolute Basophils 0.1, PUBS MCHC 32.0 L 11/05/16 0210: pH 7.31 L, pCO2 51 H, pO2 102 H, HCO3 25, ABG O2 Sat (Measured) 97.0, P-50 ( Temp Corrected) Y, Carboxyhemoglobin 0.6 L, O2 Concentration % 40%, Temperature 97.1, Respiration Rate 20, O2 Delivery Method VISION-FFM, Vent Mode ST, Expiratory Pressure 6, Inspiratory Pressure 16, Phlebotomy Draw Site RIGHT RADIAL 11/04/16 1725: pH 7.27 *L, pCO2 56 H, pO2 71 L, HCO3 25, ABG O2 Sat (Measured) 93.0 L, P-50 (Temp Corrected) Y, Carboxyhemoglobin 0.2 L, O2 Concentration % 7L, Temperature 97.1, O2 Delivery Method N/C, Phlebotomy Draw Site RIGHT RADIAL 11/04/16 1707: Troponin I < 0.[address] Scan Findings: Moderate bilateral pleural effusions with bilateral lower lobe compressive atelectasis. Additional consolidation seen in the lingula and dependent right upper lobe. Groundglass opacities in the right middle lobe. While some of this could represent atelectasis, an infectious process is also suspected, superimposed on pulmonary edema. Enlarged mediastinal lymph nodes may be reactive, although follow-up is recommended after clinical improvement to assess for change. Impression/Plan Impression/Plan Impression/Plan: 1. Improving respiratory failure, thought to be multifactorial postoperatively. Etiologies include pulmonary edema as well as an acute exacerbation of COPD. Superimposed pneumonia is not excluded and the patient is on meropenem for polymicrobial osteomyelitis. 2. History of pulmonary emboli. 3. Severe obstructive sleep apnea, on nocturnal BiPAP. 4. Morbid obesity. Recommendations: * Continue prednisone 40 mg for 4 days. * Follow-up cardiology recommendations. * Continue with diuresis. * Strict I's and O's. * If the patient's respiratory status does not improve with diuresis, he may require ultrasound-guided thoracentesis. * Continue TRC/nebs. * Continue Symbicort. * Continue nocturnal BiPAP. * Agree that the patient will require an outpatient sleep reevaluation. * Continue antibiotics as per ID. * DVT prophylaxis at all times. * Continue all supportive care.
[2016-11-05 15:34] VITALS: BP 126/70
[2016-11-05 22:12] VITALS: BP 140/62
[2016-11-06 07:00] VITALS: BP 156/72
--- NOTE | 2016-11-06 07:48 | PN- Housestaff ---
EFRAIN SANCHEZ,ALF 11/06/16 0748: Subjective Follow-up For: Osteoarthritis Complaints: no complaints Subjective: I followed up and examined the patient today. He was alert, oriented, not in distress, did not offer any complaints, vitals were stable overnight, except that he required oxygen via nasal cannula at 3 L/m. No overnight issues. His dressing remains the same, Dr. Zheng notified today. He did not suggest any dressing changes today. Later during the day, he required BiPAP as his oxygen saturation decreased to 88 % on 3 L/m, and was later taken off BiPAP after an hour. Review of Systems Constitutional: Reports: no symptoms. EENTM: Reports: no symptoms. Cardiovascular: Reports: no symptoms. Respiratory: Reports: no symptoms. Gastrointestinal: Reports: no symptoms. Genitourinary: Reports: no symptoms. Musculoskeletal: Reports: no symptoms. Skin: Reports: see HPI. Neurological/Psychological: Reports: no symptoms. Hematologic/Endocrine: Reports: no symptoms. Objective Last 24 Hrs of Vital Signs/I&O Vital Signs Date Time Temp Pulse Resp B/P Pulse O2 O2 Flow FiO2 Ox Delivery Rate 11/06 1924 97 Nasal 3.0L Cannula 11/06 1600 92 Nasal 3.0L Cannula 11/06 1453 98.2 70 20 136/60 92 Nasal 3.0L Cannula 11/06 1249 97 Nasal 3.0L Cannula 11/06 1245 98.3 74 22 138/64 94 Nasal 3.0L Cannula 11/06 1239 61 97 11/06 1228 81 94 11/06 1228 94 BIPAP 50% / 0918 60 156/72 / 0918 60 156/72 11/06 0819 93 Nasal 3.0L Cannula 11/06 0800 93 Nasal 3.0L Cannula 11/06 0700 97.6 60 20 156/72 93 Nasal 3.0L Cannula 11/06 0609 64 98 / 0327 57 94 11/06 0034 66 94 11/06 0032 83 99 11/06 0000 Nasal 5.0L Cannula 11/05 2212 98.0 72 20 140/62 95 Nasal 5.0L Cannula 11/05 2205 92 97 11/05 2140 130/64 Intake & Output 11/06 1600 / 0800 11/06 0000 Intake Total 800 250 500 Output Total 1850 1100 2000 Balance -1050 -850 -1500 Intake, IV 0 10 Intake, Oral 800 240 500 Number 0 Bowel Movements Output, Urine 185 1100 1999 Physical Exam General Appearance: Alert, Oriented X3, Cooperative, No Acute Distress Other Physical Findings: Head: Normocephalic, atraumatic Eyes: Pupils normal in size, regular, reacting to light and accommodation, EOM normal Ears: B/l normal on inspection Nose: Normal on inspection Throat/mouth: Moist mucosa Neck: Supple, full range of motion, no thyromegaly Heart: Regular rate, regular rhythm Lung: decreased sound b/l over lung bases, normal breath sounds anteriorly, no wheeze heard today Abd: Soft, non-tender, no distention appreciated Back: Normal range of motion Extremities: b/l pedal edema present, both feet were well dressed, no bleeding Current Medications: Current Medications Sig/Taylor Start time Last Medication Dose Route Stop Time Status Admin Acetaminophen 325 MG Q6P PRN 11/02 1715 AC PO Albuterol Sulfate 3 ML BID 11/03 1000 AC 11/06 INH 1923 Albuterol Sulfate 3 ML Q6P PRN 11/02 1930 AC INH Amlodipine Besylate 10 MG DAILY 11/03 1000 AC 11/06 PO 0918 Atorvastatin Calcium 20 MG 1700 11/03 1700 AC 11/06 PO 1604 Budesonide/ 2 PUF BID 11/02 2200 AC 11/06 Formoterol Fumarate INH 0917 Calcium Carbonate 500 MG BID 11/02 2200 AC 11/06 PO 0919 Carisoprodol 350 MG Q6-PRN PRN 11/02 1930 AC 11/04 PO 1028 Ferrous Sulfate 325 MG BID 11/02 2200 AC 11/06 PO 0918 Fluoxetine HCl 40 MG DAILY 11/03 1000 AC 11/06 PO 0918 Furosemide 40 MG 0800,1700 11/04 1700 AC 11/06 IV PUSH 1604 Heparin Sodium 5,000 UNIT Q8 11/03 0837 AC 11/06 (Porcine) SC 1443 Insulin Aspart 0 TIDAC 11/03 0800 AC 11/06 SC 1612 Insulin Detemir 5 UNITS AT BEDTIME 11/03 2200 AC 11/05 SC 2141 Meropenem 1 GM Q8H 11/04 0200 AC 11/06 IV 1751 Metoprolol Tartrate 50 MG BID 11/02 2200 AC 11/06 PO 0918 Morphine Sulfate 2 MG Q4P PRN 11/02 1715 AC 11/06 IV 0702 Omeprazole 40 MG DAILY AC 11/03 0700 AC 11/06 PO 0523 Oxycodone HCl 10 MG Q6P PRN 11/04 1130 AC 11/06 PO 1248 Polyethylene Glycol 17 GM DAILY PRN 11/02 1930 AC PO Prednisone 40 MG DAILY 11/05 1000 AC 11/06 PO 11/08 1001 0918 Senna/Docusate Sodium 1 TAB BID PRN 11/05 2030 AC PO Sodium Chloride 2 SPRAY Q4P PRN 11/03 2230 AC NIYA Sucralfate 1,000 MG 4 TIMES/DAY 11/02 2200 AC 11/06 PO 1751 Tiotropium [place] 1 PUF DAILY 11/04 1317 AC 11/06 INH 0917 Last 24 Hrs of Lab/Enrique Results Last 24 Hrs of Labs/Mics: Laboratory Tests 11/06/16 0644: Anion Gap 5, Estimated GFR 41 L, BUN/Creatinine Ratio 30.6 H, Magnesium 1.7, CBC w Diff NO MAN DIFF REQ, RBC 2.97 L, MCV 82.3, MCH 26.7 L, RDW 15.8 H, MPV 8.6, Gran % 65.9, Lymphocytes % 23.6, Monocytes % 8.8, Eosinophils % 0.9, Basophils % 0.8, Absolute Granulocytes 6.3, Absolute Lymphocytes 2.3, Absolute Monocytes 0.8 H, Absolute Eosinophils 0.1, Absolute Basophils 0.1, PUBS MCHC 32.4 L Assessment/Plan Assessment: 61 year old male with past medical history of diabetes mellitus, hypertension, CKD, PVD status post stenting in 2009, CAD status post cardiac catheterization without stent placement in 2014, COPD, obstructive sleep apnea not using O2 at home, pulmonary embolism not on anticoagulants >5 yrs ago, nonhealing ulceration of left foot with osteomyelitis, status post right metatarsal amputation, was sent to the emergency department by wound care clinic earlier on the day of admission to get assessed for osteomyelitis and possible bone biopsy on 11/02/16. Patient's vitals were stable when he came to the emergency department, labs were significant for leukocytosis at 11.7, anemia with 9.5 hemoglobin and 29.8 hematocrit, platelets 546, potassium slightly high at 5.5, sodium slightly higher range at 142, and creatinine at 1.3. 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 Chest x-ray is suggestive for left-sided pneumonia with small left sided pleural effusion, and suggests follow-up. Patient has not received any antibiotic in the emergency department. Currently, patient is being managed in the general medical floor for the following issues: #Suspected bilateral feet osteomyelitis Patient underwent debridement and a sample was sent to the lab for analysis, lab results showing mixed norbert. Infectious disease service consult appreciated. Vascular surgery reevaluation was requested since Monday. -Currently is on IV meropenem 1g q8hr, has been afebrile -Microbial cultures remarkable for multiple organisms including Pseudomonas and enterococcus. Meropenem will provide adequate coverage. -Podiatry service was consulted over phone today, and a tentative plan to go for debridement/surgical procedure was made for Monday. If so, patient will be maintained nothing by mouth from Monday midnight. #Acute hypoxic hypercarbic respiratory failure, secondary to congestive heart failure/possible pneumonia -On and Monday last week, patient developed acute hypoxic hypercarbic respiratory failure, secondary to congestive heart failure and possible pneumonia as seen on CT scan. He was treated with IV Lasix, meropenem was already on board, that would cover for pneumonia. Cardiology and pulmonology services were consulted. Due to worsening creatinine, Lasix was held however since Monday. Patient has been on BiPAP intermittently since then. #Diabetes mellitus -Continue regular Accu-Cheks, Insulin NovoLog Sliding scale, and diabetic diet #Continue with the rest of the medications for hypertension, hyperlipidemia, chronic kidney disease, anemia, severe peripheral vascular disease -Continue total respiratory care/nebs -We will continue to monitor for any electrolyte disturbance #Subcutaneous heparin and Alps for DVT prophylaxis, as he has CKD #Full CODE STATUS Problem List: 1. Osteomyelitis 2. Acute respiratory failure with hypoxia and hypercarbia 3. CHF (congestive heart failure) 4. Pneumonia 5. Diabetes mellitus Pain Ratin Pain Location: Over bilateral feet, when present Pain Goal: Pain 4 or less Pain Plan: prn meds, including oxycodone 10 mg as he takes at home Tomorrow's Labs & Rationales: CBC, BEP, INR to follow up with sepsis, dyslipidemia, and bleeding tendency VILMA SANCHEZ,AMIR 11/06/16 1304: Attending MD Review Statement Attending Statement Attending MD Statement: examined this patient, discuss w/resident/PA/SEWING SUPERVISOR, agreed w/resident/PA/SEWING SUPERVISOR, reviewed EMR data (avail), discussed with nursing
[2016-11-06 08:18] LABS: ABSOLUTE BASOPHIL COUNT 0.1 /CUMM (0.0-0.2); ABSOLUTE EOSINOPHIL COUNT 0.1 /CUMM (0.0-0.7); ABSOLUTE GRANULOCYTE CT 6.3 /CUMM (1.4-6.5); ABSOLUTE LYMPH COUNT 2.3 /CUMM (1.2-3.4); ABSOLUTE MONOCYTE COUNT 0.8 /CUMM (0.10-0.60); BASOPHIL % 0.8 % (0.0-2.0); EOSINOPHIL % 0.9 % (0-5); GRANULOCYTE % 65.9 % (42.2-75.2); HEMATOCRIT 24.5 % (42-52); MEAN CORPUSCULAR HGB 26.7 PG (27.0-31.0); MEAN CORPUSCULAR HGB CONC 32.4 G/DL (33.0-37.0); MEAN CORPUSCULAR VOLUME 82.3 FL (80.0-94.0); MEAN PLATELET VOLUME 8.6 FL (7.4-10.4); PLATELET COUNT 359 /CUMM (130-400); RBC DISTRIBUTION WIDTH 15.8 % (11.5-14.5); RED BLOOD CELL CT 2.97 /CUMM (4.70-6.10); WHITE BLOOD CELL COUNT 9.6 /CUMM (4.8-10.8)
[2016-11-06 12:45] VITALS: BP 138/64
--- NOTE | 2016-11-06 12:48 | PN- Pulmonary ---
Subjective HPI/Critical Care Issues: The patient is awake and alert. He reports feeling improved overall. His oxygen requirement is down to 2 L nasal cannula. He denies shortness of breath. He has no chest pain, fever, chills, sputum production or any other associated issues. He remains nonambulatory. Objective Current Medications: Current Medications Sig/Taylor Start time Last Medication Dose Route Stop Time Status Admin Acetaminophen 325 MG Q6P PRN 11/02 1715 AC PO Albuterol Sulfate 3 ML BID 11/03 1000 AC 11/06 INH 1227 Albuterol Sulfate 3 ML Q6P PRN 11/02 1930 AC INH Amlodipine Besylate 10 MG DAILY 11/03 1000 AC 11/06 PO 0918 Atorvastatin Calcium 20 MG 1700 11/03 1700 AC 11/05 PO 1727 Budesonide/ 2 PUF BID 11/02 2200 AC 11/06 Formoterol Fumarate INH 0917 Calcium Carbonate 500 MG BID 11/02 2200 AC 11/06 PO 0919 Carisoprodol 350 MG Q6-PRN PRN 11/02 1930 AC 11/04 PO 1028 Ferrous Sulfate 325 MG BID 11/02 2200 AC 11/06 PO 0918 Fluoxetine HCl 40 MG DAILY 11/03 1000 AC 11/06 PO 0918 Furosemide 40 MG 0800,1700 11/04 1700 AC 11/06 IV PUSH 0735 Heparin Sodium 5,000 UNIT Q8 11/03 0837 AC 11/06 (Porcine) SC 0523 Insulin Aspart 0 TIDAC 11/03 0800 AC 11/05 SC 1726 Insulin Detemir 5 UNITS AT BEDTIME 11/03 2200 AC 11/05 SC 2141 Meropenem 1 GM Q8H 11/04 0200 AC 11/06 IV 0919 Metoprolol Tartrate 50 MG BID 11/02 2200 AC 11/06 PO 0918 Morphine Sulfate 2 MG Q4P PRN 11/02 1715 AC 11/06 IV 0702 Omeprazole 40 MG DAILY AC 11/03 0700 AC 11/06 PO 0523 Oxycodone HCl 10 MG Q6P PRN 11/04 1130 AC 11/06 PO 0523 Polyethylene Glycol 17 GM DAILY PRN 11/02 1930 AC PO Prednisone 40 MG DAILY 11/05 1000 AC 11/06 PO 11/08 1001 0918 Senna/Docusate Sodium 1 TAB BID PRN 11/05 2030 AC PO Sodium Chloride 2 SPRAY Q4P PRN 11/03 2230 AC NIYA Sucralfate 1,000 MG 4 TIMES/DAY 11/02 220 AC 11/06 PO 0918 Tiotropium [place] 1 PUF DAILY 11/04 1317 AC 11/06 INH 0917 Vital Signs & I&O Last 24 Hrs of Vitals and I&O: Vital Signs Date Time Temp Pulse Resp B/P Pulse O2 O2 Flow FiO2 Ox Delivery Rate 11/06 1239 61 97 11/06 1228 81 94 11/06 1228 94 BIPAP 50% 11/06 0918 60 156/72 11/06 0918 60 156/72 11/06 0819 93 Nasal 3.0L Cannula 11/06 08 93 Nasal 3.0L Cannula 11/06 0700 97.6 60 20 156/72 93 Nasal 3.0L Cannula 11/06 0609 64 98 11/06 0327 57 94 11/06 0034 66 94 11/06 0032 83 99 11/06 0000 Nasal 5.0L Cannula 11/05 2212 98.0 72 20 140/62 95 Nasal 5.0L Cannula 11/05 2205 92 97 11/05 2140 130/64 04 1846 95 Nasal 5.0L Cannula 11/05 1600 Nasal 5.0L Cannula 11/05 1534 97.8 80 22 126/70 98 Nasal 2.0L Cannula Intake & Output 11/06 1600 11/06 0800 11/06 0000 Intake Total 250 500 Output Total 1100 2000 Balance -850 -1500 Intake, IV 10 Intake, Oral 240 500 Output, Urine 1100 1999 Exam General Appearance: obese, no acute distress Head: atraumatic, normal appearance Neck: supple Respiratory: bilateral rhonchi with adequate air entry, the lungs expand symmetrically Cardiovascular: regular rate/rhythm, soft systolic ejection murmur heard Abdomen: obese, soft, nontender Extremities: chronic lower extremity edema with bilateral dressings intact Skin: warm/dry Results Last 24 Hrs of Lab Results: Laboratory Tests 11/06/16 0644: Anion Gap 5, Estimated GFR 41 L, BUN/Creatinine Ratio 30.6 H, Magnesium 1.7, CBC w Diff NO MAN DIFF REQ, RBC 2.97 L, MCV 82.3, MCH 26.7 L, RDW 15.8 H, MPV 8.6, Gran % 65.9, Lymphocytes % 23.6, Monocytes % 8.8, Eosinophils % 0.9, Basophils % 0.8, Absolute Granulocytes 6.3, Absolute Lymphocytes 2.3, Absolute Monocytes 0.8 H, Absolute Eosinophils 0.1, Absolute Basophils 0.1, PUBS MCHC 32.4 L Diagnostic Data ECHO Findings: Mild left ventricular dilatation. Normal left ventricular ejection fraction visually estimated at >55. Impression/Plan Impression/Plan Impression/Plan: 1. Improving respiratory failure, thought to be multifactorial postoperatively. Etiologies include pulmonary edema as well as an acute exacerbation of COPD. Superimposed pneumonia is not excluded and the patient is on meropenem for polymicrobial osteomyelitis. 2. History of pulmonary emboli. 3. Severe obstructive sleep apnea, on nocturnal BiPAP. 4. Morbid obesity. Recommendations: * Continue prednisone 40 mg for 2 more days. * Continue with diuresis. * Strict I's and O's. * If the patient's respiratory status does not improve with diuresis, he may require ultrasound-guided thoracentesis. He does however appear improved today. * Continue TRC/nebs. * Continue Symbicort. * Continue nocturnal BiPAP. * Agree that the patient will require an outpatient sleep reevaluation. * Continue antibiotics as per ID. * DVT prophylaxis at all times. * Continue all supportive care.
[2016-11-06 14:53] VITALS: BP 136/60
[2016-11-06 21:44] VITALS: BP 138/70
[2016-11-07 06:40] VITALS: BP 164/64
--- NOTE | 2016-11-07 07:33 | PN- Housestaff ---
EFRAIN SANCHEZ,ALF 11/07/16 0733: Subjective Follow-up For: Right foot osteoarthritis Complaints: no complaints Subjective: I followed up and examined the patient today. He is lying comfortably on his bed. He does not have any complaints, vitals have been stable and no overnight issues reported. Review of Systems Constitutional: Reports: no symptoms. Cardiovascular: Reports: no symptoms. Respiratory: Reports: no symptoms. Gastrointestinal: Reports: no symptoms. Genitourinary: Reports: no symptoms. Musculoskeletal: Reports: no symptoms. Skin: Reports: see HPI. Neurological/Psychological: Reports: no symptoms. Objective Last 24 Hrs of Vital Signs/I&O Vital Signs Date Time Temp Pulse Resp B/P Pulse O2 O2 Flow FiO2 Ox Delivery Rate 11/07 1543 98.6 64 18 138/70 94 Nasal 3.0L Cannula 11/07 0941 66 158/62 11/07 0941 66 158/62 11/07 0829 92 Nasal 3.0L Cannula 11/07 0800 95 Nasal 3.0L Cannula 11/07 0640 98.0 51 18 164/64 99 Nasal 3.0L Cannula 11/07 0544 50 99 / 0331 61 95 / 0007 60 100 / 0003 98 Nasal 3.0L Cannula 11/07 0000 BIPAP 11/06 2158 62 138/70 04/ 2144 98.0 62 18 138/70 97 Nasal 3.0L Cannula 11/06 1924 97 Nasal 3.0L Cannula Intake & Output 11/07 1600 /03 0800 04/ 0000 Intake Total 800 600 Output Total 2100 750 3000 Balance -1300 -750 -2400 Intake, Oral 800 600 Number 1 Bowel Movements Output, Urine 2100 750 3000 Physical Exam General Appearance: Alert, Oriented X3, Cooperative, No Acute Distress Other Physical Findings: Head: Normocephalic, atraumatic Eyes: Pupils normal in size, regular, reacting to light and accommodation, EOM normal Ears: B/l normal on inspection Nose: Normal on inspection Throat/mouth: Moist mucosa Neck: Supple, full range of motion, no thyromegaly Heart: Regular rate, regular rhythm Lung: decreased sound b/l over lung bases, normal breath sounds anteriorly, no wheeze heard today Abd: Soft, non-tender, no distention appreciated Back: Normal range of motion Extremities: b/l pedal edema present, both feet were well dressed, no bleeding Current Medications: Current Medications Sig/Taylor Start time Last Medication Dose Route Stop Time Status Admin Acetaminophen 325 MG Q6P PRN 11/02 1715 AC PO Albuterol Sulfate 3 ML BID 11/03 1000 AC 11/07 INH 0828 Albuterol Sulfate 3 ML Q6P PRN 11/02 1930 AC INH Amlodipine Besylate 10 MG DAILY 11/03 1000 AC 11/07 PO 0941 Atorvastatin Calcium 20 MG 1700 11/03 1700 AC 11/06 PO 1604 Budesonide/ 2 PUF BID 11/02 2200 AC 11/07 Formoterol Fumarate INH 0943 Calcium Carbonate 500 MG BID 11/02 2200 AC 11/07 PO 0942 Carisoprodol 350 MG Q6-PRN PRN 11/02 1930 AC 11/04 PO 1028 Ferrous Sulfate 325 MG BID 11/02 2200 AC 11/07 PO 0941 Fluoxetine HCl 40 MG DAILY 11/03 1000 AC 11/07 PO 0941 Furosemide 40 MG 0800,1700 11/04 1700 AC 11/07 IV PUSH 0840 Heparin Sodium 5,000 UNIT Q8 11/03 0837 AC 11/07 (Porcine) SC 1308 Insulin Aspart 0 TIDAC 11/03 0800 DC 11/06 SC 1612 Insulin Detemir 5 UNITS AT BEDTIME 11/03 2200 AC 11/06 SC 2158 Insulin Human Regular 0 Q6 11/08 0600 AC SC Meropenem 1 GM Q8H 11/04 0200 AC 11/07 IV 0947 Metoprolol Tartrate 50 MG BID 11/02 2200 AC 11/07 PO 0941 Morphine Sulfate 2 MG Q4P PRN 11/02 1715 AC 11/07 IV 1438 Omeprazole 40 MG DAILY AC 11/03 0700 AC 11/07 PO 0607 Oxycodone HCl 10 MG Q6P PRN 11/04 1130 AC 11/07 PO 1617 Patient Medication 1 ED .STK-MED ONE 11/07 1351 DC Teaching ED 11/07 1352 Polyethylene Glycol 17 GM DAILY PRN 11/02 1930 AC PO Prednisone 40 MG DAILY 11/05 1000 AC 11/07 PO 11/08 1001 0941 Senna/Docusate Sodium 1 TAB BID PRN 11/05 2030 AC 11/07 PO 0942 Sodium Chloride 2 SPRAY Q4P PRN 11/03 2230 AC NIYA Sucralfate 1,000 MG 4 TIMES/DAY 11/02 2200 AC 11/07 PO 1308 Tiotropium [place] 1 PUF DAILY 11/04 1317 AC 11/07 INH 0943 Last 24 Hrs of Lab/Enrique Results Last 24 Hrs of Labs/Mics: Laboratory Tests 11/07/16 0626: Anion Gap 4 L, Estimated GFR 52 L, BUN/Creatinine Ratio 37.1 H, Magnesium 1.7 , PT 12.3, INR 1.17, CBC w Diff NO MAN DIFF REQ, RBC 3.19 L, MCV 82.2, MCH 26.8 L, RDW 15.5 H, MPV 8.3, Gran % 59.4, Lymphocytes % 29.8, Monocytes % 9.5 H, Eosinophils % 0.6, Basophils % 0.7, Absolute Granulocytes 5.4, Absolute Lymphocytes 2.7, Absolute Monocytes 0.9 H, Absolute Eosinophils 0.1, Absolute Basophils 0.1, PUBS MCHC 32.6 L Assessment/Plan Assessment: 61 year old male with past medical history of diabetes mellitus, hypertension, CKD, PVD status post stenting in 2009, CAD status post cardiac catheterization without stent placement in 2014, COPD, obstructive sleep apnea not using O2 at home, pulmonary embolism not on anticoagulants >5 yrs ago, nonhealing ulceration of left foot with osteomyelitis, status post right metatarsal amputation, was sent to the emergency department by wound care clinic earlier on the day of admission to get assessed for osteomyelitis and possible bone biopsy on 11/02/16. Patient's vitals were stable when he came to the emergency department, labs were significant for leukocytosis at 11.7, anemia with 9.5 hemoglobin and 29.8 hematocrit, platelets 546, potassium slightly high at 5.5, sodium slightly higher range at 142, and creatinine at 1.3. 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 Chest x-ray is suggestive for left-sided pneumonia with small left sided pleural effusion, and suggests follow-up. Patient has not received any antibiotic in the emergency department. Currently, patient is being managed in the general medical floor for the following issues: #Suspected bilateral feet osteomyelitis Patient underwent debridement and a sample was sent to the lab for analysis, lab results showing mixed norbert. Infectious disease service consult appreciated. Vascular surgery reevaluation was requested since Monday. -Currently is on IV meropenem 1g q8hr, has been afebrile -Microbial cultures remarkable for multiple organisms including Pseudomonas and enterococcus. Meropenem will provide adequate coverage. -Plan to go for debridement/surgical procedure was made for tomorrow, and the patient is being maintained nothing by mouth from Monday midnight. #Acute hypoxic hypercarbic respiratory failure, secondary to congestive heart failure/possible pneumonia -On and Monday last week, patient developed acute hypoxic hypercarbic respiratory failure, secondary to congestive heart failure and possible pneumonia as seen on CT scan. He was treated with IV Lasix, meropenem was already on board, that would cover for pneumonia. Cardiology and pulmonology services were consulted. Due to worsening creatinine, Lasix was held however since Monday. Patient has been on BiPAP intermittently since then. #Diabetes mellitus -Continue regular Accu-Cheks, Insulin NovoLog Sliding scale, and diabetic diet -Nothing by mouth from midnight and insulin Novolin regular from then until his surgery #Continue with the rest of the medications for hypertension, hyperlipidemia, chronic kidney disease, anemia, severe peripheral vascular disease -Continue total respiratory care/nebs -We will continue to monitor for any electrolyte disturbance #Diet: Diabetic diet, will be NPO from [place] for procedure tomorrow #Subcutaneous heparin and Alps for DVT prophylaxis, as he has CKD #Full CODE STATUS Problem List: 1. Osteomyelitis 2. Diabetes mellitus type 2 in obese 3. CHF (congestive heart failure) 4. CKD (chronic kidney disease) Pain Ratin Pain Location: left foot Pain Goal: Remain pain free Pain Plan: prn Tomorrow's Labs & Rationales: BEP, INR for procedure surgical tomorrow TERENCE HELTON MD 11/07/16 1541: Attending MD Review Statement Attending Statement Attending Statement: examined this patient, discuss w/resident/PA/SILVERWARE SUPERVISOR, agreed w/resident/PA/SILVERWARE SUPERVISOR, reviewed EMR data (avail), discussed with nursing, discussed with case mgmt, amended to note Attending Assessment/Plan: Patient seen and examined. Lying comfortably in bed and not in any distress. No issues overnight reported by nursing staff. Denies shortness of breath. He did require BiPAP therapy yesterday but has been stable overnight. Maintaining saturation on 3 L of oxygen. Chest x-ray shows some improvement of bilateral pleural effusion. On examination he has diminished breath sounds in the lungs bilaterally. He has bilateral 2+ pedal edema. Both feet are wrapped up with no drainage. Recommendations: -Continue IV diuretic therapy for now. Continue to monitor input output. -His renal function is currently stable. We'll transition to oral diuretic therapy in the next 24-48 hours depending on his oxygen requirement. -Continue IV antibiotic therapy. Follow-up with the ID service will duration of therapy.
[2016-11-07 08:16] LABS: ABSOLUTE BASOPHIL COUNT 0.1 /CUMM (0.0-0.2); ABSOLUTE EOSINOPHIL COUNT 0.1 /CUMM (0.0-0.7); ABSOLUTE GRANULOCYTE CT 5.4 /CUMM (1.4-6.5); ABSOLUTE LYMPH COUNT 2.7 /CUMM (1.2-3.4); ABSOLUTE MONOCYTE COUNT 0.9 /CUMM (0.10-0.60); BASOPHIL % 0.7 % (0.0-2.0); EOSINOPHIL % 0.6 % (0-5); GRANULOCYTE % 59.4 % (42.2-75.2); HEMATOCRIT 26.2 % (42-52); MEAN CORPUSCULAR HGB 26.8 PG (27.0-31.0); MEAN CORPUSCULAR HGB CONC 32.6 G/DL (33.0-37.0); MEAN CORPUSCULAR VOLUME 82.2 FL (80.0-94.0); MEAN PLATELET VOLUME 8.3 FL (7.4-10.4); PLATELET COUNT 419 /CUMM (130-400); RBC DISTRIBUTION WIDTH 15.5 % (11.5-14.5); RED BLOOD CELL CT 3.19 /CUMM (4.70-6.10)
[2016-11-07 08:20] LABS: PT 12.3 SEC (9.4-12.5)
--- NOTE | 2016-11-07 11:09 | RADIOLOGY REPORT ---
EXAMINATION: XR PORTABLE CHEST CLINICAL INFORMATION: Acute dyspnea. COMPARISON: Chest CT 11/04/2016. TECHNIQUE: Portable AP view of the chest was obtained. FINDINGS: There is a persistent left-sided pleural effusion with associated atelectasis and/or infiltrate. Known right-sided pleural effusion and atelectasis and/or infiltrate is less prominent than the previous chest x-ray. IMPRESSION: Stable appearing chest x-ray.
--- NOTE | 2016-11-07 11:23 | PN- Infect Dx ---
Subjective Subjective: Afebrile. He feels better with decreased respiratory distress. He notes chronic pain in both feet. Objective Last 24 Hrs of Vital Signs/I&O Vital Signs Date Time Temp Pulse Resp B/P Pulse O2 O2 Flow FiO2 Ox Delivery Rate 11/07 0941 66 158/62 11/07 0941 66 158/62 11/07 0829 92 Nasal 3.0L Cannula 11/07 0640 98.0 51 18 164/64 99 Nasal 3.0L Cannula 11/07 0544 50 99 11/07 0331 61 95 11/07 0007 60 100 11/07 0003 98 Nasal 3.0L Cannula 11/07 0000 BIPAP 11/06 2158 62 138/70 11/06 2144 98.0 62 18 138/70 97 Nasal 3.0L Cannula 11/06 1924 97 Nasal 3.0L Cannula 11/06 1600 92 Nasal 3.0L Cannula 11/06 1453 98.2 70 20 136/60 92 Nasal 3.0L Cannula 11/06 1249 97 Nasal 3.0L Cannula 11/06 1245 98.3 74 22 138/64 94 Nasal 3.0L Cannula 11/06 1239 61 97 11/06 1228 81 94 11/06 1228 94 BIPAP 50% Intake & Output 11/07 1600 11/07 0800 11/07 0000 Intake Total 600 Output Total 750 3000 Balance -750 -2400 Intake, Oral 600 Output, Urine 750 3000 Physical Exam Other Physical Findings: He appears comfortable in no acute distress Lungs decreased breath sounds at the bases Heart regular rhythm with no murmur Extremities dressings intact over both feet Results Last 24 Hours of Lab Results: Laboratory Tests 11/07 625 Chemistry Sodium (137 - 145 mmol/L) 139 Potassium (3.5 - 5.1 mmol/L) 4.2 Chloride (98 - 107 mmol/L) 104 Carbon Dioxide (22 - 30 mmol/L) 31 H Anion Gap (5 - 16) 4 L BUN (9 - 20 mg/dL) 52 H Creatinine (0.7 - 1.2 mg/dL) 1.4 H Estimated GFR (>60 ml/min) 52 L BUN/Creatinine Ratio (7 - 25 %) 37.1 H Magnesium (1.6 - 2.3 mg/dL) 1.7 Coagulation PT (9.4 - 12.5 SEC) 12.3 INR (0.90 - 1.17) 1.17 Hematology CBC w Diff NO MAN DIFF REQ WBC (4.8 - 10.8 /CUMM) 9.0 RBC (4.70 - 6.10 /CUMM) 3.19 L Hgb (14.0 - 18.0 G/DL) 8.6 L Hct (42 - 52 %) 26.2 L MCV (80.0 - 94.0 FL) 82.2 MCH (27.0 - 31.0 PG) 26.8 L RDW (11.5 - 14.5 %) 15.5 H Plt Count (130 - 400 /CUMM) 419 H MPV (7.4 - 10.4 FL) 8.3 Gran % (42.2 - 75.2 %) 59.4 Lymphocytes % (20.5 - 51.1 %) 29.8 Monocytes % (1.7 - 9.3 %) 9.5 H Eosinophils % (0 - 5 %) 0.6 Basophils % (0.0 - 2.0 %) 0.7 Absolute Granulocytes (1.4 - 6.5 /CUMM) 5.4 Absolute Lymphocytes (1.2 - 3.4 /CUMM) 2.7 Absolute Monocytes (0.10 - 0.60 /CUMM) 0.9 H Absolute Eosinophils (0.0 - 0.7 /CUMM) 0.1 Absolute Basophils (0.0 - 0.2 /CUMM) 0.1 PUBS MCHC (33.0 - 37.0 G/DL) 32.6 L Last 24 Hours of Enrique Results: OR culture labeled right foot bone November 02 positive for Enterococcus resistant to Ampicillin, Enterobacter, Pseudomonas and coag-negative Staph OR culture labeled left foot bone positive for Pseudomonas, Serratia, Staph simulans and diphtheroids Sputum culture November 04 mixed norbert Blood cultures November 02 negative Recent Imaging Studies: Chest x-ray November 07 persistent left-sided effusion with associated atelectasis and/or infiltrate Assessment/Plan Impression: Overall improved with decreased respiratory distress on Lasix and prednisone for what was felt to be a combination of fluid overload and, possibly, an exacerbation of COPD. He remains afebrile with white blood cell count normal on Meropenem Day 4 for bilateral polymicrobial osteomyelitis, status post debridement of the bone and I&D to the deep fascia of both feet 5 days ago. When OR culture did grow Enterococcus resistant to Ampicillin, which would imply resistance to Meropenem, but would defer on Vancomycin at this time, as am not convinced this is a true pathogen. Given the failure of his wounds to heal feel that further amputation, for example BKA, at least of the right foot, which was considered on his previous admission, will need to be considered. In any event he will likely require long-term IV access in anticipation of another prolonged course of IV antibiotics. His creatinine remains elevated though decreasing, and, given his chronic renal insufficiency, he may require a Pro-Line rather than a PICC. He is apparently scheduled for a return to the OR in the a.m. Suggestion: 1. Vascular surgery reevaluation 2. Await Podiatry follow-up regarding further debridement versus BKA of the right foot 3. Would pursue placement of a Pro-Line 4. Continue Meropenem
--- NOTE | 2016-11-07 11:47 | PN- Pulmonary ---
Subjective HPI/Critical Care Issues: pt seen and examined sats improved significantly on 3LNC from 7 feels much better chronic pain in feet Objective Current Medications: Current Medications Sig/Taylor Start time Last Medication Dose Route Stop Time Status Admin Acetaminophen 325 MG Q6P PRN 11/02 1715 AC PO Albuterol Sulfate 3 ML BID 11/03 1000 AC 11/07 INH 0828 Albuterol Sulfate 3 ML Q6P PRN 11/02 1930 AC INH Amlodipine Besylate 10 MG DAILY 11/03 1000 AC 11/07 PO 0941 Atorvastatin Calcium 20 MG 1700 11/03 1700 AC 11/06 PO 1604 Budesonide/ 2 PUF BID 11/02 2200 AC 11/07 Formoterol Fumarate INH 0943 Calcium Carbonate 500 MG BID 11/02 2200 AC 11/07 PO 0942 Carisoprodol 350 MG Q6-PRN PRN 11/02 1930 AC 11/04 PO 1028 Ferrous Sulfate 325 MG BID 11/02 2200 AC 11/07 PO 0941 Fluoxetine HCl 40 MG DAILY 11/03 1000 AC 11/07 PO 0941 Furosemide 40 MG 0800,1700 11/04 1700 AC 11/07 IV PUSH 0840 Heparin Sodium 5,000 UNIT Q8 11/03 0837 AC 11/07 (Porcine) SC 0608 Insulin Aspart 0 TIDAC 11/03 0800 AC 11/06 SC 1612 Insulin Detemir 5 UNITS AT BEDTIME 11/03 2200 AC 11/06 SC 2158 Meropenem 1 GM Q8H 11/04 0200 AC 11/07 IV 0947 Metoprolol Tartrate 50 MG BID 11/02 2200 AC 11/07 PO 0941 Morphine Sulfate 2 MG Q4P PRN 11/02 1715 AC 11/07 IV 0616 Omeprazole 40 MG DAILY AC 11/03 0700 AC 11/07 PO 0607 Oxycodone HCl 10 MG Q6P PRN 11/04 1130 AC 11/07 PO 0950 Polyethylene Glycol 17 GM DAILY PRN 11/02 1930 AC PO Prednisone 40 MG DAILY 11/05 1000 AC 11/07 PO 04 1001 0941 Senna/Docusate Sodium 1 TAB BID PRN 11/05 2030 AC 11/07 PO 0942 Sodium Chloride 2 SPRAY Q4P PRN 11/03 2230 AC NIYA Sucralfate 1,000 MG 4 TIMES/DAY 11/02 2200 AC 11/07 PO 0941 Tiotropium [place] 1 PUF DAILY 11/04 1317 AC 11/07 INH 0943 Vital Signs & I&O Last 24 Hrs of Vitals and I&O: Vital Signs Date Time Temp Pulse Resp B/P Pulse O2 O2 Flow FiO2 Ox Delivery Rate 11/07 940 66 158/62 11/07 0941 66 158/62 11/07 0829 92 Nasal 3.0L Cannula 11/07 0800 95 Nasal 3.0L Cannula 11/07 0640 98.0 51 18 164/64 99 Nasal 3.0L Cannula 11/07 0544 50 99 11/07 0331 61 95 11/07 0007 60 100 11/07 0003 98 Nasal 3.0L Cannula 11/07 0000 BIPAP 11/06 2158 62 138/70 11/06 2144 98.0 62 18 138/70 97 Nasal 3.0L Cannula 11/06 1924 97 Nasal 3.0L Cannula 11/06 1600 92 Nasal 3.0L Cannula 11/06 1453 98.2 70 20 136/60 92 Nasal 3.0L Cannula 11/06 1249 97 Nasal 3.0L Cannula 11/06 1245 98.3 74 22 138/64 94 Nasal 3.0L Cannula 11/06 1239 61 97 11/06 1228 81 94 11/06 1228 94 BIPAP 50% Intake & Output 11/07 1600 11/07 0800 11/07 0000 Intake Total 600 Output Total 750 3000 Balance -750 -2400 Intake, Oral 600 Output, Urine 750 3000 Exam Other Physical Findings: gen awake and alert heent ncat cvs s1, s2 lungs diminished bibasilar abd soft bs+ ext edematous, dressing intact Results Last 24 Hrs of Lab Results: Laboratory Tests 11/07/16 0626: Anion Gap 4 L, Estimated GFR 52 L, BUN/Creatinine Ratio 37.1 H, Magnesium 1.7 , PT 12.3, INR 1.17, CBC w Diff NO MAN DIFF REQ, RBC 3.19 L, MCV 82.2, MCH 26.8 L, RDW 15.5 H, MPV 8.3, Gran % 59.4, Lymphocytes % 29.8, Monocytes % 9.5 H, Eosinophils % 0.6, Basophils % 0.7, Absolute Granulocytes 5.4, Absolute Lymphocytes 2.7, Absolute Monocytes 0.9 H, Absolute Eosinophils 0.1, Absolute Basophils 0.1, PUBS MCHC 32.6 L Impression/Plan Impression/Plan Impression/Plan: Impression 61 year old man * Hypoxemic respiratory failure - most likely secondary to volume overload, however his anemia and renal failure likely are contributing as well. Hypoxemia also secondary to post operative causes * COPD history * History of pulmonary embolism Plan - complete prednisone as ordered - ins/outs - trc/nebs - will need outpt sleep re-evaluation - continue symbicort - pt supposed to be on spiriva - if no contraindication would add - if continues to improve no need for thoracentesis - repeat CXR today - portable DVT prophylaxis at all times
--- NOTE | 2016-11-07 14:48 | PN- Cardiology ---
Subjective Subjective: The patient reports that he is feeling somewhat better. Shortness of breath is improving. No chest pain. No palpitations. No diaphoresis. No lightheadedness or dizziness. Objective Vital Signs and I&Os Vital Signs Date Time Temp Pulse Resp B/P Pulse O2 O2 Flow FiO2 Ox Delivery Rate 11/07 0941 66 158/62 11/07 0941 66 158/62 11/07 0829 92 Nasal 3.0L Cannula 11/07 0800 95 Nasal 3.0L Cannula 11/07 0640 98.0 51 18 164/64 99 Nasal 3.0L Cannula 11/07 0544 50 99 11/07 0331 61 95 11/07 0007 60 100 11/07 0003 98 Nasal 3.0L Cannula 11/07 0000 BIPAP 11/06 2158 62 138/70 11/06 2144 98.0 62 18 138/70 97 Nasal 3.0L Cannula 11/06 1924 97 Nasal 3.0L Cannula 11/06 1600 92 Nasal 3.0L Cannula 11/06 1453 98.2 70 20 136/60 92 Nasal 3.0L Cannula Intake & Output 11/07 1600 11/07 0800 / 0000 11/06 1600 11/06 0800 11/06 0000 Intake Total 600 800 250 500 Output Total 750 3000 1850 1100 1999 Balance -750 -2400 -1050 -850 -1500 Intake, IV 0 10 Intake, Oral 600 800 240 500 Number 0 Bowel Movements Output, Urine 750 3000 1850 1100 1999 Physical Exam: Gen: The patient is in no acute distress HEENT: Normal nose, ears, and oropharynx. Pupils equal bilaterally. Conjunctiva normal. Neck: Supple with no JVD, no masses, and no thyromegaly Lungs: scattered rhonchi bilaterally with normal respiratory effort Heart: RRR, S1, S2, 1/6 systolic murmur. 1+ peripheral edema, 1+ pulses in the lower extremities bilaterally Abdomen: Soft, nontender, no masses. No hepatomegaly. No splenomegaly Extremities: No clubbing or cyanosis. right foot amputation and ulcers noted. Left foot ulcer noted. Current Medications: Current Medications Sig/Taylor Start time Last Medication Dose Route Stop Time Status Admin Acetaminophen 325 MG Q6P PRN 11/02 1715 AC PO Albuterol Sulfate 3 ML BID 11/03 1000 AC 11/07 INH 0828 Albuterol Sulfate 3 ML Q6P PRN 11/02 1930 AC INH Amlodipine Besylate 10 MG DAILY 11/03 1000 AC 11/07 PO 0941 Atorvastatin Calcium 20 MG 1700 11/03 1700 AC 11/06 PO 1604 Budesonide/ 2 PUF BID 11/02 2200 AC 11/07 Formoterol Fumarate INH 0943 Calcium Carbonate 500 MG BID 11/02 2200 AC 11/07 PO 0942 Carisoprodol 350 MG Q6-PRN PRN 11/02 1930 AC 11/04 PO 1028 Ferrous Sulfate 325 MG BID 11/02 2200 AC 11/07 PO 0941 Fluoxetine HCl 40 MG DAILY 11/03 1000 AC 11/07 PO 0941 Furosemide 40 MG 0800,1700 11/04 1700 AC 11/07 IV PUSH 0840 Heparin Sodium 5,000 UNIT Q8 11/03 0837 AC 11/07 (Porcine) SC 1308 Insulin Aspart 0 TIDAC 11/03 0800 AC 11/06 SC 1612 Insulin Detemir 5 UNITS AT BEDTIME 11/03 2200 AC 11/06 SC 2158 Meropenem 1 GM Q8H 11/04 0200 AC 11/07 IV 0947 Metoprolol Tartrate 50 MG BID 11/02 2200 AC 11/07 PO 0941 Morphine Sulfate 2 MG Q4P PRN 11/02 1715 AC 11/07 IV 1438 Omeprazole 40 MG DAILY AC 11/03 0700 AC 11/07 PO 0607 Oxycodone HCl 10 MG Q6P PRN 11/04 1130 AC 11/07 PO 0950 Patient Medication 1 ED .ST-MED ONE 11/07 1351 [place] Teaching ED 11/07 1352 Polyethylene Glycol 17 GM DAILY PRN 11/02 1930 AC PO Prednisone 40 MG DAILY 11/05 1000 AC 11/07 PO 11/08 1001 0941 Senna/Docusate Sodium 1 TAB BID PRN 11/05 2030 AC 11/07 PO 0942 Sodium Chloride 2 SPRAY Q4P PRN 11/03 2230 AC NIYA Sucralfate 1,000 MG 4 TIMES/DAY 11/02 2200 AC 11/07 PO 1308 Tiotropium [place] 1 PUF DAILY 11/04 1317 AC 11/07 INH 0943 Results Last 48 Hrs of Labs/Mics: Laboratory Tests 11/07/16 0626: Anion Gap 4 L, Estimated GFR 52 L, BUN/Creatinine Ratio 37.1 H, Magnesium 1.7 , PT 12.3, INR 1.17, CBC w Diff NO MAN DIFF REQ, RBC 3.19 L, MCV 82.2, MCH 26.8 L, RDW 15.5 H, MPV 8.3, Gran % 59.4, Lymphocytes % 29.8, Monocytes % 9.5 H, Eosinophils % 0.6, Basophils % 0.7, Absolute Granulocytes 5.4, Absolute Lymphocytes 2.7, Absolute Monocytes 0.9 H, Absolute Eosinophils 0.1, Absolute Basophils 0.1, PUBS MCHC 32.6 L 11/06/16 0644: Anion Gap 5, Estimated GFR 41 L, BUN/Creatinine Ratio 30.6 H, Magnesium 1.7, CBC w Diff NO MAN DIFF REQ, RBC 2.97 L, MCV 82.3, MCH 26.7 L, RDW 15.8 H, MPV 8.6, Gran % 65.9, Lymphocytes % 23.6, Monocytes % 8.8, Eosinophils % 0.9, Basophils % 0.8, Absolute Granulocytes 6.3, Absolute Lymphocytes 2.3, Absolute Monocytes 0.8 H, Absolute Eosinophils 0.1, Absolute Basophils 0.1, PUBS MCHC 32.4 L Recent Imaging Studies: Chest x-ray: There is a persistent left-sided pleural effusion with associated atelectasis and/or infiltrate. Known right-sided pleural effusion and atelectasis and/or infiltrate is less prominent than the previous chest x-ray. Assessment/Plan Assessment/Plan 1. Acute diastolic heart failure, improving 2. COPD with possible exacerbation 3. Left foot osteomyelitis 4. Renal insufficiency Plan: * Continue IV Lasix * Monitor input and output with daily weights * Check basic metabolic profile daily * Continue other cardiac medications. Continue telemetry? Not applicable
[2016-11-07 15:43] VITALS: BP 138/70
--- NOTE | 2016-11-07 16:19 | Patient Discharge Instructions ---
Discharge Instructions General Discharge Information You were seen/treated for: Osteomyelitis of the right foot You had these procedures: Debridement per podiatry service Watch for these problems: Fever, bleeding from the 1, excessive swelling, severe pain over the foot Special Instructions: Please get a chest x-ray in 1 week's time of discharge and follow-up with her primary care physician for that. Please obtain an appointment for a sleep study as an outpatient as recommended by Dr. Diehl, enterprise mobility architect and follow-up with him within one month of discharge. Please follow-up with Dr. Zheng, podiatry service, within 7-10 days of discharge. Please follow-up with your primary care physician within 7-10 days of your discharge. Continue to use your CPAP at night as tolerated with autopap 4-18. Stop taking Lasix, follow up with your nitrator operator for revaluation. Please get weekly ESR (blood test), and follow up with the test result with your PCP. You need total four weeks of MEROPENEM (TILL DECEMBER 06, 2016) via IV ( Proline) since your last surgical procedure. Please return to emergency if symptoms worsen. Diet Continue normal diet: No Recommended Diet: Diabetic Activity Full Activity/No Limits: No Activity Limited to: No weight bearing Acute Coronary Syndrome Inclusion Criteria At DC or during hospital stay patient has or had the following: ACS DIAGNOSIS No Discharge Core Measures Meds if any: Prescribed or Continued at Discharge Meds if any: NOT Prescribed or Continued at Discharge Congestive Heart Failure Inclusion Criteria At DC or during hospital stay patient has or had the following: CHF DIAGNOSIS No Discharge Core Measures Meds if any: Prescribed or Continued at Discharge Meds if any: NOT Prescribed or Continued at Discharge Cerebrovascular accident Inclusion Criteria At DC or during hospital stay patient has or had the following: CVA/TIA Diagnosis No Discharge Core Measures Meds if any: Prescribed or Continued at Discharge Meds if any: NOT Prescribed or Continued at Discharge Venous thromboembolism Inclusion Criteria VTE Diagnosis No VTE Type NONE VTE Confirmed by (Test) NONE Discharge Core Measures - Per Current guidelines, there needs to be overlap - treatment for the first 5 days of Warfarin therapy. - If discharged on Warfarin prior to 5 days of - overlap therapy, the patient will need to be - assessed for post discharge needs including - *Post discharge parental anticoagulation - *Warfarin and/or parental anticoagulation education - *Follow up date to check INR post discharge At least 5 days overlap therapy as Inpatient No Meds if any: Prescribed or Continued at Discharge Note: Overlap Therapy is Warfarin and Anticoagulant Meds if any: NOT Prescribed or Continued at Discharge Note: Overlap Therapy is Warfarin and Anticoagulant Meds if any: NOT Prescribed or Continued at Discharge Meds if any: NOT Prescribed or Continued at Discharge
[2016-11-07 22:07] VITALS: BP 124/60
--- NOTE | 2016-11-08 06:47 | PN- Housestaff ---
EFRAIN SANCHEZ,ALF 11/08/16 0647: Subjective Follow-up For: Osteomyelitis Complaints: no complaints Subjective: Followed up and examined the patient today, patient is comfortable, not in distress, no complaints, no overnight issues, awaiting surgery later today, his nothing by mouth and IV fluids running at 50 mL per hour with D5 W 1/2NS. Review of Systems Constitutional: Reports: no symptoms. Cardiovascular: Reports: no symptoms. Gastrointestinal: Reports: no symptoms. Genitourinary: Reports: no symptoms. Musculoskeletal: Reports: back pain (not new). Objective Last 24 Hrs of Vital Signs/I&O Vital Signs Date Time Temp Pulse Resp B/P Pulse O2 O2 Flow FiO2 Ox Delivery Rate 11/08 1339 95 Nasal 3.0L Cannula 11/08 0959 53 168/78 11/08 0959 53 168/73 11/08 0800 93 Nasal 3.0L Cannula 11/08 0715 97.9 51 20 138/60 95 BIPAP 11/08 0014 60 99 11/08 0000 99 Nasal 3.0L Cannula 11/07 2226 54 98 11/07 2207 98.7 57 20 124/60 98 Nasal 3.0L Cannula 11/07 2159 60 160/69 11/07 1825 95 Nasal 3.0L Cannula Intake & Output 11/08 1600 11/08 0800 11/08 0000 Intake Total 430 800 Output Total 1950 1000 2150 Balance -1520 -1000 -1350 Intake, IV 400 Intake, Oral 30 800 Number 0 Bowel Movements Output, Urine 1950 1000 2150 Physical Exam General Appearance: Alert, Oriented X3, Cooperative, No Acute Distress Other Physical Findings: Head: Normocephalic, atraumatic Eyes: Pupils normal in size, regular, reacting to light and accommodation, EOM normal Ears: B/l normal on inspection Nose: Normal on inspection Throat/mouth: Moist mucosa Neck: Supple, full range of motion, no thyromegaly Heart: Regular rate, regular rhythm Lung: normal breath sounds heard b/l Abd: Soft, non-tender, no distention appreciated Back: Normal range of motion Extremities: b/l pedal edema present, redness present but not new, both feet were well dressed, no bleeding Current Medications: Current Medications Sig/Taylor Start time Last Medication Dose Route Stop Time Status Admin Acetaminophen 325 MG Q6P PRN 11/02 1715 AC PO Albuterol Sulfate 3 ML BID 11/03 1000 AC 11/08 INH 1230 Albuterol Sulfate 3 ML Q6P PRN 11/02 1930 AC INH Amlodipine Besylate 10 MG DAILY 11/03 1000 AC 11/08 PO 0959 Atorvastatin Calcium 20 MG 1700 11/03 1700 AC 11/08 PO 1620 Budesonide/ 2 PUF BID 11/02 2200 AC 11/08 Formoterol Fumarate INH 0957 Calcium Carbonate 500 MG BID 11/02 2200 AC 11/07 PO 0942 Carisoprodol 350 MG Q6-PRN PRN 11/02 1930 AC 11/04 PO 1028 Dextrose/Sodium 1,000 ML Q20H 11/08 0815 DC 11/08 Chloride IV 11/09 0414 0936 Ferrous Sulfate 325 MG BID 11/02 2200 AC 11/08 PO 0956 Fluoxetine HCl 40 MG DAILY 11/03 1000 AC 11/08 PO 0956 Furosemide 40 MG 0800,1700 11/04 1700 AC 11/08 IV PUSH 1620 Heparin Sodium 5,000 UNIT Q8 11/03 0837 AC 11/08 (Porcine) SC 0703 Insulin Aspart 0 TIDAC 11/09 0800 AC SC Insulin Detemir 5 UNITS AT BEDTIME 11/03 2200 AC 11/07 SC 2200 Insulin Human Regular 0 Q6 11/08 0600 DC 11/08 SC 1229 Meropenem 1 GM Q8H 11/04 0200 AC 11/08 IV 1621 Metoprolol Tartrate 50 MG BID 11/02 2200 AC 11/08 PO 0959 Morphine Sulfate 2 MG ONCE ONE 11/08 0130 DC 11/08 IV 11/08 0131 0141 Morphine Sulfate 2 MG Q4P PRN 11/02 1715 AC 11/08 IV 1613 Omeprazole 40 MG DAILY AC 11/03 0700 AC 11/08 PO 0705 Oxycodone HCl 10 MG Q6P PRN 11/04 1130 AC 11/08 PO 1230 Polyethylene Glycol 17 GM DAILY PRN 11/02 1930 AC PO Prednisone 40 MG DAILY 11/05 1000 DC 11/08 PO 11/08 1001 1004 Senna/Docusate Sodium 1 TAB BID PRN 11/05 2030 AC 11/07 PO 0942 Sodium Chloride 2 SPRAY Q4P PRN 11/03 2230 AC NIYA Sucralfate 1,000 MG 4 TIMES/DAY 11/02 2200 AC 11/08 PO 1620 Tiotropium [place] 1 PUF DAILY 11/04 1317 AC 11/08 INH 0956 Last 24 Hrs of Lab/Enrique Results Last 24 Hrs of Labs/Mics: Laboratory Tests 11/08/16 0720: Anion Gap 3 L, Estimated GFR 52 L, BUN/Creatinine Ratio 34.3 H, PT 12.8 H, INR 1.22 H Assessment/Plan Assessment: 61 year old male with past medical history of diabetes mellitus, hypertension, CKD, PVD status post stenting in 2009, CAD status post cardiac catheterization without stent placement in 2014, COPD, obstructive sleep apnea not using O2 at home, pulmonary embolism not on anticoagulants >5 yrs ago, nonhealing ulceration of left foot with osteomyelitis, status post right metatarsal amputation, was sent to the emergency department by wound care clinic earlier on the day of admission to get assessed for osteomyelitis and possible bone biopsy on 11/02/16. Patient's vitals were stable when he came to the emergency department, labs were significant for leukocytosis at 11.7, anemia with 9.5 hemoglobin and 29.8 hematocrit, platelets 546, potassium slightly high at 5.5, sodium slightly higher range at 142, and creatinine at 1.3. 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 Chest x-ray is suggestive for left-sided pneumonia with small left sided pleural effusion, and suggests follow-up. Patient has not received any antibiotic in the emergency department. Currently, patient is being managed in the general medical floor for the following issues: #Suspected bilateral feet osteomyelitis Patient underwent debridement, sample from lab results showing mixed norbert. Infectious disease service on board, who suggested IV meropenem 1g q8hr, has remained afebrile. He underwent another debridement procedure today, and is pending recommendation from podiatry. He will need long-term IV antibiotics and is planned to have a line placed on under IR guidance tomorrow morning. -We will continue following podiatry. -We will continue following infectious disease. #Suspected peripheral vascular disease Vascular surgery was consulted and has recommended arterial Doppler study of bilateral lower extremities which if normal we will not assess any further, but if not then he might need an angiogram in depending on the results, he might need a major amputation. Awaiting results of arterial Doppler study tomorrow. -Will follow vascular surgery. #Acute hypoxic hypercarbic respiratory failure, secondary to congestive heart failure/possible pneumonia He had been hypoxic, hypercarbic respiratory failure since last , 2016, due to flash pulmonary edema, secondary to fluid overload with a history of congestive heart failure, and a component of his COPD acting up requiring him BiPAP intermittently. His respiratory status however has been stable since past 3 days. He does require additional oxygen via nasal cannula at 3 L/m. -We will continue following pulmonology. -We will continue following cardiology.. #Diabetes mellitus -Continue regular Accu-Cheks, Insulin NovoLog Sliding scale, and diabetic diet -Nothing by mouth from midnight and insulin Novolin regular from then until his proline placement tomorrow #Continue with the rest of the medications for hypertension, hyperlipidemia, chronic kidney disease, anemia, severe peripheral vascular disease -Continue total respiratory care/nebs -We will continue to monitor for any electrolyte disturbance #Diet: Diabetic diet, will be NPO from [place] for procedure tomorrow #Subcutaneous heparin and Alps for DVT prophylaxis, as he has CKD #Full CODE STATUS Problem List: 1. Osteomyelitis 2. Acute respiratory failure with hypoxia and hypercarbia 3. CHF (congestive heart failure) 4. Diabetes mellitus 5. CKD (chronic kidney disease) 6. Peripheral vascular disease Pain Ratin Pain Location: feet Pain Goal: Pain 4 or less Pain Plan: prn Tomorrow's Labs & Rationales: CBC, BEP, INR after surgery, and a day of NPO TERENCE HELTON MD 11/08/16 1030: Attending MD Review Statement Attending Statement Attending Statement: examined this patient, discuss w/resident/PA/TILE MOLDER HAND, agreed w/resident/PA/TILE MOLDER HAND, reviewed EMR data (avail), discussed with nursing, discussed with case mgmt, amended to note Attending Assessment/Plan: Patient seen and examined. Resting comfortably and not in any acute distress. No issues overnight reported by nursing staff. Patient reports been controlled with current regimen. He is scheduled to return to the OR later on today. He denies any shortness of breath or cough. He continues to require 3 L of oxygen to maintain saturation. He is on CPAP therapy at home but does not use this regularly. He has been on nocturnal BiPAP therapy here in the hospital. On examination he has no jugular venous distention. Heart sounds are regular. He has diminished breath sounds in the lungs bilaterally. He continues of bilateral lower extremity edema slightly improved compared to yesterday. Recommendations: -Patient scheduled to return to the OR today. -Recommend follow-up by the vascular surgery service for further evaluation of peripheral vascular disease. -Continue antibiotic therapy. Schedule placement of proline as recommended by the ID service. -Continue nocturnal BiPAP therapy. Wean off oxygen supplementation as tolerated. -Continue diuretic therapy with Lasix IV. Recommend transitioning to oral diuretic therapy time of discharge.
[2016-11-08 07:15] VITALS: BP 138/60
[2016-11-08 08:51] LABS: PT 12.8 SEC (9.4-12.5)
--- NOTE | 2016-11-08 12:44 | PN- Pulmonary ---
Subjective HPI/Critical Care Issues: pt seen and examined awaiting for podiatric procedure today NPO overnight fluids are ordered iv no n/v/d/c 3LNC Objective Current Medications: Current Medications Sig/Taylor Start time Last Medication Dose Route Stop Time Status Admin Acetaminophen 325 MG Q6P PRN 11/02 1715 AC PO Albuterol Sulfate 3 ML BID 11/03 1000 AC 11/08 INH 1230 Albuterol Sulfate 3 ML Q6P PRN 11/02 1930 AC INH Amlodipine Besylate 10 MG DAILY 11/03 1000 AC 11/08 PO 0959 Atorvastatin Calcium 20 MG 1700 11/03 1700 AC 11/07 PO 1747 Budesonide/ 2 PUF BID 11/02 2200 AC 11/08 Formoterol Fumarate INH 0957 Calcium Carbonate 500 MG BID 11/02 2200 AC 11/07 PO 0942 Carisoprodol 350 MG Q6-PRN PRN 11/02 1930 AC 11/04 PO 1028 Dextrose/Sodium 1,000 ML Q20H 11/08 0815 AC 11/08 Chloride IV 11/09 0414 0936 Ferrous Sulfate 325 MG BID 11/02 2200 AC 11/08 PO 0956 Fluoxetine HCl 40 MG DAILY 11/03 1000 AC 11/08 PO 0956 Furosemide 40 MG 0800,1700 11/04 1700 AC 11/08 IV PUSH 0936 Heparin Sodium 5,000 UNIT Q8 11/03 0837 AC 11/08 (Porcine) SC 0703 Insulin Aspart 0 TIDAC 11/03 0800 DC 11/06 [place] 1612 Insulin Detemir 5 UNITS AT BEDTIME 11/03 2200 AC 11/07 SC 2200 Insulin Human Regular 0 Q6 11/08 0600 AC 11/08 SC 1229 Meropenem 1 GM Q8H 11/04 0200 AC 11/08 IV 0951 Metoprolol Tartrate 50 MG BID 11/02 2200 AC 11/08 PO 0959 Morphine Sulfate 2 MG ONCE ONE 11/08 0130 DC 11/08 IV 11/08 0131 0141 Morphine Sulfate 2 MG Q4P PRN 11/02 1715 AC 11/08 IV 0950 Omeprazole 40 MG DAILY AC 11/03 0700 AC 11/08 PO 0705 Oxycodone HCl 10 MG Q6P PRN 11/04 1130 AC 11/08 PO 1230 Patient Medication 1 ED .STK-MED ONE 11/07 1351 AR Teaching ED 11/07 1352 Polyethylene Glycol 17 GM DAILY PRN 11/02 1930 AC PO Prednisone 40 MG DAILY 11/05 1000 DC 11/08 PO 11/08 1001 1004 Senna/Docusate Sodium 1 TAB BID PRN 11/05 2030 AC 11/07 PO 0942 Sodium Chloride 2 SPRAY Q4P PRN 11/03 2230 AC NIYA Sucralfate 1,000 MG 4 TIMES/DAY 11/02 2200 AC 11/08 PO 0956 Tiotropium [place] 1 PUF DAILY 11/04 1317 AC 11/08 INH 0956 Vital Signs & I&O Last 24 Hrs of Vitals and I&O: Vital Signs Date Time Temp Pulse Resp B/P Pulse O2 O2 Flow FiO2 Ox Delivery Rate 11/08 0959 53 168/78 11/08 0959 53 168/73 11/08 0715 97.9 51 20 138/60 95 BIPAP 11/08 0014 60 99 11/08 0000 99 Nasal 3.0L Cannula 11/07 2226 54 98 11/07 2207 98.7 57 20 124/60 98 Nasal 3.0L Cannula 11/07 2159 60 160/69 11/07 1825 95 Nasal 3.0L Cannula 11/07 1600 Nasal 3.0L Cannula 11/07 1543 98.6 64 18 138/70 94 Nasal 3.0L Cannula Intake & Output 11/08 1600 11/08 0800 11/08 0000 Intake Total 800 Output Total 550 1000 2150 Balance -550 -1000 -1350 Intake, Oral 800 Output, Urine 550 1000 2150 Exam Other Physical Findings: gen awake and alert heent ncat cvs s1, s2 lungs diminished bibasilar abd soft bs+ ext edematous, dressing intact Results Last 24 Hrs of Lab Results: Laboratory Tests 11/08/16 0720: Anion Gap 3 L, Estimated GFR 52 L, BUN/Creatinine Ratio 34.3 H, PT 12.8 H, INR 1.22 H Impression/Plan Impression/Plan Impression/Plan: Impression 61 year old man * Improved - Hypoxemic respiratory failure * History of pulmonary embolism * Osteomyelitis Plan - off prednisone - ins/outs - trc/nebs - will need outpt sleep re-evaluation - continue symbicort and spiriva DVT prophylaxis at all times
--- NOTE | 2016-11-08 14:22 | Operative Report ---
Operative/Inv Procedure Report Surgery Date: 11/08/16 Name of Procedure: 1 open incision and drainage deep to the D fashion with exposure of the flexor tendon and tendon sheath multiple sites left foot 2 open incision and drainage deep to the deep fascia with exposure of the flexor tendon and tendon sheath multiple sites right foot 3 debridement of necrotic bone left foot 4 intraoperative administration of negative pressure wound therapy left foot 5 intraoperative administration of ankle block anesthesia 6 excisional debridement Pre-Operative Diagnosis: 1 open necrotic wound left foot 2 open necrotic wound right foot 3 osteomyelitis left foot Post-Operative Diagnosis: The same Estimated Blood Loss: less than 50ml Surgeon/Safety Deposit Clerk: ELLIE ALBERTO DPM Anesthesia: moderate sedation, block Operative/Procedure Note Note: After obtaining informed consent the patient was brought to the operating room and placed on the operating table in the supine position. The patient was then securely fastened to the operating table utilizing safety belt. After administration of IV sedation, 10 mL of 0.5% Marcaine plain was infiltrated about the patient's left and right ankles. The left and right feet were then scrubbed prepped and draped in usual aseptic manner. Attention directed to the left foot, where a large full-thickness necrotic was identified. A 15 blade was utilized to sharply revised skin margins. The dissection was then carried down deep to the D fashion with exposure of the flexor tendon and tendon sheath multiple sites, both proximally and distally. All necrotic nonviable and infected tissue sharply evacuated from the wound bed. A rongeur was utilized to sharply debridement all nonviable and necrotic bone noted at the lateral foot. Specimen was sent for pathologic inspection. Nipple was then irrigated with 3 L of normal sterile saline infused with 50,000 units of bacitracin. Following this the foot was redraped and the surgeon's top gloves were exchanged for clean gloves. Any bleeding vessels identified were cauterized or ligated as encountered. Additional hemostasis was obtained with Gelfoam. Next, the pressure wound therapy was applied followed by a Kerlix and an Michele wrap. Attention was then directed to the right foot, where a 12 cm x 6 cm full- thickness necrotic was identified. Again, a routine blade was utilized sharply revised skin margins. The dissection was then carried down deep to the fashion with exposure of the flexor tendon and tendon sheath multiple sites right foot. All necrotic nonviable infected tissue sharply evacuated from the wound bed. Nipple was then irrigated with 3 L of normal sterile saline infusion 50,000 units of bacitracin. Following this, the foot was redraped and the surgeon's top gloves were changed clean gloves. Any bleeding vessels identified were cauterized or ligated as encountered. No was then packed with Gelfoam 4 x 4's Kerlix EBD pads and an Michele wrap. The patient was noted tolerate both procedure and anesthesia well and the patient was transported from the operating room to recovery with vital signs stable.
--- NOTE | 2016-11-08 15:41 | Cons- Vascular Surgery ---
General Information and HPI Consulting Request Date of Consult: 11/08/16 Requested By: RONY SANCHEZ,FROILAN Wiley History of Present Illness: 61-year-old gentleman with diabetes and multiple other medical issues admitted to the hospital with chronic bilateral feet osteomyelitis. He has undergone I&D and debridement by Dr. Zheng. I performed a bilateral lower extremity angiogram in April 2016 which did not show any significant peripheral arterial disease at that time. I was asked to see the patient regarding adequacy of arterial perfusion as well as possible need for major amputation. Allergies/Medications Allergies: Coded Allergies: niacin (ITCHING 11/02/16) Home Med List: Albuterol Sulfate 0.63 MG/3 ML VIAL.NEB 1 Vial INH/CARON TID PRN BREATHING PROBLEMS (Reported) Amlodipine Besylate 10 MG TABLET 1 TAB PO DAILY HTN (Reported) Budesonide/Formoterol Fumarate (Symbicort 160-4.5 Mcg Inhaler) 160 MCG-4.5 MCG/ ACTUATION HFA.AER.AD 2 PUF INH BID COPD (Reported) Calcium Carbonate 200 MG TAB.CHEW 500 MG PO BID Gastric Ulcer Carisoprodol (SOMA) 350 MG TABLET 1 TAB PO Q6-PRN PRN PAIN (Reported) Ferrous Sulfate 325 MG TABLET.DR 1 TAB PO BID Anemia Fluoxetine HCl (Prozac) 40 MG CAPSULE 2 CAP PO DAILY MENTAL HEALTH (Reported) Insulin Aspart (Novolog) 100 UNIT/1 ML VIAL 1 UNIT SC TIDAC Blood Suger Blood suger Below 80 Hypoglycemia protocol 80-150 no change 151-200 1 units 201-250 2 units 251-300 3 units 301-350 4 units 351-400 6 units More than 400 10 units call M.D. Insulin Detemir (Levemir) 100 UNIT/1 ML VIAL 20 UNITS SC QPM DIABETES Ipratropium/Albuterol Sulfate (Combivent Respimat Inhal [place]) 20 MCG-100 MCG/ ACTUATION MIST.INHAL 2 PUF PO 4 TIMES/DAY COPD (Reported) Metoprolol Tartrate 50 MG TABLET 1 TAB PO BID BLOOD PRESSURE (Reported) Multivitamin (One Daily Multivitamin) 1 EACH TABLET 1 TAB PO DAILY General Well being Oxycodone HCl/Acetaminophen (Oxycodone-Acetaminophen 10-325) 1 EACH TABLET 1 TAB PO Q6H PRN PAIN Pantoprazole Sodium (Protonix) 40 MG TABLET.DR 1 TAB PO DAILY GERD Polyethylene Glycol 3350 (Miralax) 119 GM POWDER 17 GM PO DAILY PRN constipation Rosuvastatin Calcium (Crestor) 20 MG TABLET 1 TAB PO DAILY CHOLESTEROL ( Reported) Sucralfate (Carafate) 1 GM TABLET 1,000 MG PO 4 TIMES/DAY gastric Ulcer Past History Medical History Blood Transfusion Hx: Yes Neurological: NONE EENT: HEARING LOSS R EAR Cardiovascular: CAD, hypertension, hyperlipidemia, NSTEMI (status post [place]), PVD, STEMI (LOWER EXTREMITY VASCULAR) Respiratory: COPD Gastrointestinal: NONE Hepatic: NONE Renal: nephrolithiasis Musculoskeletal: NONE Psychiatric: depression Endocrine: diabetes Blood Disorders: NONE, PE Cancer(s): NONE 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 Flores [facility] status post left fourth and fifth toe amputations Family History Relations & Conditions If Any: FATHER (3 CVAs). , Age 50-60; Cause: CVA (cerebral vascular accident). MOTHER, , Age 60+; Cause: Natural . Psychosocial History Where Do You Live? Home Who Do You Live With? spouse Primary Language: Luxembourgish Smoking Status: Current Everyday Smoker ETOH Use: denies use Illicit Drug Use: denies illicit drug use Functional Ability ADLs Unknown: dressing, eating, toileting, bathing. Ambulation: unknown IADLs Unknown: shopping, housework, finances, food prep, telephone, transportation, medication admin. Employment History Retired? unknown Review of Systems Review of Systems: Patient denies headache, dizziness, cough, palpitation, diarrhea or constipation Exam & Diagnostic Data Vital Signs and I&O Vital Signs Date Time Temp Pulse Resp B/P Pulse O2 O2 Flow FiO2 Ox Delivery Rate 11/08 1339 95 Nasal 3.0L Cannula 11/08 0959 53 168/78 11/08 0959 53 168/73 11/08 0800 93 Nasal 3.0L Cannula 11/08 0715 97.9 51 20 138/60 95 BIPAP 11/08 0014 60 99 11/08 0000 99 Nasal 3.0L Cannula 11/07 2226 54 98 11/07 2207 98.7 57 20 124/60 98 Nasal 3.0L Cannula 11/07 2159 60 160/69 11/07 1825 95 Nasal 3.0L Cannula 11/07 1600 Nasal 3.0L Cannula 11/07 1543 98.6 64 18 138/70 94 Nasal 3.0L Cannula Intake & Output 11/08 1600 11/08 0800 11/08 0000 11/07 1600 11/07 0800 11/07 0000 Intake Total 430 800 800 600 Output Total 1950 1000 2150 2100 750 3000 Balance -1520 -1000 -1350 -1300 -750 -2400 Intake, IV 400 Intake, Oral 30 800 800 600 Number 0 1 Bowel Movements Output, Urine 1950 1000 2150 2100 750 3000 Physical Exam: Patient is alert and oriented 3 Lungs: Clear to auscultation bilaterally Cardiac vascular: Regular rate and rhythm Abdomen: Soft, nontender and nondistended Extremities: There is palpable femoral pulses bilaterally. I am unable to pulse exam feet as there both dressed. Assessment/Plan Assessment/Plan 61-year-old man with diabetes and multiple other medical issues presents with chronic bilateral feet ulcer myelitis. According to the angiogram on April 2016, he did not demonstrate have significant arterial disease. He has had chronic osteomyelitis of bilateral feet. Dr. Zheng is currently debriding and performing wound care on his feet. In terms of adequacy of perfusion to his feet, I would first recommend to obtain an arterial ultrasound of bilateral lower extremity. He may need an angiogram after the ultrasound was performed. If there is good arterial perfusion and there is no other treatment useful for positive results of his feet, he may need a major amputation. Thank you for asking me to be involved in the care of this patient. I will follow with you Consult Acknowledgment - Thank you for your consult request. Attending MD Review Statement Attending Statement Attending MD Statement: examined this patient, discuss w/resident/PA/LEAD MEDICAL TECHNOLOGIST
[2016-11-08 16:00] VITALS: BP 174/76
--- NOTE | 2016-11-08 17:16 | PN- Cardiology ---
Subjective Subjective: The patient is seen after returning from the operating room after debridement of his left lower extremity. He reports he is feeling well from a cardiac standpoint. No chest pain. No shortness of breath. No palpitations. No diaphoresis. No nausea or vomiting. Objective Vital Signs and I&Os Vital Signs Date Time Temp Pulse Resp B/P Pulse O2 O2 Flow FiO2 Ox Delivery Rate 11/08 1339 95 Nasal 3.0L Cannula 11/08 0959 53 168/78 11/08 0959 53 168/73 11/08 0800 93 Nasal 3.0L Cannula 11/08 0715 97.9 51 20 138/60 95 BIPAP 11/08 0014 60 99 11/08 0000 99 Nasal 3.0L Cannula 11/07 2226 54 98 11/07 2207 98.7 57 20 124/60 98 Nasal 3.0L Cannula 11/07 2159 60 160/69 11/07 1825 95 Nasal 3.0L Cannula Intake & Output 11/08 1600 11/08 0800 11/08 0000 11/07 1600 11/07 0800 11/07 0000 Intake Total 430 800 800 600 Output Total 1950 1000 2150 2100 750 3000 Balance -1520 -1000 -1350 -1300 -750 -2400 Intake, IV 400 Intake, Oral 30 800 800 600 Number 0 1 Bowel Movements Output, Urine 1950 1000 2150 2100 750 3000 Physical Exam: Gen: The patient is in no acute distress HEENT: Normal nose, ears, and oropharynx. Pupils equal bilaterally. Conjunctiva normal. Neck: Supple with no JVD, no masses, and no thyromegaly Lungs: scattered rhonchi bilaterally with normal respiratory effort Heart: RRR, S1, S2, 1/6 systolic murmur. 1+ peripheral edema, 1+ pulses in the lower extremities bilaterally Abdomen: Soft, nontender, no masses. No hepatomegaly. No splenomegaly Extremities: No clubbing or cyanosis. right foot amputation and ulcers noted. Left foot ulcer noted. Current Medications: Current Medications Sig/Taylor Start time Last Medication Dose Route Stop Time Status Admin Acetaminophen 325 MG Q6P PRN 11/02 1715 AC PO Albuterol Sulfate 3 ML BID 11/03 1000 AC 11/08 INH 1230 Albuterol Sulfate 3 ML Q6P PRN 11/02 1930 AC INH Amlodipine Besylate 10 MG DAILY 11/03 1000 AC 11/08 PO 0959 Atorvastatin Calcium 20 MG 1700 11/03 1700 AC 11/08 PO 1620 Budesonide/ 2 PUF BID 11/02 2200 AC 11/08 Formoterol Fumarate INH 0957 Calcium Carbonate 500 MG BID 11/02 2200 AC 11/07 PO 0942 Carisoprodol 350 MG Q6-PRN PRN 11/02 1930 AC 11/04 PO 1028 Dextrose/Sodium 1,000 ML Q20H 11/09 0000 AC Chloride IV 11/09 1959 Dextrose/Sodium 1,000 ML Q20H 11/08 0815 DC 11/08 Chloride IV 11/09 0414 0936 Ferrous Sulfate 325 MG BID 11/02 2200 AC 11/08 PO 0956 Fluoxetine HCl 40 MG DAILY 11/03 1000 AC 11/08 PO 0956 Furosemide 40 MG 0800,1700 11/04 1700 AC 11/08 IV PUSH 1620 Heparin Sodium 5,000 UNIT Q8 11/03 0837 AC 11/08 (Porcine) SC 0703 Insulin Aspart 0 TIDAC 11/09 0800 AC SC Insulin Detemir 5 UNITS AT BEDTIME 11/03 2200 AC 11/07 SC 2200 Insulin Human Regular 0 Q6 11/09 0600 AC SC Insulin Human Regular 0 Q6 / 0600 DC 11/08 SC 1229 Meropenem 1 GM Q8H 11/04 0200 AC 11/08 IV 1621 Metoprolol Tartrate 50 MG BID 11/02 2200 AC 11/08 PO 0959 Morphine Sulfate 2 MG ONCE ONE 11/08 0130 DC 11/08 IV 11/08 0131 0141 Morphine Sulfate 2 MG Q4P PRN 11/02 1715 AC 11/08 IV 1613 Omeprazole 40 MG DAILY AC 11/03 0700 AC 11/08 PO 0705 Oxycodone HCl 10 MG Q6P PRN 11/04 1130 AC 11/08 PO 1230 Polyethylene Glycol 17 GM DAILY PRN 11/02 1930 AC PO Prednisone 40 MG DAILY 11/05 1000 DC 11/08 PO 11/08 1001 1004 Senna/Docusate Sodium 1 TAB BID PRN 11/05 2030 AC 11/07 PO 0942 Sodium Chloride 2 SPRAY Q4P PRN 11/03 2230 AC NIYA Sucralfate 1,000 MG 4 TIMES/DAY 11/02 2200 AC 11/08 PO 1620 Tiotropium [place] 1 PUF DAILY 11/04 1317 AC 11/08 INH 0956 Results Last 48 Hrs of Labs/Mics: Laboratory Tests 11/08/16 0720: Anion Gap 3 L, Estimated GFR 52 L, BUN/Creatinine Ratio 34.3 H, PT 12.8 H, INR 1.22 H 11/07/16 0626: Anion Gap 4 L, Estimated GFR 52 L, BUN/Creatinine Ratio 37.1 H, Magnesium 1.7 , PT 12.3, INR 1.17, CBC w Diff NO MAN DIFF REQ, RBC 3.19 L, MCV 82.2, MCH 26.8 L, RDW 15.5 H, MPV 8.3, Gran % 59.4, Lymphocytes % 29.8, Monocytes % 9.5 H, Eosinophils % 0.6, Basophils % 0.7, Absolute Granulocytes 5.4, Absolute Lymphocytes 2.7, Absolute Monocytes 0.9 H, Absolute Eosinophils 0.1, Absolute Basophils 0.1, PUBS MCHC 32.6 L Assessment/Plan Assessment/Plan 1. Acute diastolic heart failure, improving 2. COPD with possible exacerbation 3. Left foot osteomyelitis 4. Renal insufficiency Plan: * Continue IV Lasix * Monitor input and output with daily weights * Check basic metabolic profile daily * Continue other cardiac medications. Continue telemetry? Not applicable
[2016-11-08 21:32] VITALS: BP 146/66
[2016-11-09 00:04] VITALS: BP 160/66
[2016-11-09 06:51] VITALS: BP 150/70
--- NOTE | 2016-11-09 08:01 | PN- Housestaff ---
EFRAIN SANCHEZ,ALF 11/09/16 0801: Subjective Follow-up For: Osteomyelitis Subjective: Patient followed up and examined by me today. He is lying comfortably in his bed, not in distress, got his surgery yesterday, pain scale overnight was maximum of 7, he is currently nothing by mouth, awaiting a Proline placement and later an arterial ultrasound of his lower extremities. Meropenem Day 7 today. Vitals have been stable overnight, no overnight issues. Review of Systems Constitutional: Reports: no symptoms. Cardiovascular: Reports: no symptoms. Respiratory: Reports: no symptoms. Gastrointestinal: Reports: no symptoms. Genitourinary: Reports: no symptoms. Musculoskeletal: Reports: see HPI. Skin: Reports: see HPI. Neurological/Psychological: Reports: no symptoms. Objective Last 24 Hrs of Vital Signs/I&O Vital Signs Date Time Temp Pulse Resp B/P Pulse O2 O2 Flow FiO2 Ox Delivery Rate 11/09 1552 97.8 53 18 148/78 97 Nasal 2.0L Cannula 11/09 1525 Nasal 2.0L Cannula 11/09 1342 Nasal 2.0L Cannula 11/09 0930 64 146/68 / 0930 64 146/68 11/09 0915 98.2 64 18 146/68 94 Nasal 1.5L Cannula 11/09 0800 94 Nasal 2.0L Cannula 11/09 0752 95 Nasal 1.0L Cannula 11/09 0651 98.2 47 20 150/70 98 Nasal 3.0L Cannula 11/09 0009 98 / 0008 98 Nasal 2.0L Cannula 11/09 0004 98.2 58 20 160/66 99 Nasal 3.0L Cannula 11/09 0000 96 Nasal 2.0L Cannula 11/08 2132 98.1 64 22 146/66 96 Nasal 2.0L Cannula 11/08 2126 98.1 64 22 146/66 /04 1935 94 Nasal 2.0L Cannula 11/08 1600 974.0 60 20 174/76 95 Nasal 3.0L Cannula Intake & Output 11/09 1600 / 0800 04/05 0000 Intake Total 400 550 Output Total 2200 1999 800 Balance -1800 -1450 -800 Intake, IV 400 550 Intake, Oral 0 Number 0 Bowel Movements Output, 50 Drainage Output, Urine 2200 1999 750 Patient 124.738 kg Weight Physical Exam General Appearance: Alert, Oriented X3, Cooperative, No Acute Distress Other Physical Findings: Head: Normocephalic, atraumatic Eyes: Pupils normal in size, regular, reacting to light and accommodation, EOM normal Ears: B/l normal on inspection Nose: Normal on inspection Throat/mouth: Moist mucosa Neck: Supple, full range of motion, no thyromegaly Heart: Regular rate, regular rhythm Lung: normal breath sounds heard b/l Abd: Soft, non-tender, no distention appreciated Back: Normal range of motion Extremities: b/l pedal edema present, redness present but not new, both feet were well dressed, WoundVac on left foot, no bleeding Current Medications: Current Medications Sig/Taylor Start time Last Medication Dose Route Stop Time Status Admin Acetaminophen 325 MG Q6P PRN 11/02 1715 AC PO Albuterol Sulfate 3 ML BID 11/03 1000 AC 11/09 INH 0745 Albuterol Sulfate 3 ML Q6P PRN 11/02 1930 AC INH Amlodipine Besylate 10 MG DAILY 11/03 1000 AC 11/09 PO 0930 Atorvastatin Calcium 20 MG 1700 11/03 1700 AC 11/08 PO 1620 Budesonide/ 2 PUF BID 11/02 2200 AC 11/09 Formoterol Fumarate INH 0929 Calcium Carbonate 500 MG BID 11/02 2200 AC 11/09 PO 0931 Carisoprodol 350 MG Q6-PRN PRN 11/02 1930 AC 11/04 PO 1028 Dextrose/Sodium 1,000 ML Q20H 11/09 0000 DC 11/09 Chloride IV 11/09 1959 0108 Dextrose/Sodium 1,000 ML Q20H 11/08 0815 DC 11/08 Chloride IV 11/09 0414 0936 Ferrous Sulfate 325 MG BID 11/02 2200 AC 11/09 PO 0930 Fluoxetine HCl 40 MG DAILY 11/03 1000 AC 11/09 PO 0930 Furosemide 40 MG DAILY 11/10 1000 AC PO Furosemide 40 MG 7:30 AM, & 4:30 PM 11/09 1630 DC PO Furosemide 40 MG 0800,1700 11/04 1700 DC 11/09 IV PUSH 0822 Heparin Sodium 0 .STK-MED ONE 11/09 1239 DC (Porcine) IV Heparin Sodium 5,000 UNIT Q8 11/03 0837 AC 11/09 (Porcine) SC 0637 Insulin Aspart 0 TIDAC 11/09 1700 AC SC Insulin Aspart 0 TIDAC 11/09 0800 DC SC Insulin Detemir 5 UNITS AT BEDTIME 11/03 2200 AC 11/08 SC 2126 Insulin Human Regular 0 Q6 11/09 06 DC 11/09 SC 0637 Insulin Human Regular 0 Q6 11/08 0600 DC 11/08 SC 1229 Lidocaine 0 .STK-MED ONE 11/09 1239 DC .ROUTE Lidocaine/Epinephrine 0 .STK-MED ONE 11/09 1240 DC .ROUTE Meropenem 1 GM Q8H 11/04 0200 AC 11/09 IV 0928 Metoprolol Tartrate 50 MG BID 11/02 2200 AC 11/09 PO 0930 Morphine Sulfate 2 MG Q4P PRN 11/02 1715 DC 11/09 IV 0637 Omeprazole 40 MG DAILY AC 11/03 0700 AC 11/09 PO 0637 Oxycodone HCl 10 MG Q6P PRN 11/04 1130 AC 11/09 PO 0824 Oxycodone/ 1 TAB Q4P PRN 11/09 1030 AC 11/09 Acetaminophen PO 1535 Patient Medication 1 ED ONE ONE 11/09 1330 DC Teaching ED 11/09 1331 Polyethylene Glycol 17 GM DAILY PRN 11/02 1930 AC PO Senna/Docusate Sodium 1 TAB BID PRN 11/05 2030 AC 11/09 PO 0930 Sodium Chloride 2 SPRAY Q4P PRN 11/03 2230 AC NIYA Sucralfate 1,000 MG 4 TIMES/DAY 11/02 2200 AC 11/09 PO 0930 Tiotropium [place] 1 PUF DAILY 11/04 1317 AC 11/09 INH 0928 Last 24 Hrs of Lab/Enrique Results Last 24 Hrs of Labs/Mics: Laboratory Tests 11/09/16 0634: Anion Gap 1 L, Estimated GFR > 60, BUN/Creatinine Ratio 45.0 H, PT 12.3, INR 1.17, CBC w Diff NO MAN DIFF REQ, RBC 3.13 L, MCV 82.6, MCH 26.5 L, RDW 15.5 H, MPV 9.0, Gran % 58.4, Lymphocytes % 31.9, Monocytes % 8.0, Eosinophils % 0.6, Basophils % 1.1, Absolute Granulocytes 6.0, Absolute Lymphocytes 3.3, Absolute Monocytes 0.8 H, Absolute Eosinophils 0.1, Absolute Basophils 0.1, PUBS MCHC 32.1 L Assessment/Plan Assessment: 61 year old male with past medical history of diabetes mellitus, hypertension, CKD, PVD status post stenting in 2009, CAD status post cardiac catheterization without stent placement in 2014, COPD, obstructive sleep apnea not using O2 at home, pulmonary embolism not on anticoagulants >5 yrs ago, nonhealing ulceration of left foot with osteomyelitis, status post right metatarsal amputation, was sent to the emergency department by wound care clinic earlier on the day of admission to get assessed for osteomyelitis and possible bone biopsy on 11/02/16. Patient's vitals were stable when he came to the emergency department, labs were significant for leukocytosis at 11.7, anemia with 9.5 hemoglobin and 29.8 hematocrit, platelets 546, potassium slightly high at 5.5, sodium slightly higher range at 142, and creatinine at 1.3. 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 Chest x-ray is suggestive for left-sided pneumonia with small left sided pleural effusion, and suggests follow-up. Patient has not received any antibiotic in the emergency department. Currently, patient is being managed in the general medical floor for the following issues: #Suspected bilateral feet osteomyelitis Patient underwent debridement, sample from lab results showing mixed norbert. Infectious disease service on board, who suggested IV meropenem 1g q8hr DAY 7 TODAY, has remained afebrile. He underwent another debridement procedure today, and is pending recommendation from podiatry. He will need long-term IV antibiotics and is planned to have a line placed on under IR guidance tomorrow morning. -We will continue following podiatry. -We will continue following infectious disease. #Suspected peripheral vascular disease Vascular surgery was consulted and has recommended arterial Doppler study of bilateral lower extremities which if normal we will not assess any further, but if not then he might need an angiogram in depending on the results, he might need a major amputation. Awaiting results of arterial Doppler study done earlier today. -Will follow vascular surgery. #Acute hypoxic hypercarbic respiratory failure, secondary to congestive heart failure/possible pneumonia He had been hypoxic, hypercarbic respiratory failure since last , 2016, due to flash pulmonary edema, secondary to fluid overload with a history of congestive heart failure, and a component of his COPD acting up requiring him BiPAP intermittently. His respiratory status however has been stable now. -Taper his oxygen. -We will continue following pulmonology. -We will continue following cardiology. #Diabetes mellitus -Continue regular Accu-Cheks, Insulin NovoLog Sliding scale, and diabetic diet -Nothing by mouth from midnight and insulin Novolin regular from then until his proline placement tomorrow #Continue with the rest of the medications for hypertension, hyperlipidemia, chronic kidney disease, anemia, severe peripheral vascular disease -Continue total respiratory care/nebs -We will continue to monitor for any electrolyte disturbance #Diet: Diabetic diet #Subcutaneous heparin and Alps for DVT prophylaxis, as he has CKD #Full CODE STATUS Problem List: 1. Osteomyelitis 2. Diabetes mellitus type 2 in obese 3. Hypertension 4. Peripheral vascular disease 5. CHF (congestive heart failure) 6. CKD (chronic kidney disease) Pain Ratin Pain Location: b/l feet Pain Goal: Pain 4 or less Pain Plan: prn Tomorrow's Labs & Rationales: CBC, BEP to follow sepsis, and renal function, getting lasix, switched to PO today DA[facility] 11/09/16 1329: Attending MD Review Statement Attending Statement Attending MD Statement: examined this patient, discuss w/resident/PA/GAS PLANT WORKER, agreed w/resident/PA/GAS PLANT WORKER, reviewed EMR data (avail), discussed with nursing, discussed with case mgmt, amended to note Attending Assessment/Plan: Patient seen and examined. Resting comfortably and not in any distress. No issues overnight reported by nursing staff. His oxygen requirement is improving. No cold medications reported following his wound debridement yesterday. Vascular surgery evaluation appreciated. Recommendations are being made for an arterial ultrasound. On examination he appears to have improved air entry bilateral bases today. Peripheral edema appears to be improving. Recommendations: -Transition patient to Lasix 40 mg orally daily. -Continue to wean off oxygen supplementation as tolerated. -Please refer patient to the pulmonary service as an outpatient upon discharge for repeat sleep evaluation. -Discontinue his CPAP therapy at nighttime upon discharge. -Follow-up arterial Doppler. If no evidence of significant occlusive disease patient may be discharged to [facility] facility tomorrow. -If he does show evidence of significant arterial disease he will need consideration for further vascular intervention.
[2016-11-09 08:19] LABS: PT 12.3 SEC (9.4-12.5)
[2016-11-09 08:28] LABS: ABSOLUTE BASOPHIL COUNT 0.1 /CUMM (0.0-0.2); ABSOLUTE EOSINOPHIL COUNT 0.1 /CUMM (0.0-0.7); ABSOLUTE LYMPH COUNT 3.3 /CUMM (1.2-3.4); ABSOLUTE MONOCYTE COUNT 0.8 /CUMM (0.10-0.60); BASOPHIL % 1.1 % (0.0-2.0); EOSINOPHIL % 0.6 % (0-5); GRANULOCYTE % 58.4 % (42.2-75.2); HEMATOCRIT 25.8 % (42-52); MEAN CORPUSCULAR HGB 26.5 PG (27.0-31.0); MEAN CORPUSCULAR HGB CONC 32.1 G/DL (33.0-37.0); MEAN CORPUSCULAR VOLUME 82.6 FL (80.0-94.0); PLATELET COUNT 314 /CUMM (130-400); RBC DISTRIBUTION WIDTH 15.5 % (11.5-14.5); RED BLOOD CELL CT 3.13 /CUMM (4.70-6.10); WHITE BLOOD CELL COUNT 10.3 /CUMM (4.8-10.8)
[2016-11-09 09:15] VITALS: BP 146/68
--- NOTE | 2016-11-09 10:49 | PN- Pulmonary ---
Subjective HPI/Critical Care Issues: pt seen and examined s/p OR doing well comfortable down to 1.5LNC no new events no dyspnea at rest Objective Current Medications: Current Medications Sig/Taylor Start time Last Medication Dose Route Stop Time Status Admin Acetaminophen 325 MG Q6P PRN 11/02 1715 AC PO Albuterol Sulfate 3 ML BID 11/03 1000 AC 11/09 INH 0745 Albuterol Sulfate 3 ML Q6P PRN 11/02 1930 AC INH Amlodipine Besylate 10 MG DAILY 11/03 1000 AC 11/09 PO 0930 Atorvastatin Calcium 20 MG 1700 11/03 1700 AC 11/08 PO 1620 Budesonide/ 2 PUF BID 11/02 2200 AC 11/09 Formoterol Fumarate INH 0929 Calcium Carbonate 500 MG BID 11/02 2200 AC 11/09 PO 0931 Carisoprodol 350 MG Q6-PRN PRN 11/02 1930 AC 11/04 PO 1028 Dextrose/Sodium 1,000 ML Q20H 11/09 0000 AC 11/09 Chloride IV 11/09 1959 0108 Dextrose/Sodium 1,000 ML Q20H 11/08 0815 DC 11/08 Chloride IV 11/09 0414 0936 Fentanyl Citrate 100 MCG .STK-MED ONE 11/08 1105 DC IM 11/08 1106 Ferrous Sulfate 325 MG BID 11/02 2200 AC 11/09 PO 0930 Fluoxetine HCl 40 MG DAILY 11/03 1000 AC 11/09 PO 0930 Furosemide 40 MG 7:30 AM, & 4:30 PM 11/09 1630 AC PO Furosemide 40 MG 0800,1700 11/04 1700 DC 11/09 IV PUSH 0822 Heparin Sodium 5,000 UNIT Q8 11/03 0837 AC 11/09 (Porcine) SC 0637 Insulin Aspart 0 TIDAC 11/09 0800 AC SC Insulin Detemir 5 UNITS AT BEDTIME 11/03 2200 AC 11/08 SC 2126 Insulin Human Regular 0 Q6 11/09 0600 AC 11/09 SC 0637 Insulin Human Regular 0 Q6 11/08 0600 DC 11/08 SC 1229 Meropenem 1 GM Q8H 11/04 0200 AC 11/09 IV 0928 Metoprolol Tartrate 50 MG BID 11/02 2200 AC 11/09 PO 0930 Midazolam HCl 2 MG .STK-MED ONE 11/08 1105 DC IM 11/08 1106 Morphine Sulfate 2 MG Q4P PRN 11/02 1715 DC 11/09 IV 0637 Omeprazole 40 MG DAILY AC 11/03 0700 AC 11/09 PO 0637 Oxycodone HCl 10 MG Q6P PRN 11/04 1130 AC 11/09 PO 0824 Oxycodone/ 1 TAB Q4P PRN 11/09 1030 AC Acetaminophen PO Polyethylene Glycol 17 GM DAILY PRN 11/02 1930 AC PO Senna/Docusate Sodium 1 TAB BID PRN 11/05 2030 AC 11/09 PO 0930 Sodium Chloride 2 SPRAY Q4P PRN 11/03 2230 AC NIYA Sucralfate 1,000 MG 4 TIMES/DAY 11/02 2200 AC 11/09 PO 0930 Tiotropium [place] 1 PUF DAILY 11/04 1317 AC 11/09 INH 0928 Vital Signs & I&O Last 24 Hrs of Vitals and I&O: Vital Signs Date Time Temp Pulse Resp B/P Pulse O2 O2 Flow FiO2 Ox Delivery Rate 11/09 0930 64 146/68 11/09 0930 64 146/68 11/09 0800 94 Nasal 2.0L Cannula 11/09 0752 95 Nasal 1.0L Cannula 11/09 0651 98.2 47 20 150/70 98 Nasal 3.0L Cannula 11/09 0009 98 11/09 0008 98 Nasal 2.0L Cannula 11/09 0004 98.2 58 20 160/66 99 Nasal 3.0L Cannula 11/09 0000 96 Nasal 2.0L Cannula 11/08 2132 98.1 64 22 146/66 96 Nasal 2.0L Cannula 11/08 2126 98.1 64 22 146/66 11/08 1935 94 Nasal 2.0L Cannula 11/08 1600 974.0 60 20 174/76 95 Nasal 3.0L Cannula 11/08 1339 95 Nasal 3.0L Cannula Intake & Output 11/09 1600 11/09 0800 11/09 0000 Intake Total 550 Output Total 1999 800 Balance -1450 -800 Intake, IV 550 Output, 50 Drainage Output, Urine 2000 750 Patient 275 lb Weight Exam Other Physical Findings: gen awake and alert heent ncat cvs s1, s2 lungs diminished bibasilar abd soft bs+ ext edematous, dressing intact Results Last 24 Hrs of Lab Results: Laboratory Tests 11/09/16 0634: Anion Gap 1 L, Estimated GFR > 60, BUN/Creatinine Ratio 45.0 H, PT 12.3, INR 1.17, CBC w Diff NO MAN DIFF REQ, RBC 3.13 L, MCV 82.6, MCH 26.5 L, RDW 15.5 H, MPV 9.0, Gran % 58.4, Lymphocytes % 31.9, Monocytes % 8.0, Eosinophils % 0.6, Basophils % 1.1, Absolute Granulocytes 6.0, Absolute Lymphocytes 3.3, Absolute Monocytes 0.8 H, Absolute Eosinophils 0.1, Absolute Basophils 0.1, PUBS MCHC 32.1 L Impression/Plan Impression/Plan Impression/Plan: Impression 61 year old man * Improved - Hypoxemic respiratory failure * History of pulmonary embolism * Osteomyelitis Plan - ins/outs - trc/nebs - will need outpt sleep re-evaluation - continue symbicort and spiriva - off prednisone DVT prophylaxis at all times
--- NOTE | 2016-11-09 13:39 | Discharge Summary ---
Visit Information Visit Dates Admission Date: 11/02/16 Discharge Date: 11/18/16 Hospital Course Course Attending Physician: TERENCE HELTON M.D Primary Care Physician: CHANO SANCHEZ,LAURA Lora Hospital Course: Mr Montes is a pleasant 60-year-old morbidly obese gentleman with past medical history of nonhealing ulceration and osteomyelitis x 2 , status post right transmetatarsal amputation, multiple debridements, right renal stone status post ESWL procedure (03/2016), DM, depression, HTN,CKD,peripheral vascular disease status post stenting (2009), coronary artery disease status post cardiac catheterization (2014), COPD, JOSÉ MIGUEL, PE (not on AC) was sent in by Dr. Zheng from the wound center for bone biopsy for osteomyelitis. Labs showed a count of 11.7, no bandemia, H&H 9.5/29.8(chronic anemia), platelets 546(chronic), potassium 5.5, sodium 142, creatinine 1.3(baseline 1.2- 1.7), normal LFTs, albumin 3.3., INR 1.20. Chest x-ray:Left basilar airspace disease is concerning for pneumonia given the history of fever. Small left pleural effusion. Foot x-ray:Evaluation is very limited due to the extensive foot deformity. There is ulceration in the bilateral feet with soft tissue swelling. Irregularity of the left lateral cuneiform and cuboid bone is concerning for osteomyelitis. He was managed in the general medical floor for the following issues: #Bilateral feet osteomyelitis S/P RIGHT BELOW KNEE AMPUTATION: Patient underwent debridement on 11/02/[address] Zheng and another repeat washout on 2016 .His wound specimen grew multiple organisms including Enterobacter cloaca K , Pseudomonas aeruginosa, enterococcus, staph coagulase negative, gram-positive cocci, Serratia, staph simulans, diphtheroids. Patient was evaluated by infectious disease who recommended starting the patient on meropenem as he has grown multiple resistant organisms in the past. Patient remained afebrile on IV antibiotics without a white count. He went into flash pulmonary edema after the first debridement and was treated with IV Lasix, IV steroids and BiPAP. The second debridement was delayed because of his unstable respiratory status. Patient improved and had repeated debridement. He will require long-term antibiotics and therefore a PROLINE was placed on 11/09/2016. An arterial Doppler was ordered showed scattered atherosclerotic calcification, greatest in the right common femoral artery. Triphasic and biphasic waveforms are seen throughout. The dorsalis pedis arteries were not visualized secondary to overlying bandages. No hemodynamically significant stenosis note. Patient had right transtibial amputation on 11/15/16. He tolerated the procedure well. Will follow up with Podiatry and Vascular surgery within 7-10 days of discharge. He needs weekly ESR checked and report results to his PCP. He needs total four weeks of MEROPENEM ( TILL DECEMBER 06, 2016) through the Proline placed by IR. PICC was not placed considering his CKD status. S/P BKA 11/17/16. He was started on oxycontin 10mg q12 for pain control. Pain is adequately controlled #Acute hypoxic hypercarbic respiratory failure due to pulmonary edema(CHF) and ? Pneumonia/atelectasis: Patient went into flash pulmonary edema and was in hypoxic hypercarbic respiratory failure post the first debridement on 2016. A VQ scan was done to rule out pulmonary embolism due to poor kidney function and Doppler lower extremities ruled out DVT. Chest x-ray showed mild right-sided pleural effusion which improved with IV Lasix. There was also some nonspecific opacity on chest x-ray questionable pneumonia however patient was already covered with IV antibiotics meropenem. EKG and troponins were negative and ACS was ruled out. Patient was diuresed aggressively which improved his respiratory status. He was started on BiPAP which he was using intermittently during the hospital stay. TRC nebs were continued [id number]. Symbicort and Spiriva were continued. He was also treated with a short course of steroids for questionable COPD exacerbation. Cardiology and pulmonology were on board. Patient was transitioned to by mouth Lasix with improvement of his respiratory status. He wouldn't really require a sleep study as an outpatient. Patient needs and repeat chest x-ray as an outpatient in one week of discharge to evaluate the respiratory status. He needs to follow-up with cash sales audit clerk Dr. Diehl within 2 weeks of discharge. Also, he needs a sleep study evaluation for his JOSÉ MIGUEL. #Diabetes mellitus: He was placed on regular Accu-Cheks, Insulin NovoLog Sliding scale, and diabetic diet. #Continued with the rest of the home medications for hypertension, hyperlipidemia, chronic kidney disease, anemia, severe peripheral vascular disease. # Diabetic diet. #Subcutaneous heparin and ALPS was provided for DVT prophylaxis. #He holds a full CODE STATUS. Complications: Acute hypoxic hypercarbic respiratory failure, secondary to flash pulmonary edema on 11/03/2016 and on 11/04/16. Did require BiPAP ventilation, but no invasive endotracheal intubation. Allergies: Coded Allergies: niacin (ITCHING 11/02/16) Disposition Summary Disposition Principal Diagnosis: Bilateral feet osteomyelitis Additional Diagnosis: Acute hypoxic hypercarbic respiratory failure, secondary to congestive heart failure HFpEF, COPD, Peripheral vascular disease, Diabetes mellitus, Hypertension, coronary artery disease, status postcardiac catheterization without stent placement, pulmonary embolism not on anticoagulants more than 5 years ago, nonhealing ulceration over both feet, status post right metatarsal amputation, chronic kidney disease. Discharge Disposition: SNF Discharge Instructions General Discharge Information Code Status: Full Code Patient's Diet: Diabetic diet Patient's Activity: Nonweightbearing status, wheelchair-bound Follow-Up Instructions/Appts: Please get a chest x-ray in 1 week's time of discharge and follow-up with her primary care physician for that. Please obtain an appointment for a sleep study as an outpatient as recommended by Dr. Diehl, cash sales audit clerk and follow-up with him within 7-10 days of discharge. Please follow-up with Dr. Zheng, podiatry service, within 7-10 days of discharge. Please follow-up with your primary care physician within 7-10 days of your discharge. Please return to emergency if symptoms worsen. Medications at Discharge Discharge Medications: Stop taking the following medications: Ipratropium/Albuterol Sulfate (Combivent Respimat Inhal [place]) 20 MCG-100 MCG/ ACTUATION MIST.INHAL ORAL 4 TIMES A DAY Continue taking these medications: Carisoprodol (SOMA) 350 MG TABLET 1 Tablet ORAL EVERY 6 HOURS NEEDED as needed for PAIN Comments: Last Taken: 11/16/16 Time: 6:30 pM Budesonide/Formoterol Fumarate (Symbicort 160-4.5 Mcg Inhaler) 160 MCG-4.5 MCG/ ACTUATION HFA.AER.AD 2 Puff Inhale through mouth TWICE DAILY Comments: Last Taken: 11/18/16 Time: 1000 AM Fluoxetine HCl (Prozac) 40 MG CAPSULE 2 Capsule ORAL DAILY Comments: Last Taken: 11/18/16 Time: 1000 AM Amlodipine Besylate (Amlodipine Besylate) 10 MG TABLET 1 Tablet ORAL DAILY Comments: Last Taken: 11/18/16 Time: 1000 AM Albuterol Sulfate (Albuterol Sulfate) 0.63 MG/3 ML VIAL.NEB 1 Vial Inhale Solution THREE TIMES DAILY as needed for BREATHING PROBLEMS Comments: Last Taken: 11/17/16 Time: 6PM Rosuvastatin Calcium (Crestor) 20 MG TABLET 1 Tablet ORAL DAILY Comments: LIPITOR GIVEN IN HOSPITAL Last Taken: 11/17/16 Time: 1700 PM Metoprolol Tartrate (Metoprolol Tartrate) 50 MG TABLET 1 Tablet ORAL TWICE DAILY Comments: Last Taken: 11/18/16 Time: 1000 AM Insulin Detemir (Levemir) 100 UNIT/1 ML VIAL 20 Units Inject into fatty tissue Every night Days = 28 Comments: Last Taken: 11/17/16 Time: 2130 AM Calcium Carbonate (Calcium Carbonate) 200 MG TAB.CHEW 500 Milligram ORAL TWICE DAILY Days = 30 Comments: Last Taken: 11/18/16 Time: 1000 AM Sucralfate (Carafate) 1 GM TABLET 1,000 Milligram ORAL 4 TIMES A DAY Days = 30 Comments: Last Taken: 11/18/16 Time: 1:30 PM Polyethylene Glycol 3350 (Miralax) 119 GM POWDER 17 Gram ORAL DAILY as needed for constipation Days = 10 Comments: NOT GIVEN IN HOSPITAL Ferrous Sulfate (Ferrous Sulfate) 325 MG TABLET.DR 1 Tablet ORAL TWICE DAILY Qty = 30 Comments: Last Taken: 11/18/16 Time: 1000 AM Multivitamin (One Daily Multivitamin) 1 EACH TABLET 1 Tablet ORAL DAILY Qty = 30 Comments: NOT GIVEN IN HOSPITAL Pantoprazole Sodium (Protonix) 40 MG TABLET.DR 1 Tablet ORAL DAILY Qty = 30 Comments: PRILOSEC GIVEN Last Taken: 11/18/16 Time: 0600 AM Insulin Aspart (Novolog) 100 UNIT/1 ML VIAL 1 Unit Inject into fatty tissue 3 TIMES DAILY BEFORE MEALS Days = 28 Instructions: Blood suger Below 80 Hypoglycemia protocol 80-150 no change 151-200 1 units 201-250 2 units 251-300 3 units 301-350 4 units 351-400 6 units More than 400 10 units call M.D. Comments: NOT GIVEN Aripiprazole (Abilify) 2 MG TABLET 1 Tablet ORAL DAILY Comments: Last Taken: 11/18/16 Time: 1000 AM Start taking the following new medications: Gabapentin (Gabapentin) 300 MG CAPSULE 300 Milligram ORAL EVERY 8 HOURS Qty = 90 No Refills Comments: Last Taken: 11/18/16 Time: 1:30 PM Tiotropium [place] (Spiriva) 18 MCG CAP.W.DEV 1 Puff Inhale through mouth DAILY Qty = 1 No Refills Comments: Last Taken: 11/21/16 Time: 10:00 AM Oxycodone HCl (Oxycontin) 10 MG TAB.ER.12H 10 Milligram ORAL EVERY 12 HOURS Qty = 60 No Refills Comments: Last Taken: 11/18/16 Time: 10:00 AM Polyethylene Glycol 3350 (Miralax) 17 GRAM/DOSE POWDER 17 Gram ORAL DAILY NEEDED as needed for constipation Qty = 30 No Refills Comments: Last Taken: 11/17/16 Time: 8:00 AM Sennosides/Docusate Sodium (Senna Plus Tablet) 8.6 MG-50 MG TABLET 1 Tablet ORAL TWICE DAILY as needed for CONSTIPATION Qty = 60 No Refills Comments: Last Taken: 11/17/16 Time: 9:0 PM Meropenem (Meropenem) 1 GRAM VIAL 1 G INTRAVEN EVERY 8 HOURS Qty = 90 No Refills Instructions: TILL 12/13/16 Comments: Last Taken: 11/18/16 Time: 10:00 AM The following medications have been changed: Old: Oxycodone HCl/Acetaminophen (Oxycodone-Acetaminophen 10-325) 1 EACH TABLET 1 Tablet ORAL Q6H as needed for PAIN Qty = 15 New: Oxycodone HCl/Acetaminophen (Oxycodone-Acetaminophen 10-325) 10 MG-325 MG TABLET 1 Tablet ORAL Every 4 hours as needed for PAIN Qty = 180 Comments: Last Taken: 11/18/16 Time: 1000 AM Copies To: JULIANNE ARGUETA,PRISCILLA MADDEN MD,LAURA Lora; DENISE ASNCHEZ,RIK KEBEDE MD,MAYLIN Attending MD Review Statement Documenting Attending: TERENCE HELTON M.D Other Findings: Patient is medically stable to be discharged Attending MD Review Statement Documenting Attending: TERENCE HELTON M.D
[2016-11-09 15:52] VITALS: BP 148/78
--- NOTE | 2016-11-09 16:16 | ULTRASOUND REPORT ---
PROLINE INSERTION (TUNNELED PICC) Clinical history: Osteomyelitis. Proline required for long-term intravenous antibiotics. Interventional radiologist: Juan José Galarza M.D. Anesthesia: 1% local lidocaine. Fluoroscopic Time: 0.3 minutes Procedure in Detail: Informed consent was obtained from the patient prior to the procedure. During this process, the procedure and potential alternatives were explained along with the intended outcome and benefits. The risks of the procedure including the possibility of an unsuccessful procedure, as well as the risk of not doing the procedure were discussed. The patient was given the opportunity to ask questions regarding the procedure and appeared competent to make decisions. A signed consent form which documents this discussion was placed in the medical record. Following informed consent, the patient was placed supine on the fluoroscopic table. The right neck and upper chest were prepped and draped in usual sterile fashion. A time out procedure was performed. Real-time ultrasound was performed to obtained venous mapping and vascular access assessment. Using standard interventional, sterile and Seldinger technique a micro-stick system was utilized to enter into the right internal jugular vein. A wire was introduced into the superior vena cava and measurements were taken. The wire was advanced into the IVC to confirm venous placement. At this time the tunneling location was determined and anesthetized with 1% lidocaine with epinephrine. A small rula was made in the upper right chest and the catheter was tunneled subcutaneously to the venotomy site. The catheter was cut at 27 cm. At this time the microcatheter was exchanged for a peel-away sheath. The wire and inner portion of the peel-away sheath were then quickly removed and the overlying catheter advanced through the peel-away sheath. Fluoroscopic imaging was used to verify positioning at the cavoatrial junction. Both lumens were aspirated and flushed to ensure patency. The PROLINE catheter was secured into position using a StatLock device. A sterile dressing was placed over the site. The venotomy site was closed with Dermabond. The patient tolerated the procedure well and was discharged from the department in good condition. Complications: None. ULTRASOUND-GUIDED VASCULAR ACCESS: Ultrasound was used to identify the right internal jugular vein. The right internal jugular vein was confirmed to be patent. Real time imaging confirmed needle access into the right internal jugular vein. An image was saved for permanent recording in PACS. IMPRESSION: Successful ultrasound and fluoroscopically guided placement of a PROLINE catheter via the right internal jugular vein.
--- NOTE | 2016-11-09 16:27 | PN- Infect Dx ---
Subjective Subjective: Afebrile without complaints Objective Last 24 Hrs of Vital Signs/I&O Vital Signs Date Time Temp Pulse Resp B/P Pulse O2 O2 Flow FiO2 Ox Delivery Rate 11/09 1552 97.8 53 18 148/78 97 Nasal 2.0L Cannula 11/09 1525 Nasal 2.0L Cannula 11/09 1342 Nasal 2.0L Cannula 11/09 0930 64 146/68 11/09 0930 64 146/68 11/09 0915 98.2 64 18 146/68 94 Nasal 1.5L Cannula 11/09 0800 94 Nasal 2.0L Cannula 11/09 0752 95 Nasal 1.0L Cannula 11/09 0651 98.2 47 20 150/70 98 Nasal 3.0L Cannula 11/09 0009 98 11/09 0008 98 Nasal 2.0L Cannula 11/09 0004 98.2 58 20 160/66 99 Nasal 3.0L Cannula 11/09 0000 96 Nasal 2.0L Cannula 11/08 2132 98.1 64 22 146/66 96 Nasal 2.0L Cannula 11/08 2126 98.1 64 22 146/66 11/08 1935 94 Nasal 2.0L Cannula Intake & Output 11/09 1600 11/09 0800 11/09 0000 Intake Total 400 550 Output Total 2200 1999 800 Balance -1800 -1450 -800 Intake, IV 400 550 Intake, Oral 0 Number 0 Bowel Movements Output, 50 Drainage Output, Urine 2200 1999 750 Patient 275 lb Weight Physical Exam Other Physical Findings: He appears comfortable in no acute distress Chest Pro-Line in place in the right upper chest Extremities dressings intact over both feet, with wound VAC in place on the left Results Last 24 Hours of Lab Results: Laboratory Tests 11/09 0634 Chemistry Sodium (137 - 145 mmol/L) 137 Potassium (3.5 - 5.1 mmol/L) 4.5 Chloride (98 - 107 mmol/L) 100 Carbon Dioxide (22 - 30 mmol/L) 35 H Anion Gap (5 - 16) 1 L BUN (9 - 20 mg/dL) 54 H Creatinine (0.7 - 1.2 mg/dL) 1.2 Estimated GFR (>60 ml/min) > 60 BUN/Creatinine Ratio (7 - 25 %) 45.0 H Coagulation PT (9.4 - 12.5 SEC) 12.3 INR (0.90 - 1.17) 1.17 Hematology CBC w Diff NO MAN DIFF REQ WBC (4.8 - 10.8 /CUMM) 10.3 RBC (4.70 - 6.10 /CUMM) 3.13 L Hgb (14.0 - 18.0 G/DL) 8.3 L Hct (42 - 52 %) 25.8 L MCV (80.0 - 94.0 FL) 82.6 MCH (27.0 - 31.0 PG) 26.5 L RDW (11.5 - 14.5 %) 15.5 H Plt Count (130 - 400 /CUMM) 314 MPV (7.4 - 10.4 FL) 9.0 Gran % (42.2 - 75.2 %) 58.4 Lymphocytes % (20.5 - 51.1 %) 31.9 Monocytes % (1.7 - 9.3 %) 8.0 Eosinophils % (0 - 5 %) 0.6 Basophils % (0.0 - 2.0 %) 1.1 Absolute Granulocytes (1.4 - 6.5 /CUMM) 6.0 Absolute Lymphocytes (1.2 - 3.4 /CUMM) 3.3 Absolute Monocytes (0.10 - 0.60 /CUMM) 0.8 H Absolute Eosinophils (0.0 - 0.7 /CUMM) 0.1 Absolute Basophils (0.0 - 0.2 /CUMM) 0.1 PUBS MCHC (33.0 - 37.0 G/DL) 32.1 L Last 24 Hours of Enrique Results: No recent cultures Assessment/Plan Impression: Stable status post I&D of both feet with debridement of necrotic bone and wound VAC placement of the left foot 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 He has been evaluated by Vascular surgery, and, as discussed and previously noted, right BKA may need to be considered. His respiratory status has improved on Lasix and prednisone for what was felt to be a combination of fluid overload and an exacerbation of COPD. He remains afebrile with white blood cell count normal on Meropenem Day 6 and this will need to be continued, at least for the left foot osteomyelitis, for 4 weeks from his most recent debridement. Suggestion: 1. Follow-up arterial Dopplers, with possible angiogram based on these results 2. Further management of his right foot, with possible BKA, based on above 3. Repeat ESR and follow weekly 4. Continue Meropenem to plan on 4 weeks from his most recent debridement ( until December 06)
[2016-11-09 22:46] VITALS: BP 134/68
[2016-11-10 05:50] VITALS: BP 140/80
--- NOTE | 2016-11-10 07:42 | PN- Housestaff ---
EFRAIN SANCHEZ,ALF 11/10/16 0742: Subjective Follow-up For: Osteomyelitis Complaints: no complaints Subjective: I followed up and examined the patient today. He is resting comfortably in bed, does not have any complaints, not in acute distress, vitals have been stable overnight, no overnight issues. We are waiting for his bilateral lower extremity arterial Doppler scan study results. Review of Systems Constitutional: Reports: no symptoms. Cardiovascular: Reports: no symptoms. Respiratory: Reports: no symptoms. Gastrointestinal: Reports: no symptoms. Genitourinary: Reports: no symptoms. Musculoskeletal: Reports: no symptoms. Skin: Reports: see HPI. Neurological/Psychological: Reports: no symptoms. Objective Last 24 Hrs of Vital Signs/I&O Vital Signs Date Time Temp Pulse Resp B/P Pulse O2 O2 Flow FiO2 Ox Delivery Rate 11/10 1410 98.0 63 20 134/60 96 Nasal 2.0L Cannula 11/10 1030 94 Nasal 2.0L Cannula 11/10 0836 51 140/80 11/10 0835 51 140/80 11/10 0800 Nasal 1.5L Cannula 11/10 0557 72 95 / 0550 98.6 51 20 140/80 97 Nasal 2.0L Cannula 11/10 0021 55 98 04/ 0000 BIPAP 11/09 2246 97.7 52 18 134/68 97 Nasal 2.0L Cannula 11/09 2221 50 96 / 2137 53 148/78 11/09 1855 94 Nasal 2.0L Cannula 11/09 1600 93 Nasal 1.5L Cannula 11/09 1552 97.8 53 18 148/78 97 Nasal 2.0L Cannula Intake & Output 11/10 1600 06 0800 11/10 0000 Intake Total 491 400 Output Total 1 550 602 Balance -1 -59 -202 Intake, IV 11 Intake, Oral 480 400 Number 1 Bowel Movements Output, Stool 1 2 Output, Urine 550 600 Patient 116.573 kg Weight Physical Exam General Appearance: Alert, Oriented X3, Cooperative, No Acute Distress Other Physical Findings: Head: Normocephalic, atraumatic Eyes: Pupils normal in size, regular, reacting to light and accommodation, EOM normal Ears: B/l normal on inspection Nose: Normal on inspection Throat/mouth: Moist mucosa Neck: Supple, full range of motion, no thyromegaly Heart: Regular rate, regular rhythm Lung: normal breath sounds heard b/l Abd: Soft, non-tender, no distention appreciated Back: Normal range of motion Extremities: b/l pedal edema present, both feet were well dressed, WoundVac on left foot, no bleeding Current Medications: Current Medications Sig/Taylor Start time Last Medication Dose Route Stop Time Status Admin Acetaminophen 325 MG Q6P PRN 11/02 1715 AC PO Albuterol Sulfate 3 ML BID 11/03 1000 AC 11/10 INH 1029 Albuterol Sulfate 3 ML Q6P PRN 11/02 1930 AC INH Amlodipine Besylate 10 MG DAILY 11/03 1000 AC 11/10 PO 0836 Aripiprazole 2 MG DAILY 11/10 1000 AC 11/10 PO 1154 Atorvastatin Calcium 20 MG 1700 11/03 1700 AC 11/09 PO 1808 Budesonide/ 2 PUF BID 11/02 2200 AC 11/10 Formoterol Fumarate INH 0833 Calcium Carbonate 500 MG BID 11/02 2200 AC 11/10 PO 0833 Carisoprodol 350 MG Q6-PRN PRN 11/09 2345 AC 11/10 PO 1045 Carisoprodol 350 MG Q6-PRN PRN 11/02 1930 DC 11/04 PO 1028 Dextrose/Sodium 1,000 ML Q20H 11/09 0000 DC 11/09 Chloride IV 11/09 195 0108 Ferrous Sulfate 325 MG BID 11/02 2200 AC 11/10 PO 0833 Fluoxetine HCl 40 MG DAILY 11/03 1000 AC 11/10 PO 0834 Furosemide 40 MG DAILY 11/10 1000 AC 11/10 PO 0834 Heparin Sodium 5,000 UNIT Q8 11/03 0837 AC 11/10 (Porcine) SC 1338 Insulin Aspart 0 TIDAC 11/09 1700 AC 11/10 SC 1155 Insulin Detemir 5 UNITS AT BEDTIME 11/03 2200 AC 11/09 SC 2141 Insulin Human Regular 0 Q6 11/09 0600 DC 11/09 SC 0637 Meropenem 1 GM Q8H 11/04 0200 AC 11/10 IV 0832 Metoprolol Tartrate 50 MG BID 11/02 2200 AC 11/10 PO 0835 Omeprazole 40 MG DAILY AC 11/03 0700 AC 11/10 PO 0607 Oxycodone HCl 10 MG Q6P PRN 11/04 1130 AC 11/10 PO 0748 Oxycodone/ 1 TAB Q4P PRN 11/09 1030 AC 11/10 Acetaminophen PO 1338 Polyethylene Glycol 17 GM DAILY PRN 11/02 1930 AC PO Senna/Docusate Sodium 1 TAB BID PRN 11/05 2030 AC 11/09 PO 0930 Sodium Chloride 2 SPRAY Q4P PRN 11/03 2230 AC NIYA Sucralfate 1,000 MG 4 TIMES/DAY 11/02 2200 AC 11/10 PO 1338 Tiotropium [place] 1 PUF DAILY 11/04 1317 AC 11/10 INH 0832 Last 24 Hrs of Lab/Enrique Results Last 24 Hrs of Labs/Mics: Laboratory Tests 11/10/16 0545: Anion Gap 4 L, Estimated GFR 57 L, BUN/Creatinine Ratio 36.2 H, CBC w Diff NO MAN DIFF REQ, RBC 3.20 L, MCV 83.1, MCH 26.6 L, RDW 15.5 H, MPV 8.6, Gran % 60.1, Lymphocytes % 30.7, Monocytes % 7.3, Eosinophils % 1.5, Basophils % 0.4, Absolute Granulocytes 4.9, Absolute Lymphocytes 2.5, Absolute Monocytes 0.6, Absolute Eosinophils 0.1, Absolute Basophils 0, PUBS MCHC 32.0 L, ESR Westergren 74 H Assessment/Plan Assessment: 61 year old male with past medical history of diabetes mellitus, hypertension, CKD, PVD status post stenting in 2009, CAD status post cardiac catheterization without stent placement in 2014, COPD, obstructive sleep apnea not using O2 at home, pulmonary embolism not on anticoagulants >5 yrs ago, nonhealing ulceration of left foot with osteomyelitis, status post right metatarsal amputation, was sent to the emergency department by wound care clinic earlier on the day of admission to get assessed for osteomyelitis and possible bone biopsy on 11/02/16. Patient's vitals were stable when he came to the emergency department, labs were significant for leukocytosis at 11.7, anemia with 9.5 hemoglobin and 29.8 hematocrit, platelets 546, potassium slightly high at 5.5, sodium slightly higher range at 142, and creatinine at 1.3. 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 Chest x-ray is suggestive for left-sided pneumonia with small left sided pleural effusion, and suggests follow-up. Patient has not received any antibiotic in the emergency department. Currently, patient is being managed in the general medical floor for the following issues: #Suspected bilateral feet osteomyelitis Patient underwent debridement, sample from lab results showing mixed norbert. Infectious disease service on board, who suggested IV meropenem 1g q8hr DAY 8 TODAY, has remained afebrile. He underwent another debridement procedure today, and is pending recommendation from podiatry. He will need long-term IV antibiotics and is planned to have a line placed on under IR guidance tomorrow morning. -We will continue following podiatry. -We will continue following infectious disease. #Suspected peripheral vascular disease Vascular surgery was consulted and has recommended arterial Doppler study of bilateral lower extremities which shows biphasic and triphasic waveforms in both lower limbs, except for dorsalis pedis bilaterally due to bandages over them. Vascular surgeon called back after planning for below knee amputation Monday () if he is still here as an inpatient. #Acute hypoxic hypercarbic respiratory failure, secondary to congestive heart failure/possible pneumonia He had been hypoxic, hypercarbic respiratory failure on 11/03/2016 and on , due to flash pulmonary edema, secondary to fluid overload with a history of congestive heart failure, and a component of his COPD acting up requiring him BiPAP intermittently. His respiratory status however has been stable now. -Taper his oxygen. -We will continue following pulmonology. Sleep study to be done as an outpatient. -We will continue following cardiology. #Diabetes mellitus -Continue regular Accu-Cheks, Insulin NovoLog Sliding scale, and diabetic diet #Continue with the rest of the medications for hypertension, hyperlipidemia, chronic kidney disease, anemia, severe peripheral vascular disease -Continue total respiratory care/nebs -We will continue to monitor for any electrolyte disturbance #Diet: Diabetic diet #Subcutaneous heparin and Alps for DVT prophylaxis, as he has CKD #Full CODE STATUS Problem List: 1. Osteomyelitis 2. Diabetes mellitus 3. CKD (chronic kidney disease) 4. CHF (congestive heart failure) Pain Ratin Pain Location: feet Pain Goal: Pain 4 or less Pain Plan: prn meds are in place Tomorrow's Labs & Rationales: - TERENCE HELTON MD 11/10/16 1513: Attending MD Review Statement Attending Statement Attending MD Statement: examined this patient, discuss w/resident/PA/EXAMINATION PROCTOR, agreed w/resident/PA/EXAMINATION PROCTOR, reviewed EMR data (avail), discussed with nursing, discussed with case mgmt, amended to note Attending Assessment/Plan: Patient seen and examined. Resting comfortably and not in any distress. No issues overnight reported by nursing staff. He has no new complaints today. His oxygen requirement is improving and is currently down to 2 L oxygen saturating 96%. I did have a conversation with the vascular surgeon today. He has also been in consultation with the infectious disease specialist and bag sealer. Due to continued progression of his chronic leg ulcer despite repeated courses of antibiotic therapy this he has been made to proceed with below-knee amputation. Vascular surgery service will be discussing this further with the patient. Tentative date for the OR his next Monday. Patient is otherwise medically stable however he does not have a bed available to halfway facility. If he is unable to be discharged tomorrow he will remain in the hospital until his procedure can be done safely next week.
[2016-11-10 08:24] LABS: ABSOLUTE BASOPHIL COUNT 0 /CUMM (0.0-0.2); ABSOLUTE EOSINOPHIL COUNT 0.1 /CUMM (0.0-0.7); ABSOLUTE GRANULOCYTE CT 4.9 /CUMM (1.4-6.5); ABSOLUTE LYMPH COUNT 2.5 /CUMM (1.2-3.4); ABSOLUTE MONOCYTE COUNT 0.6 /CUMM (0.10-0.60); BASOPHIL % 0.4 % (0.0-2.0); EOSINOPHIL % 1.5 % (0-5); GRANULOCYTE % 60.1 % (42.2-75.2); HEMATOCRIT 26.6 % (42-52); MEAN CORPUSCULAR HGB 26.6 PG (27.0-31.0); MEAN CORPUSCULAR VOLUME 83.1 FL (80.0-94.0); MEAN PLATELET VOLUME 8.6 FL (7.4-10.4); PLATELET COUNT 358 /CUMM (130-400); RBC DISTRIBUTION WIDTH 15.5 % (11.5-14.5); WHITE BLOOD CELL COUNT 8.2 /CUMM (4.8-10.8)
[2016-11-10] MEDS ORDERED: MEROPENEM1 G1 IV (08:24)
--- NOTE | 2016-11-10 08:32 | ULTRASOUND REPORT ---
EXAMINATION: US-BILAT LOW EXTR ARTERIAL DOP CLINICAL INFORMATION: 61-year-old male with PVD and chronic nonhealing wound. COMPARISON: 06/19/2014 TECHNIQUE: Real-time ultrasound and Doppler techniques (integrating B-mode 2-D vascular images, Doppler spectral analysis and color flow Doppler imaging) were utilized to interrogate the lower extremities. FINDINGS: Right lower extremity: Common femoral artery: 228 cm/sec; triphasic waveform. Moderate amount of calcified plaque is seen within the common femoral artery. Superficial femoral artery proximal: 162 cm/sec; biphasic waveform Superficial femoral artery mid portion: 128 cm/sec; triphasic waveform Superficial femoral artery distal: 142 cm/sec; triphasic waveform Profunda artery: 284 cm/sec; triphasic waveform Popliteal artery: 69 cm/sec; biphasic waveform Posterior tibial artery: 56 cm/sec; biphasic waveform Anterior tibial artery: 52 cm/sec; biphasic waveform Dorsalis pedis artery: Not visualized secondary to overlying bandage. Left lower extremity: Common femoral artery: 232 cm/sec; triphasic waveform Superficial femoral artery proximal: 234 cm/sec; triphasic waveform Superficial femoral artery mid portion: 184 cm/sec; triphasic waveform Superficial femoral artery distal: 160 cm/sec; triphasic waveform Profunda artery: 266 cm/sec; triphasic waveform Popliteal artery: 104 cm/sec; biphasic waveform Posterior tibial artery: 81 cm/sec; biphasic waveform Anterior tibial artery: 78 cm/sec; biphasic waveform Dorsalis pedis artery: Not visualized secondary to overlying bandage. ADDITIONAL FINDINGS: None. IMPRESSION: Scattered atherosclerotic calcification, greatest in the right common femoral artery. Triphasic and biphasic waveforms are seen throughout. The dorsalis pedis arteries were not visualized secondary to overlying bandages. No definite hemodynamically significant stenosis identified. Please note that greater sensitivity and specificity can be obtained with pre-and post exercise PVRs with TUNDE calculations. Also consider dedicated CTA for further anatomical detail.
[2016-11-10] MEDS ORDERED: ABILIFY2 MG PO (09:39)
--- NOTE | 2016-11-10 11:49 | PN- Pulmonary ---
Subjective HPI/Critical Care Issues: pt seen and examined doing well no respiratory complaints at rest no fevers Objective Current Medications: Current Medications Sig/Taylor Start time Last Medication Dose Route Stop Time Status Admin Acetaminophen 325 MG Q6P PRN 11/02 1715 AC PO Albuterol Sulfate 3 ML BID 11/03 1000 AC 11/10 INH 1029 Albuterol Sulfate 3 ML Q6P PRN 11/02 1930 AC INH Amlodipine Besylate 10 MG DAILY 11/03 1000 AC 11/10 PO 0836 Aripiprazole 2 MG DAILY 11/10 1000 AC PO Atorvastatin Calcium 20 MG 1700 11/03 1700 AC 11/09 PO 1808 Budesonide/ 2 PUF BID 11/02 2200 AC 11/10 Formoterol Fumarate INH 0833 Calcium Carbonate 500 MG BID 11/02 2200 AC 11/10 PO 0833 Carisoprodol 350 MG Q6-PRN PRN 11/09 2345 AC 11/10 PO 1045 Carisoprodol 350 MG Q6-PRN PRN 11/02 1930 DC 11/04 PO 1028 Dextrose/Sodium 1,000 ML Q20H 11/09 0000 DC 11/09 Chloride IV 11/09 1959 0108 Ferrous Sulfate 325 MG BID 11/02 2200 AC 11/10 PO 0833 Fluoxetine HCl 40 MG DAILY 11/03 1000 AC 11/10 PO 0834 Furosemide 40 MG DAILY 11/10 1000 AC 11/10 PO 0834 Furosemide 40 MG 7:30 AM, & 4:30 PM 11/09 1630 DC PO Heparin Sodium 0 .STK-MED ONE 11/09 1239 DC (Porcine) IV Heparin Sodium 5,000 UNIT Q8 11/03 0837 AC 11/10 (Porcine) SC 0607 Insulin Aspart 0 TIDAC 11/09 1700 AC SC Insulin Detemir 5 UNITS AT BEDTIME 11/03 2200 AC 11/09 SC 2141 Insulin Human Regular 0 Q6 11/09 0600 DC 11/09 SC 0637 Lidocaine 0 .STK-MED ONE 11/09 1239 DC .ROUTE Lidocaine/Epinephrine 0 .STK-MED ONE 11/09 1240 DC .ROUTE Meropenem 1 GM Q8H 11/04 0200 AC 11/10 IV 0832 Metoprolol Tartrate 50 MG BID 11/02 2200 AC 11/10 PO 0835 Omeprazole 40 MG DAILY AC 11/03 0700 AC 11/10 PO 0607 Oxycodone HCl 10 MG Q6P PRN 11/04 1130 AC 11/10 PO 0748 Oxycodone/ 1 TAB Q4P PRN 11/09 1030 AC 11/10 Acetaminophen PO 0902 Patient Medication 1 ED ONE ONE 11/09 1330 DC Teaching ED 11/09 1331 Polyethylene Glycol 17 GM DAILY PRN 11/02 1930 AC PO Senna/Docusate Sodium 1 TAB BID PRN 11/05 2030 AC 11/09 PO 0930 Sodium Chloride 2 SPRAY Q4P PRN 11/03 2230 AC NIYA Sucralfate 1,000 MG 4 TIMES/DAY 11/02 2200 AC 11/10 PO 0833 Tiotropium [place] 1 PUF DAILY 11/04 1317 AC 11/10 INH 0832 Vital Signs & I&O Last 24 Hrs of Vitals and I&O: Vital Signs Date Time Temp Pulse Resp B/P Pulse O2 O2 Flow FiO2 Ox Delivery Rate 11/10 1030 94 Nasal 2.0L Cannula 11/10 0836 51 140/80 11/10 0835 51 140/80 11/10 0800 Nasal 1.5L Cannula 11/10 0557 72 95 11/10 0550 98.6 51 20 140/80 97 Nasal 2.0L Cannula 11/10 0021 55 98 11/10 0000 BIPAP 11/09 2246 97.7 52 18 134/68 97 Nasal 2.0L Cannula 11/09 2221 50 96 11/09 2137 53 148/78 11/09 1855 94 Nasal 2.0L Cannula 11/09 1600 93 Nasal 1.5L Cannula 11/09 1552 97.8 53 18 148/78 97 Nasal 2.0L Cannula 11/09 1525 Nasal 2.0L Cannula 11/09 1342 Nasal 2.0L Cannula Intake & Output 11/10 1600 06 0800 11/10 0000 Intake Total 491 400 Output Total 550 602 Balance -59 -202 Intake, IV 11 Intake, Oral 480 400 Number 1 Bowel Movements Output, Stool 2 Output, Urine 550 600 Patient 257 lb Weight Exam Other Physical Findings: gen awake and alert heent ncat cvs s1, s2 lungs diminished bibasilar abd soft bs+ ext edematous, dressing intact Results Last 24 Hrs of Lab Results: Laboratory Tests 11/10/16 0545: Anion Gap 4 L, Estimated GFR 57 L, BUN/Creatinine Ratio 36.2 H, CBC w Diff NO MAN DIFF REQ, RBC 3.20 L, MCV 83.1, MCH 26.6 L, RDW 15.5 H, MPV 8.6, Gran % 60.1, Lymphocytes % 30.7, Monocytes % 7.3, Eosinophils % 1.5, Basophils % 0.4, Absolute Granulocytes 4.9, Absolute Lymphocytes 2.5, Absolute Monocytes 0.6, Absolute Eosinophils 0.1, Absolute Basophils 0, PUBS MCHC 32.0 L, ESR Westergren 74 H Impression/Plan Impression/Plan Impression/Plan: Impression 61 year old man * Improved - Hypoxemic respiratory failure * History of pulmonary embolism * Osteomyelitis Plan - trc/nebs - will need outpt sleep re-evaluation - continue symbicort and spiriva - off prednisone - monitor ins/outs DVT prophylaxis at all times Call with any questions
[2016-11-10 14:10] VITALS: BP 134/60
[2016-11-10 21:59] VITALS: BP 126/58
[2016-11-11 07:25] VITALS: BP 136/70
--- NOTE | 2016-11-11 08:48 | PN- Housestaff ---
EFRAIN SANCHEZ,ALF 11/11/16 0847: Subjective Follow-up For: Osteomyelitis Complaints: no complaints Subjective: I followed up and examined the patient today. He is resting comfortably in bed, not in acute distress, has tolerated food well after the surgery, doesn't complain of pain or of anything else. Vitals have been stable, no issues overnight. Silva still in place. Review of Systems Constitutional: Reports: no symptoms. Cardiovascular: Reports: no symptoms. Respiratory: Reports: no symptoms. Gastrointestinal: Reports: no symptoms. Genitourinary: Reports: no symptoms. Musculoskeletal: Reports: no symptoms. Objective Last 24 Hrs of Vital Signs/I&O Vital Signs Date Time Temp Pulse Resp B/P Pulse O2 O2 Flow FiO2 Ox Delivery Rate 11/11 1156 98.7 62 18 136/70 11/11 1011 62 136/70 11/11 1011 62 136/70 11/11 1003 96 Nasal 2.0L Cannula 11/11 0800 93 Nasal 2.0L Cannula 11/11 0725 99.1 49 18 136/70 93 Nasal 3.0L Cannula 11/11 0547 59 98 11/11 0334 49 98 11/11 0018 98 11/11 0016 60 98 / 0000 Nasal 2.0L Cannula 11/10 2227 60 98 11/10 2159 97.4 54 18 126/58 95 Nasal 2.0L Cannula 11/10 2135 54 126/58 / 1900 95 Nasal 2.0L Cannula Intake & Output 11/11 1600 11/11 0800 04/ 0000 Intake Total 800 Output Total 118 576 0533 Balance -145 -750 -2200 Intake, Oral 800 Output, Urine 764 789 8673 Patient 122.924 kg Weight Physical Exam General Appearance: Alert, Oriented X3, Cooperative, No Acute Distress Other Physical Findings: Head: Normocephalic, atraumatic Eyes: Pupils normal in size, regular, reacting to light and accommodation, EOM normal Ears: B/l normal on inspection Nose: Normal on inspection Throat/mouth: Moist mucosa Neck: Supple, full range of motion, no thyromegaly Heart: Regular rate, regular rhythm Lung: normal breath sounds heard b/l Abd: Soft, non-tender, no distention appreciated, Silva catheter in place. Back: Normal range of motion Extremities: b/l pedal edema present, both feet were well dressed, WoundVac on left foot, no bleeding Current Medications: Current Medications Sig/Taylor Start time Last Medication Dose Route Stop Time Status Admin Acetaminophen 325 MG Q6P PRN 11/02 1715 AC PO Albuterol Sulfate 3 ML BID 11/03 1000 AC 11/11 INH 0958 Albuterol Sulfate 3 ML Q6P PRN 11/02 1930 AC INH Amlodipine Besylate 10 MG DAILY 11/03 1000 AC 11/11 PO 1011 Aripiprazole 2 MG DAILY 11/10 1000 AC 11/11 PO 1010 Atorvastatin Calcium 20 MG 1700 11/03 1700 AC 11/10 PO 1634 Budesonide/ 2 PUF BID 11/02 2200 AC 11/11 Formoterol Fumarate INH 1011 Calcium Carbonate 500 MG BID 11/02 2200 AC 11/11 PO 1010 Carisoprodol 350 MG Q6-PRN PRN 11/09 2345 AC 11/11 PO 0316 Ferrous Sulfate 325 MG BID 11/02 2200 AC 11/11 PO 1010 Fluoxetine HCl 40 MG DAILY 11/03 1000 AC 11/11 PO 1011 Furosemide 40 MG DAILY 11/10 1000 AC 11/11 PO 0820 Heparin Sodium 5,000 UNIT Q8 11/03 0837 AC 11/11 (Porcine) SC 1328 Insulin Aspart 0 TIDAC 11/09 1700 AC 11/10 SC 1155 Insulin Detemir 5 UNITS AT BEDTIME 11/03 2200 AC 11/10 SC 2136 Meropenem 1 GM Q8H 11/04 0200 AC 11/11 IV 1010 Metoprolol Tartrate 50 MG BID 11/02 2200 AC 11/11 PO 1011 Omeprazole 40 MG DAILY AC 11/03 0700 AC 11/11 PO 0603 Oxycodone HCl 10 MG Q6P PRN 11/04 1130 AC 11/11 PO 1328 Oxycodone/ 1 TAB Q4P PRN 11/09 1030 AC 11/11 Acetaminophen PO 0820 Patient Medication 1 ED ONE ONE 11/11 1415 DC Teaching ED 11/11 1416 Polyethylene Glycol 17 GM DAILY PRN 11/02 1930 AC PO Senna/Docusate Sodium 1 TAB BID PRN 11/05 2030 AC 11/11 PO 1010 Sodium Chloride 2 SPRAY Q4P PRN 11/03 2230 AC NIYA Sucralfate 1,000 MG 4 TIMES/DAY 11/02 2200 AC 11/11 PO 1328 Tiotropium [place] 1 PUF DAILY 11/04 1317 AC 11/11 INH 1010 Assessment/Plan Assessment: 61 year old male with past medical history of diabetes mellitus, hypertension, CKD, PVD status post stenting in 2009, CAD status post cardiac catheterization without stent placement in 2014, COPD, obstructive sleep apnea not using O2 at home, pulmonary embolism not on anticoagulants >5 yrs ago, nonhealing ulceration of left foot with osteomyelitis, status post right metatarsal amputation, was sent to the emergency department by wound care clinic earlier on the day of admission to get assessed for osteomyelitis and possible bone biopsy on 11/02/16. Patient's vitals were stable when he came to the emergency department, labs were significant for leukocytosis at 11.7, anemia with 9.5 hemoglobin and 29.8 hematocrit, platelets 546, potassium slightly high at 5.5, sodium slightly higher range at 142, and creatinine at 1.3. 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 Chest x-ray is suggestive for left-sided pneumonia with small left sided pleural effusion, and suggests follow-up. Patient has not received any antibiotic in the emergency department. Currently, patient is being managed in the general medical floor for the following issues: #Suspected bilateral feet osteomyelitis Patient underwent debridement, sample from lab results showing mixed norbert. Infectious disease service on board, who suggested IV meropenem 1g q8hr DAY 9 TODAY, has remained afebrile. He underwent another debridement procedure today, and is pending recommendation from podiatry. He will need long-term IV antibiotics and is planned to have a line placed on under IR guidance tomorrow morning. -We will continue following podiatry. -We will continue following infectious disease. #Peripheral vascular disease Vascular surgery was consulted and has recommended arterial Doppler study of bilateral lower extremities which shows biphasic and triphasic waveforms in both lower limbs, except for dorsalis pedis bilaterally due to bandages over them. Vascular surgeon called back after planning for below knee amputation Monday () if he is still here as an inpatient, or as an outpatient if he is already discharged by then. Risk of surgery calculation: Her CRI score of patient score is 3 points, that ie, group IV, 11% risk of major cardiac events during surgery. This has been explained to the patient. #Acute hypoxic hypercarbic respiratory failure, secondary to congestive heart failure/possible pneumonia He had been hypoxic, hypercarbic respiratory failure on 11/03/2016 and on , due to flash pulmonary edema, secondary to fluid overload with a history of congestive heart failure, and a component of his COPD acting up requiring him BiPAP intermittently. His respiratory status however has been stable now. -Taper his oxygen. He is currently requiring oxygen at 2 L/m via nasal cannula. -We will continue following pulmonology. Sleep study to be done as an outpatient. -We will continue following cardiology. #Diabetes mellitus -Continue regular Accu-Cheks, Insulin NovoLog Sliding scale, and diabetic diet #Continue with the rest of the medications for hypertension, hyperlipidemia, chronic kidney disease, anemia, severe peripheral vascular disease -Continue total respiratory care/nebs -We will continue to monitor for any electrolyte disturbance #Discharge disposition: Patient is medically stable, but requires a short-term rehabilitation facility until he gets his below-knee amputation on the right side possibly Monday or earlier according to vascular surgery/podiatry. He is awaiting placement at a short-term rehabilitation as of now, is a possible discharge later today. #Diet: Diabetic diet #Subcutaneous heparin and Alps for DVT prophylaxis, as he has CKD #Full CODE STATUS Problem List: 1. Osteomyelitis 2. Diabetes mellitus 3. CHF (congestive heart failure) 4. Hypertension Pain Ratin Pain Location: feet Pain Goal: Pain 4 or less Pain Plan: prn Tomorrow's Labs & Rationales: - TERENCE HELTON MD 11/11/16 1716: Attending MD Review Statement Attending Statement Attending MD Statement: examined this patient, discuss w/resident/PA/MUD ANALYSIS OPERATOR, agreed w/resident/PA/MUD ANALYSIS OPERATOR, reviewed EMR data (avail), discussed with nursing, discussed with case mgmt, amended to note Attending Assessment/Plan: Patient seen and examined. Resting comfortably not in any acute distress. No issues overnight reported by nursing staff. He remains afebrile hemodynamically stable. A bed has been obtained for him at a [facility] facility. Plans are to discharge the patient today and have a follow-up with the vascular surgery service for amputation planned for next week. Patient verbalizes understanding of this plan and is in agreement. He'll continue on his meropenem as recommended by the ID service. He will be discharged on Lasix 40 mg orally daily.
--- NOTE | 2016-11-11 09:02 | PN- Pulmonary ---
Subjective HPI/Critical Care Issues: pt seen and examined no events afebrile on 3LNC saturating 93% pain controlled no n/v/d/c, no davis, no cp Objective Current Medications: Current Medications Sig/Taylor Start time Last Medication Dose Route Stop Time Status Admin Acetaminophen 325 MG Q6P PRN 11/02 1715 AC PO Albuterol Sulfate 3 ML BID 11/03 1000 AC 11/10 INH 1900 Albuterol Sulfate 3 ML Q6P PRN 11/02 1930 AC INH Amlodipine Besylate 10 MG DAILY 11/03 1000 AC 11/10 PO 0836 Aripiprazole 2 MG DAILY 11/10 1000 AC 11/10 PO 1154 Atorvastatin Calcium 20 MG 1700 11/03 1700 AC 11/10 PO 1634 Budesonide/ 2 PUF BID 11/02 2200 AC 11/10 Formoterol Fumarate INH 2136 Calcium Carbonate 500 MG BID 11/02 2200 AC 11/10 PO 2136 Carisoprodol 350 MG Q6-PRN PRN 11/09 2345 AC 11/11 PO 0316 Ferrous Sulfate 325 MG BID 11/02 2200 AC 11/10 PO 2135 Fluoxetine HCl 40 MG DAILY 11/03 1000 AC 11/10 PO 0834 Furosemide 40 MG DAILY 11/10 1000 AC 11/11 PO 0820 Heparin Sodium 5,000 UNIT Q8 11/03 0837 AC 11/11 (Porcine) SC 0603 Insulin Aspart 0 TIDAC 11/09 1700 AC 11/10 SC 1155 Insulin Detemir 5 UNITS AT BEDTIME 11/03 2200 AC 11/10 SC 2136 Meropenem 1 GM Q8H 11/04 0200 AC 11/11 IV 0206 Metoprolol Tartrate 50 MG BID 11/02 2200 AC 11/10 PO 2135 Omeprazole 40 MG DAILY AC 11/03 0700 AC 11/11 PO 0603 Oxycodone HCl 10 MG Q6P PRN 11/04 1130 AC 11/11 PO 0603 Oxycodone/ 1 TAB Q4P PRN 11/09 1030 AC 11/11 Acetaminophen PO 0820 Polyethylene Glycol 17 GM DAILY PRN 11/02 1930 AC PO Senna/Docusate Sodium 1 TAB BID PRN 11/05 2030 AC 11/09 PO 0930 Sodium Chloride 2 SPRAY Q4P PRN 11/03 2230 AC NIYA Sucralfate 1,000 MG 4 TIMES/DAY 11/02 2200 AC 11/10 PO 2135 Tiotropium [place] 1 PUF DAILY 11/04 1317 AC 11/10 INH 0832 Vital Signs & I&O Last 24 Hrs of Vitals and I&O: Vital Signs Date Time Temp Pulse Resp B/P Pulse O2 O2 Flow FiO2 Ox Delivery Rate 11/11 0625 99.1 49 18 136/70 93 Nasal 3.0L Cannula 11/11 0547 59 98 11/11 0334 49 98 11/11 0018 98 11/11 0016 60 98 11/11 0000 Nasal 2.0L Cannula 11/10 2227 60 98 11/10 2159 97.4 54 18 126/58 95 Nasal 2.0L Cannula 11/10 2135 54 126/58 11/10 1900 95 Nasal 2.0L Cannula 11/10 1410 98.0 63 20 134/60 96 Nasal 2.0L Cannula 11/10 1030 94 Nasal 2.0L Cannula Intake & Output 11/11 1600 11/11 0800 11/11 0000 Intake Total Output Total 750 2200 Balance -750 -2200 Output, Urine 750 2200 Patient 271 lb Weight Exam Other Physical Findings: gen awake and alert heent ncat cvs s1, s2 lungs diminished bibasilar abd soft bs+ ext edematous, dressing intact Impression/Plan Impression/Plan Impression/Plan: Impression 61 year old man * Improved - Hypoxemic respiratory failure * History of pulmonary embolism * Osteomyelitis Plan - trc/nebs - will need outpt sleep re-evaluation - continue symbicort and spiriva - monitor ins/outs DVT prophylaxis at all times Call with any questions
--- NOTE | 2016-11-11 11:44 | PN- Infect Dx ---
Subjective Subjective: Afebrile without new complaints Objective Last 24 Hrs of Vital Signs/I&O Vital Signs Date Time Temp Pulse Resp B/P Pulse O2 O2 Flow FiO2 Ox Delivery Rate 11/11 1011 62 136/70 11/11 1011 62 136/70 11/11 1003 96 Nasal 2.0L Cannula 11/11 0725 99.1 49 18 136/70 93 Nasal 3.0L Cannula 11/11 0547 59 98 11/11 0334 49 98 11/11 0018 98 11/11 0016 60 98 11/11 0000 Nasal 2.0L Cannula 11/10 2227 60 98 11/10 2159 97.4 54 18 126/58 95 Nasal 2.0L Cannula 11/10 2135 54 126/58 11/10 1900 95 Nasal 2.0L Cannula 11/10 1410 98.0 63 20 134/60 96 Nasal 2.0L Cannula Intake & Output 11/11 1600 11/11 0800 11/11 0000 Intake Total Output Total 298 497 2898 Balance -120 -750 -2200 Output, Urine 084 293 0246 Patient 271 lb Weight Physical Exam Other Physical Findings: He appears comfortable in no acute distress Chest Pro-Line in the right upper chest with no inflammation at the site Lungs decreased breath sounds at the left base Heart regular rhythm with no murmur Extremities dressings intact both feet, with wound VAC in place on the left Silva catheter remains in place Results Last 24 Hours of Lab Results: Laboratory Tests 11/10 0545 Chemistry Sodium (137 - 145 mmol/L) 139 Potassium (3.5 - 5.1 mmol/L) 4.2 Chloride (98 - 107 mmol/L) 100 Carbon Dioxide (22 - 30 mmol/L) 35 H Anion Gap (5 - 16) 4 L BUN (9 - 20 mg/dL) 47 H Creatinine (0.7 - 1.2 mg/dL) 1.3 H Estimated GFR (>60 ml/min) 57 L BUN/Creatinine Ratio (7 - 25 %) 36.2 H Hematology CBC w Diff NO MAN DIFF REQ WBC (4.8 - 10.8 /CUMM) 8.2 RBC (4.70 - 6.10 /CUMM) 3.20 L Hgb (14.0 - 18.0 G/DL) 8.5 L Hct (42 - 52 %) 26.6 L MCV (80.0 - 94.0 FL) 83.1 MCH (27.0 - 31.0 PG) 26.6 L RDW (11.5 - 14.5 %) 15.5 H Plt Count (130 - 400 /CUMM) 358 MPV (7.4 - 10.4 FL) 8.6 Gran % (42.2 - 75.2 %) 60.1 Lymphocytes % (20.5 - 51.1 %) 30.7 Monocytes % (1.7 - 9.3 %) 7.3 Eosinophils % (0 - 5 %) 1.5 Basophils % (0.0 - 2.0 %) 0.4 Absolute Granulocytes (1.4 - 6.5 /CUMM) 4.9 Absolute Lymphocytes (1.2 - 3.4 /CUMM) 2.5 Absolute Monocytes (0.10 - 0.60 /CUMM) 0.6 Absolute Eosinophils (0.0 - 0.7 /CUMM) 0.1 Absolute Basophils (0.0 - 0.2 /CUMM) 0 PUBS MCHC (33.0 - 37.0 G/DL) 32.0 L ESR Westergren (0 - 10 MM) 74 H Last 24 Hours of Enrique Results: No recent cultures Assessment/Plan Impression: Stable status post I&D of both feet with debridement of necrotic bone and wound VAC placement of 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 He is apparently scheduled for a right BKA on November 15. He remains afebrile with white blood cell count normal on Meropenem Day 8 and this will need to be continued for the left foot osteomyelitis for 4 weeks from his most recent debridement. Suggestion: 1. Await right BKA, scheduled for November 15 2. Remove Silva catheter 3. Follow ESR weekly 4. Continue Meropenem to plan on 4 weeks from his most recent debridement ( until December 06)
[2016-11-11 11:56] VITALS: BP 136/70
--- NOTE | 2016-11-11 12:25 | PN- Cardiology ---
Subjective Subjective: The patient seems to be doing well today. His respiratory status is stable. He has not had any cardiac symptoms at the moment. Apparently the patient is to be discharged to short-term rehabilitation today and be readmitted on Monday for his surgical procedure. Objective Vital Signs and I&Os Vital Signs Date Time Temp Pulse Resp B/P Pulse O2 O2 Flow FiO2 Ox Delivery Rate 11/11 1156 98.7 62 18 136/70 11/11 1011 62 136/70 11/11 1011 62 136/70 11/11 1003 96 Nasal 2.0L Cannula 11/11 08 93 Nasal 2.0L Cannula 11/11 0725 99.1 49 18 136/70 93 Nasal 3.0L Cannula 11/11 0547 59 98 11/11 0334 49 98 11/11 0018 98 11/11 0016 60 98 11/11 0000 Nasal 2.0L Cannula 11/10 2227 60 98 11/10 2159 97.4 54 18 126/58 95 Nasal 2.0L Cannula 11/10 2135 54 126/58 11/10 1900 95 Nasal 2.0L Cannula 11/10 1410 98.0 63 20 134/60 96 Nasal 2.0L Cannula Intake & Output 11/11 1600 11/11 0811/11 0000 11/10 1600 11/10 0800 11/10 0000 Intake Total 491 400 Output Total 351 665 9492 1 550 602 Balance -120 -750 -2200 -1 -59 -202 Intake, IV 11 Intake, Oral 480 400 Number 1 Bowel Movements Output, Stool 1 2 Output, Urine 719 552 0040 550 600 Patient 271 lb 257 lb Weight Current Medications: Current Medications Sig/Taylor Start time Last Medication Dose Route Stop Time Status Admin Acetaminophen 325 MG Q6P PRN 11/02 1715 AC PO Albuterol Sulfate 3 ML BID 11/03 1000 AC 11/11 INH 0958 Albuterol Sulfate 3 ML Q6P PRN 11/02 1930 AC INH Amlodipine Besylate 10 MG DAILY 11/03 1000 AC 11/11 PO 1011 Aripiprazole 2 MG DAILY 11/10 1000 AC 11/11 PO 1010 Atorvastatin Calcium 20 MG 1700 11/03 1700 AC 11/10 PO 1634 Budesonide/ 2 PUF BID 11/02 2199 AC 11/11 Formoterol Fumarate INH 1011 Calcium Carbonate 500 MG BID 11/02 2199 AC 11/11 PO 1010 Carisoprodol 350 MG Q6-PRN PRN 11/09 2345 AC 11/11 PO 0316 Ferrous Sulfate 325 MG BID 11/02 220 AC 11/11 PO 1010 Fluoxetine HCl 40 MG DAILY 11/03 1000 AC 11/11 PO 1011 Furosemide 40 MG DAILY 11/10 1000 AC 11/11 PO 0820 Heparin Sodium 5,000 UNIT Q8 11/03 0837 AC 11/11 (Porcine) SC 0603 Insulin Aspart 0 TIDAC 11/09 1700 AC 11/10 SC 1155 Insulin Detemir 5 UNITS AT BEDTIME 11/03 2200 AC 11/10 SC 2136 Meropenem 1 GM Q8H 11/04 0200 AC 11/11 IV 1010 Metoprolol Tartrate 50 MG BID 11/02 220 AC 11/11 PO 1011 Omeprazole 40 MG DAILY AC 11/03 0700 AC 11/11 PO 0603 Oxycodone HCl 10 MG Q6P PRN 11/04 1130 AC 11/11 PO 0603 Oxycodone/ 1 TAB Q4P PRN 11/09 1030 AC 11/11 Acetaminophen PO 0820 Polyethylene Glycol 17 GM DAILY PRN 11/02 1930 AC PO Senna/Docusate Sodium 1 TAB BID PRN 11/05 2030 AC 11/11 PO 1010 Sodium Chloride 2 SPRAY Q4P PRN 11/03 2230 AC NIYA Sucralfate 1,000 MG 4 TIMES/DAY 11/02 2200 AC 11/11 PO 1010 Tiotropium [place] 1 PUF DAILY 11/04 1317 AC 11/11 INH 1010 Results Last 48 Hrs of Labs/Mics: Laboratory Tests 11/10/16 0545: Anion Gap 4 L, Estimated GFR 57 L, BUN/Creatinine Ratio 36.2 H, CBC w Diff NO MAN DIFF REQ, RBC 3.20 L, MCV 83.1, MCH 26.6 L, RDW 15.5 H, MPV 8.6, Gran % 60.1, Lymphocytes % 30.7, Monocytes % 7.3, Eosinophils % 1.5, Basophils % 0.4, Absolute Granulocytes 4.9, Absolute Lymphocytes 2.5, Absolute Monocytes 0.6, Absolute Eosinophils 0.1, Absolute Basophils 0, PUBS MCHC 32.0 L, ESR Westergren 74 H Assessment/Plan Assessment/Plan Assessment: 1. Hypoxemic respiratory failure - likley multifactorial (HFpEF, COPD, atelectasis / consolidation; etc) with moderate bilateral pleural effusions and elevated proBNP 2. HFpEF 3. COPD 4. History of CAD 5. Left foot osteomyelitis. 6. Worsening acute renal insufficiency 7. Normocytic anemia 8. Mild hyperkalemia Recommendations: -Continue current cardiac medications for now. -As noted above, discharged to short-term rehabilitation pending. -If necessary, we will be available to follow the patient next week when he is admitted for his surgical procedure. -Otherwise, the patient's his follow-up with Dr. Anders as an outpatient. Continue telemetry? No
[2016-11-11 16:10] VITALS: BP 146/73
[2016-11-11 21:44] VITALS: BP 138/62
[2016-11-12 07:09] VITALS: BP 138/61
--- NOTE | 2016-11-12 08:27 | PN- Housestaff ---
KAYLEE SANCHEZ,[facility] 11/12/16 0826: Subjective Follow-up For: Osteomyelitis Subjective: Patient was seen and examined this morning, vital signs are stable, no overnight events reported by the nurse of the patient. Patient offered no new complaint. Wound VAC on the left foot functioning well and sucking mostly red fluid. He denied chest pain, shortness of breath, coughing, he is in 2 L oxygen saturating well, no abdominal pain, no nausea or vomiting. Review of Systems Constitutional: Reports: see HPI. Objective Last 24 Hrs of Vital Signs/I&O Vital Signs Date Time Temp Pulse Resp B/P Pulse O2 O2 Flow FiO2 Ox Delivery Rate 11/12 1045 96 Nasal 2.0L Cannula 11/12 0927 56 132/58 11/12 0926 56 132/58 11/12 0800 93 Nasal 2.0L Cannula 11/12 0709 98.1 54 20 138/61 95 Nasal 2.0L Cannula 11/12 0357 68 95 11/12 0024 48 98 11/12 0000 96 Nasal 2.0L Cannula 11/11 2212 87 98 11/11 2144 98.1 60 18 138/62 99 Nasal 2.0L Cannula 11/11 2100 60 138/62 11/11 1942 96 Nasal 2.0L Cannula 11/11 1636 Nasal 2.0L Cannula 11/11 1610 97.1 58 18 146/73 98 Nasal 2.0L Cannula 11/11 1553 93 Nasal 2.0L Cannula 11/11 1156 98.7 62 18 136/70 Intake & Output 11/12 1600 08 0800 11/12 0000 Intake Total 240 1200 Output Total 325 825 Balance -85 375 Intake, Oral 240 1200 Output, Urine 325 825 Patient 123.972 kg Weight Physical Exam General Appearance: Alert, Oriented X3, Cooperative, No Acute Distress Skin: No Rashes HEENT: Atraumatic, PERRLA, EOMI, Mucous Membr. moist/pink Neck: Supple Cardiovascular: Regular Rate, Normal S1, Normal S2, pansystolic murmur Lungs: Clear to Auscultation, Normal Air Movement Abdomen: Normal Bowel Sounds, Soft, No Tenderness Neurological: Normal Speech, Strength at 5/5 X4 Ext, Normal Tone, Sensation Intact, Cranial Nerves 3-12 NL, Reflexes 2+ Extremities: No Clubbing, No Cyanosis, No Edema, bilateral PDL edema, both feet wrapped in bandages no bleeding , left foot wound vac Assessment/Plan Assessment: 61 year old male with past medical history of diabetes mellitus, hypertension, CKD, PVD status post stenting in 2009, CAD status post cardiac catheterization without stent placement in 2014, COPD, obstructive sleep apnea not using O2 at home, pulmonary embolism not on anticoagulants >5 yrs ago, nonhealing ulceration of left foot with osteomyelitis, status post right metatarsal amputation, was sent to the emergency department by wound care clinic earlier on the day of admission to get assessed for osteomyelitis and possible bone biopsy on 11/02/16. Patient's vitals were stable when he came to the emergency department, labs were significant for leukocytosis at 11.7, anemia with 9.5 hemoglobin and 29.8 hematocrit, platelets 546, potassium slightly high at 5.5, sodium slightly higher range at 142, and creatinine at 1.3. 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 Chest x-ray is suggestive for left-sided pneumonia with small left sided pleural effusion, and suggests follow-up. Patient has not received any antibiotic in the emergency department. Currently, patient is being managed in the general medical floor for the following issues: #Suspected bilateral feet osteomyelitis Patient underwent debridement, sample from lab results showing mixed norbert. Infectious disease service on board, who suggested IV meropenem 1g q8hr DAY10, -We will continue following podiatry. -We will continue following infectious disease. #Peripheral vascular disease Vascular surgery was consulted and has recommended arterial Doppler study of bilateral lower extremities which shows biphasic and triphasic waveforms in both lower limbs, except for dorsalis pedis bilaterally due to bandages over them. Vascular surgeon called back after planning for below knee amputation Monday () if he is still here as an inpatient, or as an outpatient if he is already discharged by then. Risk of surgery calculation: Her CRI score of patient score is 3 points, that ie, group IV, 11% risk of major cardiac events during surgery. This has been explained to the patient. #Acute hypoxic hypercarbic respiratory failure, secondary to congestive heart failure/possible pneumonia He had been hypoxic, hypercarbic respiratory failure on 11/03/2016 and on , due to flash pulmonary edema, secondary to fluid overload with a history of congestive heart failure, and a component of his COPD acting up requiring him BiPAP intermittently. His respiratory status however has been stable now. -Taper his oxygen. He is currently requiring oxygen at 2 L/m via nasal cannula. -We will continue following pulmonology. Sleep study to be done as an outpatient. -We will continue following cardiology. #Diabetes mellitus -Continue regular Accu-Cheks, Insulin NovoLog Sliding scale, and diabetic diet #Continue with the rest of the medications for hypertension, hyperlipidemia, chronic kidney disease, anemia, severe peripheral vascular disease -Continue total respiratory care/nebs -We will continue to monitor for any electrolyte disturbance #Discharge disposition: Patient is medically stable, but requires a short-term rehabilitation facility until he gets his below-knee amputation on the right side possibly Monday or earlier according to vascular surgery/podiatry. He is awaiting placement at a short-term rehabilitation as of now, is a possible discharge later today. #Diet: Diabetic diet #Subcutaneous heparin and Alps for DVT prophylaxis, as he has CKD #Full CODE STATUS Problem List: 1. Osteomyelitis Pain Ratin Pain Location: Bilateral lower extermity Pain Goal: Pain 4 or less Pain Plan: severe pain pathway Tomorrow's Labs & Rationales: NONE TERENCE HELTON MD 11/12/16 1123: Attending MD Review Statement Attending Statement Attending MD Statement: examined this patient, discuss w/resident/PA/EMERGENCY RESPONSE OFFICER, agreed w/resident/PA/EMERGENCY RESPONSE OFFICER, reviewed EMR data (avail), discussed with nursing, amended to note Attending Assessment/Plan: Patient seen and examined. Resting comfortably not in acute distress. No issues overnight. Discharge was planned yesterday however patient remains in the hospital pending approval for discharge by his insurance company. In view of this it is prudent for patient to remain till Monday for his amputation. He has no complaints this morning. He remains afebrile and hemodynamically stable. We'll continue him on IV meropenem. We'll continue current dose of Lasix and continue to wean off oxygen as tolerated. Repeat chest x-ray on Monday to evaluate resolution of his pleural effusions.
--- NOTE | 2016-11-12 12:21 | PN- Pulmonary ---
Subjective HPI/Critical Care Issues: Patient is comfortable today he is seen and examined. He is awaiting surgery on Monday and is currently awaiting either discharged to rehabilitation or perhaps they until the surgery is performed. His respiratory status is at baseline he saturating 96% on 2 L nasal cannula and his temperature is 98.1. Objective Current Medications: Current Medications Sig/Taylor Start time Last Medication Dose Route Stop Time Status Admin Acetaminophen 325 MG Q6P PRN 11/02 1715 AC PO Albuterol Sulfate 3 ML BID 11/03 1000 AC 11/12 INH 1038 Albuterol Sulfate 3 ML Q6P PRN 11/02 1930 AC INH Amlodipine Besylate 10 MG DAILY 11/03 1000 AC 11/12 PO 0927 Aripiprazole 2 MG DAILY 11/10 1000 AC 11/12 PO 0926 Atorvastatin Calcium 20 MG 1700 11/03 1700 AC 11/11 PO 1748 Budesonide/ 2 PUF BID 11/02 2200 AC 11/12 Formoterol Fumarate INH 0927 Calcium Carbonate 500 MG BID 11/02 2200 AC 11/12 PO 0931 Carisoprodol 350 MG Q6-PRN PRN 11/09 2345 AC 11/12 PO 0501 Ferrous Sulfate 325 MG BID 11/02 2200 AC 11/12 PO 0926 Fluoxetine HCl 40 MG DAILY 11/03 1000 AC 11/12 PO 0927 Furosemide 40 MG DAILY 11/10 1000 AC 11/12 PO 0926 Heparin Sodium 5,000 UNIT Q8 11/03 0837 AC 11/12 (Porcine) SC 0501 Insulin Aspart 0 TIDAC 11/09 1700 AC 11/10 SC 1155 Insulin Detemir 5 UNITS AT BEDTIME 11/03 2200 AC 11/11 SC 2101 Meropenem 1 GM Q8H 11/04 0200 AC 11/12 IV 0929 Metoprolol Tartrate 50 MG BID 11/02 2200 AC 11/12 PO 0926 Omeprazole 40 MG DAILY AC 11/03 0700 AC 11/12 PO 0501 Oxycodone HCl 10 MG Q6P PRN 11/04 1130 AC 11/12 PO 0927 Oxycodone/ 1 TAB Q4P PRN 11/09 1030 AC 11/12 Acetaminophen PO 0053 Patient Medication 1 ED ONE ONE 11/11 1415 DC Teaching ED 11/11 1416 Polyethylene Glycol 17 GM DAILY PRN 11/02 1930 AC PO Senna/Docusate Sodium 1 TAB BID PRN 11/05 2030 AC 11/11 PO 1010 Sodium Chloride 2 SPRAY Q4P PRN 11/03 223 AC NIYA Sucralfate 1,000 MG 4 TIMES/DAY 11/02 220 AC 11/12 PO 0927 Tiotropium [place] 1 PUF DAILY 11/04 1317 AC 11/12 INH 0927 Vital Signs & I&O Last 24 Hrs of Vitals and I&O: Vital Signs Date Time Temp Pulse Resp B/P Pulse O2 O2 Flow FiO2 Ox Delivery Rate 11/12 1045 96 Nasal 2.0L Cannula 11/12 09 56 132/58 11/12 0926 56 132/58 11/12 08 93 Nasal 2.0L Cannula 11/12 0709 98.1 54 20 138/61 95 Nasal 2.0L Cannula 11/12 0357 68 95 11/12 0024 48 98 11/12 0000 96 Nasal 2.0L Cannula 11/11 2212 87 98 11/11 2144 98.1 60 18 138/62 99 Nasal 2.0L Cannula 11/11 2100 60 138/62 11/11 1942 96 Nasal 2.0L Cannula 11/11 1636 Nasal 2.0L Cannula 11/11 1610 97.1 58 18 146/73 98 Nasal 2.0L Cannula 11/11 1553 93 Nasal 2.0L Cannula Intake & Output 11/12 1600 11/12 0800 11/12 0000 Intake Total 240 1200 Output Total 325 825 Balance -85 375 Intake, Oral 240 1200 Output, Urine 325 825 Patient 273 lb Weight Exam Other Physical Findings: gen awake and alert heent ncat cvs s1, s2 lungs diminished bibasilar abd soft bs+ ext edematous, dressing intact Impression/Plan Impression/Plan Impression/Plan: Impression 61 year old man * Improved - Hypoxemic respiratory failure * History of pulmonary embolism * Osteomyelitis Plan - trc/nebs - will need outpt sleep re-evaluation - continue symbicort and spiriva - monitor ins/outs - awaiting surgery on Monday DVT prophylaxis at all times Call with any questions
[2016-11-12 13:44] VITALS: BP 118/50
[2016-11-12 22:21] VITALS: BP 128/60
[2016-11-13 05:12] VITALS: BP 120/54
--- NOTE | 2016-11-13 08:27 | PN- Housestaff ---
KAYLEE SANCHEZ,[facility] 11/13/16 0827: Subjective Follow-up For: Osteomyelitis Subjective: Patient was seen and examined this morning, vital signs are stable, no overnight events reported by the nurse of the patient. Patient offered no new complaints. Waiting for his surgery on Monday. Patient was weaned off oxygen. Review of Systems Constitutional: Reports: see HPI. Objective Last 24 Hrs of Vital Signs/I&O Vital Signs Date Time Temp Pulse Resp B/P Pulse O2 O2 Flow FiO2 Ox Delivery Rate 11/13 0951 50 118/52 11/13 0850 99 Nasal 1.0L Cannula 11/13 0512 97.8 50 18 120/54 98 Nasal 1.0L Cannula 11/13 0039 58 96 11/13 0000 98 Nasal 1.0L Cannula 11/12 2232 50 98 11/12 2221 98.8 51 19 128/60 96 Nasal 1.0L Cannula 11/12 2219 51 128/60 11/12 1910 97 Nasal 2.0L Cannula 11/12 1600 Room Air 2.0L 11/12 1344 99.0 62 20 118/50 95 Nasal 2.0L Cannula Intake & Output 11/13 1600 11/13 0800 11/13 0000 Intake Total 280 900 Output Total 250 675 650 Balance -250 -395 250 Intake, IV 40 Intake, Oral 240 900 Output, Urine 250 675 650 Patient 125.645 kg Weight Physical Exam General Appearance: Alert, Oriented X3, Cooperative, No Acute Distress Skin: No Rashes HEENT: Atraumatic, PERRLA, EOMI, Mucous Membr. moist/pink Neck: Supple Cardiovascular: Regular Rate, Normal S1, Normal S2, No Murmurs Lungs: Clear to Auscultation, Normal Air Movement Abdomen: Normal Bowel Sounds, Soft, No Tenderness Neurological: Normal Gait, Normal Speech, Strength at 5/5 X4 Ext, Normal Tone, Sensation Intact, Cranial Nerves 3-12 NL, Reflexes 2+ Extremities: No Clubbing, No Cyanosis, No Edema, Normal Pulses Assessment/Plan Assessment: 61 year old male with past medical history of diabetes mellitus, hypertension, CKD, PVD status post stenting in 2009, CAD status post cardiac catheterization without stent placement in 2014, COPD, obstructive sleep apnea not using O2 at home, pulmonary embolism not on anticoagulants >5 yrs ago, nonhealing ulceration of left foot with osteomyelitis, status post right metatarsal amputation, was sent to the emergency department by wound care clinic earlier on the day of admission to get assessed for osteomyelitis and possible bone biopsy on 11/02/16. Patient's vitals were stable when he came to the emergency department, labs were significant for leukocytosis at 11.7, anemia with 9.5 hemoglobin and 29.8 hematocrit, platelets 546, potassium slightly high at 5.5, sodium slightly higher range at 142, and creatinine at 1.3. 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 Chest x-ray is suggestive for left-sided pneumonia with small left sided pleural effusion, and suggests follow-up. Patient has not received any antibiotic in the emergency department. Currently, patient is being managed in the general medical floor for the following issues: #Suspected bilateral feet osteomyelitis Patient underwent debridement, sample from lab results showing mixed norbert. Infectious disease service on board, who suggested IV meropenem 1g q8hr DAY11, -We will continue following podiatry. -We will continue following infectious disease. #Peripheral vascular disease Vascular surgery was consulted and has recommended arterial Doppler study of bilateral lower extremities which shows biphasic and triphasic waveforms in both lower limbs, except for dorsalis pedis bilaterally due to bandages over them. -Plan for below knee amputation on Monday (11/15/16) Risk of surgery calculation: Her CRI score of patient score is 3 points, that ie, group IV, 11% risk of major cardiac events during surgery. This has been explained to the patient. #Acute hypoxic hypercarbic respiratory failure, secondary to congestive heart failure/possible pneumonia He had been hypoxic, hypercarbic respiratory failure on 11/03/2016 and on , due to flash pulmonary edema, secondary to fluid overload with a history of congestive heart failure, and a component of his COPD acting up requiring him BiPAP intermittently. His respiratory status however has been stable now. -Taper his oxygen. He is currently requiring oxygen at 2 L/m via nasal cannula. -We will continue following pulmonology. Sleep study to be done as an outpatient. Incentive spirometry -We will continue following cardiology. #Diabetes mellitus -Continue regular Accu-Cheks, Insulin NovoLog Sliding scale, and diabetic diet #Continue with the rest of the medications for hypertension, hyperlipidemia, chronic kidney disease, anemia, severe peripheral vascular disease -Continue total respiratory care/nebs -We will continue to monitor for any electrolyte disturbance #Discharge disposition: Patient is waiting for his operation on Monday, to be discharged to short term rehabilitation after that. #Diet: Diabetic diet #Subcutaneous heparin and Alps for DVT prophylaxis, as he has CKD #Full CODE STATUS Problem List: 1. Osteomyelitis Pain Ratin Pain Location: BL Lower extremity Pain Goal: Pain 4 or less Pain Plan: Acetaminophen for mild pain Percocet 1 tab for moderate pain Percocet 2 tab for severe pain Tomorrow's Labs & Rationales: SPACE PLANNER, BMP in anticipation for the surgery TERENCE HELTON MD 11/13/16 1042: Attending MD Review Statement Attending Statement Attending MD Statement: examined this patient, discuss w/resident/PA/SPLITTING MACHINE OPERATOR, agreed w/resident/PA/SPLITTING MACHINE OPERATOR, reviewed EMR data (avail), discussed with nursing, amended to note Attending Assessment/Plan: Patient seen and examined. Resting comfortably and not in any distress. No events overnight. Denies chest pain or shortness of breath. Denies cough. Pain is controlled on current regimen. His oxygenation status is improving. He is down to 1 L of oxygen right now. On examination he has improved entry in the lung bases however left lung base continues to be reduced. He has a tight dressing over his leg wounds. Recommendations: -Discontinue oxygen supplementation. Repeat chest x-ray in the morning to reassess his pleural effusions. -Continue Lasix at current dose. -Patient reports that he takes Percocet 1-2 tablets as needed for pain control at home. Recommend changing his pain skilled to Percocet 5/325 for moderate pain on Percocet 10/60 mL for severe pain. -He is scheduled to undergo amputation on Monday. -Repeat serum chemistry and CBC tomorrow prior to procedure on Monday.
--- NOTE | 2016-11-13 12:16 | PN- Pulmonary ---
Subjective HPI/Critical Care Issues: pt seen and examined doing well anticipating surgery on Monday no other events no dyspnea at rest, no pain Objective Current Medications: Current Medications Sig/Taylor Start time Last Medication Dose Route Stop Time Status Admin Acetaminophen 325 MG Q6P PRN 11/02 1715 AC PO Albuterol Sulfate 3 ML BID 11/03 1000 AC 11/13 INH 0847 Albuterol Sulfate 3 ML Q6P PRN 11/02 1930 AC INH Amlodipine Besylate 10 MG DAILY 11/03 1000 AC 11/12 PO 0927 Aripiprazole 2 MG DAILY 11/10 1000 AC 11/13 PO 0951 Atorvastatin Calcium 20 MG 1700 11/03 1700 AC 11/12 PO 1721 Budesonide/ 2 PUF BID 11/02 2200 AC 11/13 Formoterol Fumarate INH 0953 Calcium Carbonate 500 MG BID 11/02 2200 AC 11/13 PO 0954 Carisoprodol 350 MG Q6-PRN PRN 11/09 2345 AC 11/13 PO 0630 Ferrous Sulfate 325 MG BID 11/02 2200 AC 11/13 PO 0951 Fluoxetine HCl 40 MG DAILY 11/03 1000 AC 11/13 PO 0952 Furosemide 40 MG DAILY 11/10 1000 AC 11/13 PO 0951 Heparin Sodium 5,000 UNIT Q8 11/03 0837 AC 11/13 (Porcine) SC 0427 Insulin Aspart 0 TIDAC 11/09 1700 AC 11/10 SC 1155 Insulin Detemir 5 UNITS AT BEDTIME 11/03 2200 AC 11/12 SC 2219 Meropenem 1 GM Q8H 11/04 0200 AC 11/13 IV 0953 Metoprolol Tartrate 50 MG BID 11/02 2200 AC 11/12 PO 0926 Omeprazole 40 MG DAILY AC 11/03 0700 AC 11/13 PO 0427 Oxycodone HCl 10 MG Q6P PRN 11/04 1130 DC 11/13 PO 0427 Oxycodone/ 2 TAB Q4 HRS NEEDED PRN 11/13 1130 AC 11/13 Acetaminophen PO 1125 Oxycodone/ 1 TAB Q4P PRN 11/09 1030 AC 11/13 Acetaminophen PO 0735 Polyethylene Glycol 17 GM DAILY PRN 11/02 1930 AC PO Senna/Docusate Sodium 1 TAB BID PRN 11/05 2030 AC 11/13 PO 0952 Sodium Chloride 2 SPRAY Q4P PRN 11/03 2230 AC NIYA Sucralfate 1,000 MG 4 TIMES/DAY 11/02 2200 AC 11/13 PO 0951 Tiotropium [place] 1 PUF DAILY 11/04 1317 AC 11/13 INH 0954 Vital Signs & I&O Last 24 Hrs of Vitals and I&O: Vital Signs Date Time Temp Pulse Resp B/P Pulse O2 O2 Flow FiO2 Ox Delivery Rate 11/13 0851 50 118/52 11/13 0850 99 Nasal 1.0L Cannula 11/13 0512 97.8 50 18 120/54 98 Nasal 1.0L Cannula 11/13 0039 58 96 11/13 0000 98 Nasal 1.0L Cannula 11/12 2232 50 98 11/12 2221 98.8 51 19 128/60 96 Nasal 1.0L Cannula 11/12 2219 51 128/60 11/12 1910 97 Nasal 2.0L Cannula 11/12 1600 Room Air 2.0L 11/12 1344 99.0 62 20 118/50 95 Nasal 2.0L Cannula Intake & Output 11/13 1600 11/13 0800 11/13 0000 Intake Total 280 900 Output Total 250 675 650 Balance -250 -395 250 Intake, IV 40 Intake, Oral 240 900 Output, Urine 250 675 650 Patient 277 lb Weight Exam Other Physical Findings: gen awake and alert heent ncat cvs s1, s2 lungs diminished bibasilar abd soft bs+ ext edematous, dressing intact Impression/Plan Impression/Plan Impression/Plan: Impression 61 year old man * Improved - Hypoxemic respiratory failure * History of pulmonary embolism * Osteomyelitis Plan - trc/nebs - will need outpt sleep re-evaluation - continue symbicort and spiriva - monitor ins/outs - awaiting surgery on Monday, call with any questions - incentive spirometry DVT prophylaxis at all times Call with any questions
--- NOTE | 2016-11-13 12:34 | PN- Podiatry ---
Subjective Subjective: Patient seen at bedside with no acute complaints. Patient denies nausea vomiting fever chills. Objective Vital Signs and I&Os Vital Signs Date Time Temp Pulse Resp B/P Pulse O2 O2 Flow FiO2 Ox Delivery Rate 11/13 0851 50 118/52 11/13 0850 99 Nasal 1.0L Cannula 11/13 0512 97.8 50 18 120/54 98 Nasal 1.0L Cannula 11/13 0039 58 96 11/13 0000 98 Nasal 1.0L Cannula 11/12 2232 50 98 11/12 2221 98.8 51 19 128/60 96 Nasal 1.0L Cannula 11/12 2219 51 128/60 11/12 1910 97 Nasal 2.0L Cannula 11/12 1600 Room Air 2.0L 11/12 1344 99.0 62 20 118/50 95 Nasal 2.0L Cannula Intake & Output 11/13 1600 11/13 0800 11/13 0000 11/12 1600 11/12 0800 11/12 0000 Intake Total 280 900 772 251 0868 Output Total 650 334 573 6374 325 825 Balance -650 -395 250 -450 -85 375 Intake, IV 40 Intake, Oral 240 900 411 054 2644 Output, Urine 650 140 231 6837 325 825 Patient 277 lb 273 lb Weight Physical Exam: VAC left foot in place with proximally 100 mL of serosanguineous drainage noted to the canister. Lateral wound bed and granulating with diminished edema and cellulitis. Assessment/Plan Assessment/Plan Left foot osteomyelitis. Wound VAC change today. We'll coordinate with vascular on Monday to revise the left foot and change the wound VAC. Attending MD Review Statement Attending Statement Attending MD Statement: examined this patient
[2016-11-13 13:53] VITALS: BP 132/58
[2016-11-13 22:25] VITALS: BP 130/62
[2016-11-14 06:44] VITALS: BP 122/60
--- NOTE | 2016-11-14 07:45 | PN- Housestaff ---
EFRAIN SANCHEZ,[facility] 11/14/16 0745: Subjective Follow-up For: Osteomyelitis Complaints: no complaints Subjective: I followed up and examined the patient today. He is resting comfortably in bed, not in distress, does not have any complaints, vitals have been stable, no issues overnight. Patient still has left foot wound VAC in place. He was supposed to be discharged over the weekend, but however remained inpatient anticipating surgery tomorrow morning for his right leg below knee amputation. Review of Systems Constitutional: Reports: no symptoms. Cardiovascular: Reports: no symptoms. Respiratory: Reports: no symptoms. Gastrointestinal: Reports: no symptoms. Genitourinary: Reports: no symptoms. Musculoskeletal: Reports: see HPI. Skin: Reports: see HPI. Neurological/Psychological: Reports: no symptoms. Objective Last 24 Hrs of Vital Signs/I&O Vital Signs Date Time Temp Pulse Resp B/P Pulse O2 O2 Flow FiO2 Ox Delivery Rate 11/14 0926 62 118/64 11/14 0925 62 118/64 11/14 0904 93 Room Air 11/14 0800 97 Room Air Room Air 11/14 0644 97.8 54 22 122/60 95 11/13 2230 56 97 11/13 2225 98.0 63 19 130/62 95 Room Air 11/13 2147 63 130/62 11/13 1840 95 Room Air 11/13 1353 98.3 65 20 132/58 92 Room Air Intake & Output 11/14 1600 11/14 0800 11/14 0000 Intake Total 480 880 Output Total 1075 1250 Balance -595 -370 Intake, IV 40 Intake, Oral 480 840 Output, Urine 1075 1250 Patient 126.552 kg Weight Physical Exam General Appearance: Alert, Oriented X3, Cooperative, No Acute Distress Other Physical Findings: Head: Normocephalic, atraumatic Eyes: Pupils normal in size, regular, reacting to light and accommodation, EOM normal Ears: B/l normal on inspection Nose: Normal on inspection Throat/mouth: Moist mucosa Neck: Supple, full range of motion, no thyromegaly Heart: Regular rate, regular rhythm Lung: normal breath sounds heard b/l Abd: Soft, non-tender, no distention appreciated, Silva catheter in place. Back: Normal range of motion Extremities: b/l pedal edema present, both feet were well dressed, WoundVac on left foot, no bleeding Current Medications: Current Medications Sig/Taylor Start time Last Medication Dose Route Stop Time Status Admin Acetaminophen 325 MG Q6P PRN 11/02 1715 AC PO Albuterol Sulfate 3 ML BID 11/03 1000 AC 11/14 INH 0851 Albuterol Sulfate 3 ML Q6P PRN 11/02 1930 AC INH Amlodipine Besylate 10 MG DAILY 11/03 1000 AC 11/14 PO 0926 Aripiprazole 2 MG DAILY 11/10 1000 AC 11/14 PO 0924 Atorvastatin Calcium 20 MG 1700 11/03 1700 AC 11/13 PO 1656 Budesonide/ 2 PUF BID 11/02 2200 AC 11/14 Formoterol Fumarate INH 0923 Calcium Carbonate 500 MG BID 11/02 2200 AC 11/14 PO 0926 Carisoprodol 350 MG Q6-PRN PRN 11/09 2345 AC 11/14 PO 0329 Ferrous Sulfate 325 MG BID 11/02 2200 AC 11/14 PO 0925 Fluoxetine HCl 40 MG DAILY 11/03 1000 AC 11/14 PO 0925 Furosemide 40 MG DAILY 11/10 1000 AC 11/14 PO 0925 Heparin Sodium 5,000 UNIT Q8 11/03 0837 AC 11/14 (Porcine) SC 0428 Insulin Aspart 0 TIDAC 11/09 1700 AC 11/10 SC 1155 Insulin Detemir 5 UNITS AT BEDTIME 11/03 2200 AC 11/13 SC 2140 Meropenem 1 GM Q8H 11/04 0200 AC 11/14 IV 0927 Metoprolol Tartrate 50 MG BID 11/02 2200 AC 11/14 PO 0925 Omeprazole 40 MG DAILY AC 11/03 0700 AC 11/14 PO 0428 Oxycodone/ 2 TAB Q4 HRS NEEDED PRN 11/13 1130 AC 11/14 Acetaminophen PO 0808 Oxycodone/ 1 TAB Q4P PRN 11/09 1030 AC 11/13 Acetaminophen PO 0735 Polyethylene Glycol 17 GM DAILY PRN 11/02 1930 AC 11/14 PO 0425 Senna/Docusate Sodium 1 TAB BID PRN 11/05 2030 AC 11/14 PO 0925 Sodium Chloride 2 SPRAY Q4P PRN 11/03 2230 AC NIYA Sucralfate 1,000 MG 4 TIMES/DAY 11/02 2200 AC 11/14 PO 0924 Tiotropium [place] 1 PUF DAILY 11/04 1317 AC 11/14 INH 0923 Last 24 Hrs of Lab/Enrique Results Last 24 Hrs of Labs/Mics: Laboratory Tests 11/14/16 0630: Anion Gap 5, Estimated GFR 52 L, BUN/Creatinine Ratio 32.9 H, CBC w Diff NO MAN DIFF REQ, RBC 3.24 L, MCV 83.8, MCH 26.9 L, RDW 16.4 H, MPV 9.2, Gran % 50.4, Lymphocytes % 31.5, Monocytes % 10.7 H, Eosinophils % 7.1 H, Basophils % 0.3, Absolute Granulocytes 4.0, Absolute Lymphocytes 2.5, Absolute Monocytes 0.9 H, Absolute Eosinophils 0.6, Absolute Basophils 0, PUBS MCHC 32.1 L Assessment/Plan Assessment: 61 year old male with past medical history of diabetes mellitus, hypertension, CKD, PVD status post stenting in 2009, CAD status post cardiac catheterization without stent placement in 2014, COPD, obstructive sleep apnea not using O2 at home, pulmonary embolism not on anticoagulants >5 yrs ago, nonhealing ulceration of left foot with osteomyelitis, status post right metatarsal amputation, was sent to the emergency department by wound care clinic earlier on the day of admission to get assessed for osteomyelitis and possible bone biopsy on 11/02/16. Patient's vitals were stable when he came to the emergency department, labs were significant for leukocytosis at 11.7, anemia with 9.5 hemoglobin and 29.8 hematocrit, platelets 546, potassium slightly high at 5.5, sodium slightly higher range at 142, and creatinine at 1.3. 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 Chest x-ray is suggestive for left-sided pneumonia with small left sided pleural effusion, and suggests follow-up. Patient has not received any antibiotic in the emergency department. Currently, patient is being managed in the general medical floor for the following issues: #Suspected bilateral feet osteomyelitis Patient underwent debridement, sample from lab results showing mixed norbert. Infectious disease service on board, who suggested IV meropenem 1g q8hr DAY12 today, -We will continue following podiatry. -We will continue following infectious disease. #Peripheral vascular disease Vascular surgery was consulted and has recommended arterial Doppler study of bilateral lower extremities which shows biphasic and triphasic waveforms in both lower limbs, except for dorsalis pedis bilaterally due to bandages over them. -Plan for below knee amputation tomorrow (11/15/16) -Patient we will be kept on nothing by mouth from midnight, IV fluids, insulin scale will be changed accordingly #Risk of surgery calculation: The RCRI score of patient score is 3 points, that ie, group IV, meaning that there is 11% risk of major cardiac events during surgery. This has been explained to the patient. #Acute hypoxic hypercarbic respiratory failure, secondary to congestive heart failure/possible pneumonia He had been hypoxic, hypercarbic respiratory failure on 11/03/2016 and on , due to flash pulmonary edema, secondary to fluid overload with a history of congestive heart failure, and a component of his COPD acting up requiring him BiPAP intermittently. His respiratory status however has been stable now. -Taper his oxygen. He is currently requiring oxygen at 1 L/m via nasal cannula. Has been off additional oxygen yesterday as well. -We will continue following pulmonology. Sleep study to be done as an outpatient. Incentive spirometry -We will continue following cardiology. #Diabetes mellitus -Continue regular Accu-Cheks, Insulin NovoLog Sliding scale, and diabetic diet. -Will be NPO from [place] and on Regular Insulin NPO scale accordingly for Right BKA tomorrow #Continue with the rest of the medications for hypertension, hyperlipidemia, chronic kidney disease, anemia, severe peripheral vascular disease -Continue total respiratory care/nebs -We will continue to monitor for any electrolyte disturbance #Discharge disposition: Short term rehab as of now, as patient is on non-weight bearing status, and is undergoing right BKA tomorrow. #Diet: Diabetic diet #Subcutaneous heparin and Alps for DVT prophylaxis, as he has CKD #Full CODE STATUS Problem List: 1. Osteomyelitis 2. Diabetes mellitus 3. CKD (chronic kidney disease) 4. Hypertension 5. Anemia Pain Ratin Pain Location: foot pain max 7, and 0-1 at baseline Pain Goal: Pain 4 or less Pain Plan: prn Tomorrow's Labs & Rationales: CBC, INR, BEP, Mg as baseline prior to surgery tomorrow for Right BKA TERENCE HELTON MD 11/14/16 1431: Attending MD Review Statement Attending Statement Attending MD Statement: examined this patient, discuss w/resident/PA/LIBRARY SERIALS ASSISTANT, agreed w/resident/PA/LIBRARY SERIALS ASSISTANT, reviewed EMR data (avail), discussed with nursing, discussed with case mgmt, amended to note Attending Assessment/Plan: Patient seen and examined. Resting comfortably and not in any distress. Scheduled to undergo BKA tomorrow. He is off oxygen supplementation. On examination lungs are clear bilaterally although still with decreased air entry in the left base. Chest x-ray shows persistent vascular congestion with some improvement of effusion on the left side. His lower extremity edema has improved. He has intact dressings over both feet bilaterally. Recommendations: -Increase Lasix dose to 40 mg orally twice daily while in the hospital. -Begin IV hydration with D5 half and is at 50 mL an hour when he is placed nothing by mouth past midnight. -And speed discharge to residential facilities a 24-48 hours postprocedure if he remains hemodynamically stable with no evidence of infection
[2016-11-14 07:46] LABS: ABSOLUTE BASOPHIL COUNT 0 /CUMM (0.0-0.2); ABSOLUTE EOSINOPHIL COUNT 0.6 /CUMM (0.0-0.7); ABSOLUTE LYMPH COUNT 2.5 /CUMM (1.2-3.4); ABSOLUTE MONOCYTE COUNT 0.9 /CUMM (0.10-0.60); BASOPHIL % 0.3 % (0.0-2.0); EOSINOPHIL % 7.1 % (0-5); GRANULOCYTE % 50.4 % (42.2-75.2); HEMATOCRIT 27.2 % (42-52); MEAN CORPUSCULAR HGB 26.9 PG (27.0-31.0); MEAN CORPUSCULAR HGB CONC 32.1 G/DL (33.0-37.0); MEAN CORPUSCULAR VOLUME 83.8 FL (80.0-94.0); MEAN PLATELET VOLUME 9.2 FL (7.4-10.4); PLATELET COUNT 299 /CUMM (130-400); RBC DISTRIBUTION WIDTH 16.4 % (11.5-14.5); RED BLOOD CELL CT 3.24 /CUMM (4.70-6.10)
--- NOTE | 2016-11-14 09:49 | RADIOLOGY REPORT ---
EXAMINATION: XR PORTABLE CHEST CLINICAL INFORMATION: Shortness of breath. Pleural effusion. COMPARISON: Several prior chest x-rays, most recent of which is dated 11/07/2016. TECHNIQUE: Portable AP semierect view of the chest was obtained. FINDINGS: A right jugular central line is in place with tip in the deep SVC. The cardiomediastinal silhouette is within normal limits in size allowing for technique of the film. There is persistent but improved platelike atelectasis in the left midlung. No interval change in dense retrocardiac opacity with obscuration of the left hemidiaphragm, consistent with a small pleural effusion and possible associated atelectasis or pneumonia in the left lower lobe. The right lung is fully expanded without significant focal pulmonary process seen. Slight diffuse thickening of the central airways and central vascular congestion is noted. No pneumothorax is seen. Bony structures are unremarkable. IMPRESSION: 1. Interval slight decrease in size of left-sided pleural effusion and platelike atelectasis along the left major fissure. 2. No significant change in retrocardiac left lower lobe consolidation. 3. Mild central vascular congestion without overt pulmonary edema.
--- NOTE | 2016-11-14 10:21 | PN- Pulmonary ---
Subjective HPI/Critical Care Issues: pt seen and examined doing well anticipating surgery in am no n/v/d/c, dyspnea at baseline no cp, no fevers, no chills Objective Current Medications: Current Medications Sig/Taylor Start time Last Medication Dose Route Stop Time Status Admin Acetaminophen 325 MG Q6P PRN 11/02 1715 AC PO Albuterol Sulfate 3 ML BID 11/03 1000 AC 11/14 INH 0851 Albuterol Sulfate 3 ML Q6P PRN 11/02 1930 AC INH Amlodipine Besylate 10 MG DAILY 11/03 1000 AC 11/14 PO 0926 Aripiprazole 2 MG DAILY 11/10 1000 AC 11/14 PO 0924 Atorvastatin Calcium 20 MG 1700 11/03 1700 AC 11/13 PO 1656 Budesonide/ 2 PUF BID 11/02 2200 AC 11/14 Formoterol Fumarate INH 0923 Calcium Carbonate 500 MG BID 11/02 2200 AC 11/14 PO 0926 Carisoprodol 350 MG Q6-PRN PRN 11/09 2345 AC 11/14 PO 0329 Ferrous Sulfate 325 MG BID 11/02 2200 AC 11/14 PO 0925 Fluoxetine HCl 40 MG DAILY 11/03 1000 AC 11/14 PO 0925 Furosemide 40 MG DAILY 11/10 1000 AC 11/14 PO 0925 Heparin Sodium 5,000 UNIT Q8 11/03 0837 AC 11/14 (Porcine) SC 0428 Insulin Aspart 0 TIDAC 11/09 1700 AC 11/10 SC 1155 Insulin Detemir 5 UNITS AT BEDTIME 11/03 2200 AC 11/13 SC 2140 Meropenem 1 GM Q8H 11/04 0200 AC 11/14 IV 0927 Metoprolol Tartrate 50 MG BID 11/02 2200 AC 11/14 PO 0925 Omeprazole 40 MG DAILY AC 11/03 0700 AC 11/14 PO 0428 Oxycodone HCl 10 MG Q6P PRN 11/04 1130 DC 11/13 PO 0427 Oxycodone/ 2 TAB Q4 HRS NEEDED PRN 11/13 1130 AC 11/14 Acetaminophen PO 0808 Oxycodone/ 1 TAB Q4P PRN 11/09 1030 AC 11/13 Acetaminophen PO 0735 Polyethylene Glycol 17 GM DAILY PRN 11/02 1930 AC 11/14 PO 0425 Senna/Docusate Sodium 1 TAB BID PRN 11/05 2030 AC 11/14 PO 0925 Sodium Chloride 2 SPRAY Q4P PRN 11/03 2230 AC NIYA Sucralfate 1,000 MG 4 TIMES/DAY 11/02 220 AC 11/14 PO 0924 Tiotropium [place] 1 PUF DAILY 11/04 1317 AC 11/14 INH 0923 Vital Signs & I&O Last 24 Hrs of Vitals and I&O: Vital Signs Date Time Temp Pulse Resp B/P Pulse O2 O2 Flow FiO2 Ox Delivery Rate 11/14 925 62 118/64 11/14 924 62 118/64 11/14 0904 93 Room Air 11/14 0644 97.8 54 22 122/60 95 11/13 2230 56 97 11/13 2225 98.0 63 19 130/62 95 Room Air 11/13 2147 63 130/62 11/13 1840 95 Room Air 11/13 1353 98.3 65 20 132/58 92 Room Air Intake & Output 11/14 1600 11/14 0800 11/14 0000 Intake Total 480 880 Output Total 1075 1250 Balance -595 -370 Intake, IV 40 Intake, Oral 480 840 Output, Urine 1075 1250 Patient 279 lb Weight Exam Other Physical Findings: gen awake and alert heent ncat cvs s1, s2 lungs diminished bibasilar abd soft bs+ ext edematous, dressing intact Results Last 24 Hrs of Lab Results: Laboratory Tests 11/14/16 0630: Anion Gap 5, Estimated GFR 52 L, BUN/Creatinine Ratio 32.9 H, CBC w Diff NO MAN DIFF REQ, RBC 3.24 L, MCV 83.8, MCH 26.9 L, RDW 16.4 H, MPV 9.2, Gran % 50.4, Lymphocytes % 31.5, Monocytes % 10.7 H, Eosinophils % 7.1 H, Basophils % 0.3, Absolute Granulocytes 4.0, Absolute Lymphocytes 2.5, Absolute Monocytes 0.9 H, Absolute Eosinophils 0.6, Absolute Basophils 0, PUBS MCHC 32.1 L Impression/Plan Impression/Plan Impression/Plan: Impression 61 year old man * Improved - Hypoxemic respiratory failure * History of pulmonary embolism * Osteomyelitis Plan - trc/nebs - will need outpt sleep re-evaluation - continue symbicort and spiriva - monitor ins/outs - awaiting surgery on Monday, call with any questions - incentive spirometry aggressively DVT prophylaxis at all times Anticipating surgery tomorrow
--- NOTE | 2016-11-14 13:19 | PN- Infect Dx ---
Subjective Subjective: Afebrile without complaints Objective Last 24 Hrs of Vital Signs/I&O Vital Signs Date Time Temp Pulse Resp B/P Pulse O2 O2 Flow FiO2 Ox Delivery Rate 11/14 925 62 118/64 11/14 924 62 118/64 11/14 0804 93 Room Air 11/14 08 97 Room Air Room Air 11/14 0644 97.8 54 22 122/60 95 11/13 2230 56 97 11/13 2225 98.0 63 19 130/62 95 Room Air 11/13 2147 63 130/62 11/13 1840 95 Room Air 11/13 1353 98.3 65 20 132/58 92 Room Air Intake & Output 11/14 1600 11/14 0800 11/14 0000 Intake Total 480 880 Output Total 1075 1250 Balance -595 -370 Intake, IV 40 Intake, Oral 480 840 Output, Urine 1075 1250 Patient 279 lb Weight Physical Exam Other Physical Findings: He appears comfortable in no acute distress Chest Pro-Line in the right upper chest with no inflammation at the site Lungs decreased breath sounds bilaterally Heart regular rhythm with no murmur Extremities wound VAC in place in the left foot; right foot with dressing intact Results Last 24 Hours of Lab Results: Laboratory Tests 11/14 629 Chemistry Sodium (137 - 145 mmol/L) 139 Potassium (3.5 - 5.1 mmol/L) 4.9 Chloride (98 - 107 mmol/L) 101 Carbon Dioxide (22 - 30 mmol/L) 32 H Anion Gap (5 - 16) 5 BUN (9 - 20 mg/dL) 46 H Creatinine (0.7 - 1.2 mg/dL) 1.4 H Estimated GFR (>60 ml/min) 52 L BUN/Creatinine Ratio (7 - 25 %) 32.9 H Hematology CBC w Diff NO MAN DIFF REQ WBC (4.8 - 10.8 /CUMM) 8.0 RBC (4.70 - 6.10 /CUMM) 3.24 L Hgb (14.0 - 18.0 G/DL) 8.7 L Hct (42 - 52 %) 27.2 L MCV (80.0 - 94.0 FL) 83.8 MCH (27.0 - 31.0 PG) 26.9 L RDW (11.5 - 14.5 %) 16.4 H Plt Count (130 - 400 /CUMM) 299 MPV (7.4 - 10.4 FL) 9.2 Gran % (42.2 - 75.2 %) 50.4 Lymphocytes % (20.5 - 51.1 %) 31.5 Monocytes % (1.7 - 9.3 %) 10.7 H Eosinophils % (0 - 5 %) 7.1 H Basophils % (0.0 - 2.0 %) 0.3 Absolute Granulocytes (1.4 - 6.5 /CUMM) 4.0 Absolute Lymphocytes (1.2 - 3.4 /CUMM) 2.5 Absolute Monocytes (0.10 - 0.60 /CUMM) 0.9 H Absolute Eosinophils (0.0 - 0.7 /CUMM) 0.6 Absolute Basophils (0.0 - 0.2 /CUMM) 0 PUBS MCHC (33.0 - 37.0 G/DL) 32.1 L Last 24 Hours of Enrique Results: No recent cultures Recent Imaging Studies: Chest x-ray November 14, personally reviewed, reveals decreased atelectasis in the left midlung, with persistent dense retrocardiac opacity; right lung fully expanded Assessment/Plan Impression: Stable status post I&D of both feet with debridement of necrotic bone and wound VAC placement of 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 He is scheduled for a right BKA and wound VAC change for the right foot in the a.m. He remains afebrile with white blood cell count normal on Meropenem Day 11 and this will need to be continued for the left foot osteomyelitis for 4 weeks from his most recent debridement. Suggestion: 1. Await right BKA in the a.m. 2. Continue Meropenem to plan on 4 weeks from his most recent debridement
[2016-11-14 14:26] VITALS: BP 126/66
[2016-11-14 22:13] VITALS: BP 128/68
[2016-11-15 06:25] VITALS: BP 139/79
--- NOTE | 2016-11-15 07:24 | PN- Housestaff ---
YEYO SENA MD 11/15/16 0723: Subjective Follow-up For: Osteomyelitis Subjective: Patient seen and examined. He is seen sitting upright in bed resting comfortably. He appears to be in no acute distress. He reports feeling well but does admit to mild lower extremity pain. He understands the current plan for surgery today and has no further questions at this time. He denies any further subjective complaints. Additionally he denies any headache, fever, chills, chest pain, palpitations, shortness breath, cough, nausea, vomiting, diarrhea. No overnight events reported. Review of Systems Constitutional: Reports: see HPI. Objective Last 24 Hrs of Vital Signs/I&O Vital Signs Date Time Temp Pulse Resp B/P Pulse O2 O2 Flow FiO2 Ox Delivery Rate 11/15 0920 95 Room Air Room Air 11/15 0825 52 130/58 11/15 0824 52 130/58 11/15 0625 98.1 55 20 139/79 94 Room Air 11/15 0010 57 93 11/14 2225 128/68 11/14 2213 97.9 60 20 128/68 95 Room Air 11/14 1905 93 Room Air 11/14 1600 Room Air 11/14 1426 98.5 57 20 126/66 95 Intake & Output 11/15 1600 11/15 0800 11/15 0000 Intake Total 400 Output Total 559 429 4295 Balance -550 -550 -1800 Intake, IV 400 Intake, Oral 0 Output, Urine 636 529 7133 Patient 124.88 kg Weight Physical Exam General Appearance: Alert, Oriented X3, Cooperative, No Acute Distress Other Physical Findings: General -well-developed, well-nourished morbidly obese elderly man in no acute distress HEENT - NCAT, PERRL, EOMI, anicteric sclera Cardio - S1, S2 w/o murmurs/gallops/rubs Resp - CTA bilaterally w/o wheezing/rhochi/crackles GI - soft, obese, nontender, nondistended, bowel sounds present Neuro - Awake and alert, CN II - XII grossly intact Extremities -2+ bilateral lower extremity edema, both feet dressed and clean surgical dressing without any obvious drainage, wound VAC in place on left foot Current Medications: Current Medications Sig/Taylor Start time Last Medication Dose Route Stop Time Status Admin Acetaminophen 325 MG Q6P PRN 11/02 1715 AC PO Albuterol Sulfate 3 ML BID 11/03 1000 AC 11/15 INH 0919 Albuterol Sulfate 3 ML Q6P PRN 11/02 1930 AC INH Amlodipine Besylate 10 MG DAILY 11/03 1000 AC 11/15 PO 0824 Aripiprazole 2 MG DAILY 11/10 1000 AC 11/15 PO 0824 Atorvastatin Calcium 20 MG 1700 11/03 1700 AC 11/14 PO 1711 Budesonide/ 2 PUF BID 11/02 2200 AC 11/15 Formoterol Fumarate INH 0823 Calcium Carbonate 500 MG BID 11/02 2200 AC 11/15 PO 0825 Carisoprodol 350 MG Q6-PRN PRN 11/09 2345 AC 11/15 PO 0159 Dextrose/Sodium 1,000 ML Q20H 11/15 0000 AC 11/14 Chloride IV 11/16 1559 2343 Ferrous Sulfate 325 MG BID 11/02 2200 AC 11/14 PO 2225 Fluoxetine HCl 40 MG DAILY 11/03 1000 AC 11/15 PO 0824 Furosemide 40 MG 7:30 AM, & 4:30 PM 11/14 1630 AC 11/15 PO 0514 Heparin Sodium 5,000 UNIT Q8 11/03 0837 AC 11/14 (Porcine) SC 2225 Insulin Aspart 0 TIDAC 11/09 1700 DC 11/10 SC 11/15 0000 1155 Insulin Detemir 5 UNITS AT BEDTIME 11/03 2200 AC 11/14 SC 2232 Insulin Human Regular 0 Q6 11/15 0600 DC SC Insulin Human Regular 0 Q6 11/15 0030 AC SC Meropenem 1 GM Q8H 11/04 0200 AC 11/15 IV 0833 Metoprolol Tartrate 50 MG BID 11/02 2200 AC 11/14 PO 2225 Omeprazole 40 MG DAILY AC 11/03 0700 AC 11/15 PO 0514 Oxycodone/ 2 TAB Q4 HRS NEEDED PRN 11/13 1130 AC 11/15 Acetaminophen PO 0828 Oxycodone/ 1 TAB Q4P PRN 11/09 1030 AC 11/13 Acetaminophen PO 0735 Polyethylene Glycol 17 GM DAILY PRN 11/02 1930 AC 11/14 PO 0425 Senna/Docusate Sodium 1 TAB BID PRN 11/05 2030 AC 11/14 PO 0925 Sodium Chloride 2 SPRAY Q4P PRN 11/03 2230 AC NIYA Sucralfate 1,000 MG 4 TIMES/DAY 11/02 2200 AC 11/15 PO 0824 Tiotropium [place] 1 PUF DAILY 11/04 1317 AC 11/15 INH 0822 Last 24 Hrs of Lab/Enrique Results Last 24 Hrs of Labs/Mics: Laboratory Tests 11/15/16 0520: Anion Gap 7, Estimated GFR 48 L, BUN/Creatinine Ratio 37.3 H, Magnesium 2.1, PT 11.9, INR 1.13, CBC w Diff NO MAN DIFF REQ, RBC 3.12 L, MCV 83.1, MCH 26.6 L, RDW 16.5 H, MPV 9.6, Gran % 52.2, Lymphocytes % 29.3, Monocytes % 11.7 H, Eosinophils % 6.3 H, Basophils % 0.5, Absolute Granulocytes 3.6, Absolute Lymphocytes 2.0, Absolute Monocytes 0.8 H, Absolute Eosinophils 0.4, Absolute Basophils 0, PUBS MCHC 32.0 L Assessment/Plan Assessment: Patient continues to do well and admits to only mild persistent lower extremity pain is well controlled on the current medication regimen. He remains afebrile without leukocytosis while maintained on meropenem. He is to Undergo a right below knee amputation today. Postoperatively he is to be assessed by infectious disease/podiatry for ongoing antibiotic therapy and discharge recommendations. Patient will be started on be started on a low dose of gabapentin postoperatively for neuropathic pain. 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 Calculated RCRI demonstrated an 11% risk of major cardiovascular restraints during surgery which has been explaned to the patient -Nothing by mouth overnight in anticipation for surgery. -BKA today -Meropenem 1 g IV every 8 hours -Podiatry consult -Infectious disease consult -Vascular surgery consult -PT evaluation -Follow-up operating room cultures and sensitivities Acute hypoxic hypercarbic respiratory failure, secondary to congestive heart failure/possible pneumonia He had been hypoxic, hypercarbic respiratory failure on 11/03/2016 and on , due to flash pulmonary edema, secondary to fluid overload with a history of congestive heart failure, and a component of his COPD acting up requiring him BiPAP intermittently. His respiratory status however has been stable now. -Supplemental oxygen, goal >92%, taper as tolerated -TRC with albuterol/ipratropium when necessary -Incentive spirometry -Spiriva/Symbicort -Lasix 40 mg by mouth twice a day -Pulmonology consult -Cardiology consult -Outpatient sleep study Insulin-dependent diabetes mellitus -Accu-Cheks 3 times a day before meals/at bedtime -Hold oral hypoglycemics -Nothing by mouth Novolin sliding scale insulin, convert to NovoLog sliding scale insulin when eating -Levemir 5 units subcutaneously at bedtime Hyperlipidemia-atorvastatin 20 mg by mouth daily GERD-omeprazole 40 mg by mouth daily Hypertension-metoprolol 50 mg by mouth twice a day/Norvasc 10 mg by mouth daily Depression-Prozac 40 mg by mouth daily/aripiprazole 2 mg by mouth daily Bowel regimen-Senokot/MiraLAX Pain plan-acetaminophen/oxycodone Diet-NPO overnight for surgery, restart postoperatively DVT prophylaxis- CODE STATUS-full code Problem List: 1. Osteomyelitis Pain Ratin Pain Location: Bilateral lower extremities Pain Goal: Pain 4 or less Pain Plan: See assessment Tomorrow's Labs & Rationales: CBC - post op/osteo BEP - renal disease TERENCE HELTON MD 11/15/16 1240: Attending MD Review Statement Attending Statement Attending MD Statement: discuss w/resident/PA/REAL ESTATE ADMINISTRATOR, agreed w/resident/PA/REAL ESTATE ADMINISTRATOR, reviewed EMR data (avail), discussed with nursing, discussed with case mgmt, amended to note Attending Assessment/Plan: No issues overnight reported by nursing staff. Patient remains afebrile hemodynamically stable. He is undergoing right below knee amputation today. Following the procedure he will continue on IV meropenem to complete 4 weeks from his last debridement for ulcerative colitis of the left foot. He is maintaining saturation on room air. Lasix dose was increased yesterday due to ongoing congestion noted on chest x-ray. His creatinine level is slightly elevated today however still within his baseline. He will be discharged on Lasix 40 mg orally daily.
[2016-11-15 07:55] LABS: ABSOLUTE BASOPHIL COUNT 0 /CUMM (0.0-0.2); ABSOLUTE EOSINOPHIL COUNT 0.4 /CUMM (0.0-0.7); ABSOLUTE GRANULOCYTE CT 3.6 /CUMM (1.4-6.5); ABSOLUTE MONOCYTE COUNT 0.8 /CUMM (0.10-0.60); BASOPHIL % 0.5 % (0.0-2.0); EOSINOPHIL % 6.3 % (0-5); GRANULOCYTE % 52.2 % (42.2-75.2); HEMATOCRIT 25.9 % (42-52); MEAN CORPUSCULAR HGB 26.6 PG (27.0-31.0); MEAN CORPUSCULAR VOLUME 83.1 FL (80.0-94.0); MEAN PLATELET VOLUME 9.6 FL (7.4-10.4); PLATELET COUNT 272 /CUMM (130-400); RBC DISTRIBUTION WIDTH 16.5 % (11.5-14.5); RED BLOOD CELL CT 3.12 /CUMM (4.70-6.10); WHITE BLOOD CELL COUNT 6.8 /CUMM (4.8-10.8)
[2016-11-15 08:28] LABS: PT 11.9 SEC (9.4-12.5)
--- NOTE | 2016-11-15 09:29 | PN- Pulmonary ---
Subjective HPI/Critical Care Issues: pt seen and examined doing well anticipating OR today on room air comfortable no new events no dyspnea, no cp at rest no n/v/d/c anxious regarding surgery today Objective Current Medications: Current Medications Sig/Taylor Start time Last Medication Dose Route Stop Time Status Admin Acetaminophen 325 MG Q6P PRN 11/02 1715 AC PO Albuterol Sulfate 3 ML BID 11/03 1000 AC 11/15 INH 0919 Albuterol Sulfate 3 ML Q6P PRN 11/02 1930 AC INH Amlodipine Besylate 10 MG DAILY 11/03 1000 AC 11/15 PO 0824 Aripiprazole 2 MG DAILY 11/10 1000 AC 11/15 PO 0824 Atorvastatin Calcium 20 MG 1700 11/03 1700 AC 11/14 PO 1711 Budesonide/ 2 PUF BID 11/02 2200 AC 11/15 Formoterol Fumarate INH 0823 Calcium Carbonate 500 MG BID 11/02 2200 AC 11/15 PO 0825 Carisoprodol 350 MG Q6-PRN PRN 11/09 2345 AC 11/15 PO 0159 Dextrose/Sodium 1,000 ML Q20H 11/15 0000 AC 11/14 Chloride IV 11/16 1559 2343 Dextrose/Sodium 1,000 ML Q20H 11/14 1330 DC Chloride IV 11/16 0529 Ferrous Sulfate 325 MG BID 11/02 2200 AC 11/14 PO 2225 Fluoxetine HCl 40 MG DAILY 11/03 1000 AC 11/15 PO 0824 Furosemide 40 MG 7:30 AM, & 4:30 PM 11/14 1630 AC 11/15 PO 0514 Furosemide 40 MG DAILY 11/10 1000 DC 11/14 PO 0925 Heparin Sodium 5,000 UNIT Q8 11/03 0837 AC 11/14 (Porcine) SC 2225 Insulin Aspart 0 TIDAC 11/09 1700 DC / SC 11/15 0000 1155 Insulin Detemir 5 UNITS AT BEDTIME 11/03 2200 AC 11/14 SC 2232 Insulin Human Regular 0 Q6 11/15 0600 DC SC Insulin Human Regular 0 Q6 11/15 0030 AC SC Meropenem 1 GM Q8H 11/04 0200 AC 11/15 IV 0833 Metoprolol Tartrate 50 MG BID 11/02 2200 AC 11/14 PO 2225 Omeprazole 40 MG DAILY AC 11/03 0700 AC 11/15 PO 0514 Oxycodone/ 2 TAB Q4 HRS NEEDED PRN 11/13 1130 AC 11/15 Acetaminophen PO 0828 Oxycodone/ 1 TAB Q4P PRN 11/09 1030 AC 11/13 Acetaminophen PO 0735 Polyethylene Glycol 17 GM DAILY PRN 11/02 1930 AC 11/14 PO 0425 Senna/Docusate Sodium 1 TAB BID PRN 11/05 2030 AC 11/14 PO 0925 Sodium Chloride 2 SPRAY Q4P PRN 11/03 2230 AC NIYA Sucralfate 1,000 MG 4 TIMES/DAY 11/02 220 AC 11/15 PO 0824 Tiotropium [place] 1 PUF DAILY 11/04 1317 AC 11/15 INH 0822 Vital Signs & I&O Last 24 Hrs of Vitals and I&O: Vital Signs Date Time Temp Pulse Resp B/P Pulse O2 O2 Flow FiO2 Ox Delivery Rate 11/15 09 95 Room Air Room Air 11/15 0825 52 130/58 11/15 0824 52 130/58 11/15 0625 98.1 55 20 139/79 94 Room Air 11/15 0010 57 93 11/14 2225 128/68 11/14 2213 97.9 60 20 128/68 95 Room Air 11/14 1905 93 Room Air 11/14 1600 Room Air 11/14 1426 98.5 57 20 126/66 95 Intake & Output 11/15 1600 11/15 0800 11/15 0000 Intake Total 400 Output Total 950 1800 Balance -550 -1800 Intake, IV 400 Intake, Oral 0 Output, Urine 950 1800 Patient 275 lb Weight Exam Other Physical Findings: gen awake and alert heent ncat cvs s1, s2 lungs diminished bibasilar abd soft bs+ ext edematous, dressing intact Results Last 24 Hrs of Lab Results: Laboratory Tests 11/15/16 0520: Anion Gap 7, Estimated GFR 48 L, BUN/Creatinine Ratio 37.3 H, Magnesium 2.1, PT 11.9, INR 1.13, CBC w Diff NO MAN DIFF REQ, RBC 3.12 L, MCV 83.1, MCH 26.6 L, RDW 16.5 H, MPV 9.6, Gran % 52.2, Lymphocytes % 29.3, Monocytes % 11.7 H, Eosinophils % 6.3 H, Basophils % 0.5, Absolute Granulocytes 3.6, Absolute Lymphocytes 2.0, Absolute Monocytes 0.8 H, Absolute Eosinophils 0.4, Absolute Basophils 0, PUBS MCHC 32.0 L Impression/Plan Impression/Plan Impression/Plan: Impression 61 year old man * Improved - Hypoxemic respiratory failure * History of pulmonary embolism * Osteomyelitis Plan - trc/nebs - will need outpt sleep re-evaluation - continue symbicort and spiriva - monitor ins/outs - awaiting surgery on Monday, call with any questions - incentive spirometry aggressively DVT prophylaxis at all times Anticipating surgery this morning
--- NOTE | 2016-11-15 14:53 | Operative Report ---
Operative/Inv Procedure Report Surgery Date: 11/15/16 Name of Procedure: 1 open incision and drainage deep to the D fashion with exposure of the flexor tendon and tendon sheath multiple sites left foot 2 debridement of necrotic infected bone left foot 3 intraoperative administration of negative pressure wound therapy 4 excisional debridement Pre-Operative Diagnosis: 1 open necrotic wound left foot 2 osteomyelitis left foot 3 diabetic peripheral neuropathy Post-Operative Diagnosis: The same Estimated Blood Loss: less than 50ml Surgeon/Stencil Machine Operator: CECY WHITAKER DPM Anesthesia: moderate sedation, block Operative/Procedure Note Note: After obtaining informed consent the patient was brought to the operating room and placed on the operating table in the supine position. The patient isn't securely fastened to the operating table utilizing safety belt. After administration of IV sedation, 10 mL of 0.5% Marcaine plain was infiltrated about the patient's left ankle. After undergoing a right below-knee amputation with the vascular service the left foot was scrubbed prepped and draped in usual aseptic manner. Attention directed lateral aspect the left foot were large full -thickness necrotic was identified. A 15 blade was utilized sharply revised skin margins. Dissection was then carried down deep to the D fashion with exposure of the flexor tendon and tendon sheath multiple sites, both proximally and distally. All necrotic nonviable infected tissue sharply evacuated from the wound bed. Dissection was then carried down centrally where a sinus tract probing to bone was identified. A curet was utilized to debride any necrotic bone identified within the wound bed. This was then sent a specimen for pathologic inspection. Then irrigated with 3 L normal sterile saline fissure 50 ,000 units of bacitracin. Following this, the foot was redraped and the surgeon 's top gloves were changed clean gloves. Any bleeding vessels identified were cauterized or ligated as encountered., Negative pressure wound therapy was applied. Foot was then dressed with Kerlix and an Michele wrap. The patient was noted to tolerate both procedure and anesthesia well and the patient was transported from the operating room to recovery with vital signs stable.
--- NOTE | 2016-11-15 15:40 | Operative Report ---
Operative/Inv Procedure Report Surgery Date: 11/15/16 Name of Procedure: Right transtibial amputation Pre-Operative Diagnosis: Chronic nonhealing right foot osteomyelitis Post-Operative Diagnosis: Same Estimated Blood Loss: 300ML Surgeon/Solar Energy Engineer: DOMINGA BAILEY MD, PA Anesthesia: general endotracheal tube Operative/Procedure Note Note: 61-year-old man with multiple medical issues including diabetes and nonhealing chronic right foot osteomyelitis. He has undergone multiple debridements and tissue and bone removal of his foot for the last several months as well as long- term antibiotics. However he continues to have nonhealing infected right foot wound. An arterial ultrasound showed no significant arterial disease of the right lower extremity. I was asked to perform a transtibial amputation as there was no other options from Dr. Zheng and podiatry left for him to do. I discussed the procedure including is possible complications including but not limited to bleeding, infection, dehiscence, pain and need for re-intervention. An informed consent was obtained. Patient was taken to the operating room and placed supine on the table. After satisfactory induction of anesthesia, the patient was prepped and draped in standard surgical fashion. Using a posterior flap technique, an incision was made about 12 cm distal to the tibial tuberosity. The incision was carried down through the subcuticular tissue and fascia using electrocautery. The incision was extended about 12 cm in inferior and distally. The patient had multiple large venous varicosities and was quite challenging to ligate and divide all goals veins. Then the tibia was transected with an electric saw. The fibula was then transected about 1 cm shorter than the tibia. Some debridement of the muscle was performed. The stump was then irrigated with sterile saline. The stump was then closed in 3 layers. The first layer who was approximation of muscle over the bone. Then a fascial layer was closed in an interrupted fashion using 3-0 Vicryl suture. An subdermal interrupted sutures were placed with 3-0 Vicryl. The skin was then closed with dennise. Sterile dressing was then applied. Then the patient was placed into knee immobilizer. The count at the end of the case was correct. Dr. Zheng then carried out his left foot debridement and washout. For the details of this part of the procedure please refer to Dr. Zheng notes.
[2016-11-15 16:28] VITALS: BP 114/60
--- NOTE | 2016-11-15 16:58 | PN- Vascular Surgery ---
Subjective Subjective: POST OP CHECK Patient in severe pain, not relieved by prn medication, left leg greater than right foot. No N/V, F/C, CP/SOB. Objective Vital Signs and I&Os Vital Signs Date Time Temp Pulse Resp B/P Pulse O2 O2 Flow FiO2 Ox Delivery Rate 11/15 1628 97.7 67 16 114/60 93 Room Air 11/15 0920 95 Room Air Room Air 11/15 0825 52 130/58 11/15 0824 52 130/58 11/15 0625 98.1 55 20 139/79 94 Room Air 11/15 0010 57 93 11/14 2225 128/68 11/14 2213 97.9 60 20 128/68 95 Room Air 11/14 1905 93 Room Air Intake & Output 11/15 1600 11/15 0800 11/15 0000 11/14 1600 11/14 0800 11/14 0000 Intake Total 400 800 480 880 Output Total 824 065 7395 1250 1075 1250 Balance -550 -550 -1800 -450 -595 -370 Intake, IV 400 40 Intake, Oral 0 800 480 840 Number 0 Bowel Movements Output, Urine 828 319 5230 1250 1075 1250 Patient 275 lb 279 lb Weight Physical Exam: Gen: AAOx3 in NAD Cor: S1+S2+ Lungs: CTA cherie Abd: soft, NT, ND, +BS x4 Ext: right leg on pillow- removed. Able to keep knee straight. Michele wrap intact without strikethrough. Minimal tenderness to palpation. Left foot wound vac in place, functioning well. Assessment/Plan Assessment/Plan A: s/p left BKA, right foot debridement with wound vac placement; AVSS. Plan: Would recommend a TEXTILE MACHINERY INSTRUCTOR in the short term post operatively for pain control. Dressing change to right BKA stump POD #3. Wound vac care/left foot management by Dr. Zheng. Continue IV antibiotics for osteomyelitis. Core Measures/Miscellaneous Venous Thromboembolism VTE Risk Factors: Age > 40, Cancer/chemo/oth therapy, Surgery VTE Contraindications: No Contraindications VTE Diagnosis: No VTE Type: NONE VTE Confirmed by (Test): NONE Beta Gia Is Beta Gia a Home Med? Yes If Yes, Was This Ordered Today? Yes Antibiotics Is Patient on Antibiotics? Yes If Yes: infection
[2016-11-15 23:00] VITALS: BP 142/72
[2016-11-16 06:13] VITALS: BP 132/70
--- NOTE | 2016-11-16 07:25 | PN- Housestaff ---
YEYO SENA MD 11/16/16 0725: Subjective Follow-up For: Osteomyelitis Subjective: Patient seen and examined. He is seen sitting upright in bed resting comfortably. He appears to be in no acute distress. He is reporting moderate/ severe pain in his right lower extremity that he is attributing to the recent surgical procedure. Additionally he comments on persistent left lower extremity pain that is relatively unchanged in character. Otherwise he feels well and has no new subjective complaints and is requesting to be advanced to a full diet as he is "starving". Otherwise he denies any headache, fever, chills, chest pain, palpitations, shortness breath, cough, nausea, vomiting, diarrhea. No overnight events reported. Review of Systems Constitutional: Reports: see HPI. Objective Last 24 Hrs of Vital Signs/I&O Vital Signs Date Time Temp Pulse Resp B/P Pulse O2 O2 Flow FiO2 Ox Delivery Rate 11/16 1440 98.6 65 20 128/58 94 11/16 1219 96 Room Air 11/16 1137 Nasal 2.0L Cannula 11/16 1126 Nasal 2.0L Cannula 11/16 1007 68 128/70 11/16 1007 68 128/70 11/16 0800 95 Room Air Room Air 11/16 0613 98.2 69 20 132/70 97 Room Air 11/16 0036 59 100 11/16 0000 Room Air 11/15 2300 70 18 142/72 92 Room Air 11/15 2250 68 96 11/15 2137 74 140/72 11/15 2107 97 Room Air Room Air Intake & Output 11/16 1600 11/16 0800 11/16 0000 Intake Total 663 869 1194 Output Total 1450 575 625 Balance -650 45 515 Intake, IV 20 Intake, Oral 824 166 9939 Output, Urine 1450 575 625 Physical Exam General Appearance: Alert, Oriented X3, Cooperative, No Acute Distress Other Physical Findings: General -well-developed, well-nourished morbidly obese elderly man in no acute distress HEENT - NCAT, PERRL, EOMI, anicteric sclera Cardio - S1, S2 w/o murmurs/gallops/rubs Resp - CTA bilaterally w/o wheezing/rhochi/crackles GI - soft, obese, nontender, nondistended, bowel sounds present Neuro - Awake and alert, CN II - XII grossly intact Extremities -2+ bilateral lower extremity edema, both feet dressed and clean surgical dressing without any obvious drainage, wound VAC in place on left foot, right lower extremity status post below knee amputation with clean/sterile surgical dressing and scant amount of drainage Current Medications: Current Medications Sig/Taylor Start time Last Medication Dose Route Stop Time Status Admin Acetaminophen 325 MG Q6P PRN 11/15 1645 AC PO Albuterol Sulfate 3 ML BID 11/15 2200 AC 11/16 INH 1215 Albuterol Sulfate 3 ML Q6P PRN 11/15 1645 AC INH Amlodipine Besylate 10 MG DAILY 11/16 1000 AC 11/16 PO 1007 Aripiprazole 2 MG DAILY 11/16 1000 AC 11/16 PO 1006 Atorvastatin Calcium 20 MG 1700 11/15 1700 AC 11/16 PO 1642 Budesonide/ 2 PUF BID 11/15 2200 AC 11/16 Formoterol Fumarate INH 1008 Calcium Carbonate 500 MG BID 11/15 2200 AC 11/16 PO 1007 Carisoprodol 350 MG Q6-PRN PRN 11/15 1645 AC 11/16 PO 0542 Ferrous Sulfate 325 MG BID 11/15 2200 AC 11/16 PO 1007 Fluoxetine HCl 40 MG DAILY 11/16 1000 AC 11/16 PO 1007 Furosemide 40 MG DAILY 11/17 1000 AC PO Furosemide 40 MG 7:30 AM, & 4:30 PM 11/16 0730 DC 11/16 PO 0728 Gabapentin 300 MG Q8 11/16 2200 AC PO Gabapentin 100 MG Q8 11/15 2200 DC PO Gabapentin 100 MG Q8 11/15 2200 AC 11/16 PO 11/16 2159 1432 Heparin Sodium 5,000 UNIT Q8 11/15 2200 AC 11/16 (Porcine) SC 1433 Insulin Aspart 0 TIDAC 11/15 1700 AC SC Insulin Detemir 5 UNITS AT BEDTIME 11/15 220 AC 11/15 SC 2135 Meropenem 1 GM Q8H 11/15 1800 AC 11/16 IV 1004 Metoprolol Tartrate 50 MG BID 11/15 2200 AC 11/16 PO 1007 Morphine Sulfate 2 MG ONCE ONE 11/15 2130 DC 11/15 IV 11/15 213 2135 Omeprazole 40 MG DAILY AC 11/16 0700 AC 11/16 PO 0542 Oxycodone HCl 10 MG Q12 11/16 1040 AC 11/16 PO 1118 Oxycodone/ 1 TAB Q4P PRN 11/15 1645 AC Acetaminophen PO Oxycodone/ 2 TAB Q4 HRS NEEDED PRN 11/15 1645 AC 11/16 Acetaminophen PO 1520 Polyethylene Glycol 17 GM DAILY NEEDED PRN 11/15 1645 AC PO Senna/Docusate Sodium 1 TAB BID PRN 11/15 1645 AC 11/16 PO 1007 Sodium Chloride 2 SPRAY Q4P PRN 11/15 1645 AC NIYA Sucralfate 1,000 MG 4 TIMES/DAY 11/15 1800 AC 11/16 PO 1433 Tiotropium [place] 1 PUF DAILY 11/16 1000 AC 11/16 INH 1006 Last 24 Hrs of Lab/Enrique Results Last 24 Hrs of Labs/Mics: Laboratory Tests 11/16/16 0553: CBC w Diff NO MAN DIFF REQ, RBC 3.23 L, MCV 83.8, MCH 27.0, RDW 16.6 H, MPV 9.7, Gran % 69.1, Lymphocytes % 14.5 L, Monocytes % 12.7 H, Eosinophils % 3.2, Basophils % 0.5, Absolute Granulocytes 7.8 H, Absolute Lymphocytes 1.6, Absolute Monocytes 1.4 H, Absolute Eosinophils 0.4, Absolute Basophils 0.1, PUBS MCHC 32.2 L Assessment/Plan Assessment: Patient tolerated his surgical procedure yesterday well but is now complaining of moderate/severe associated surgical pain the extremity. His gabapentin is to increase to 300 mg 3 times a day this evening, patient was also started on a long acting opiate narcotic medication today. Patient is to be seen and evaluated by the surgical team over the next few days to be eventually discharged to [facility] this Monday. Continued physical therapy assessment determined that patient is still an assist of 1 and will still require short-term rehabilitation. Lasix were reduced to 40 mg daily. Patient was advanced to a full diet per his request. 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 Calculated RCRI demonstrated an 11% risk of major cardiovascular restraints during surgery which has been explaned to the patient -Nothing by mouth overnight in anticipation for surgery. -Status post right BKA: Postoperative day #1 -Meropenem 1 g IV every 8 hours -OxyContin 10 mg by mouth every 12 hours -Gabapentin 300 mg by mouth 3 times a day -Podiatry consult -Infectious disease consult -Vascular surgery consult -PT evaluation -Follow-up operating room cultures and sensitivities Acute hypoxic hypercarbic respiratory failure, secondary to congestive heart failure/possible pneumonia He had been hypoxic, hypercarbic respiratory failure on 11/03/2016 and on , due to flash pulmonary edema, secondary to fluid overload with a history of congestive heart failure, and a component of his COPD acting up requiring him BiPAP intermittently. His respiratory status however has been stable now. -Supplemental oxygen, goal >92%, taper as tolerated -TRC with albuterol/ipratropium when necessary -Incentive spirometry -Spiriva/Symbicort -Lasix 40 mg by mouth daily -Pulmonology consult -Cardiology consult -Outpatient sleep study Insulin-dependent diabetes mellitus -Accu-Cheks 3 times a day before meals/at bedtime -Hold oral hypoglycemics -Nothing by mouth Novolin sliding scale insulin, convert to NovoLog sliding scale insulin when eating -Levemir 5 units subcutaneously at bedtime Hyperlipidemia-atorvastatin 20 mg by mouth daily GERD-omeprazole 40 mg by mouth daily Hypertension-metoprolol 50 mg by mouth twice a day/Norvasc 10 mg by mouth daily Depression-Prozac 40 mg by mouth daily/aripiprazole 2 mg by mouth daily Bowel regimen-Senokot/MiraLAX Pain plan-acetaminophen/oxycodone Diet-NPO overnight for surgery, restart postoperatively DVT prophylaxis- CODE STATUS-full code Problem List: 1. Osteomyelitis Pain Ratin Pain Location: Bilateral lower extremities (right >left) Pain Goal: Pain 7 or less Pain Plan: See assessment Tomorrow's Labs & Rationales: CBC-post op/osteomyelitis BEP-renal dysfunction DANIE SANCHEZ,TERENCE 11/16/16 1533: Attending MD Review Statement Attending Statement Attending MD Statement: examined this patient, discuss w/resident/PA/SALES AND SERVICE REPRESENTATIVE, agreed w/resident/PA/SALES AND SERVICE REPRESENTATIVE, reviewed EMR data (avail), discussed with nursing, discussed with case mgmt, amended to note Attending Assessment/Plan: patient seen and examined. Resting in bed not In acute distress however he reports ice pain is not optimally controlled following his procedure yesterday. Plan she service recommending continued hospital stay following changes until Monday at which point he may necessitate discharged home. We'll optimize pain control by adding on OxyContin and increase in dose of his gabapentin. Continue wound care as recommended by the podiatry service. He has a mild increase of his creatinine today. Recommend decreasing dose of his Lasix back to 40 mg daily and monitoring his serum creatinine.
--- NOTE | 2016-11-16 08:02 | PN- Vascular Surgery ---
Subjective Subjective: POD #1 s/p right BKA. Uncomfortable, pain not well controlled. Asking for pain medication (he is due for currently) for 9/10 pain. Denies N/V, F/C, CP/SOB. Hungry. Voiding spontaneously. Does not ambulate. Objective Vital Signs and I&Os Vital Signs Date Time Temp Pulse Resp B/P Pulse O2 O2 Flow FiO2 Ox Delivery Rate 11/16 612 98.2 69 20 132/70 97 Room Air 11/16 0036 59 100 11/16 0000 Room Air 11/15 2300 70 18 142/72 92 Room Air 11/15 2250 68 96 11/15 2137 74 140/72 11/15 2107 97 Room Air Room Air 11/15 1628 97.7 67 16 114/60 93 Room Air 11/15 1600 94 Room Air 11/15 0920 95 Room Air Room Air 11/15 0825 52 130/58 11/15 0824 52 130/58 Intake & Output 11/16 0800 11/16 0000 11/15 1600 11/15 0800 11/15 0000 11/14 1600 Intake Total 620 1140 400 800 Output Total 575 625 010 328 1441 1250 Balance 45 515 -550 -550 -1800 -450 Intake, IV 20 400 Intake, Oral 600 1140 0 800 Number 0 Bowel Movements Output, Urine 575 625 225 285 1556 1250 Patient 275 lb Weight Physical Exam: Gen: AAox3 in NAD Cor: S1+S2+ Lungs: CTA cherie Abd: soft, NT, ND, +BS x4 Ext: right BKA dressing intact, knee immobilizer in place. Minimal tenderness to palpation. Current Medications: Current Medications Sig/Taylor Start time Last Medication Dose Route Stop Time Status Admin Acetaminophen 325 MG Q6P PRN 11/15 1645 AC PO Acetaminophen 1,000 MG .STK-MED ONE 11/15 1026 DC IV 11/15 1027 Acetaminophen 325 MG Q6P PRN 11/02 1715 DC PO Albuterol Sulfate 3 ML BID 11/15 2200 AC 11/15 INH 2105 Albuterol Sulfate 3 ML Q6P PRN 11/15 1645 AC INH Albuterol Sulfate 3 ML BID 11/03 1000 DC 11/15 INH 0919 Albuterol Sulfate 3 ML Q6P PRN 11/02 1930 DC INH Amlodipine Besylate 10 MG DAILY 11/16 1000 AC PO Amlodipine Besylate 10 MG DAILY 11/03 1000 DC 11/15 PO 0824 Aripiprazole 2 MG DAILY 11/16 1000 AC PO Aripiprazole 2 MG DAILY 11/10 1000 DC 11/15 PO 0824 Atorvastatin Calcium 20 MG 1700 11/15 1700 AC 11/15 PO 1650 Atorvastatin Calcium 20 MG 1700 11/03 1700 DC 11/14 PO 1711 Budesonide/ 2 PUF BID 11/15 2200 AC 11/15 Formoterol Fumarate INH 2136 Budesonide/ 2 PUF BID 11/02 2200 DC 11/15 Formoterol Fumarate INH 0823 Calcium Carbonate 500 MG BID 11/15 2200 AC 11/15 PO 2134 Calcium Carbonate 500 MG BID 11/02 2200 DC 11/15 PO 0825 Carisoprodol 350 MG Q6-PRN PRN 11/15 1645 AC 11/16 PO 0542 Carisoprodol 350 MG Q6-PRN PRN 11/09 2345 DC 11/15 PO 0159 Dextrose/Sodium 1,000 ML Q20H 11/15 0000 DC 11/14 Chloride IV 11/16 1559 2343 Fentanyl Citrate 200 MCG .STK-MED ONE 11/15 1027 DC IM 11/15 1028 Ferrous Sulfate 325 MG BID 11/15 2200 AC 11/15 PO 2135 Ferrous Sulfate 325 MG BID 11/02 2200 DC 11/14 PO 2225 Fluoxetine HCl 40 MG DAILY 11/16 1000 AC PO Fluoxetine HCl 40 MG DAILY 11/03 1000 DC 11/15 PO 0824 Furosemide 40 MG 7:30 AM, & 4:30 PM 11/16 0730 AC 11/16 PO 0728 Furosemide 40 MG 7:30 AM, & 4:30 PM 11/14 1630 DC 11/15 PO 0514 Gabapentin 100 MG Q8 11/15 220 DC PO Gabapentin 100 MG Q8 11/15 2200 AC 11/16 PO 0542 Heparin Sodium 5,000 UNIT Q8 11/15 2200 AC 11/16 (Porcine) SC 0542 Heparin Sodium 5,000 UNIT Q8 11/03 0837 DC 11/14 (Porcine) SC 2225 Hydromorphone HCl 2 MG .STK-MED ONE 11/15 1504 DC IM 11/15 1505 Hydromorphone HCl 2 MG .STK-MED ONE 04/11 1025 DC IM 11/15 1026 Insulin Aspart 0 TIDAC 11/15 1700 AC SC Insulin Detemir 5 UNITS AT BEDTIME 11/15 2200 AC 11/15 SC 2135 Insulin Detemir 5 UNITS AT BEDTIME 11/03 220 DC 11/14 SC 2232 Insulin Human Regular 0 TIDAC/HS 11/15 1700 CAN SC Insulin Human Regular 0 Q6 11/15 0030 DC SC Meropenem 1 GM Q8H 11/15 1800 AC 11/16 IV 0253 Meropenem 1 GM Q8H 11/04 0200 DC 11/15 IV 0833 Metoprolol Tartrate 50 MG BID 11/15 2200 AC 11/15 PO 2137 Metoprolol Tartrate 50 MG BID 11/02 2199 DC 11/14 PO 222 Midazolam HCl 2 MG .STK-MED ONE 11/15 1027 DC IM 11/15 1028 Morphine Sulfate 2 MG ONCE ONE 11/150 DC 11/15 IV 11/15 213 213 Omeprazole 40 MG DAILY AC 11/16 0700 AC 11/16 PO 0542 Omeprazole 40 MG DAILY AC 11/03 0700 DC 11/15 PO 0514 Oxycodone/ 1 TAB Q4P PRN 11/15 1645 AC Acetaminophen PO Oxycodone/ 2 TAB Q4 HRS NEEDED PRN 11/15 1645 AC 11/16 Acetaminophen PO 0728 Oxycodone/ 2 TAB Q4 HRS NEEDED PRN 11/13 1130 DC 11/15 Acetaminophen PO 1635 Oxycodone/ 1 TAB Q4P PRN 11/09 1030 DC 11/13 Acetaminophen PO 0735 Polyethylene Glycol 17 GM DAILY NEEDED PRN 11/15 1645 AC PO Polyethylene Glycol 17 GM DAILY PRN 11/02 1930 DC 11/14 PO 0425 Senna/Docusate Sodium 1 TAB BID PRN 11/15 1645 AC PO Senna/Docusate Sodium 1 TAB BID PRN 11/05 2030 DC 11/14 PO 0925 Sodium Chloride 2 SPRAY Q4P PRN 11/15 1645 AC NIYA Sodium Chloride 2 SPRAY Q4P PRN 11/03 2230 DC NIYA Sucralfate 1,000 MG 4 TIMES/DAY 11/15 1800 AC 11/15 PO 2135 Sucralfate 1,000 MG 4 TIMES/DAY 11/02 2200 DC 11/15 PO 0824 Tiotropium [place] 1 PUF DAILY 11/16 1000 AC INH Tiotropium [place] 1 PUF DAILY 11/04 1317 DC 11/15 INH 0822 Results Last 48 Hours of Labs: Laboratory Tests 11/16 11/15 11/15 0553 0600 0520 Chemistry Sodium (137 - 145 mmol/L) Cancelled 139 Potassium (3.5 - 5.1 mmol/L) Cancelled 5.1 Chloride (98 - 107 mmol/L) Cancelled 101 Carbon Dioxide (22 - 30 mmol/L) Cancelled 31 H Anion Gap (5 - 16) Cancelled 7 BUN (9 - 20 mg/dL) Cancelled 56 H Creatinine (0.7 - 1.2 mg/dL) Cancelled 1.5 H Estimated GFR (>60 ml/min) 48 L BUN/Creatinine Ratio (7 - 25 %) Cancelled 37.3 H Magnesium (1.6 - 2.3 mg/dL) 2.1 Coagulation PT (9.4 - 12.5 SEC) 11.9 INR (0.90 - 1.17) 1.13 Hematology CBC w Diff Pending NO MAN DIFF REQ WBC (4.8 - 10.8 /CUMM) Pending 6.8 RBC (4.70 - 6.10 /CUMM) Pending 3.12 L Hgb (14.0 - 18.0 G/DL) Pending 8.3 L Hct (42 - 52 %) Pending 25.9 L MCV (80.0 - 94.0 FL) Pending 83.1 MCH (27.0 - 31.0 PG) Pending 26.6 L RDW (11.5 - 14.5 %) Pending 16.5 H Plt Count (130 - 400 /CUMM) Pending 272 MPV (7.4 - 10.4 FL) Pending 9.6 Gran % (42.2 - 75.2 %) 52.2 Lymphocytes % (20.5 - 51.1 %) 29.3 Monocytes % (1.7 - 9.3 %) 11.7 H Eosinophils % (0 - 5 %) 6.3 H Basophils % (0.0 - 2.0 %) 0.5 Absolute Granulocytes (1.4 - 6.5 /CUMM) 3.6 Absolute Lymphocytes (1.2 - 3.4 /CUMM) 2.0 Absolute Monocytes (0.10 - 0.60 /CUMM) 0.8 H Absolute Eosinophils (0.0 - 0.7 /CUMM) 0.4 Absolute Basophils (0.0 - 0.2 /CUMM) 0 PUBS MCHC (33.0 - 37.0 G/DL) Pending 32.0 L Assessment/Plan Assessment/Plan A: POD #1 s/p right BKA; AVSS Plan: Dressing change POD #3. Recommend LAWYER CRIMINAL if pain not well controlled. PT/OT eval today, although unclear what weight bear status is on left foot (per Dr. Zheng). Will need STR upon discharge. Case management to see. Care per primary team.
[2016-11-16 09:19] LABS: ABSOLUTE MONOCYTE COUNT 1.4 /CUMM (0.10-0.60); HEMATOCRIT 27.1 % (42-52); MEAN PLATELET VOLUME 9.7 FL (7.4-10.4); RBC DISTRIBUTION WIDTH 16.6 % (11.5-14.5)
[2016-11-16 09:40] LABS: ABSOLUTE BASOPHIL COUNT 0.1 /CUMM (0.0-0.2); ABSOLUTE EOSINOPHIL COUNT 0.4 /CUMM (0.0-0.7); ABSOLUTE GRANULOCYTE CT 7.8 /CUMM (1.4-6.5); ABSOLUTE LYMPH COUNT 1.6 /CUMM (1.2-3.4); BASOPHIL % 0.5 % (0.0-2.0); EOSINOPHIL % 3.2 % (0-5); GRANULOCYTE % 69.1 % (42.2-75.2); MEAN CORPUSCULAR HGB CONC 32.2 G/DL (33.0-37.0); MEAN CORPUSCULAR VOLUME 83.8 FL (80.0-94.0); PLATELET COUNT 279 /CUMM (130-400); RED BLOOD CELL CT 3.23 /CUMM (4.70-6.10)
[2016-11-16 09:54] LABS: WHITE BLOOD CELL COUNT 11.3 /CUMM (4.8-10.8)
--- NOTE | 2016-11-16 10:22 | PN- Pulmonary ---
Subjective HPI/Critical Care Issues: pt seen and examined 95% on room air pain better controlled afebrile s/p right bka Objective Current Medications: Current Medications Sig/Taylor Start time Last Medication Dose Route Stop Time Status Admin Acetaminophen 325 MG Q6P PRN 11/15 1645 AC PO Acetaminophen 1,000 MG .STK-MED ONE 11/15 1026 DC IV 11/15 1027 Acetaminophen 325 MG Q6P PRN 11/02 1715 DC PO Albuterol Sulfate 3 ML BID 11/15 2200 AC 11/15 INH 2105 Albuterol Sulfate 3 ML Q6P PRN 11/15 1645 AC INH Albuterol Sulfate 3 ML BID 11/03 1000 DC 11/15 INH 0919 Albuterol Sulfate 3 ML Q6P PRN 11/02 1930 DC INH Amlodipine Besylate 10 MG DAILY 11/16 1000 AC 11/16 PO 1007 Amlodipine Besylate 10 MG DAILY 11/03 1000 DC 11/15 PO 0824 Aripiprazole 2 MG DAILY 11/16 1000 AC 11/16 PO 1006 Aripiprazole 2 MG DAILY 11/10 1000 DC 11/15 PO 0824 Atorvastatin Calcium 20 MG 1700 11/15 1700 AC 11/15 PO 1650 Atorvastatin Calcium 20 MG 1700 11/03 1700 DC 11/14 PO 1711 Budesonide/ 2 PUF BID 11/15 2200 AC 11/16 Formoterol Fumarate INH 1008 Budesonide/ 2 PUF BID 11/02 2200 DC 11/15 Formoterol Fumarate INH 0823 Calcium Carbonate 500 MG BID 11/15 2200 AC 11/16 PO 1007 Calcium Carbonate 500 MG BID 11/02 2200 DC 11/15 PO 0825 Carisoprodol 350 MG Q6-PRN PRN 11/15 1645 AC 11/16 PO 0542 Carisoprodol 350 MG Q6-PRN PRN 11/09 2345 DC 11/15 PO 0159 Dextrose/Sodium 1,000 ML Q20H 11/15 0000 DC 11/14 Chloride IV 11/16 1559 2343 Fentanyl Citrate 200 MCG .STK-MED ONE 11/15 1027 DC IM 11/15 1028 Ferrous Sulfate 325 MG BID 11/15 2200 AC 11/16 PO 1007 Ferrous Sulfate 325 MG BID 11/02 2200 DC 11/14 PO 2225 Fluoxetine HCl 40 MG DAILY 11/16 1000 AC 11/16 PO 1007 Fluoxetine HCl 40 MG DAILY 11/03 1000 DC 11/15 PO 0824 Furosemide 40 MG 7:30 AM, & 4:30 PM 11/16 0730 AC 11/16 PO 0728 Furosemide 40 MG 7:30 AM, & 4:30 PM 11/14 1630 DC 11/15 PO 0514 Gabapentin 100 MG Q8 11/15 2200 DC PO Gabapentin 100 MG Q8 11/15 2200 AC 11/16 PO 0542 Heparin Sodium 5,000 UNIT Q8 11/15 2200 AC 11/16 (Porcine) SC 0542 Heparin Sodium 5,000 UNIT Q8 11/03 0837 DC 11/14 (Porcine) SC 2225 Hydromorphone HCl 2 MG .STK-MED ONE 11/15 1504 DC IM 11/15 1505 Hydromorphone HCl 2 MG .STK-MED ONE 11/15 1025 DC IM 11/15 1026 Insulin Aspart 0 TIDAC 11/15 1700 AC SC Insulin Detemir 5 UNITS AT BEDTIME 11/15 2200 AC 11/15 SC 2135 Insulin Detemir 5 UNITS AT BEDTIME 11/03 2200 DC 11/14 SC 2232 Insulin Human Regular 0 TIDAC/HS 11/15 1700 CAN SC Insulin Human Regular 0 Q6 11/15 0030 DC SC Meropenem 1 GM Q8H 11/15 1800 AC 11/16 IV 1004 Meropenem 1 GM Q8H 11/04 0200 DC 11/15 IV 0833 Metoprolol Tartrate 50 MG BID 11/15 2200 AC 11/16 PO 1007 Metoprolol Tartrate 50 MG BID 11/02 2200 DC 11/14 PO 2225 Midazolam HCl 2 MG .STK-MED ONE 11/15 1027 DC IM 11/15 1028 Morphine Sulfate 2 MG ONCE ONE 11/15 2130 DC 11/15 IV 11/15 213 2135 Omeprazole 40 MG DAILY AC 11/16 0700 AC 11/16 PO 0542 Omeprazole 40 MG DAILY AC 11/03 0700 DC 11/15 PO 0514 Oxycodone/ 1 TAB Q4P PRN 11/15 1645 AC Acetaminophen PO Oxycodone/ 2 TAB Q4 HRS NEEDED PRN 11/15 1645 AC 11/16 Acetaminophen PO 0728 Oxycodone/ 2 TAB Q4 HRS NEEDED PRN 11/13 1130 DC 11/15 Acetaminophen PO 1635 Oxycodone/ 1 TAB Q4P PRN 11/09 1030 DC 11/13 Acetaminophen PO 0735 Polyethylene Glycol 17 GM DAILY NEEDED PRN 11/15 1645 AC PO Polyethylene Glycol 17 GM DAILY PRN 11/02 1930 DC 11/14 PO 0425 Senna/Docusate Sodium 1 TAB BID PRN 11/15 1645 AC 11/16 PO 1007 Senna/Docusate Sodium 1 TAB BID PRN 11/05 2030 DC 11/14 PO 0925 Sodium Chloride 2 SPRAY Q4P PRN 11/15 164 AC NIYA Sodium Chloride 2 SPRAY Q4P PRN 11/03 2230 DC NIYA Sucralfate 1,000 MG 4 TIMES/DAY 11/15 1800 AC 11/16 PO 1007 Sucralfate 1,000 MG 4 TIMES/DAY 11/02 2200 DC 11/15 PO 0824 Tiotropium [place] 1 PUF DAILY 11/16 1000 AC 11/16 INH 1006 Tiotropium [place] 1 PUF DAILY 11/04 1317 DC 11/15 INH 0822 Vital Signs & I&O Last 24 Hrs of Vitals and I&O: Vital Signs Date Time Temp Pulse Resp B/P Pulse O2 O2 Flow FiO2 Ox Delivery Rate 11/16 1007 68 128/70 11/16 1007 68 128/70 11/16 0800 95 Room Air Room Air 11/16 0613 98.2 69 20 132/70 97 Room Air 11/16 0036 59 100 11/16 0000 Room Air 11/15 2300 70 18 142/72 92 Room Air 11/15 2250 68 96 11/15 2137 74 140/72 11/15 2107 97 Room Air Room Air 11/15 1628 97.7 67 16 114/60 93 Room Air 11/15 1600 94 Room Air Intake & Output 11/16 1600 11/16 0800 11/16 0000 Intake Total 620 1140 Output Total 200 575 625 Balance -200 45 515 Intake, IV 20 Intake, Oral 600 1140 Output, Urine 200 575 625 Exam Other Physical Findings: gen awake and alert heent ncat cvs s1, s2 lungs diminished bibasilar abd soft bs+ ext edematous, dressing intact Results Last 24 Hrs of Lab Results: Laboratory Tests 11/16/16 0553: CBC w Diff NO MAN DIFF REQ, RBC 3.23 L, MCV 83.8, MCH 27.0, RDW 16.6 H, MPV 9.7, Gran % 69.1, Lymphocytes % 14.5 L, Monocytes % 12.7 H, Eosinophils % 3.2, Basophils % 0.5, Absolute Granulocytes 7.8 H, Absolute Lymphocytes 1.6, Absolute Monocytes 1.4 H, Absolute Eosinophils 0.4, Absolute Basophils 0.1, PUBS MCHC 32.2 L Impression/Plan Impression/Plan Impression/Plan: Impression 61 year old man * at respiratory baseline - hx of COPD * History of pulmonary embolism * Osteomyelitis - s/p right bka Plan - trc/nebs - will need outpt sleep re-evaluation - continue symbicort and spiriva - monitor ins/outs - incentive spirometry aggressively DVT prophylaxis at all times DC planning Call with any questions
--- NOTE | 2016-11-16 12:02 | PN- Infect Dx ---
Subjective Subjective: Afebrile. He notes phantom pain in the right foot and pain in the right leg at his surgical site. Objective Last 24 Hrs of Vital Signs/I&O Vital Signs Date Time Temp Pulse Resp B/P Pulse O2 O2 Flow FiO2 Ox Delivery Rate 11/16 1137 Nasal 2.0L Cannula 11/16 1126 Nasal 2.0L Cannula 11/16 1007 68 128/70 11/16 1007 68 128/70 11/16 0800 95 Room Air Room Air 11/16 0613 98.2 69 20 132/70 97 Room Air 11/16 0036 59 100 11/16 0000 Room Air 11/15 2300 70 18 142/72 92 Room Air 11/15 2250 68 96 11/15 2137 74 140/72 11/15 2107 97 Room Air Room Air 11/15 1628 97.7 67 16 114/60 93 Room Air 11/15 1600 94 Room Air Intake & Output 11/16 1600 11/16 0800 11/16 0000 Intake Total 620 1140 Output Total 200 575 625 Balance -200 45 515 Intake, IV 20 Intake, Oral 600 1140 Output, Urine 200 575 625 Physical Exam Other Physical Findings: He appears comfortable in no acute distress Chest Pro-Line in the right upper chest with no inflammation at the site Lungs decreased breath sounds at the left base Heart regular rhythm with no murmur Extremities left foot wound VAC in place; right leg dressing intact Results Last 24 Hours of Lab Results: Laboratory Tests 11/16 0553 Hematology CBC w Diff NO MAN DIFF REQ WBC (4.8 - 10.8 /CUMM) 11.3 H RBC (4.70 - 6.10 /CUMM) 3.23 L Hgb (14.0 - 18.0 G/DL) 8.7 L Hct (42 - 52 %) 27.1 L MCV (80.0 - 94.0 FL) 83.8 MCH (27.0 - 31.0 PG) 27.0 RDW (11.5 - 14.5 %) 16.6 H Plt Count (130 - 400 /CUMM) 279 MPV (7.4 - 10.4 FL) 9.7 Gran % (42.2 - 75.2 %) 69.1 Lymphocytes % (20.5 - 51.1 %) 14.5 L Monocytes % (1.7 - 9.3 %) 12.7 H Eosinophils % (0 - 5 %) 3.2 Basophils % (0.0 - 2.0 %) 0.5 Absolute Granulocytes (1.4 - 6.5 /CUMM) 7.8 H Absolute Lymphocytes (1.2 - 3.4 /CUMM) 1.6 Absolute Monocytes (0.10 - 0.60 /CUMM) 1.4 H Absolute Eosinophils (0.0 - 0.7 /CUMM) 0.4 Absolute Basophils (0.0 - 0.2 /CUMM) 0.1 PUBS MCHC (33.0 - 37.0 G/DL) 32.2 L Last 24 Hours of Enrique Results: No recent cultures Assessment/Plan Impression: Stable status post right BKA and further debridement of the left foot yesterday for bilateral polymicrobial osteomyelitis. He remains afebrile with his white blood cell count slightly elevated today, possibly secondary to the recent surgery, on Meropenem Day 13. As he underwent further debridement of the bone of his left foot yesterday, antibiotics may need to be continued for 4 more weeks, but can await the pathology of the bone that was submitted to determine if there was persistent osteomyelitis. Suggestion: 1. Repeat ESR 2. Follow-up recent pathology 3. Continue Meropenem, with duration depending on above results
[2016-11-16 14:40] VITALS: BP 128/58
[2016-11-16 23:05] VITALS: BP 142/50
[2016-11-17 06:39] VITALS: BP 116/60
--- NOTE | 2016-11-17 07:19 | PN- Housestaff ---
YEYO SENA MD 11/17/16 0719: Subjective Follow-up For: Osteomyelitis Subjective: Patient seen and examined. He is seen sitting upright in bed resting comfortably. He appears to be in no acute distress. He is reporting a mild improvement in his right lower extremity pain after the addition of OxyContin and increase of gabapentin. He states he is now having pain in his toes that have been "gone for a while". His left lower extremity pain has been well- controlled on the current narcotic pain medication regimen. Patient feels well and has no new subjective complaints. He does admit to feeling mildly constipated as he has not had a bowel movement in a reported 3 days. Additionally he denies any headache, fever, chills, chest pain, palpitations, shortness breath, cough, nausea, vomiting, diarrhea. No overnight events reported. Review of Systems Constitutional: Reports: see HPI. Objective Last 24 Hrs of Vital Signs/I&O Vital Signs Date Time Temp Pulse Resp B/P Pulse O2 O2 Flow FiO2 Ox Delivery Rate 11/17 0957 68 128/66 11/17 0956 68 128/66 11/17 0840 94 Room Air 11/17 0800 95 Room Air Room Air 11/17 0639 98.1 66 20 116/60 93 Room Air 11/17 0607 65 96 11/17 0114 72 93 11/17 0000 CPAP 11/16 2305 98.6 80 20 142/50 95 Room Air 11/16 2222 74 92 11/16 2139 80 142/50 11/16 1915 93 Room Air 11/16 1440 98.6 65 20 128/58 94 Intake & Output 11/17 1600 11/17 0800 11/17 0000 Intake Total 480 1200 Output Total 525 1950 600 Balance -525 -1470 600 Intake, Oral 480 1200 Output, Urine 525 1950 600 Physical Exam General Appearance: Alert, Oriented X3, Cooperative, No Acute Distress Other Physical Findings: General -well-developed, well-nourished morbidly obese elderly man in no acute distress HEENT - NCAT, PERRL, EOMI, anicteric sclera Cardio - S1, S2 w/o murmurs/gallops/rubs Resp - CTA bilaterally w/o wheezing/rhochi/crackles GI - soft, obese, nontender, nondistended, bowel sounds present Neuro - Awake and alert, CN II - XII grossly intact Extremities -2+ bilateral lower extremity edema, both feet dressed and clean surgical dressing without any obvious drainage, wound VAC in place on left foot, right lower extremity status post below knee amputation with clean/sterile surgical dressing and scant amount of drainage Current Medications: Current Medications Sig/Taylor Start time Last Medication Dose Route Stop Time Status Admin Acetaminophen 325 MG Q6P PRN 11/15 1645 AC PO Albuterol Sulfate 3 ML BID 11/15 2200 AC 11/17 INH 0838 Albuterol Sulfate 3 ML Q6P PRN 11/15 1645 AC INH Amlodipine Besylate 10 MG DAILY 11/16 1000 AC 11/17 PO 0957 Aripiprazole 2 MG DAILY 11/16 1000 AC 11/17 PO 0955 Atorvastatin Calcium 20 MG 1700 11/15 1700 AC 11/16 PO 1642 Bisacodyl 5 MG ONE ONE 11/17 1100 DC 11/17 PO 11/17 1101 1256 Budesonide/ 2 PUF BID 11/15 2200 AC 11/17 Formoterol Fumarate INH 0959 Calcium Carbonate 500 MG BID 11/15 2200 AC 11/17 PO 0959 Carisoprodol 350 MG Q6-PRN PRN 11/15 1645 AC 11/16 PO 1804 Ferrous Sulfate 325 MG BID 11/15 2200 AC 11/17 PO 0955 Fluoxetine HCl 40 MG DAILY 11/16 1000 AC 11/17 PO 0958 Furosemide 40 MG DAILY 11/17 1000 AC PO Gabapentin 300 MG Q8 11/16 2200 AC 11/17 PO 1255 Gabapentin 100 MG Q8 11/15 2200 DC 11/16 PO 11/16 2159 1432 Heparin Sodium 5,000 UNIT Q8 11/15 2200 AC 11/17 (Porcine) SC 1256 Insulin Aspart 0 TIDAC 11/15 1700 AC SC Insulin Detemir 5 UNITS AT BEDTIME 11/15 2200 AC 11/16 SC 2140 Meropenem 1 GM Q8H 11/15 1800 AC 11/17 IV 0904 Metoprolol Tartrate 50 MG BID 11/15 2200 AC 11/17 PO 0956 Omeprazole 40 MG DAILY AC 11/16 0700 AC 11/17 PO 0456 Oxycodone HCl 10 MG Q12 11/16 1040 AC 11/17 PO 0958 Oxycodone/ 1 TAB Q4P PRN 11/15 1645 AC Acetaminophen PO Oxycodone/ 2 TAB Q4 HRS NEEDED PRN 11/15 1645 AC 11/17 Acetaminophen PO 1255 Polyethylene Glycol 17 GM DAILY NEEDED PRN 11/15 1645 AC 11/17 PO 1007 Senna/Docusate Sodium 1 TAB BID PRN 11/15 1645 AC 11/17 PO 1008 Sodium Chloride 2 SPRAY Q4P PRN 11/15 1645 AC NIYA Sucralfate 1,000 MG 4 TIMES/DAY 11/15 1800 AC 11/17 PO 1256 Tiotropium [place] 1 PUF DAILY 11/16 1000 AC 11/17 INH 0959 Last 24 Hrs of Lab/Enrique Results Last 24 Hrs of Labs/Mics: Laboratory Tests 11/17/16 0615: Anion Gap 6, Estimated GFR 41 L, BUN/Creatinine Ratio 32.9 H, CBC w Diff NO MAN DIFF REQ, RBC 2.89 L, MCV 83.9, MCH 27.3, RDW 16.6 H, MPV 10.2, Gran % 55.8, Lymphocytes % 24.6, Monocytes % 15.5 H, Eosinophils % 3.7, Basophils % 0.4, Absolute Granulocytes 4.8, Absolute Lymphocytes 2.1, Absolute Monocytes 1.3 H, Absolute Eosinophils 0.3, Absolute Basophils 0, PUBS MCHC 32.6 L, ESR Westergren 81 H Assessment/Plan Assessment: Patient continues to experience mild/moderate pain related to his recent right below knee amputation and his left lower extremity osteomyelitis. He reports mild improvement with the addition of OxyContin and increase of gabapentin. He admits to vague complaints of "phantom pain" in his right lower extremity. He continues to be evaluated by surgery daily with ultimate discharge disposition to short-term rehabilitation. Lasix are to be discontinued today and patient is to be followed off this medication on discharge with further evaluation for continuing need at a later date. 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 Calculated RCRI demonstrated an 11% risk of major cardiovascular restraints during surgery which has been explaned to the patient -Nothing by mouth overnight in anticipation for surgery. -Status post right BKA: Postoperative day #1 -Meropenem 1 g IV every 8 hours -OxyContin 10 mg by mouth every 12 hours -Gabapentin 300 mg by mouth 3 times a day -Podiatry consult -Infectious disease consult -Vascular surgery consult -PT evaluation -Follow-up operating room cultures and sensitivities Acute hypoxic hypercarbic respiratory failure, secondary to congestive heart failure/possible pneumonia He had been hypoxic, hypercarbic respiratory failure on 11/03/2016 and on , due to flash pulmonary edema, secondary to fluid overload with a history of congestive heart failure, and a component of his COPD acting up requiring him BiPAP intermittently. His respiratory status however has been stable now. -Supplemental oxygen, goal >92%, taper as tolerated -TRC with albuterol/ipratropium when necessary -Incentive spirometry -Spiriva/Symbicort -Lasix discontinued -Pulmonology consult -Cardiology consult -Outpatient sleep study Insulin-dependent diabetes mellitus -Accu-Cheks 3 times a day before meals/at bedtime -Hold oral hypoglycemics -Nothing by mouth Novolin sliding scale insulin, convert to NovoLog sliding scale insulin when eating -Levemir 5 units subcutaneously at bedtime Hyperlipidemia-atorvastatin 20 mg by mouth daily GERD-omeprazole 40 mg by mouth daily Hypertension-metoprolol 50 mg by mouth twice a day/Norvasc 10 mg by mouth daily Depression-Prozac 40 mg by mouth daily/aripiprazole 2 mg by mouth daily Bowel regimen-Senokot/MiraLAX Pain plan-acetaminophen/oxycodone Diet-NPO overnight for surgery, restart postoperatively DVT prophylaxis- CODE STATUS-full code Problem List: 1. Osteomyelitis Pain Ratin Pain Location: Bilateral lower extremities Pain Goal: Pain 7 or less Pain Plan: See assessment Tomorrow's Labs & Rationales: CBC BEP DANIE SANCHEZ,TERENCE 11/17/16 1336: Attending MD Review Statement Attending Statement Attending MD Statement: examined this patient, discuss w/resident/PA/[employer] B[employer]ER, agreed w/resident/PA/[employer] BANKER, reviewed EMR data (avail), discussed with nursing, discussed with case mgmt, amended to note Attending Assessment/Plan: Patient seen and examined. Resting comfortably not in any distress. No events overnight reported by nursing staff. He has been constipated for the past 3 days. He denies any abdominal pain. Denies any nausea vomiting. He reports passing flatus. On examination abdomen is soft and nontender with normal bowel sounds. Lungs are clear bilaterally. Surgical dressing remaining trace bilateral lower extremity. He status post BKA right lower extremity. Laboratory data reveals slight increase in his creatinine level. Recommendations: -Hold Lasix dose today. Reevaluate her serum creatinine tomorrow before administering Lasix. -Continue wound care as directed by the surgical service. -If cleared by the surgical service patient may be discharged home tomorrow. -We'll optimize bowel regimen by adding oral Dulcolax.
[2016-11-17 08:03] LABS: ABSOLUTE BASOPHIL COUNT 0 /CUMM (0.0-0.2); ABSOLUTE EOSINOPHIL COUNT 0.3 /CUMM (0.0-0.7); ABSOLUTE GRANULOCYTE CT 4.8 /CUMM (1.4-6.5); ABSOLUTE LYMPH COUNT 2.1 /CUMM (1.2-3.4); ABSOLUTE MONOCYTE COUNT 1.3 /CUMM (0.10-0.60); BASOPHIL % 0.4 % (0.0-2.0); EOSINOPHIL % 3.7 % (0-5); GRANULOCYTE % 55.8 % (42.2-75.2); HEMATOCRIT 24.3 % (42-52); MEAN CORPUSCULAR HGB 27.3 PG (27.0-31.0); MEAN CORPUSCULAR HGB CONC 32.6 G/DL (33.0-37.0); MEAN CORPUSCULAR VOLUME 83.9 FL (80.0-94.0); MEAN PLATELET VOLUME 10.2 FL (7.4-10.4); PLATELET COUNT 229 /CUMM (130-400); RBC DISTRIBUTION WIDTH 16.6 % (11.5-14.5); RED BLOOD CELL CT 2.89 /CUMM (4.70-6.10); WHITE BLOOD CELL COUNT 8.6 /CUMM (4.8-10.8)
--- NOTE | 2016-11-17 08:56 | PN- General Surgery ---
Subjective Subjective: PT. STATES HE IS COMFORTABLE WHEN TAKING ALL PAIN MEDS, ALTHOUGH LAST HALF HOURS BEFORE HE IS DUE TO NARCOTIC HE STARTS FEELING PAIN BUILDING UP. Objective Vital Signs and I&Os Vital Signs Date Time Temp Pulse Resp B/P Pulse O2 O2 Flow FiO2 Ox Delivery Rate 11/17 0840 94 Room Air 11/17 0639 98.1 66 20 116/60 93 Room Air 11/17 0607 65 96 11/17 0114 72 93 11/17 0000 CPAP 11/16 2305 98.6 80 20 142/50 95 Room Air 11/16 2222 74 92 11/16 2139 80 142/50 11/16 1915 93 Room Air 11/16 1440 98.6 65 20 128/58 94 11/16 1219 96 Room Air 11/16 1137 Nasal 2.0L Cannula 11/16 1126 Nasal 2.0L Cannula 11/16 1007 68 128/70 11/16 1007 68 128/70 Intake & Output 11/17 1600 11/17 0800 11/17 0000 11/16 1600 11/16 0800 11/16 0000 Intake Total 480 1200 840 990 5704 Output Total 2142 518 5203 575 625 Balance -1470 600 -650 45 515 Intake, IV 20 Intake, Oral 480 1200 978 013 7694 Output, Urine 3696 284 9951 575 625 ALERT, ORIENTED, APPROPRIATE, NO DISTRESS LUNGS ESSENTIALLY CLEAR , RECEIVING NEB. TREATMENT COR REG. HR IN 90'S ABD BENIGN R STUMP IN IMMOBILIZER, WRAPPED IN [place],HAS APPROPRIATE SENSATION ON THIGH TO TOUCH. L FOOT WRAPPED , HAS VAC.ON Assessment/Plan Assessment/Plan S/P R BKA POD#1 FOR R FOOT NON HEALING ULCERS/ OSTEO WITH MULTIPLE MEDICAL ISSUES STABLE R STUMP EXAM LIMITED DUE TO DRESSING. DRESSING IS DRY , NO BLEEDING NOTED, GOOD SENSATION TO THIGH.WILL CHANGE DRESSING TOMORROW ANEMIA, LIKELY PERIOP LOSSES, MONITOR LABS PAIN ; REQUIRES MULTIPLE MEDS INCLUDING GABAPENTIN, OXYCONTIN AND PERCOCET NEEDS TO WORK ON UPPER EXTREMITY STRENGTH. MEDICAL ISSUES PER HOSPITALIST TEAM Core Measures/Miscellaneous Venous Thromboembolism VTE Risk Factors: Age > 40, Cancer/chemo/oth therapy, Surgery VTE Contraindications: No Contraindications VTE Diagnosis: No VTE Type: NONE VTE Confirmed by (Test): NONE Beta Gia Is Beta Gia a Home Med? Yes If Yes, Was This Ordered Today? Yes Antibiotics Is Patient on Antibiotics? Yes If Yes: infection
--- NOTE | 2016-11-17 12:08 | PN- Pulmonary ---
Subjective HPI/Critical Care Issues: pt seen and examined tolerated autopap well pain better controlled no n/v/d/c Objective Current Medications: Current Medications Sig/Taylor Start time Last Medication Dose Route Stop Time Status Admin Acetaminophen 325 MG Q6P PRN 11/15 1645 AC PO Albuterol Sulfate 3 ML BID 11/15 2200 AC 11/17 INH 0838 Albuterol Sulfate 3 ML Q6P PRN 11/15 1645 AC INH Amlodipine Besylate 10 MG DAILY 11/16 1000 AC 11/17 PO 0957 Aripiprazole 2 MG DAILY 11/16 1000 AC 11/17 PO 0955 Atorvastatin Calcium 20 MG 1700 11/15 1700 AC 11/16 PO 1642 Bisacodyl 5 MG ONE ONE 11/17 1100 DC PO 11/17 1101 Budesonide/ 2 PUF BID 11/15 2200 AC 11/17 Formoterol Fumarate INH 0959 Calcium Carbonate 500 MG BID 11/15 2200 AC 11/17 PO 0959 Carisoprodol 350 MG Q6-PRN PRN 11/15 1645 AC 11/16 PO 1804 Ferrous Sulfate 325 MG BID 11/15 2200 AC 11/17 PO 0955 Fluoxetine HCl 40 MG DAILY 11/16 1000 AC 11/17 PO 0958 Furosemide 40 MG DAILY 11/17 1000 AC PO Gabapentin 300 MG Q8 11/16 2200 AC 11/17 PO 0456 Gabapentin 100 MG Q8 11/15 2200 DC 11/16 PO 11/16 2159 1432 Heparin Sodium 5,000 UNIT Q8 11/15 2200 AC 11/17 (Porcine) SC 0456 Insulin Aspart 0 TIDAC 11/15 1700 AC SC Insulin Detemir 5 UNITS AT BEDTIME 11/15 2200 AC 11/16 SC 2140 Meropenem 1 GM Q8H 11/15 1800 AC 11/17 IV 0904 Metoprolol Tartrate 50 MG BID 11/15 2200 AC 11/17 PO 0956 Omeprazole 40 MG DAILY AC 11/16 0700 AC 11/17 PO 0456 Oxycodone HCl 10 MG Q12 11/16 1040 AC 11/17 PO 0958 Oxycodone/ 1 TAB Q4P PRN 11/15 164 AC Acetaminophen PO Oxycodone/ 2 TAB Q4 HRS NEEDED PRN 11/15 1645 AC 11/17 Acetaminophen PO 0904 Polyethylene Glycol 17 GM DAILY NEEDED PRN 11/15 1645 AC 11/17 PO 1007 Senna/Docusate Sodium 1 TAB BID PRN 11/15 1645 AC 11/17 PO 1008 Sodium Chloride 2 SPRAY Q4P PRN 11/15 164 AC NIYA Sucralfate 1,000 MG 4 TIMES/DAY 11/15 1800 AC 11/17 PO 0955 Tiotropium [place] 1 PUF DAILY 11/16 1000 AC 11/17 INH 0959 Vital Signs & I&O Last 24 Hrs of Vitals and I&O: Vital Signs Date Time Temp Pulse Resp B/P Pulse O2 O2 Flow FiO2 Ox Delivery Rate 11/17 0957 68 128/66 11/17 0956 68 128/66 11/17 0840 94 Room Air 11/17 0800 95 Room Air Room Air 11/17 0639 98.1 66 20 116/60 93 Room Air 11/17 0607 65 96 11/17 0114 72 93 11/17 0000 CPAP 11/16 2305 98.6 80 20 142/50 95 Room Air 11/16 2222 74 92 11/16 2139 80 142/50 11/16 1915 93 Room Air 11/16 1440 98.6 65 20 128/58 94 11/16 1219 96 Room Air Intake & Output 11/17 1600 11/17 0800 11/17 0000 Intake Total 480 1200 Output Total 525 1950 600 Balance -525 -1470 600 Intake, Oral 480 1200 Output, Urine 525 1950 600 Exam Other Physical Findings: gen awake and alert heent ncat cvs s1, s2 lungs diminished bibasilar abd soft bs+ ext edematous, dressing intact Results Last 24 Hrs of Lab Results: Laboratory Tests 11/17/16 0615: Anion Gap 6, Estimated GFR 41 L, BUN/Creatinine Ratio 32.9 H, CBC w Diff NO MAN DIFF REQ, RBC 2.89 L, MCV 83.9, MCH 27.3, RDW 16.6 H, MPV 10.2, Gran % 55.8, Lymphocytes % 24.6, Monocytes % 15.5 H, Eosinophils % 3.7, Basophils % 0.4, Absolute Granulocytes 4.8, Absolute Lymphocytes 2.1, Absolute Monocytes 1.3 H, Absolute Eosinophils 0.3, Absolute Basophils 0, PUBS MCHC 32.6 L, ESR Westergren 81 H Impression/Plan Impression/Plan Impression/Plan: Impression 61 year old man * at respiratory baseline - hx of COPD * History of pulmonary embolism * Osteomyelitis - s/p right bka Plan - trc/nebs - autopap at night - [id number] please dc pt on this setting - continue symbicort and spiriva - monitor ins/outs - incentive spirometry DVT prophylaxis at all times DC planning Call with any questions
[2016-11-17 14:37] VITALS: BP 144/58
[2016-11-17 22:59] VITALS: BP 146/61
--- NOTE | 2016-11-18 07:14 | PN- Housestaff ---
See Addendum YEYO SENA MD 11/18/16 0713: Subjective Follow-up For: Osteomyelitis Subjective: Patient seen and examined. He is seen sitting upright in bed resting comfortably. He appears to be in no acute distress. He reports sleeping well last night and has no new subjective complaints. He admits that his pain in his bilateral lower extremities is well controlled on the current regimen. He has no yet had a bowel movement, but is now agreeing to take a dulcolax suppository. Otherwise he denies any fever, chills, chest pain, palpitations, shortness of breath, nausea, vomiting, diarrhea. No overnight events reported. Review of Systems Constitutional: Reports: see HPI. Objective Last 24 Hrs of Vital Signs/I&O Vital Signs Date Time Temp Pulse Resp B/P Pulse O2 O2 Flow FiO2 Ox Delivery Rate 11/18 0737 97.7 57 20 148/67 96 Room Air 11/18 0000 CPAP 11/17 2259 98.2 60 20 146/61 96 Room Air 11/17 2224 78 96 11/17 2138 64 146/60 11/17 1825 95 Room Air 11/17 1437 99.1 74 20 144/58 95 Room Air 11/17 0957 68 128/66 11/17 0956 68 128/66 Intake & Output 11/18 1600 11/18 0800 11/18 0000 Intake Total 480 1280 Output Total 800 1650 Balance -320 -370 Intake, Oral 480 1280 Output, Urine 800 1650 Physical Exam General Appearance: Alert, Oriented X3, Cooperative, No Acute Distress Other Physical Findings: General -well-developed, well-nourished morbidly obese elderly man in no acute distress HEENT - NCAT, PERRL, EOMI, anicteric sclera Cardio - S1, S2 w/o murmurs/gallops/rubs Resp - CTA bilaterally w/o wheezing/rhochi/crackles GI - soft, obese, nontender, nondistended, bowel sounds present Neuro - Awake and alert, CN II - XII grossly intact Extremities -2+ lower extremity edema, , wound VAC in place on left foot, right lower extremity status post below knee amputation with clean/sterile surgical dressing and scant amount of drainage Current Medications: Current Medications Sig/Taylor Start time Last Medication Dose Route Stop Time Status Admin Acetaminophen 325 MG Q6P PRN 11/15 1645 AC PO Albuterol Sulfate 3 ML BID 11/15 2200 AC 11/17 INH 1825 Albuterol Sulfate 3 ML Q6P PRN 11/15 1645 AC INH Amlodipine Besylate 10 MG DAILY 11/16 1000 AC 11/17 PO 0957 Aripiprazole 2 MG DAILY 11/16 1000 AC 11/17 PO 0955 Atorvastatin Calcium 20 MG 1700 11/15 1700 AC 11/17 PO 1653 Bisacodyl 10 MG ONCE ONE 11/18 0815 DC 11/18 MO 11/18 0816 0822 Bisacodyl 5 MG ONE ONE 11/17 1545 DC 11/17 PO 11/17 1546 1653 Bisacodyl 5 MG ONE ONE 11/17 1100 DC 11/17 PO 11/17 1101 1256 Budesonide/ 2 PUF BID 11/15 2200 AC 11/17 Formoterol Fumarate INH 2136 Calcium Carbonate 500 MG BID 11/15 2200 AC 11/17 PO 2138 Carisoprodol 350 MG Q6-PRN PRN 11/15 1645 AC 11/16 PO 1804 Ferrous Sulfate 325 MG BID 11/15 2200 AC 11/17 PO 2137 Fluoxetine HCl 40 MG DAILY 11/16 1000 AC 11/17 PO 0958 Furosemide 40 MG DAILY 11/17 1000 DC PO Gabapentin 300 MG Q8 11/16 2200 AC 11/18 PO 0610 Heparin Sodium 5,000 UNIT Q8 11/15 2200 AC 11/18 (Porcine) SC 0611 Insulin Aspart 0 TIDAC 11/15 1700 AC SC Insulin Detemir 5 UNITS AT BEDTIME 11/15 2200 AC 11/17 SC 2139 Meropenem 1 GM Q8H 11/15 1800 AC 11/18 IV 0235 Metoprolol Tartrate 50 MG BID 11/15 2200 AC 11/17 PO 2138 Omeprazole 40 MG DAILY AC 11/16 0700 AC 11/18 PO 0610 Oxycodone HCl 10 MG Q12 11/16 1040 AC 11/17 PO 2136 Oxycodone/ 1 TAB Q4P PRN 11/15 1645 DC Acetaminophen PO Oxycodone/ 2 TAB Q4 HRS NEEDED PRN 11/15 1645 AC 11/18 Acetaminophen PO 0609 Polyethylene Glycol 17 GM DAILY NEEDED PRN 11/15 1645 AC 11/17 PO 1007 Senna/Docusate Sodium 1 TAB BID PRN 11/15 1645 AC 11/17 PO 2146 Sodium Chloride 2 SPRAY Q4P PRN 11/15 1645 AC NIYA Sucralfate 1,000 MG 4 TIMES/DAY 11/15 1800 AC 11/17 PO 2137 Tiotropium [place] 1 PUF DAILY 11/16 1000 AC 11/17 INH 0959 Last 24 Hrs of Lab/Enrique Results Last 24 Hrs of Labs/Mics: Laboratory Tests 11/18/16 0627: Anion Gap 7, Estimated GFR 48 L, BUN/Creatinine Ratio 37.3 H, CBC w Diff NO MAN DIFF REQ, RBC 2.69 L, MCV 83.1, MCH 27.2, RDW 16.1 H, MPV 10.1, Gran % 52.6, Lymphocytes % 27.9, Monocytes % 13.8 H, Eosinophils % 4.3, Basophils % 1.4, Absolute Granulocytes 4.3, Absolute Lymphocytes 2.3, Absolute Monocytes 1.1 H, Absolute Eosinophils 0.3, Absolute Basophils 0.1, PUBS MCHC 32.7 L Assessment/Plan Assessment: Patient feels well and has no new complaints. He is to have his right lower extremity dressing changed today by the surgical service and his wound vac inspected by podiatry. His hemoglobin was mildly lower for which he is transfused one unit of packed red blood cells. He is to be dischargeed to [facility] today where he will complete 4 weeks of intravenous antibiotics. He is to be continued on gabapentin and oxycontin on discharge. He is also to continue utilizing autopap at night and will need to follow up with Dr. Diehl within one month. Lasix is still held. 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 Calculated RCRI demonstrated an 11% risk of major cardiovascular restraints during surgery which has been explaned to the patient -Nothing by mouth overnight in anticipation for surgery. -Status post right BKA: Postoperative day #1 -Meropenem 1 g IV every 8 hours -OxyContin 10 mg by mouth every 12 hours -Gabapentin 300 mg by mouth 3 times a day -Podiatry consult -Infectious disease consult -Vascular surgery consult -PT evaluation -Follow-up operating room cultures and sensitivities Acute hypoxic hypercarbic respiratory failure, secondary to congestive heart failure/possible pneumonia He had been hypoxic, hypercarbic respiratory failure on 11/03/2016 and on , due to flash pulmonary edema, secondary to fluid overload with a history of congestive heart failure, and a component of his COPD acting up requiring him BiPAP intermittently. His respiratory status however has been stable now. -Supplemental oxygen, goal >92%, taper as tolerated -TRC with albuterol/ipratropium when necessary -Incentive spirometry -Spiriva/Symbicort -Lasix discontinued -Pulmonology consult -Cardiology consult -Outpatient sleep study Insulin-dependent diabetes mellitus -Accu-Cheks 3 times a day before meals/at bedtime -Hold oral hypoglycemics -Nothing by mouth Novolin sliding scale insulin, convert to NovoLog sliding scale insulin when eating -Levemir 5 units subcutaneously at bedtime Hyperlipidemia-atorvastatin 20 mg by mouth daily GERD-omeprazole 40 mg by mouth daily Hypertension-metoprolol 50 mg by mouth twice a day/Norvasc 10 mg by mouth daily Depression-Prozac 40 mg by mouth daily/aripiprazole 2 mg by mouth daily Bowel regimen-Senokot/MiraLAX Pain plan-acetaminophen/oxycodone Diet-NPO overnight for surgery, restart postoperatively DVT prophylaxis- CODE STATUS-full code Problem List: 1. Osteomyelitis Pain Ratin Pain Location: Bilateral lower extremities Pain Goal: Pain 7 or less Pain Plan: See assessment Tomorrow's Labs & Rationales: None
[2016-11-18 07:37] VITALS: BP 148/67
[2016-11-18 07:58] LABS: ABSOLUTE BASOPHIL COUNT 0.1 /CUMM (0.0-0.2); HEMATOCRIT 22.4 % (42-52); RED BLOOD CELL CT 2.69 /CUMM (4.70-6.10)
[2016-11-18 08:18] LABS: ABSOLUTE EOSINOPHIL COUNT 0.3 /CUMM (0.0-0.7); ABSOLUTE GRANULOCYTE CT 4.3 /CUMM (1.4-6.5); ABSOLUTE LYMPH COUNT 2.3 /CUMM (1.2-3.4); ABSOLUTE MONOCYTE COUNT 1.1 /CUMM (0.10-0.60); BASOPHIL % 1.4 % (0.0-2.0); EOSINOPHIL % 4.3 % (0-5); GRANULOCYTE % 52.6 % (42.2-75.2); MEAN CORPUSCULAR HGB 27.2 PG (27.0-31.0); MEAN CORPUSCULAR HGB CONC 32.7 G/DL (33.0-37.0); MEAN CORPUSCULAR VOLUME 83.1 FL (80.0-94.0); MEAN PLATELET VOLUME 10.1 FL (7.4-10.4); PLATELET COUNT 245 /CUMM (130-400); RBC DISTRIBUTION WIDTH 16.1 % (11.5-14.5); WHITE BLOOD CELL COUNT 8.2 /CUMM (4.8-10.8)
--- NOTE | 2016-11-18 09:58 | PN- Pulmonary ---
Subjective HPI/Critical Care Issues: pt seen and examined comfortable pain controlled on autopap nocturnally Objective Current Medications: Current Medications Sig/Taylor Start time Last Medication Dose Route Stop Time Status Admin Acetaminophen 325 MG Q6P PRN 11/15 1645 AC PO Albuterol Sulfate 3 ML BID 11/15 2200 AC 11/17 INH 1825 Albuterol Sulfate 3 ML Q6P PRN 11/15 1645 AC INH Amlodipine Besylate 10 MG DAILY 11/16 1000 AC 11/18 PO 0941 Aripiprazole 2 MG DAILY 11/16 1000 AC 11/18 PO 0940 Atorvastatin Calcium 20 MG 1700 11/15 1700 AC 11/17 PO 1653 Bisacodyl 10 MG ONCE ONE 11/18 0815 DC 11/18 NE 11/18 0816 0822 Bisacodyl 5 MG ONE ONE 11/17 1545 DC 11/17 PO 11/17 1546 1653 Bisacodyl 5 MG ONE ONE 11/17 1100 DC 11/17 PO 11/17 1101 1256 Budesonide/ 2 PUF BID 11/15 2200 AC 11/18 Formoterol Fumarate INH 0939 Calcium Carbonate 500 MG BID 11/15 2200 AC 11/18 PO 0943 Carisoprodol 350 MG Q6-PRN PRN 11/15 1645 AC 11/16 PO 1804 Ferrous Sulfate 325 MG BID 11/15 2200 AC 11/18 PO 0941 Fluoxetine HCl 40 MG DAILY 11/16 1000 AC 11/18 PO 0941 Furosemide 40 MG DAILY 11/17 1000 DC PO Gabapentin 300 MG Q8 11/16 2200 AC 11/18 PO 0610 Heparin Sodium 5,000 UNIT Q8 11/15 2200 AC 11/18 (Porcine) SC 0611 Insulin Aspart 0 TIDAC 11/15 1700 AC SC Insulin Detemir 5 UNITS AT BEDTIME 11/15 2200 AC 11/17 SC 2139 Meropenem 1 GM Q8H 11/15 1800 AC 11/18 IV 0942 Metoprolol Tartrate 50 MG BID 11/15 2200 AC 11/18 PO 0941 Omeprazole 40 MG DAILY AC 11/16 0700 AC 11/18 PO 0610 Oxycodone HCl 10 MG Q12 11/16 1040 AC 11/18 PO 0941 Oxycodone/ 1 TAB Q4P PRN 11/15 1645 DC Acetaminophen PO Oxycodone/ 2 TAB Q4 HRS NEEDED PRN 11/15 1645 AC 11/18 Acetaminophen PO 0941 Polyethylene Glycol 17 GM DAILY NEEDED PRN 11/15 1645 AC 11/17 PO 1007 Senna/Docusate Sodium 1 TAB BID PRN 11/15 1645 AC 11/17 PO 2146 Sodium Chloride 2 SPRAY Q4P PRN 11/15 1645 AC NIYA Sucralfate 1,000 MG 4 TIMES/DAY 11/15 1800 AC 11/18 PO 0940 Tiotropium Magna 1 PUF DAILY 11/16 1000 AC 11/18 INH 0940 Vital Signs & I&O Last 24 Hrs of Vitals and I&O: Vital Signs Date Time Temp Pulse Resp B/P Pulse O2 O2 Flow FiO2 Ox Delivery Rate 11/18 0941 98.7 62 18 138/62 11/18 0941 98.7 62 18 138/62 11/18 0737 97.7 57 20 148/67 96 Room Air 11/18 0000 CPAP 11/17 2259 98.2 60 20 146/61 96 Room Air 11/17 2224 78 96 11/17 2138 64 146/60 11/17 1825 95 Room Air 11/17 1437 99.1 74 20 144/58 95 Room Air 11/17 0957 68 128/66 Intake & Output 11/18 1600 11/18 0800 11/18 0000 Intake Total 480 1280 Output Total 800 1650 Balance -320 -370 Intake, Oral 480 1280 Output, Urine 800 1650 Exam Other Physical Findings: gen awake and alert heent ncat cvs s1, s2 lungs diminished bibasilar abd soft bs+ ext edematous, dressing intact Results Last 24 Hrs of Lab Results: Laboratory Tests 11/18/16 0627: Anion Gap 7, Estimated GFR 48 L, BUN/Creatinine Ratio 37.3 H, CBC w Diff NO MAN DIFF REQ, RBC 2.69 L, MCV 83.1, MCH 27.2, RDW 16.1 H, MPV 10.1, Gran % 52.6, Lymphocytes % 27.9, Monocytes % 13.8 H, Eosinophils % 4.3, Basophils % 1.4, Absolute Granulocytes 4.3, Absolute Lymphocytes 2.3, Absolute Monocytes 1.1 H, Absolute Eosinophils 0.3, Absolute Basophils 0.1, PUBS MCHC 32.7 L Impression/Plan Impression/Plan Impression/Plan: Impression 61 year old man * at respiratory baseline - hx of COPD * History of pulmonary embolism * Osteomyelitis - s/p right bka * anemia - per primary team Plan - trc/nebs - autopap at night - [id number] please dc pt on this setting - continue symbicort and spiriva - monitor ins/outs - incentive spirometry DVT prophylaxis at all times DC planning Call with any questions
--- NOTE | 2016-11-18 10:47 | PN- Vascular Surgery ---
Subjective Subjective: No complaints. Anticipates discharge to [facility]. Informed that kedar will see him to fit dice person for bka. Objective Vital Signs and I&Os Vital Signs Date Time Temp Pulse Resp B/P Pulse O2 O2 Flow FiO2 Ox Delivery Rate 11/18 0941 98.7 62 18 138/62 11/18 0941 98.7 62 18 138/62 11/18 0737 97.7 57 20 148/67 96 Room Air 11/18 0000 CPAP 11/17 2259 98.2 60 20 146/61 96 Room Air 11/17 2224 78 96 11/17 2138 64 146/60 11/17 1825 95 Room Air 11/17 1437 99.1 74 20 144/58 95 Room Air Intake & Output 11/18 1600 11/18 0800 11/18 0000 11/17 1600 11/17 0800 11/17 0000 Intake Total 480 1280 5898 827 4447 Output Total 800 1650 1575 1950 600 Balance -320 -370 -375 -1470 600 Intake, Oral 480 1280 3641 740 3586 Output, Urine 800 1650 1575 1950 600 Physical Exam: BKA dressing changed. incision well approximated with dennise. no erythema or exudates. re-dressed with xeroform, fluffs, kerlex, re wrap. replaced knee immobilizer. Assessment/Plan Assessment/Plan This 61 year old male is POD#3 s/p R bka pain control as ordered dressing changed kedar called to assess him for dice person to change wound vac dressing today d/c to [facility] after blood transfusion today d/w
[2016-11-18 11:02] VITALS: BP 136/70
[2016-11-18] MEDS ORDERED: SENNA PLUS TAB1 EACH PO (11:43)
[2016-11-18] MEDS ORDERED: OXYCONTIN10 M1 PO (11:43)
[2016-11-18] MEDS ORDERED: MIRALAX119 GM PO (11:44)
[2016-11-18] MEDS ORDERED: SPIRIVA18 MCG INH (11:44)
--- NOTE | 2016-11-18 11:48 | PN- Infect Dx ---
Subjective Subjective: Afebrile. He notes continued pain in the right leg Objective Last 24 Hrs of Vital Signs/I&O Vital Signs Date Time Temp Pulse Resp B/P Pulse O2 O2 Flow FiO2 Ox Delivery Rate 11/18 1132 97 Room Air Room Air 11/18 1102 98.7 62 18 136/70 11/18 0941 98.7 62 18 138/62 11/18 0941 98.7 62 18 138/62 11/18 0800 Room Air Room Air 11/18 0737 97.7 57 20 148/67 96 Room Air 11/18 0000 CPAP 11/17 2259 98.2 60 20 146/61 96 Room Air 11/17 2224 78 96 11/17 2138 64 146/60 11/17 1825 95 Room Air 11/17 1437 99.1 74 20 144/58 95 Room Air Intake & Output 11/18 1600 11/18 0800 11/18 0000 Intake Total 480 1280 Output Total 800 1650 Balance -320 -370 Intake, Oral 480 1280 Output, Urine 800 1650 Physical Exam Other Physical Findings: He appears comfortable in no acute distress Chest Pro-Line in the right upper chest with no inflammation at the site Lungs decreased breath sounds at the left base Extremities right leg dressing intact; left foot with wound VAC in place Results Last 24 Hours of Lab Results: Laboratory Tests 11/18 0627 Chemistry Sodium (137 - 145 mmol/L) 138 Potassium (3.5 - 5.1 mmol/L) 5.0 Chloride (98 - 107 mmol/L) 102 Carbon Dioxide (22 - 30 mmol/L) 28 Anion Gap (5 - 16) 7 BUN (9 - 20 mg/dL) 56 H Creatinine (0.7 - 1.2 mg/dL) 1.5 H Estimated GFR (>60 ml/min) 48 L BUN/Creatinine Ratio (7 - 25 %) 37.3 H Hematology CBC w Diff NO MAN DIFF REQ WBC (4.8 - 10.8 /CUMM) 8.2 RBC (4.70 - 6.10 /CUMM) 2.69 L Hgb (14.0 - 18.0 G/DL) 7.3 *L Hct (42 - 52 %) 22.4 L MCV (80.0 - 94.0 FL) 83.1 MCH (27.0 - 31.0 PG) 27.2 RDW (11.5 - 14.5 %) 16.1 H Plt Count (130 - 400 /CUMM) 245 MPV (7.4 - 10.4 FL) 10.1 Gran % (42.2 - 75.2 %) 52.6 Lymphocytes % (20.5 - 51.1 %) 27.9 Monocytes % (1.7 - 9.3 %) 13.8 H Eosinophils % (0 - 5 %) 4.3 Basophils % (0.0 - 2.0 %) 1.4 Absolute Granulocytes (1.4 - 6.5 /CUMM) 4.3 Absolute Lymphocytes (1.2 - 3.4 /CUMM) 2.3 Absolute Monocytes (0.10 - 0.60 /CUMM) 1.1 H Absolute Eosinophils (0.0 - 0.7 /CUMM) 0.3 Absolute Basophils (0.0 - 0.2 /CUMM) 0.1 PUBS MCHC (33.0 - 37.0 G/DL) 32.7 L Bone pathology November 15 "acute and chronic osteomyelitis" Last 24 Hours of Enrique Results: No recent cultures Assessment/Plan Impression: Stable status post right BKA and further debridement of the left foot 3 days ago for bilateral polymicrobial osteomyelitis. He remains afebrile with his white blood cell count normal on Meropenem Day 15. As he did undergo further debridement of the bone of his left foot 2 days ago his antibiotics will need to be extended so that he receives 4 weeks from this last debridement, particularly as his pathology is again positive for osteomyelitis. His ESR has increased, though this is nonspecific and of unclear significance. Suggestion: 1. Continue Meropenem to complete a four-week course from his most recent debridement (until December 13) 2. Weekly ESR while on Meropenem
[2016-11-18] MEDS ORDERED: GABAPENTIN300 M2 PO (13:05)
[2016-11-18] MEDS ORDERED: OXYCODONE-ACET1 EAC1 PO (14:20)
[2016-11-18 14:28] VITALS: BP 140/67
[2016-11-18] MEDS ORDERED: MEROPENEM1 G1 IV (14:42)
== END 2016-11-18 17:52 | DRG 616 ==
LOC: ENRESERVTM → CANRESERV → ENRESERVDT → ERH 13:23 → ERHI 16:08 → 2NB 16:08 → ENPENDDIS 16:08 → 2NB 20:38 → EDBEDREQ 11-04 10:12 → CMPBEDREQ 11-04 10:14 → 2NB 11-09 08:37
PROVIDERS: Emergency Medicine; Internal Medicine Interventional Cardiology; Physician Assistant Surgical; Student in an Organized Health Care Education/Training Program; ADMIT Internal Medicine
PROC: 0QBL0ZX Excision of Right Tarsal, Open Approach, Diagnostic (ICD-10-PCS; principal; 2016-11-02)
PROC: 0QBM0ZX Excision of Left Tarsal, Open Approach, Diagnostic (ICD-10-PCS; principal; 2016-11-02)
PROC: 0QBL0ZZ Excision of Right Tarsal, Open Approach (ICD-10-PCS; 2016-11-08)
PROC: 0QBM0ZX Excision of Left Tarsal, Open Approach, Diagnostic (ICD-10-PCS; 2016-11-08)
PROC: 02HV33Z Insertion of Infusion Device into Superior Vena Cava, Percutaneous Approach (ICD-10-PCS; 2016-11-09)
PROC: 0Y6H0Z1 Detachment at Right Lower Leg, High, Open Approach (ICD-10-PCS; 2016-11-15)
PROC: 0QBM0ZZ Excision of Left Tarsal, Open Approach (ICD-10-PCS; 2016-11-15)
DX: E11.69 Type 2 diabetes mellitus with other specified complication (principal); J96.01 Acute respiratory failure with hypoxia; I50.33 Acute on chronic diastolic (congestive) heart failure; E11.22 Type 2 diabetes mellitus with diabetic chronic kidney disease; E87.5 Hyperkalemia; M86.671 Other chronic osteomyelitis, right ankle and foot; I13.0 Hypertensive heart and chronic kidney disease with heart failure and stage 1 through stage 4 chronic kidney disease, or unspecified chronic kidney disease; M86.672 Other chronic osteomyelitis, left ankle and foot; J44.1 Chronic obstructive pulmonary disease with (acute) exacerbation; E66.01 Morbid (severe) obesity due to excess calories; E11.621 Type 2 diabetes mellitus with foot ulcer; I25.10 Atherosclerotic heart disease of native coronary artery without angina pectoris; J44.9 Chronic obstructive pulmonary disease, unspecified; G47.33 Obstructive sleep apnea (adult) (pediatric); Z86.711 Personal history of pulmonary embolism; Z79.4 Long term (current) use of insulin; E78.5 Hyperlipidemia, unspecified; I25.2 Old myocardial infarction; L97.529 Non-pressure chronic ulcer of other part of left foot with unspecified severity; L97.519 Non-pressure chronic ulcer of other part of right foot with unspecified severity; Z86.718 Personal history of other venous thrombosis and embolism; N18.9 Chronic kidney disease, unspecified; I35.0 Nonrheumatic aortic (valve) stenosis; Z68.36 Body mass index [BMI] 36.0-36.9, adult; K21.9 Gastro-esophageal reflux disease without esophagitis; F32.9 Major depressive disorder, single episode, unspecified; I73.9 Peripheral vascular disease, unspecified
CPT/HCPCS: 04007; 2NBSP; 87070; 87075; 87184; 36415; 76775; 77001; 78582; 81001; 82436; 86920; 87040; 87071; 87147; 88304; 88307; 93005; 93010; 93306; 93925; 93970; 97110-GO; 97161-GP; 97530-GO; A9540; A9558; C1769; J0131; J0690; J1642; J1644; J1815; J1940; J2001; J2185; J2270; J2405; J2920; J3490; J7042; P9016

== ENCOUNTER 2016-12-07 10:42 | Inpatient (IN) | payer OTHER ==
[~2016-12-07] VITALS: Ht 182.9 cm; Wt 120.8 kg
[~2016-12-07 10:42] MED LIST changes: +ABILIFY2 MG PO; +GABAPENTIN300 M2 PO; +OXYCONTIN10 M1 PO; +SENNA PLUS TAB1 EACH PO; +SPIRIVA18 MCG INH
--- NOTE | 2016-12-07 10:49 | NUR ---
61 YO MALE BIBA FROM [facility]. PT C/O SHORTNESS OF BREATH FOR APPROX 1 HOUR. PT HAD PARTIAL AMPUTATION (BELOW KNEE) OF R LEG ON 11/22/16. PT DENIES CHEST PAIN. RA SATS 86%. PT PLACED ON 2L OXYGEN VIA NASAL CANNULA AT THIS TIME. PT CURRENTLY ON ANTIBITOICS FOR OSTEOMYELITIS OF L FOOT. PA AT BEDSIDE ON ARRIVAL
--- NOTE | 2016-12-07 11:08 | NUR ---
MESSAGE LEFT FOR (NOE) PER PTS REQUEST.
[2016-12-07] MEDS ORDERED: MEROPENEM1 G1 IV (11:19)
--- NOTE | 2016-12-07 11:20 | NUR ---
DRAW LAV, SST, X2 OSHEA, BLD CULTURE
[2016-12-07] MEDS ORDERED: MOVANTIK25 M1 PO ×2 (11:23→14:58)
[2016-12-07] MEDS ORDERED: ASCORBIC ACID250 MG PO (11:26)
[2016-12-07 11:27] LABS: ABSOLUTE BASOPHIL COUNT 0 /CUMM (0.0-0.2); ABSOLUTE EOSINOPHIL COUNT 0.3 /CUMM (0.0-0.7); ABSOLUTE LYMPH COUNT 1.2 /CUMM (1.2-3.4); BASOPHIL % 0.3 % (0.0-2.0); EOSINOPHIL % 2.7 % (0-5); HEMATOCRIT 29.7 % (42-52); MEAN CORPUSCULAR HGB 27.4 PG (27.0-31.0); MEAN CORPUSCULAR HGB CONC 32.8 G/DL (33.0-37.0); MEAN CORPUSCULAR VOLUME 83.7 FL (80.0-94.0); MEAN PLATELET VOLUME 8.9 FL (7.4-10.4); PLATELET COUNT 299 /CUMM (130-400); RBC DISTRIBUTION WIDTH 16.1 % (11.5-14.5); RED BLOOD CELL CT 3.55 /CUMM (4.70-6.10); WHITE BLOOD CELL COUNT 9.5 /CUMM (4.8-10.8)
[2016-12-07] MEDS ORDERED: LEVEMIR100 UNIT/1 SC (11:29)
--- NOTE | 2016-12-07 11:33 | NUR ---
THIS NURSE SPOKE TO THE WOUND CLINIC ABOUT PT BEING SEENT TO ER FROM [facility]HAB WITH OUT WOUND VAC ATTATCHED TO L FOOT. PRINCE WOUND NURSE TO COME EVALUATE PT
--- NOTE | 2016-12-07 11:40 | RADIOLOGY REPORT ---
EXAMINATION: XR PORTABLE CHEST CLINICAL INFORMATION: Cough, shortness of breath COMPARISON: 11/14/2016. TECHNIQUE: Portable AP upright view of the chest was obtained. FINDINGS: Moderate peribronchial thickening, vascular congestion and interstitial edema identified. Patchy right lower lobe consolidation has increased. There is extensive consolidation in the retrocardiac region with a persistent small left pleural effusion without change. Right-sided jugular line extends to the lower SVC. The cardiac silhouette remains enlarged without change. IMPRESSION: 1. Cardiomegaly and worsening mild interstitial pulmonary edema. 2. Worsening patchy consolidation at the right lung base and unresolved consolidation in the left retrocardiac region. These findings may reflect atelectasis but superimposed pneumonia is not excluded. Associated small left pleural effusion.
--- NOTE | 2016-12-07 11:55 | NUR ---
PRINCE AT BEDSIDE, WOUND VAC DRESSING REMOVED AND XEROFORM DRESSING APPLIED, PRINCE REMOVED 25 LAURA FROM R STUMP, INCISION, CLEAN DRY NO REDNESS OR DRAINAGE. O2 SAT ON 2L 98 % , O2 DECREASED AT THIS TIME TO 1L NC AND SATURATION 95 %. NSR ON MONITOR, PT ALERT AND ORIENTED JOKING WITH THIS NURSE
--- NOTE | 2016-12-07 12:43 | NUR ---
PT VOIDED 420 CC CLEAR YELLOW URINE
--- NOTE | 2016-12-07 12:58 | NUR ---
PT ASSISTED WITH URINAL, VOIDED ANOTHER 300CC CLEAR YELLOW URINE, O2 SAT 96 % ON 1/2 A LITER
--- NOTE | 2016-12-07 13:05 | ED DYSPNEA/ASTHMA COMPLAINT ---
History of Present Illness General Chief Complaint: Dyspnea (COPD, CHF, Other) Stated Complaint: BIBA FOR SOB Source: patient, family, old records, EMS Exam Limitations: no limitations Vital Signs & Intake/Output Vital Signs & Intake/Output Vital Signs Date Time Temp Pulse Resp B/P B/P Pulse O2 O2 Flow FiO2 Mean Ox Delivery Rate 12/08 1850 96 Nasal 1.0L Cannula 12/08 1600 98.7 69 20 134/70 94 Nasal 1.0L Cannula 12/08 1230 57 132/66 12/08 1142 Nasal 2.0L Cannula 12/08 1133 94 Nasal 1.0L Cannula 12/08 0933 60 170/80 12/08 0933 60 170/80 / 0821 97.8 60 20 170/80 98 Nasal 1.0L Cannula 12/08 0557 53 95 12/08 0332 57 96 12/08 0104 57 96 12/08 0102 97.9 55 18 140/60 95 Nasal 2.0L Cannula 12/08 0000 Nasal 2.0L Cannula 12/07 2120 60 152/68 12/07 1930 Nasal 2.0L Cannula 12/07 1930 98.2 64 20 152/68 96 Nasal 2.0L Cannula ED Intake and Output 12/08 0000 12/07 1200 Intake Total 500 Output Total 3540 400 Balance -3040 -400 Intake, IV 20 Intake, Oral 480 Output, Urine 3540 400 Patient 297 lb 362 lb Weight Weight Renetta Lift Reported by Patient Measurement Method Allergies Coded Allergies: niacin (ITCHING 11/02/16) Reconcile Medications Albuterol Sulfate 0.63 MG/3 ML VIAL.NEB 1 Vial INH/CARON TID PRN BREATHING PROBLEMS (Reported) Amlodipine Besylate 10 MG TABLET 1 TAB PO DAILY HTN (Reported) Aripiprazole (Abilify) 2 MG TABLET 1 TAB PO QPM MENTAL HEALTH (Reported) Ascorbic Acid 250 MG TABLET 1 TAB PO BID VITAMIN SUPPORT (Reported) Budesonide/Formoterol Fumarate (Symbicort 160-4.5 Mcg Inhaler) 160 MCG-4.5 MCG/ ACTUATION HFA.AER.AD 2 PUF INH BID COPD (Reported) Calcium Carbonate 200 MG TAB.CHEW 500 MG PO BID Gastric Ulcer Carisoprodol (SOMA) 350 MG TABLET 1 TAB PO Q6-PRN PRN PAIN (Reported) Ferrous Sulfate 325 MG TABLET.DR 1 TAB PO BID Anemia Fluoxetine HCl (Prozac) 40 MG CAPSULE 1 CAP PO DAILY MENTAL HEALTH (Reported) Gabapentin 300 MG CAPSULE 300 MG PO Q8 NEUROPATHIC PAIN Insulin Aspart (Novolog) 100 UNIT/1 ML VIAL 1 UNIT SC TIDAC Blood Suger Blood suger Below 80 Hypoglycemia protocol 80-150 no change 151-200 1 units 201-250 2 units 251-300 3 units 301-350 4 units 351-400 6 units More than 400 10 units call M.D. Insulin Detemir (Levemir) 100 UNIT/ML VIAL 15 U SC QPM DIABETES (Reported) Meropenem 1 GRAM VIAL 1 G IV Q8 OSTEOMYELITIS TILL 12/13/16 Metoprolol Tartrate 50 MG TABLET 1 TAB PO BID BLOOD PRESSURE (Reported) Multivitamin (One Daily Multivitamin) 1 EACH TABLET 1 TAB PO DAILY General Well being Naloxegol Oxalate (Movantik) 25 MG TABLET 1 TAB PO DAILY constipation ( Reported) Oxycodone HCl (Oxycontin) 10 MG TAB.ER.12H 10 MG PO Q12 PAIN Oxycodone HCl/Acetaminophen (Oxycodone-Acetaminophen 10-325) 10 MG-325 MG TABLET 1 TAB PO Q4 PRN PAIN Pantoprazole Sodium (Protonix) 40 MG TABLET.DR 1 TAB PO DAILY GERD Polyethylene Glycol 3350 (Miralax) 17 GRAM/DOSE POWDER 17 GM PO DAILY NEEDED PRN constipation Rosuvastatin Calcium (Crestor) 20 MG TABLET 1 TAB PO QPM CHOLESTEROL ( Reported) Sennosides/Docusate Sodium (Senna Plus Tablet) 8.6 MG-50 MG TABLET 1 TAB PO BID PRN CONSTIPATION Sucralfate (Carafate) 1 GM TABLET 1,000 MG PO 4 TIMES/DAY gastric Ulcer Tiotropium Wilmer (Spiriva) 18 MCG CAP.W.DEV 1 PUF INH DAILY COPD Triage Note: 61 YO MALE BIBA FROM SNF. PT C/O SHORTNESS OF BREATH FOR APPROX 1 HOUR. PT HAD PARTIAL AMPUTATION (BELOW KNEE) OF R LEG ON 11/22/16. PT DENIES CHEST PAIN. RA SATS 86%. PT PLACED ON 2L OXYGEN VIA NASAL CANNULA AT THIS TIME. PT CURRENTLY ON ANTIBITOICS FOR OSTEOMYELITIS OF L FOOT. PA AT BEDSIDE ON ARRIVAL Triage Nurses Notes Reviewed? yes Onset: Abrupt Duration: day(s):, constant, getting worse Timing: recent history Severity: severe HPI: 61-year-old male that had a recent right lower extremity amputation comes into emergency room for shortness of breath. Patient has reportedly had increasing shortness of breath cough and fever at the facility. Patient was diagnosed with pneumonia. Patient was 89% on room air when he came in by EMS. Denies any chest pain. Symptoms getting progressively worse. Patient was given Lasix at the facility this morning. Sent in for further evaluation. (YULIET CHA) Past History Travel History Traveled to [place] past 21 day No Medical History Any Pertinent Medical History? 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 Flores [facility] status post left fourth and fifth toe amputations Psychosocial History Who do you live with Spouse What is your primary language Occitan Tobacco Use: Quit >30 days ago Family History Family History, If Any: FATHER (3 CVAs). , Age 50-60; Cause: CVA (cerebral vascular accident). MOTHER, , Age 60+; Cause: Natural . FATHER (3 CVAs). , Age 50-60; Cause: CVA (cerebral vascular accident). MOTHER, , Age 60+; Cause: Natural . Hx Contributory? No (YULIET CHA) Review of Systems Review of Systems Constitutional: Reports: see HPI. EENTM: Reports: no symptoms. Respiratory: Reports: see HPI. Cardiovascular: Reports: see HPI. GI: Reports: no symptoms. Genitourinary: Reports: no symptoms. Musculoskeletal: Reports: no symptoms. Skin: Reports: no symptoms. Neurological/Psychological: Reports: no symptoms. Hematologic/Endocrine: Reports: no symptoms. Immunologic/Allergic: Reports: no symptoms. All Other Systems: Reviewed and Negative (YULIET CHA) Physical Exam Physical Exam General Appearance: no apparent distress, alert, moderate distress Head: atraumatic, normal appearance Eyes: Bilateral: normal appearance, EOMI. Ears, Nose, Throat: normal pharynx, normal ENT inspection Neck: normal inspection Respiratory: decreased breath sounds, respiratory distress (mild) Cardiovascular: regular rate/rhythm Gastrointestinal: soft, non-tender Extremities: incision site to right lower extremity shows no erythema, no discharge, dennise in place Neurologic/Psych: awake, alert, oriented x 3 Skin: intact, normal color Core Measures ACS in differential dx? No Severe Sepsis Present: No Septic Shock Present: No (YULIET CHA) Progress Differential Diagnosis: asthma, AMI, bronchitis, costochondritis, CHF, COPD, musculoskeletal pain, pericarditis, pulmonary embolism, pneumonia, pneumothorax, rib fracture, unstable angina, sepsis, osteomyelitis, Plan of Care: Orders Procedure Date/time Status BASIC ELECTROLYTES PLUS BUN&CR 12/09 0600 Active RT: Evaluation 12/08 1119 Active EKG 12/08 0700 Active Skin/Pressure Ulcer Assess (Sk 12/08 0009 Active Turn and Reposition 12/08 0003 Active Skin Integrity Protocol 12/08 0003 Active NUTRITIONAL CONSULT 12/08 0003 Active THERAPIST ORDERS 12/08 UNK Complete OXYGEN SETUP (GEN) 12/08 UNK Complete Anticipated Discharge 12/08 UNK Active ECHOCARDIOGRAM 12/08 UNK Active Teach/Educate 12/07 2352 Active Pain Treatment and Response 12/07 2352 Active Nutritional Intake, Monitor 12/07 2352 Active Isolation 12/07 2352 Active Patient Care Conference 12/07 2352 Active TROPONIN LEVEL 12/07 2330 Complete EKG 12/07 2330 Active CONTIN. POSITIVE AIRWAY PRESS 12/07 2300 Complete OXYGEN SETUP CHG 12/07 UNK Complete OXYGEN 12/07 UNK Complete OXYGEN TRANSPORT 12/07 UNK Complete OXYGEN SETUP (GEN) 12/07 UNK Complete Current Medications Sig/Taylor Start time Last Medication Dose Stop Time Status Admin Albuterol Sulfate 3 ML BID 12/08 2200 AC 12/08 (Proventil) 1850 Furosemide 40 MG 7:30 AM, & 4:30 PM 12/08 1630 AC 12/08 (Lasix) 1645 Losartan Potassium 25 MG DAILY 12/08 1030 AC 12/08 (Cozaar) 1230 Amlodipine Besylate 10 MG DAILY 12/08 1000 AC 12/08 (Norvasc) 0933 Fluoxetine HCl 40 MG DAILY 12/08 1000 AC 12/08 (Prozac) 0933 Multivitamins 1 TAB DAILY 12/08 1000 AC 12/08 Therapeutic 0933 (Theragran-M Vitamins Tabs) Aripiprazole 2 MG QPM / 2200 AC 12/07 (Abilify) 2237 Ascorbic Acid 250 MG BID 12/07 2200 AC 12/08 (Vitamin C) 0933 Calcium Carbonate 500 MG BID 12/07 2200 AC 12/08 (TUMS) 0934 Ferrous Sulfate 325 MG BID 12/07 2200 AC 12/08 (Feosol) 0933 Heparin Sodium 5,000 UNIT Q8 12/07 2200 AC 12/08 (Porcine) 1523 Insulin Detemir 15 UNITS QPM 12/07 2200 AC 12/07 (Levemir) 2118 Metoprolol Tartrate 50 MG BID 12/07 2200 AC 12/08 (Lopressor) 0933 Oxycodone HCl 10 MG Q12 12/07 2200 AC 12/08 (OxyCONTIN) 0950 Sucralfate 1,000 MG 4 TIMES/DAY 12/07 1800 AC 12/08 (Carafate) 1522 Atorvastatin Calcium 80 MG 1700 12/07 1700 AC 12/08 (Lipitor) 1645 Insulin Aspart 0 TIDAC 12/07 1700 AC (NovoLOG) Carisoprodol 350 MG Q6-PRN PRN 12/07 1515 AC 12/07 (Soma) 1855 Oxycodone/ 1 TAB Q4P PRN 12/07 1515 AC 12/08 Acetaminophen 1649 (Percocet) Polyethylene Glycol 17 GM DAILY NEEDED PRN 12/07 1515 AC (Miralax) Senna/Docusate Sodium 1 TAB BID PRN 12/07 1515 AC (Senokot S) Gabapentin 300 MG Q8 12/07 1508 AC 12/08 (Neurontin) 1523 Meropenem 1 GM Q8 12/07 1508 AC 12/08 (MEROPENEM) 1523 Budesonide/ 2 PUF BID 12/07 1504 AC 12/08 Formoterol Fumarate 0945 (Symbicort) Laboratory Tests 12/08/16 0850: Anion Gap 9, Estimated GFR > 60, BUN/Creatinine Ratio 31.7 H, CBC w Diff NO MAN DIFF REQ, RBC 3.40 L, MCV 82.6, MCH 27.5, RDW 16.5 H, MPV 9.4, Gran % 59.2, Lymphocytes % 25.3, Monocytes % 11.7 H, Eosinophils % 3.1, Basophils % 0.7, Absolute Granulocytes 3.7, Absolute Lymphocytes 1.6, Absolute Monocytes 0.7 H, Absolute Eosinophils 0.2, Absolute Basophils 0, PUBS MCHC 33.3 12/08/16 0600: Total Bilirubin 0.5, Direct Bilirubin 0.3, AST 57, ALT 74 H, Alkaline Phosphatase 68, Total Protein 5.8 L, Albumin 2.7 L 12/07/16 2250: Troponin I < 0.01 12/07/16 2250: Lactic Acid 0.5 L Diagnostic Imaging: Viewed by Me: Radiology Read. Discussed w/RAD: Radiology Read. Radiology Impression: EXAM TYPE: RAD - XRY-PORTABLE CHEST XRAY EXAMINATION: XR PORTABLE CHEST CLINICAL INFORMATION: Cough, shortness of breath COMPARISON: 05/2017. TECHNIQUE: Portable AP upright view of the chest was obtained. FINDINGS : Moderate peribronchial thickening, vascular congestion and interstitial edema identified. Patchy right lower lobe consolidation has increased. There is extensive consolidation in the retrocardiac region with a persistent small left pleural effusion without change. Right-sided jugular line extends to the lower SVC. The cardiac silhouette remains enlarged without change. IMPRESSION: 1. Cardiomegaly and worsening mild interstitial pulmonary edema. 2. Worsening patchy consolidation at the right lung base and unresolved consolidation in the left retrocardiac region. These findings may reflect atelectasis but superimposed pneumonia is not excluded. Associated small left pleural effusion. DICTATED BY: CORINA CARRILLO MD DATE/TIME DICTATED:12/07/163 Initial ED EKG: normal intervals, normal p-waves, normal sinus rhythm, rate (61) (YULIET CHA) Departure Departure Disposition: STILL A PATIENT Condition: Stable Clinical Impression Primary Impression: CHF (congestive heart failure) Secondary Impressions: Hypoxia, Pneumonia Referrals: SINA WINTER MD (PCP/Family) Departure Forms: Customer Survey General Discharge Information Admission Note Spoke With: SINA WINTER MD Documentation of Exam: Documentation of any treatments & extenuating circumstances including Concerns Regarding Discharge (functional status, medication knowledge or non-compliance, living conditions, etc.) that warrant an admission rather than observation: Patient has worsening pulmonary edema. Patient will require IV diuresis. Echocardiogram. Cardiac consult. Cardiac telemetry. IV antibiotics will be continued. Supplemental oxygen. High risk. (YULIET CHA) PA/FLIPPING MACHINE OPERATOR Co-Sign Statement Statement: ED Attending supervision documentation- x I saw and evaluated the patient. I have also reviewed all the pertinent lab results and diagnostic results. I agree with the findings and the plan of care as documented in the PA's/FLIPPING MACHINE OPERATOR's documentation. [] I have reviewed the ED Record and agree with the PA's/FLIPPING MACHINE OPERATOR's documentation. [] Additions or exceptions (if any) to the PAs/FLIPPING MACHINE OPERATOR's note and plan are summarized below: [] (ROSEMARY SANCHEZ,MEENU) Critical Care Note Critical Care Note Critical Care Time: non-applicable (YULIET CAH)
--- NOTE | 2016-12-07 14:00 | NUR ---
PT AWAKE AND ALERT AT THIS TIME, SECOND SET BC DRAWN AND SENT, NSR ON MONITOR HR 62, O2 SAT 95 % ON 0.5L VIA NC AT THIS TIME.
--- NOTE | 2016-12-07 14:22 | NUR ---
PT ASSISTED WITH URINAL, VOIDED 520 CC CLEAR YELLOW URINE. STATES THAT AT REHAB THEY MEDICATED HIM WITH 40 MG PO LASIX THIS AM, O2 SAT 96 % ON 0.5L O2 VIA NC. WOUND CENTER AWARE THAT PT WILL BE ADMITTED
--- NOTE | 2016-12-07 14:31 | NUR ---
HOUSE STAFF AT BEDSIDE FOR EVAL
--- NOTE | 2016-12-07 15:01 | History & Physical ---
SALIMA SANCHEZ,[facility] [place] 12/07/16 1501: General Information and HPI MD Statement: I have seen and personally examined JAH MONTES and documented this H&P. The patient is a 61 year old M who presented with a patient stated chief complaint of shortness of breath. Source of Information: patient, old records, W10 Exam Limitations: no limitations History of Present Illness: Mr. 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 Patient reports that for the past four days leading up to current presentation, he has been requiring 2 L NC. On the day of current presentation, he desaturated and had to be placed on 5 L NC. He does not have shortness of breath at rest and only on exertion. Patient is non-ambulatory and Linda lift at baseline. He also endorses increased swelling of his left leg but has no other acute symptoms. His appetite is good. He denies fever, chills, cough, sick contacts, chest pain, abdominal pain, nausea or vomiting. He was recently diagnosed with pneumonia at the rehab facility and had fever and cough during that time which has since resolved. Of note, patient reports that his sugars have been running low in the 80-90s range. He is currently on meropenem for osteomyelitis of his feet and scheduled to complete the course on 12/12/16. He was given 40 mg of PO Lasix at the rehab facility. Patient was saturating at 89% on room air when he arrived by EMS to the ED and was placed on 2 L NC. Allergies/Medications Allergies: Coded Allergies: niacin (ITCHING 11/02/16) Home Med list Albuterol Sulfate 0.63 MG/3 ML VIAL.NEB 1 Vial INH/CARON TID PRN BREATHING PROBLEMS (Reported) Amlodipine Besylate 10 MG TABLET 1 TAB PO DAILY HTN (Reported) Aripiprazole (Abilify) 2 MG TABLET 1 TAB PO QPM MENTAL HEALTH (Reported) Ascorbic Acid 250 MG TABLET 1 TAB PO BID VITAMIN SUPPORT (Reported) Budesonide/Formoterol Fumarate (Symbicort 160-4.5 Mcg Inhaler) 160 MCG-4.5 MCG/ ACTUATION HFA.AER.AD 2 PUF INH BID COPD (Reported) Calcium Carbonate 200 MG TAB.CHEW 500 MG PO BID Gastric Ulcer Carisoprodol (SOMA) 350 MG TABLET 1 TAB PO Q6-PRN PRN PAIN (Reported) Ferrous Sulfate 325 MG TABLET.DR 1 TAB PO BID Anemia Fluoxetine HCl (Prozac) 40 MG CAPSULE 1 CAP PO DAILY MENTAL HEALTH (Reported) Gabapentin 300 MG CAPSULE 300 MG PO Q8 NEUROPATHIC PAIN Insulin Aspart (Novolog) 100 UNIT/1 ML VIAL 1 UNIT SC TIDAC Blood Suger Blood suger Below 80 Hypoglycemia protocol 80-150 no change 151-200 1 units 201-250 2 units 251-300 3 units 301-350 4 units 351-400 6 units More than 400 10 units call M.D. Insulin Detemir (Levemir) 100 UNIT/ML VIAL 15 U SC QPM DIABETES (Reported) Meropenem 1 GRAM VIAL 1 G IV Q8 OSTEOMYELITIS TILL 12/13/16 Metoprolol Tartrate 50 MG TABLET 1 TAB PO BID BLOOD PRESSURE (Reported) Multivitamin (One Daily Multivitamin) 1 EACH TABLET 1 TAB PO DAILY General Well being Naloxegol Oxalate (Movantik) 25 MG TABLET 1 TAB PO DAILY constipation ( Reported) Oxycodone HCl (Oxycontin) 10 MG TAB.ER.12H 10 MG PO Q12 PAIN Oxycodone HCl/Acetaminophen (Oxycodone-Acetaminophen 10-325) 10 MG-325 MG TABLET 1 TAB PO Q4 PRN PAIN Pantoprazole Sodium (Protonix) 40 MG TABLET.DR 1 TAB PO DAILY GERD Polyethylene Glycol 3350 (Miralax) 17 GRAM/DOSE POWDER 17 GM PO DAILY NEEDED PRN constipation Rosuvastatin Calcium (Crestor) 20 MG TABLET 1 TAB PO QPM CHOLESTEROL ( Reported) Sennosides/Docusate Sodium (Senna Plus Tablet) 8.6 MG-50 MG TABLET 1 TAB PO BID PRN CONSTIPATION Sucralfate (Carafate) 1 GM TABLET 1,000 MG PO 4 TIMES/DAY gastric Ulcer Tiotropium Goldonna (Spiriva) 18 MCG CAP.W.DEV 1 PUF INH DAILY COPD Past History Travel History Traveled to [place] past 21 day No Medical History Neurological: NONE EENT: hearing loss (right ear) Cardiovascular: CAD, hypertension, hyperlipidemia, NSTEMI, PVD Respiratory: COPD, JOSÉ MIGUEL Gastrointestinal: peptic ulcer disease Hepatic: NONE Renal: chronic kidney disease, nephrolithiasis Musculoskeletal: osteomyelitis of bilateral feet Psychiatric: depression Endocrine: diabetes, obesity Blood Disorders: anemia, PE Cancer(s): NONE SUGAR CANE GROWER/Reproductive: NONE History of MRSA: No History of VRE: No History of CDIFF: No Influenza Vaccine: 04/07/16 Surgical History Surgical History: right TMA, right BKA, gastric bypass, amputation of left fourth and fifth toes, right ESWL, cardiac catheterization Past Family/Social History Family History Relations & Conditions if any FATHER (3 CVAs). , Age 50-60; Cause: CVA (cerebral vascular accident). FH: CVA (cerebrovascular accident) MOTHER, , Age 60+; Cause: Natural . Relation not specified for: FH: CAD (coronary artery disease) FH: diabetes mellitus Psychosocial History Where do you live? Acute [facility]hab Primary Language: Polish Smoking Status: Former Smoker (Quit 9 Months Ago, ~35 Years) Functional Ability ADLs Unknown: dressing, eating, toileting, bathing. Ambulation: non-ambulatory IADLs Needs Assist: shopping, housework, finances, food prep, telephone, transportation, medication admin. Review of Systems Review of Systems Constitutional: Denies: chills, fever. EENTM: Reports: no symptoms. Cardiovascular: Reports: peripheral edema. Denies: chest pain. Respiratory: Reports: short of breath. Denies: cough, sputum production. GI: Denies: abdominal pain, nausea, vomiting. Genitourinary: Reports: no symptoms. Musculoskeletal: Reports: back pain. Skin: Reports: no symptoms. Neurological/Psychological: Reports: other (diabetic neuropathy). Denies: headache. Hematologic/Endocrine: Reports: no symptoms. Immunologic/Allergic: Reports: no symptoms. All Other Systems: Reviewed and Negative Exam & Diagnostic Data Last 24 Hrs of Vital Signs/I&O Vital Signs Date Time Temp Pulse Resp B/P B/P Pulse O2 O2 Flow FiO2 Mean Ox Delivery Rate 12/07 1259 98.3 62 18 153/72 96 Nasal 0.5L Cannula 12/07 1237 97.7 65 22 144/73 96 Nasal 0.5L Cannula 12/07 1114 94 Nasal 3.0L Cannula 12/07 1050 98.3 69 22 144/73 92 Nasal 3.0L Cannula Intake & Output 12/07 1600 12/07 0800 12/07 0000 Intake Total Output Total 1640 Balance -1640 Output, Urine 1640 Patient 164.2 kg Weight Weight Reported by Patient Measurement Method Physical Exam General Appearance Alert, Oriented X3, No Acute Distress Skin No Rashes HEENT Atraumatic, Mucous Membr. moist/pink Neck Supple Cardiovascular Regular Rate, Normal S1, Normal S2 Lungs Diminished Breath Sounds, No Wheezes or Crackles Abdomen Soft, No Tenderness, Positive Bowel Sounds, Obese Extremities S/p R BKA, LLE with 2+ Pitting Edema and Dressing in Place Last 24 Hrs of Labs/Enrique: Laboratory Tests 12/07/16 111: Anion Gap 11, Estimated GFR 57 L, BUN/Creatinine Ratio 30.8 H, Glucose 85, Lactic Acid 0.7, Calcium 9.2, Total Bilirubin 0.3, AST 63 H, ALT 76 H, Alkaline Phosphatase 82, Troponin I < 0.01, Euj-F-Iyppaqfvigx Pept 3820 H, Total Protein 6.7, Albumin 3.1 L, Globulin 3.6, Albumin/Globulin Ratio 0.9 L, CBC w Diff NO MAN DIFF REQ, RBC 3.55 L, MCV 83.7, MCH 27.4, RDW 16.1 H, MPV 8.9, Gran % 74.0, Lymphocytes % 12.2 L, Monocytes % 10.8 H, Eosinophils % 2.7, Basophils % 0.3, Absolute Granulocytes 7.0 H, Absolute Lymphocytes 1.2, Absolute Monocytes 1.0 H, Absolute Eosinophils 0.3, Absolute Basophils 0, PUBS MCHC 32.8 L, Urinalysis LIGHT H, Urine Color YEL, Urine Clarity CLEAR, Urine pH 6.0, Ur Specific [place] 1.015, Urine Protein 30 H, Urine Ketones NEG, Urine Nitrite NEG, Urine Bilirubin NEG, Urine Urobilinogen 0.2, Ur Leukocyte Esterase NEG, Ur Microscopic SEDIMENT EXAMINED, Urine RBC 1-3, Urine WBC RARE, Ur Epithelial Cells RARE, Urine Hemoglobin SMALL H, Urine Glucose NEG Microbiology 12/07 1356 BLOOD: Blood Culture - RECD 12/07 1115 BLOOD: Blood Culture - RECD Diagnostic Data EKG Results Normal sinus rhythm HR [address]-T wave abnormalities QTc 419 CXR Results 1. Cardiomegaly and worsening mild interstitial pulmonary edema. 2. Worsening patchy consolidation at the right lung base and unresolved consolidation in the left retrocardiac region. These findings may reflect atelectasis but superimposed pneumonia is not excluded. Associated small left pleural effusion. Assessment/Plan Assessment: 61 y/o morbidly obese M with PMHx of chronic nonhealing foot ulcers c/b chronic osteomyelitis of bilateral feet s/p recent right BKA on meropenem, CAD and COPD/ JOSÉ MIGUEL not on home oxygen who presents with shortness of breath. #Acute on chronic HFpEF: SOB most likely secondary to CHF exacerbation given CXR with cardiomegaly and worsening mild interstitial pulmonary edema, bilateral lower extremity on exam and proBNP 3820. Although CXR shows unresolved consolidation in the left retrocardiac region, this likely represents old pneumonia, in the absence of fever and leukocytosis. COPD exacerbation is unlikely in the absence of wheezing, cough or sputum production. Recent ECHO in October 2016 with LVEF of 55%. Improved with 40 mg of PO Lasix administered at rehab facility. On 1 L NC. * Admit to telemetry. * Cardiology consulted. Appreciate their recs. * Monitor I/Os and daily weights. * Monitor lytes and kidney function. * Rule out ACS with serial troponins and EKG. * No need for ECHO given recent study in October 2016. * Start Lasix IV 40 mg daily. * Provide supplemental oxygen as needed to keep SpO2 >92%. #Polymicrobial osteomyelitis of bilateral feet: Recent admission with R BKA (06/23). Was discharged on IV meropenem for a total of four-weeks of antibiotics. * Continue meropenem 1 g Q8H. Last dose scheduled on 12/12/16. * Wound care consult placed. #Insulin-dependent T2DM: Takes Levemir 15 units SQ QPM and Novolog TIDAC as outpatient. * Continue yzjvm-cn-hxhtvmiic Levemir 15 units SQ QPM. * Accu-checks and low-dose sliding scale Novolog TIDAC. #HTN: * Continue xjfey-ex-fczrgksxb amlodipine 10 mg PO daily. #Depression: * Continue obdva-rk-okpodwzqt aripiprazole 2 mg PO QPM and fluoxetine 40 mg PO daily. #COPD: Not in acute exacerbation. * Continue prior to admission Symbicort 2 puffs BID. #Diabetic neuropathy: * Gabapentin 300 mg PO TID for pain. #CKD stage 3A: Cr 1.3 on current presentation which appears to be baseline for patient. * Monitor lytes and kidney function daily. * Avoid nephrotoxic medications. #Constipation: * Miralax and Senokot S daily PRN. Diet: Consistent Carbohydrate 3 with 2 g Na Restriction Pain: Oxycontin 10 mg PO BID Carisoprodol 350 mg PO Q6H PRN Percocet 1 tab PO Q4H PRN for mild pain (scale 1-3) DVT PPx: HSQ and ALPs CODE: FULL As Ranked By This Provider Problem List: 1. Acute exacerbation of CHF (congestive heart failure) 2. (HFpEF) heart failure with preserved ejection fraction 3. Chronic osteomyelitis of right foot 4. Chronic osteomyelitis of left foot 5. COPD (chronic obstructive pulmonary disease) 6. Insulin dependent type 2 diabetes mellitus 7. Diabetic neuropathy 8. Stage 3a chronic kidney disease Core Measures/Miscellaneous Acute Coronary Syndrome ACS Diagnosis: No Cerebrovascular Accident CVA/TIA Diagnosis: No Congestive Heart Failure CHF Diagnosis: Yes Date of most recent Echo: 11/03/16 Last Known EF %: 55 CHILANGO/ARB for EF <40%: No (EF >55%) No CHILANGO/ARB d/t: Medical Contraindication (>55%) Venous Thromboembolism VTE Risk Factors: Acute medical illness, Age > 40, CHF or Resp failure, Immobility, paresis, Obesity, Previous VTE No [facility] prophylaxis d/t: No contraindications No VTE Pharm Prophylaxis d/t: No contraindications VTE Diagnosis: No VTE Type: NONE VTE Confirmed by (Test): NONE Severe Sepsis Severe Sepsis Present: No Septic Shock Septic Shock Present: No Miscellaneous Documentation Attending Case Discussed With: MOY SANCHEZ,SINA Alexanrde Primary Care Physician: [facility]EL [facility] Patient sees these Specialists Branch Examiner Danny Zheng DPM Labor Commissioner Eduar Anders MD Level of Patient Care: Telemetry BERNIE RODRIGUEZ 12/07/16 1521: Resident Review Statement Resident Statement: examined this patient, discussed with internet technology manager, agreed with internet technology manager, discussed with family, amended to note Other Findings: Mr Montes is a pleasant 60-year-old morbidly obese gentleman with past medical history of nonhealing ulceration and osteomyelitis x 2 , status post right transmetatarsal amputation, multiple debridements, right renal stone status post ESWL procedure (03/2016), DM, depression, HTN,CKD,peripheral vascular disease status post stenting (2009), coronary artery disease status post cardiac catheterization (2014), COPD, JOSÉ MIGUEL, PE (not on AC) ,Right BKA on november 2016, osteomyelitis on IV meropenem was discharged from [facility] about 2 weeks ago to [facility] came back with chief complaint of shortness of breath. Patient reported that he is being put on oxygen 2 L about 2 or 3 days and today he had very severe shortness of breath and desaturation needed 5 L. Patient also reports of increased swelling of his left leg. Patient denies any fever, cough, chills, nausea, vomiting, chest pain, abdominal pain, headache, dizziness. Vital signs on admission were stable and patient was on 1 L oxygen Physical exam was notable for morbid obesity, BKA most swelling and mild redness of the left leg with at least 2+ edema, decreased breath sounds bilaterally. EKG showed normal sinus rhythm, no acute ST_T changes, rate 61, QTC 419, low voltage overall, no acute changes comparing to previous EKG CXR revealed cardiomegaly and modest decision edema Patient got 40 mg by mouth Lasix in the half-way and already had urine of 1500. Portable labs shows stable normocytic anemia, elevated AST and ALT, BNP around 3800, negative troponin, cr 1.3(baseline) Assessment and plan #CHF exacerbation * Admit to telemetry for 24 hours monitoring * Rule out any cardiac injury with serial troponins and EKGs x 2 * IV Lasix 40 mg daily * Daily weights,strict I's and O's and CHF diet * no need for echocardiogram * Cardiology consult #Osteomyelitis -Continue meropenem 1 g every 8 till 12/12 -Wound care with Jennifer #Hypertension, hyperlipidemia, chronic pain -Continue narcotics, amlodipine, metoprolol, statin #Diabetic neuropathy -Continue Soma, gabapentin -Bowel regimen #Diabetes -Diabetic diet, fingersticks 3 times a day, Levemir 15 units every afternoon, sliding scale insulin Full code, DVT prophylaxis is mechanical and subcutaneous heparin, Percocet and oxycodone for pain, diabetic diet AMANDA SANCHEZ,[facility] 12/08/16 0914: Attending MD Review Statement Attending Statement Attending MD Statement: examined this patient, discuss w/resident/PA/SCREEN MAKING SUPERVISOR, agreed w/resident/PA/SCREEN MAKING SUPERVISOR, reviewed EMR data (avail)
--- NOTE | 2016-12-07 15:05 | NUR ---
FOOD TRAY ORDERED
--- NOTE | 2016-12-07 15:09 | NUR ---
REPORT TAKEN FROM ANGELA CLARKE, ASSUMING CARE
--- NOTE | 2016-12-07 15:14 | NUR ---
PT A+OX4, SPEAKING IN FULL SENTENCES WITH NO DIFFICULTY. 98% ON 1LNC. LUNGS CTA BUT DIMINISHED
--- NOTE | 2016-12-07 15:35 | NUR ---
FOOD TRAY ORDERED AT THIS TIME
--- NOTE | 2016-12-07 16:22 | NUR ---
PHARMACY CALLED FOR MEDS
--- NOTE | 2016-12-07 16:50 | NUR ---
PT VOIDED [id number] URINE SINCE 11AM TODAY. LASIX HELD AT THIS TIME. HOUSE STAFF PAGED
--- NOTE | 2016-12-07 16:54 | NUR ---
PAGER [phone] PAGED
--- NOTE | 2016-12-07 17:09 | NUR ---
PT IS GOING TO 174-2
--- NOTE | 2016-12-07 17:32 | NUR ---
TROPONIN DRAWN AND SENT
--- NOTE | 2016-12-07 17:48 | NUR ---
ROOM NOT CLEAN YET
--- NOTE | 2016-12-07 17:48 | NUR ---
REPORT GIVEN TO ANGELA SANTOS
[2016-12-07 19:30] VITALS: BP 152/68
--- NOTE | 2016-12-07 20:32 | Cons- Cardiology ---
General Information and HPI Consulting Request Date of Consult: 12/07/16 Requested By: SINA WINTER MD Reason for Consult: Dyspnea; CHF Source of Information: patient, old records History of Present Illness: The patient is a 61-year-old male that had a recent right lower extremity amputation who comes into emergency room for shortness of breath. 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 Anders who I am covering for today. The patient has a history of aortic valve disease and HFpEF. He has apparently had increasing shortness of breath, cough and fever at the [facility] and was diagnosed with pneumonia. THe patient was 89% on room air when he came in by EMS. Denies any chest pain. Symptoms getting progressively worse. Patient was given Lasix at the facility this morning. Sent in for further evaluation. At the present time the patient is lethargic but arousable and denies any chest discomfort or other symptoms except for cough and dyspnea. Allergies/Medications Allergies: Coded Allergies: niacin (ITCHING 11/02/16) Home Med List: Albuterol Sulfate 0.63 MG/3 ML VIAL.NEB 1 Vial INH/CARON TID PRN BREATHING PROBLEMS (Reported) Amlodipine Besylate 10 MG TABLET 1 TAB PO DAILY HTN (Reported) Aripiprazole (Abilify) 2 MG TABLET 1 TAB PO QPM MENTAL HEALTH (Reported) Ascorbic Acid 250 MG TABLET 1 TAB PO BID VITAMIN SUPPORT (Reported) Budesonide/Formoterol Fumarate (Symbicort 160-4.5 Mcg Inhaler) 160 MCG-4.5 MCG/ ACTUATION HFA.AER.AD 2 PUF INH BID COPD (Reported) Calcium Carbonate 200 MG TAB.CHEW 500 MG PO BID Gastric Ulcer Carisoprodol (SOMA) 350 MG TABLET 1 TAB PO Q6-PRN PRN PAIN (Reported) Ferrous Sulfate 325 MG TABLET.DR 1 TAB PO BID Anemia Fluoxetine HCl (Prozac) 40 MG CAPSULE 1 CAP PO DAILY MENTAL HEALTH (Reported) Gabapentin 300 MG CAPSULE 300 MG PO Q8 NEUROPATHIC PAIN Insulin Aspart (Novolog) 100 UNIT/1 ML VIAL 1 UNIT SC TIDAC Blood Suger Blood suger Below 80 Hypoglycemia protocol 80-150 no change 151-200 1 units 201-250 2 units 251-300 3 units 301-350 4 units 351-400 6 units More than 400 10 units call M.D. Insulin Detemir (Levemir) 100 UNIT/ML VIAL 15 U SC QPM DIABETES (Reported) Meropenem 1 GRAM VIAL 1 G IV Q8 OSTEOMYELITIS TILL 12/13/16 Metoprolol Tartrate 50 MG TABLET 1 TAB PO BID BLOOD PRESSURE (Reported) Multivitamin (One Daily Multivitamin) 1 EACH TABLET 1 TAB PO DAILY General Well being Naloxegol Oxalate (Movantik) 25 MG TABLET 1 TAB PO DAILY constipation ( Reported) Oxycodone HCl (Oxycontin) 10 MG TAB.ER.12H 10 MG PO Q12 PAIN Oxycodone HCl/Acetaminophen (Oxycodone-Acetaminophen 10-325) 10 MG-325 MG TABLET 1 TAB PO Q4 PRN PAIN Pantoprazole Sodium (Protonix) 40 MG TABLET.DR 1 TAB PO DAILY GERD Polyethylene Glycol 3350 (Miralax) 17 GRAM/DOSE POWDER 17 GM PO DAILY NEEDED PRN constipation Rosuvastatin Calcium (Crestor) 20 MG TABLET 1 TAB PO QPM CHOLESTEROL ( Reported) Sennosides/Docusate Sodium (Senna Plus Tablet) 8.6 MG-50 MG TABLET 1 TAB PO BID PRN CONSTIPATION Sucralfate (Carafate) 1 GM TABLET 1,000 MG PO 4 TIMES/DAY gastric Ulcer Tiotropium Hale (Spiriva) 18 MCG CAP.W.DEV 1 PUF INH DAILY COPD Current Medications: Current Medications Sig/Taylor Start time Last Medication Dose Route Stop Time Status Admin Amlodipine Besylate 10 MG DAILY 12/08 1000 AC PO Aripiprazole 2 MG QPM 12/07 2200 AC PO Ascorbic Acid 250 MG BID 12/07 2200 AC PO Atorvastatin Calcium 80 MG 1700 12/07 1700 AC 12/07 PO 1645 Budesonide/ 2 PUF BID 12/07 1504 AC Formoterol Fumarate INH Calcium Carbonate 500 MG BID 12/07 2200 AC PO Carisoprodol 0 .STK-MED ONE 12/07 1855 DC PO Carisoprodol 350 MG Q6-PRN PRN 12/07 1515 AC 12/07 PO 1855 Ferrous Sulfate 325 MG BID 12/07 2200 AC PO Fluoxetine HCl 40 MG DAILY 12/08 1000 AC PO Furosemide 40 MG DAILY 12/08 1000 AC IV Furosemide 0 .STK-MED ONE 12/07 1642 DC IV Furosemide 20 MG ONCE ONE 12/07 1530 CAN IV 12/07 1531 Gabapentin 0 .STK-MED ONE 12/07 1641 DC PO Gabapentin 300 MG Q8 12/07 1508 AC 12/07 PO 1645 Heparin Sodium 5,000 UNIT Q8 12/07 2200 AC (Porcine) SC Insulin Aspart 0 TIDAC 12/07 1700 AC SC Insulin Detemir 15 UNITS QPM 12/07 2200 AC SC Meropenem 1 GM Q8 12/07 1508 AC 12/07 IV 1645 Metoprolol Tartrate 50 MG BID 12/07 2200 AC PO Multivitamins 1 TAB DAILY 12/08 1000 AC Therapeutic PO Oxycodone HCl 10 MG Q12 12/07 2200 AC PO Oxycodone/ 0 .STK-MED ONE 12/07 1642 DC Acetaminophen PO Oxycodone/ 1 TAB Q4P PRN 12/07 1515 AC 12/07 Acetaminophen PO 1645 Polyethylene Glycol 17 GM DAILY NEEDED PRN 12/07 1515 AC PO Senna/Docusate Sodium 1 TAB BID PRN 12/07 1515 AC PO Sucralfate 1,000 MG 4 TIMES/DAY 12/07 1800 AC PO Past History Travel History Traveled to [place] past 21 day No Medical History Neurological: NONE EENT: HEARING LOSS R EAR Cardiovascular: CAD, hypertension, hyperlipidemia, NSTEMI (status post NM), PVD, STEMI (LOWER EXTREMITY VASCULAR) Respiratory: COPD, JOSÉ MIGUEL Gastrointestinal: GASTRIC ULCER Hepatic: NONE Renal: nephrolithiasis Musculoskeletal: OSTEOMYELITIS OF R FOOT Psychiatric: depression Endocrine: diabetes Blood Disorders: NONE, PE Cancer(s): NONE MANAGER DIABETES/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 Flores [facility] status post left fourth and fifth toe amputations Family History Relations & Conditions If Any: FATHER (3 CVAs). , Age 50-60; Cause: CVA (cerebral vascular accident). MOTHER, , Age 60+; Cause: Natural . FATHER (3 CVAs). , Age 50-60; Cause: CVA (cerebral vascular accident). MOTHER, , Age 60+; Cause: Natural . Psychosocial History Who Do You Live With? spouse Primary Language: Azeri Functional Ability ADLs Unknown: dressing, eating, toileting, bathing. Ambulation: unknown IADLs Unknown: shopping, housework, finances, food prep, telephone, transportation, medication admin. ECHO Results (as available) Report: CONCLUSIONS Mild left ventricular dilatation. Normal left ventricular ejection fraction visually estimated at >55 Mild mitral regurgitation. Moderate aortic stenosis. Trace to mild aortic regurgitation. Trace tricuspid regurgitation. Trace pulmonic regurgitation. Exam & Diagnostic Data Vital Signs and I&O Vital Signs Date Time Temp Pulse Resp B/P B/P Pulse O2 O2 Flow FiO2 Mean Ox Delivery Rate 12/07 1911 97.1 70 20 160/72 98 Nasal 1.0L Cannula 12/07 1711 60 167/72 12/07 1611 63 16 169/75 97 Nasal 1.0L Cannula 12/07 1515 98 Nasal 1.0L Cannula 12/07 1515 96.3 63 16 164/73 98 Nasal 1.0L Cannula 12/07 1259 98.3 62 18 153/72 96 Nasal 0.5L Cannula 12/07 1237 97.7 65 22 144/73 96 Nasal 0.5L Cannula 12/07 1114 94 Nasal 3.0L Cannula 12/07 1050 98.3 69 22 144/73 92 Nasal 3.0L Cannula Intake & Output 12/07 1600 12/07 0800 12/07 0000 12/06 1600 12/06 0800 12/06 0000 Intake Total Output Total 1640 Balance -1640 Output, Urine 1640 Patient 362 lb Weight Weight Reported by Patient Measurement Method Physical Exam: General Appearance Lethargic but arousable; VSS Skin Normal HEENT Atraumatic, Mucous Membr. moist/pink Neck Supple, JVP normal, carotids normal bilaterally with bilateral murmur Cardiovascular Regular Rate, Normal S1, Normal S2, 2/6 MARGOT, 2/6 systolic murmur at apex Lungs Diminished Breath Sounds, No Wheezes or Crackles Abdomen Soft, No Tenderness, Positive Bowel Sounds Extremities Dressing in Place on BLE with 2+ Pitting Edema and Chronic Venous Stasis Changes Labs/Enrique Results: Laboratory Tests 12/07 12/07 1732 1115 Chemistry Sodium (137 - 145 mmol/L) 145 Potassium (3.5 - 5.1 mmol/L) 4.7 Chloride (98 - 107 mmol/L) 108 H Carbon Dioxide (22 - 30 mmol/L) 26 Anion Gap (5 - 16) 11 BUN (9 - 20 mg/dL) 40 H Creatinine (0.7 - 1.2 mg/dL) 1.3 H Estimated GFR (>60 ml/min) 57 L BUN/Creatinine Ratio (7 - 25 %) 30.8 H Glucose (65 - 99 mg/dL) 85 Lactic Acid (0.7 - 2.1 mmol/L) 0.7 Calcium (8.4 - 10.2 mg/dL) 9.2 Total Bilirubin (0.2 - 1.3 mg/dL) 0.3 AST (17 - 59 U/L) 63 H ALT (21 - 72 U/L) 76 H Alkaline Phosphatase (< 127 U/L) 82 Troponin I (<0.11 ng/ml) < 0.01 < 0.01 Fah-A-Bfydimjnkhr Pept (<125 pg/mL) 3820 H Total Protein (6.3 - 8.2 g/dL) 6.7 Albumin (3.5 - 5.0 g/dL) 3.1 L Globulin (1.9 - 4.2 gm/dL) 3.6 Albumin/Globulin Ratio (1.1 - 2.2 %) 0.9 L Hematology CBC w Diff NO MAN DIFF REQ WBC (4.8 - 10.8 /CUMM) 9.5 RBC (4.70 - 6.10 /CUMM) 3.55 L Hgb (14.0 - 18.0 G/DL) 9.7 L Hct (42 - 52 %) 29.7 L MCV (80.0 - 94.0 FL) 83.7 MCH (27.0 - 31.0 PG) 27.4 RDW (11.5 - 14.5 %) 16.1 H Plt Count (130 - 400 /CUMM) 299 MPV (7.4 - 10.4 FL) 8.9 Gran % (42.2 - 75.2 %) 74.0 Lymphocytes % (20.5 - 51.1 %) 12.2 L Monocytes % (1.7 - 9.3 %) 10.8 H Eosinophils % (0 - 5 %) 2.7 Basophils % (0.0 - 2.0 %) 0.3 Absolute Granulocytes (1.4 - 6.5 /CUMM) 7.0 H Absolute Lymphocytes (1.2 - 3.4 /CUMM) 1.2 Absolute Monocytes (0.10 - 0.60 /CUMM) 1.0 H Absolute Eosinophils (0.0 - 0.7 /CUMM) 0.3 Absolute Basophils (0.0 - 0.2 /CUMM) 0 PUBS MCHC (33.0 - 37.0 G/DL) 32.8 L Urines Urinalysis LIGHT H Urine Color (YEL,AMB,STR) YEL Urine Clarity (CLEAR) CLEAR Urine pH (5.0 - 8.0) 6.0 Ur Specific [place] (1.001 - 1.035) 1.015 Urine Protein (NEG,<30 MG/DL) 30 H Urine Ketones (NEG) NEG Urine Nitrite (NEG) NEG Urine Bilirubin (NEG) NEG Urine Urobilinogen (0.1 - 1.0 EU/dl) 0.2 Ur Leukocyte Esterase (NEG) NEG Ur Microscopic SEDIMENT EXAMINED Urine RBC (0 - 5 /HPF) 1-3 Urine WBC (0 - 2 /HPF) RARE Ur Epithelial Cells (NONE,FEW) RARE Urine Hemoglobin (NEG) SMALL H Urine Glucose (N MG/DL) NEG Diagnostic Data CXR Results IMPRESSION: 1. Cardiomegaly and worsening mild interstitial pulmonary edema. 2. Worsening patchy consolidation at the right lung base and unresolved consolidation in the left retrocardiac region. These findings may reflect atelectasis but superimposed pneumonia is not excluded. Associated small left pleural effusion. Assessment/Plan Assessment/Plan Assessment: 1. Worsening dyspnea with evidence of acute on chronic HFpEF 2. Possible pneumonia on CXR. 3. History of moderate aortic stenosis. 4. History of CAD 5. History of osteo and recent right TMA 6. HTN 7. HLD 8. DM with neuropathy 9. Normocytic anemia 10. Renal insufficiency 11. Transaminitis. Recommendations: - Monitor on telemetry. - Serial troponins - ECG tonite and in AM - Repeat echocardiogram - the patient's MR murmur is louder than previously; rule out worsening valvular disease / MR. - Monitor I/Os and daily weights as well as daily renal function, etc. - Cultures - COnsider non contrast chest CT to better exclude pneumonia / consolidation - Continue gentle diuresis as discussed. - Further plans in AM Consult Acknowledgment - Thank you for your consult request.
--- NOTE | 2016-12-08 00:24 | NUR ---
ON ADMISSION: PT HAD [address] TO BLE. PER PT, PRINCE FROM WOUND CARE REMOVED LAURA FROM R BKA WHILE PT WAS IN ER AND WAS DRESSED WITH XEROFORM, GELY AND AN CHILANGO WRAP. PER PT THERE IS A NON-HEALING WOUND TO LATERAL ASPECT OF HIS LEFT FOOT WHICH HE WEARS A WOUND VAC AT [facility] CAME FROM FOR ABX DUE TO OSTEOMYELITIS. PT REPORTS WOUND VAC WAS REMOVED AND NEW DRESSINGS PLACED ON ER BY PRINCE FROM WOUND CARE.
[2016-12-08 01:02] VITALS: BP 140/60
--- NOTE | 2016-12-08 07:21 | PN- Housestaff ---
Subjective Follow-up For: Acute on chronic HFpEF Tele-Events Since Last Visit: Sinus rhythm HR 52-63 First degree heart block ME interval 0.22 Episode of bradycardia to 45 around 5 AM Subjective: No acute events overnight. Patient seen and examined this morning. He feels well and offers no complaints. Shortness of breath has significantly improved. He is on 1 L of oxygen. Review of Systems Constitutional: Reports: see HPI. Objective Last 24 Hrs of Vital Signs/I&O Vital Signs Date Time Temp Pulse Resp B/P B/P Pulse O2 O2 Flow FiO2 Mean Ox Delivery Rate 12/08 0933 60 170/80 05/ 0933 60 170/80 05/ 0821 97.8 60 20 170/80 98 Nasal 1.0L Cannula 12/08 0557 53 95 / 0332 57 96 / 0104 57 96 / 0102 97.9 55 18 140/60 95 Nasal 2.0L Cannula 12/08 0000 Nasal 2.0L Cannula 12/07 2120 60 152/68 05 1930 Nasal 2.0L Cannula 12/07 1930 98.2 64 20 152/68 96 Nasal 2.0L Cannula / 1911 97.1 70 20 160/72 98 Nasal 1.0L Cannula 05/ 1711 60 167/72 05/03 1611 63 16 169/75 97 Nasal 1.0L Cannula 12/07 1515 98 Nasal 1.0L Cannula 05/ 1515 96.3 63 16 164/73 98 Nasal 1.0L Cannula 12/07 1259 98.3 62 18 153/72 96 Nasal 0.5L Cannula 12/07 1237 97.7 65 22 144/73 96 Nasal 0.5L Cannula 12/07 1114 94 Nasal 3.0L Cannula / 1050 98.3 69 22 144/73 92 Nasal 3.0L Cannula Intake & Output 12/08 1600 05/04 0800 05/ 0000 Intake Total 150 500 Output Total 1325 2300 Balance -1175 -1800 Intake, IV 20 Intake, Oral 150 480 Output, Urine 1325 2300 Patient 134.717 kg Weight Weight Renetta Lift Measurement Method Physical Exam General Appearance: Alert, Oriented X3, No Acute Distress, Obese HEENT: Atraumatic, Mucous Membr. moist/pink Neck: Supple Cardiovascular: Regular Rate, Normal S1, Normal S2 Lungs: Clear to Auscultation Abdomen: Soft, No Tenderness, Positive Bowel Sounds Extremities: S/p Right BKA, Left Foot with Dressing in Place Current Medications: Current Medications Sig/Taylor Start time Last Medication Dose Route Stop Time Status Admin Amlodipine Besylate 10 MG DAILY / 1000 AC 12/08 PO 0933 Aripiprazole 2 MG QPM / 2200 AC 12/07 PO 2237 Ascorbic Acid 250 MG BID 12/07 2200 AC 12/08 PO 0933 Atorvastatin Calcium 80 MG 1700 12/07 1700 AC 12/07 PO 1645 Budesonide/ 2 PUF BID 12/07 1504 AC 12/08 Formoterol Fumarate INH 0945 Calcium Carbonate 500 MG BID 12/07 2200 AC 12/08 PO 0934 Carisoprodol 0 .STK-MED ONE 12/07 1855 DC PO Carisoprodol 350 MG Q6-PRN PRN 12/07 1515 AC 12/07 PO 1855 Ferrous Sulfate 325 MG BID 12/07 2200 AC 12/08 PO 0933 Fluoxetine HCl 40 MG DAILY 12/08 1000 AC 12/08 PO 0933 Furosemide 40 MG DAILY 12/08 1000 AC 12/08 IV 0934 Furosemide 0 .STK-MED ONE 12/07 1642 DC IV Furosemide 20 MG ONCE ONE 12/07 1530 CAN IV 12/07 1531 Gabapentin 0 .STK-MED ONE 12/07 1641 DC PO Gabapentin 300 MG Q8 / 1508 AC 12/08 PO 0607 Heparin Sodium 5,000 UNIT Q8 12/07 2200 AC 12/08 (Porcine) SC 0607 Insulin Aspart 0 TIDAC 12/07 1700 AC SC Insulin Detemir 15 UNITS QPM / 2200 AC 12/07 SC 2118 Meropenem 1 GM Q8 12/07 1508 AC 05 IV 0607 Metoprolol Tartrate 50 MG BID 12/07 2200 AC 12/08 PO 0933 Multivitamins 1 TAB DAILY 12/08 1000 AC 12/08 Therapeutic PO 0933 Oxycodone HCl 10 MG Q12 12/07 2200 AC 12/08 PO 0950 Oxycodone/ 0 .STK-MED ONE 12/07 1642 DC Acetaminophen PO Oxycodone/ 1 TAB Q4P PRN 12/07 1515 AC 12/08 Acetaminophen PO 0757 Polyethylene Glycol 17 GM DAILY NEEDED PRN 12/07 1515 AC PO Senna/Docusate Sodium 1 TAB BID PRN 12/07 1515 AC PO Sucralfate 1,000 MG 4 TIMES/DAY 12/07 1800 AC 12/08 PO 0933 Last 24 Hrs of Lab/Enrique Results Last 24 Hrs of Labs/Mics: Laboratory Tests 12/08/16 0850: Sodium Pending, Potassium Pending, Chloride Pending, Carbon Dioxide Pending, Anion Gap Pending, BUN Pending, Creatinine Pending, BUN/Creatinine Ratio Pending , CBC w Diff Pending, WBC Pending, RBC Pending, Hgb Pending, Hct Pending, MCV Pending, MCH Pending, RDW Pending, Plt Count Pending, MPV Pending, PUBS MCHC Pending 12/08/16 0600: Total Bilirubin 0.5, Direct Bilirubin 0.3, AST 57, ALT 74 H, Alkaline Phosphatase 68, Total Protein 5.8 L, Albumin 2.7 L 12/07/16 2250: Troponin I < 0.01 12/07/16 2250: Lactic Acid 0.5 L 12/07/16 1732: Troponin I < 0.01 12/07/16 1115: Anion Gap 11, Estimated GFR 57 L, BUN/Creatinine Ratio 30.8 H, Glucose 85, Lactic Acid 0.7, Calcium 9.2, Total Bilirubin 0.3, AST 63 H, ALT 76 H, Alkaline Phosphatase 82, Troponin I < 0.01, Vyb-B-Ofyxxvalaue Pept 3820 H, Total Protein 6.7, Albumin 3.1 L, Globulin 3.6, Albumin/Globulin Ratio 0.9 L, CBC w Diff NO MAN DIFF REQ, RBC 3.55 L, MCV 83.7, MCH 27.4, RDW 16.1 H, MPV 8.9, Gran % 74.0, Lymphocytes % 12.2 L, Monocytes % 10.8 H, Eosinophils % 2.7, Basophils % 0.3, Absolute Granulocytes 7.0 H, Absolute Lymphocytes 1.2, Absolute Monocytes 1.0 H, Absolute Eosinophils 0.3, Absolute Basophils 0, PUBS MCHC 32.8 L, Urinalysis LIGHT H, Urine Color YEL, Urine Clarity CLEAR, Urine pH 6.0, Ur Specific [place] 1.015, Urine Protein 30 H, Urine Ketones NEG, Urine Nitrite NEG, Urine Bilirubin NEG, Urine Urobilinogen 0.2, Ur Leukocyte Esterase NEG, Ur Microscopic SEDIMENT EXAMINED, Urine RBC 1-3, Urine WBC RARE, Ur Epithelial Cells RARE, Urine Hemoglobin SMALL H, Urine Glucose NEG Microbiology 12/07 1356 BLOOD: Blood Culture - RECD 12/07 1115 BLOOD: Blood Culture - RECD Assessment/Plan Assessment: 61 y/o morbidly obese M with PMHx of chronic nonhealing foot ulcers c/b chronic osteomyelitis of bilateral feet s/p recent right BKA on meropenem, aortic valve disease and HFpEF and COPD/JOSÉ MIGUEL not on home oxygen who presents with shortness of breath. #Acute on chronic HFpEF: Recent ECHO in October 2016 with LVEF of 55% and moderate aortic stenosis. SOB improved after diuresis with IV Lasix. * Continue telemetry monitoring * Cardiology following. Appreciate their recs. * Repeat ECHO to evaluate for worsening valvular disease. * Monitor I/Os and daily weights. * Monitor lytes and kidney function. * Increase Lasix to 40 mg IV BID daily. * Provide supplemental oxygen as needed to keep SpO2 >92%. #Polymicrobial osteomyelitis of bilateral feet: Recent admission with R BKA (06/23). Was discharged on IV meropenem for a total of four-weeks of antibiotics. * Continue meropenem 1 g Q8H to complete course. * Wound care consult placed. #Insulin-dependent T2DM: Takes Levemir 15 units SQ QPM and Novolog TIDAC as outpatient. * Continue gorri-cr-gjagwigdq Levemir 15 units SQ QPM. * Accu-checks and low-dose sliding scale Novolog TIDAC. #HTN: * Continue uxezo-ht-nuuktstpj amlodipine 10 mg PO daily. #HLD: * Continue uhbdw-ak-lpakmioeb atorvastatin 80 mg PO daily. #Depression: * Continue bzwib-ms-sfipoaupe aripiprazole 2 mg PO QPM and fluoxetine 40 mg PO daily. #COPD: Not in acute exacerbation. * Continue prior to admission Symbicort 2 puffs BID. #Diabetic neuropathy: * Gabapentin 300 mg PO TID for pain. #CKD stage 3A: Cr stable, 1.2 today. * Monitor lytes and kidney function daily. * Avoid nephrotoxic medications. #Constipation: * Miralax and Senokot S daily PRN. Diet: Consistent Carbohydrate 3 with 2 g Na Restriction Pain: Oxycontin 10 mg PO BID Carisoprodol 350 mg PO Q6H PRN Percocet 1 tab PO Q4H PRN for mild pain (scale 1-3) DVT PPx: HSQ and ALPs CODE: FULL Problem List: 1. Stage 3a chronic kidney disease 2. Diabetic neuropathy 3. Insulin dependent type 2 diabetes mellitus 4. COPD (chronic obstructive pulmonary disease) 5. Chronic osteomyelitis of left foot 6. Chronic osteomyelitis of right foot 7. (HFpEF) heart failure with preserved ejection fraction 8. Acute exacerbation of CHF (congestive heart failure) 9. Hypertension 10. Hyperlipidemia Pain Ratin Pain Location: N/A Pain Goal: Remain pain free Pain Plan: Oxycontin 10 mg PO Q12H Carisoprodol 350 mg PO Q6H Percocet 1 tab PO Q4H PRN for mild pain (scale 1-3) Tomorrow's Labs & Rationales: BMP to monitor lytes and kidney function in the setting of CKD and diuresis Discharge Plan Discharge Disposition: STR/NH Anticipated Discharge (Day): tomorrow
[2016-12-08 08:21] VITALS: BP 170/80
--- NOTE | 2016-12-08 09:11 | Admission Certification ---
Admission Certification Certification Statement - As attending physician, I certify that at the time of - admission, based on clinical presentation, severity of - symptoms, need for further diagnostic testing and - therapeutic interventions, and risk of adverse outcomes - without in-hospital treatment, in my clinical assessment, - this patient requires an acute hospital stay for a minimum - of two nights or longer. I have also considered psychsocial - factors such as support system, advanced age, financial - issues, cognitive issues, and failed out-patient treatments, - past re-admission history, safety of patient, and lack of - compliance as applicable. Specific rationale supporting this admission is: CHF
--- NOTE | 2016-12-08 09:14 | PN- Att Addend ---
Attending Addendum Attending Brief Note Patient reports improved breathing and currently is on 1 L of oxygen General Appearance: Alert, No Acute Distress Skin: Grossly normal HEENT: PEERLA Neck: Supple, No JVD Cardiovascular: Regular Rate, Normal S1, Normal S2, No Murmurs Lungs: Clear to Auscultation, Normal Air Movement Abdomen: Normal Bowel Sounds, Soft, No Tenderness Neurological: Normal Speech, Strength at 5/5 X4 Ext, Cranial Nerves 3-12 NL, Reflexes 2+ Extremities: Right foot amputation and left foot dressing Vascular: Normal Pulses Assessment 61-year-old with history of chronic nonhealing foot ulcers, coronary disease, COPD, recent osteomyelitis right lower extremity requiring right BKA discharged on meropenem presents with complaints of shortness of breath. X-ray suggested pulmonary edema with patchy consolidation right lung base and persistent left retrocardiac opacification however patient does not have clinical pneumonia and his respiratory status has markedly improved with IV Lasix. Plan Continue IV Lasix for 1 more day Taper oxygen Follow off antibiotics Continue other home medications DVT prophylaxis Current Medications Sig/Taylor Start time Last Medication Dose Route Stop Time Status Admin Amlodipine Besylate 10 MG DAILY 12/08 1000 AC PO Aripiprazole 2 MG QPM 12/07 2200 AC 12/07 PO 2237 Ascorbic Acid 250 MG BID 12/07 2200 AC 12/07 PO 2236 Atorvastatin Calcium 80 MG 1700 12/07 1700 AC 12/07 PO 1645 Budesonide/ 2 PUF BID 12/07 1504 AC 12/07 Formoterol Fumarate INH 2238 Calcium Carbonate 500 MG BID 12/07 2200 AC 12/07 PO 2119 Carisoprodol 0 .STK-MED ONE 12/07 1855 DC PO Carisoprodol 350 MG Q6-PRN PRN 12/07 1515 AC 12/07 PO 1855 Ferrous Sulfate 325 MG BID 12/07 2200 AC 05/ PO 2236 Fluoxetine HCl 40 MG DAILY 12/08 1000 AC PO Furosemide 40 MG DAILY 12/08 1000 AC IV Furosemide 0 .STK-MED ONE 12/07 1642 DC IV Furosemide 20 MG ONCE ONE 12/07 1530 CAN IV 12/07 1531 Gabapentin 0 .STK-MED ONE 12/07 1641 DC PO Gabapentin 300 MG Q8 12/07 1508 AC 12/08 PO 0607 Heparin Sodium 5,000 UNIT Q8 12/07 2200 AC 12/08 (Porcine) SC 0607 Insulin Aspart 0 TIDAC 12/07 1700 AC SC Insulin Detemir 15 UNITS QPM 12/07 220 AC 12/07 SC 2118 Meropenem 1 GM Q8 12/07 1508 AC 12/08 IV 0607 Metoprolol Tartrate 50 MG BID 12/07 220 AC 12/07 PO 2120 Multivitamins 1 TAB DAILY 12/08 1000 AC Therapeutic PO Oxycodone HCl 10 MG Q12 12/07 2200 AC 12/07 PO 2237 Oxycodone/ 0 .STK-MED ONE 12/07 1642 DC Acetaminophen PO Oxycodone/ 1 TAB Q4P PRN 12/07 1515 AC 12/08 Acetaminophen PO 0757 Polyethylene Glycol 17 GM DAILY NEEDED PRN 12/07 1515 AC PO Senna/Docusate Sodium 1 TAB BID PRN 12/07 1515 AC PO Sucralfate 1,000 MG 4 TIMES/DAY 12/07 1800 AC 12/07 PO 2237 Laboratory Tests 12/08 12/08 12/07 12/07 12/07 0850 0600 2250 2250 1732 Chemistry Sodium Pending Potassium Pending Chloride Pending Carbon Dioxide Pending Anion Gap Pending BUN Pending Creatinine Pending BUN/Creatinine Ratio Pending Lactic Acid (0.7 - 2.1 mmol/L) 0.5 L Total Bilirubin (0.2 - 1.3 mg/dL) 0.5 Direct Bilirubin (< 0.4 mg/dL) 0.3 AST (17 - 59 U/L) 57 ALT (21 - 72 U/L) 74 H Alkaline Phosphatase (< 127 U/L) 68 Troponin I (<0.11 ng/ml) < 0.01 < 0.01 Total Protein (6.3 - 8.2 g/dL) 5.8 L Albumin (3.5 - 5.0 g/dL) 2.7 L Hematology CBC w Diff Pending WBC Pending RBC Pending Hgb Pending Hct Pending MCV Pending MCH Pending RDW Pending Plt Count Pending MPV Pending PUBS MCHC Pending 12/07 1115 Chemistry Sodium (137 - 145 mmol/L) 145 Potassium (3.5 - 5.1 mmol/L) 4.7 Chloride (98 - 107 mmol/L) 108 H Carbon Dioxide (22 - 30 mmol/L) 26 Anion Gap (5 - 16) 11 BUN (9 - 20 mg/dL) 40 H Creatinine (0.7 - 1.2 mg/dL) 1.3 H Estimated GFR (>60 ml/min) 57 L BUN/Creatinine Ratio (7 - 25 %) 30.8 H Glucose (65 - 99 mg/dL) 85 Lactic Acid (0.7 - 2.1 mmol/L) 0.7 Calcium (8.4 - 10.2 mg/dL) 9.2 Total Bilirubin (0.2 - 1.3 mg/dL) 0.3 AST (17 - 59 U/L) 63 H ALT (21 - 72 U/L) 76 H Alkaline Phosphatase (< 127 U/L) 82 Troponin I (<0.11 ng/ml) < 0.01 [id number] Pept (<125 pg/mL) 3820 H Total Protein (6.3 - 8.2 g/dL) 6.7 Albumin (3.5 - 5.0 g/dL) 3.1 L Globulin (1.9 - 4.2 gm/dL) 3.6 Albumin/Globulin Ratio (1.1 - 2.2 %) 0.9 L Hematology CBC w Diff NO MAN DIFF REQ WBC (4.8 - 10.8 /CUMM) 9.5 RBC (4.70 - 6.10 /CUMM) 3.55 L Hgb (14.0 - 18.0 G/DL) 9.7 L Hct (42 - 52 %) 29.7 L MCV (80.0 - 94.0 FL) 83.7 MCH (27.0 - 31.0 PG) 27.4 RDW (11.5 - 14.5 %) 16.1 H Plt Count (130 - 400 /CUMM) 299 MPV (7.4 - 10.4 FL) 8.9 Gran % (42.2 - 75.2 %) 74.0 Lymphocytes % (20.5 - 51.1 %) 12.2 L Monocytes % (1.7 - 9.3 %) 10.8 H Eosinophils % (0 - 5 %) 2.7 Basophils % (0.0 - 2.0 %) 0.3 Absolute Granulocytes (1.4 - 6.5 /CUMM) 7.0 H Absolute Lymphocytes (1.2 - 3.4 /CUMM) 1.2 Absolute Monocytes (0.10 - 0.60 /CUMM) 1.0 H Absolute Eosinophils (0.0 - 0.7 /CUMM) 0.3 Absolute Basophils (0.0 - 0.2 /CUMM) 0 PUBS MCHC (33.0 - 37.0 G/DL) 32.8 L Urines Urinalysis LIGHT H Urine Color (YEL,AMB,STR) YEL Urine Clarity (CLEAR) CLEAR Urine pH (5.0 - 8.0) 6.0 Ur Specific [place] (1.001 - 1.035) 1.015 Urine Protein (NEG,<30 MG/DL) 30 H Urine Ketones (NEG) NEG Urine Nitrite (NEG) NEG Urine Bilirubin (NEG) NEG Urine Urobilinogen (0.1 - 1.0 EU/dl) 0.2 Ur Leukocyte Esterase (NEG) NEG Ur Microscopic SEDIMENT EXAMINED Urine RBC (0 - 5 /HPF) 1-3 Urine WBC (0 - 2 /HPF) RARE Ur Epithelial Cells (NONE,FEW) RARE Urine Hemoglobin (NEG) SMALL H Urine Glucose (N MG/DL) NEG Vital Signs Date Time Temp Pulse Resp B/P B/P Pulse O2 O2 Flow FiO2 Mean Ox Delivery Rate 12/08 0821 97.8 60 20 170/80 98 Nasal 1.0L Cannula 12/08 0557 53 95 12/08 0332 57 96 12/08 0104 57 96 12/08 0102 97.9 55 18 140/60 95 Nasal 2.0L Cannula 12/08 0000 Nasal 2.0L Cannula 12/07 2120 60 152/68 05 1930 Nasal 2.0L Cannula 12/07 1930 98.2 64 20 152/68 96 Nasal 2.0L Cannula 12/07 1911 97.1 70 20 160/72 98 Nasal 1.0L Cannula 12/07 1711 60 167/72 05 1611 63 16 169/75 97 Nasal 1.0L Cannula 12/07 1515 98 Nasal 1.0L Cannula 12/07 1515 96.3 63 16 164/73 98 Nasal 1.0L Cannula 12/07 1259 98.3 62 18 153/72 96 Nasal 0.5L Cannula 12/07 1237 97.7 65 22 144/73 96 Nasal 0.5L Cannula 12/07 1114 94 Nasal 3.0L Cannula 05/03 1050 98.3 69 22 144/73 92 Nasal 3.0L Cannula
--- NOTE | 2016-12-08 10:15 | Discharge Summary ---
Visit Information Visit Dates Admission Date: 12/07/16 Discharge Date: 12/10/2016 Hospital Course Course Attending Physician: SINA WINTER MD Primary Care Physician: SINA WINTER MD Hospital Course: Mr Montes is a pleasant 60-year-old morbidly obese gentleman with past medical history of nonhealing ulceration and osteomyelitis x 2 , status post right transmetatarsal amputation, multiple debridements, right renal stone status post ESWL procedure (03/2016), DM, depression, HTN,CKD,peripheral vascular disease status post stenting (2009), coronary artery disease status post cardiac catheterization (2014), COPD, JOSÉ MIGUEL, PE (not on AC) ,Right BKA on november 2016, osteomyelitis on IV meropenem was discharged from [facility] about 2 weeks ago to [facility] came back with chief complaint of shortness of breath. Patient reported that he is being put on oxygen 2 L about 2 or 3 days and today he had very severe shortness of breath and desaturation needed 5 L. Patient also reports of increased swelling of his left leg. Patient denies any fever, cough, chills, nausea, vomiting, chest pain, abdominal pain, headache, dizziness. Physical Exam General Appearance Alert, Oriented X3, No Acute Distress Skin No Rashes HEENT Atraumatic, Mucous Membr. moist/pink Neck Supple Cardiovascular Regular Rate, Normal S1, Normal S2 Lungs Diminished Breath Sounds, No Wheezes or Crackles Abdomen Soft, No Tenderness, Positive Bowel Sounds Extremities Dressing in Place on BLE with 2+ Pitting Edema and Chronic Venous Stasis Changes 12/07/16 1115: Anion Gap 11, Estimated GFR 57 L, BUN/Creatinine Ratio 30.8 H, Glucose 85, Lactic Acid 0.7, Calcium 9.2, Total Bilirubin 0.3, AST 63 H, ALT 76 H, Alkaline Phosphatase 82, Troponin I < 0.01, Czz-M-Xbyqfggsgbb Pept 3820 H, Total Protein 6.7, Albumin 3.1 L, Globulin 3.6, Albumin/Globulin Ratio 0.9 L, CBC w Diff NO MAN DIFF REQ, RBC 3.55 L, MCV 83.7, MCH 27.4, RDW 16.1 H, MPV 8.9, Gran % 74.0, Lymphocytes % 12.2 L, Monocytes % 10.8 H, Eosinophils % 2.7, Basophils % 0.3, Absolute Granulocytes 7.0 H, Absolute Lymphocytes 1.2, Absolute Monocytes 1.0 H, Absolute Eosinophils 0.3, Absolute Basophils 0, PUBS MCHC 32.8 L, Urinalysis LIGHT H, Urine Color YEL, Urine Clarity CLEAR, Urine pH 6.0, Ur Specific [place] 1.015, Urine Protein 30 H, Urine Ketones NEG, Urine Nitrite NEG, Urine Bilirubin NEG, Urine Urobilinogen 0.2, Ur Leukocyte Esterase NEG, Ur Microscopic SEDIMENT EXAMINED, Urine RBC 1-3, Urine WBC RARE, Ur Epithelial Cells RARE, Urine Hemoglobin SMALL H, Urine Glucose NEG EKG Results Normal sinus rhythm HR 61 QTc 419 CXR Results 1. Cardiomegaly and worsening mild interstitial pulmonary edema. 2. Worsening patchy consolidation at the right lung base and unresolved consolidation in the left retrocardiac region. These findings may reflect atelectasis but superimposed pneumonia is not excluded. Associated small left pleural effusion. He was admitted to telemetry floor and treated for these medical conditions: #Acute on chronic HFpEF with respiratory failure/ exposure to flu + individual Patient was put on IV Lasix, ACS was ruled out. condtion becomes stable. his was discharged on 40 mg lasix daliy. patient was exposed to flu+ person. he flu test was negative. he was put on prophylaxis tamiflu daily for 10 days. #Polymicrobial osteomyelitis of bilateral feet: Recent admission with s/p R BKA. Was discharged on IV meropenem for a total of four-weeks of antibiotics. we continued meropenem 1 g Q8H. Last dose scheduled 12/13/16. Wound care was also following. #Insulin-dependent T2DM: With continued living and sliding scale insulin per home medications. No major events were observed. #HTN: We continued amlodipine and metoprolol preop low-dose Cozaar was also added for better blood pressure control. Allergies: Coded Allergies: niacin (ITCHING 11/02/16) Pertinent Lab Results: PATIENT: JAH MONTES PRESENT AGE: 61 PATIENT ACCOUNT NO: [id number] : 59 LOCATION: 1NO ORDERING PHYSICIAN: ENRIKE PAGE MD SERVICE DATE: 12/08/16- EXAM TYPE: CARD - ECHOCARDIOGRAM JAH MONTES Age: 61 : 1955 Gender: M Exam Date: 12/08/2016 19:42 Exam Location: 1 North Ht (in): 72 Wt (lb): 264 BSA: 2.51 BP: 170 / 80 Ordering Physician: ENRIKE PAGE MD Referring Physician: Eduar Kebede MD Technologist: Caryn Hairston [facility] Room Number: 174-02 Indications: VALVULAR DISEASE Rhythm: Sinus Technical Quality: Fair FINDINGS Left Ventricle Mild left ventricular dilatation. Mild concentric left ventricular hypertrophy. Low normal left ventricular ejection fraction visually estimated at 50-55%. Normal left ventricular wall motion. Right Ventricle Normal right ventricular size and function. Right Atrium Normal right atrial size. Left Atrium Mild left atrial dilatation. Mitral Valve Mitral valve thickened. Moderate mitral annular calcification. Mild mitral regurgitation. Aortic Valve Diffuse thickening of the aortic valve cusps with reduced excursion. Mild to moderate aortic stenosis. Tricuspid Valve Tricuspid valve not well visualized, grossly normal. Trace tricuspid regurgitation. Pulmonic Valve Pulmonic valve not well visualized, grossly normal. Mild pulmonic regurgitation. Pericardium No pericardial effusion. Great Vessels Normal size aortic root. CONCLUSIONS Mild left ventricular dilatation. Mild concentric left ventricular hypertrophy. Mild left atrial dilatation. Moderate mitral annular calcification. Mild mitral regurgitation. Low normal left ventricular ejection fraction visually estimated at 50-55%. Mild to moderate aortic stenosis. Eduar Kebede M.D. (Electronically Signed) Final Date: 09 Dec 2016 17:44 MEASUREMENTS (Male / Female) Normal Values 2D ECHO LV Diastolic Diameter PLAX 5.5 cm 4.2 - 5.9 / 3.9 - 5.3 cm LV Systolic Diameter PLAX 3.7 cm 2.1 - 4.0 cm LV Fractional Shortening PLAX 32.7 % 25 - 46 % LV Ejection Fraction 2D Teich 60.6 % IVS Diastolic Thickness 1.3 cm LVPW Diastolic Thickness 1.2 cm LV Relative Wall Thickness 0.5 RV Internal Dim ED PLAX 3.6 cm 1.9 - 3.8 cm LVOT Diameter 1.9 cm Aortic Root Diameter 2.6 cm LA Systolic Diameter LX 4.1 cm 3.0 - 4.0 / 2.7 - 3.8 cm LA Volume 101.0 cm 18 - 58 / 22 - 52 cm Ascending Aorta Diameter 2.6 cm DOPPLER AV Peak Velocity 299.0 cm/s AV Peak Gradient 35.8 mmHg AV Mean Velocity 215.0 cm/s AV Mean Gradient 21.0 mmHg AV Velocity Time Integral 68.9 cm LVOT Peak Velocity 124.0 cm/s LVOT Peak Gradient 6.2 mmHg LVOT Mean Velocity 76.3 cm/s LVOT Mean Gradient 3.0 mmHg LVOT Velocity Time Integral 29.7 cm LVOT Stroke Volume 84.2 cm AV Area Cont Eq vti 1.2 cm AV Area Cont Eq pk 1.2 cm MV Peak Velocity 175.0 cm/s MV Peak Gradient 12.3 mmHg MV Mean Velocity 95.8 cm/s MV Mean Gradient 4.0 mmHg Mitral E Point Velocity 166.0 cm/s Mitral A Point Velocity 114.0 cm/s Mitral E to A Ratio 1.5 MV PHT Velocity 179.0 cm/s MV Deceleration [place] 522.0 cm/s MV Pressure Half Time 102.9 ms MV Area PHT 2.1 cm MV Deceleration Time 354.0 ms TR Peak Velocity 327.0 cm/s TR Peak Gradient 42.8 mmHg Right Atrial Pressure 5.0 mmHg Pulmonary Artery Systolic Pressu 47.8 mmHg Right Ventricular Systolic Press 47.8 mmHg PV Peak Velocity 127.0 cm/s PV Peak Gradient 6.5 mmHg PV Mean Velocity 86.5 cm/s PV Mean Gradient 3.0 mmHg PV Velocity Time Integral 34.0 cm LV E' Lateral Velocity 8.6 cm/s Mitral E to LV E' Lateral Ratio 19.3 LV E' Septal Velocity 8.0 cm/s Mitral E to LV E' Septal Ratio 20.8 DICTATED BY: EDUAR KEBEDE MD DATE/TIME DICTATED:12/09/161743 [employer] SAF[employer] PROGRAM COORDINATOR:TURNER DATE/TIME TRANSCRIBED:12/09/161743 CONFIDENTIAL, DO NOT COPY WITHOUT APPROPRIATE AUTHORIZATION. <Electronically signed in Other Vendor System> SIGNED BY: EDUAR KEBEDE MD 12/09/161743 Disposition Summary Disposition Principal Diagnosis: CHF exacerbation Additional Diagnosis: Diabetes, hypertension, hyperlipidemia, BKA right Discharge Disposition: SNF Discharge Instructions General Discharge Information Code Status: Full Code Patient's Diet: Diabetic/heart healthy Patient's Activity: As tolerated Follow-Up Instructions/Appts: -Please follow-up with your primary care provider within 7 days after discharge. -please follow-up with your surgical endoscopist 7 days after discharge -Please complete the course of antibiotic therapy -We have made changes to your home medications, please read the instructions carefully. -Please come back to the hospital if your symptoms got worse. Medications at Discharge Discharge Medications: Continue taking these medications: Carisoprodol (SOMA) 350 MG TABLET 1 Tablet ORAL EVERY 6 HOURS NEEDED as needed for PAIN Budesonide/Formoterol Fumarate (Symbicort 160-4.5 Mcg Inhaler) 160 MCG-4.5 MCG/ ACTUATION HFA.AER.AD 2 Puff Inhale through mouth TWICE DAILY Comments: Last Taken: 12/10/16 Time: 9 AM Fluoxetine HCl (Prozac) 40 MG CAPSULE 1 Capsule ORAL DAILY Comments: Last Taken: 12/10/16 Time: 10 AM Amlodipine Besylate (Amlodipine Besylate) 10 MG TABLET 1 Tablet ORAL DAILY Comments: Last Taken: 12/10/16 Time: 9 AM Albuterol Sulfate (Albuterol Sulfate) 0.63 MG/3 ML VIAL.NEB 1 Vial Inhale Solution THREE TIMES DAILY as needed for BREATHING PROBLEMS Comments: Rosuvastatin Calcium (Crestor) 20 MG TABLET 1 Tablet ORAL Every night Comments: LIPITOR GIVEN IN HOSPITAL Last Taken: 12/09/16 Time: 5 PM Metoprolol Tartrate (Metoprolol Tartrate) 50 MG TABLET 1 Tablet ORAL TWICE DAILY Comments: Last Taken: 12/10/16 Time: 9 AM Calcium Carbonate (Calcium Carbonate) 200 MG TAB.CHEW 500 Milligram ORAL TWICE DAILY Days = 30 Comments: Last Taken:12/10/16 Time: 9 AM Sucralfate (Carafate) 1 GM TABLET 1,000 Milligram ORAL 4 TIMES A DAY Days = 30 Comments: Last Taken: 12/10/16 Time: 1:30 PM Ferrous Sulfate (Ferrous Sulfate) 325 MG TABLET.DR 1 Tablet ORAL TWICE DAILY Qty = 30 Comments: Last Taken: 12/10/16 Time: 9 AM Multivitamin (One Daily Multivitamin) 1 EACH TABLET 1 Tablet ORAL DAILY Qty = 30 Comments: Last Taken:12/10/16 Time: 9 AM Pantoprazole Sodium (Protonix) 40 MG TABLET.DR 1 Tablet ORAL DAILY Qty = 30 Comments: PRILOSEC GIVEN Last Taken: 12/10/16 Time: 0600 AM Insulin Aspart (Novolog) 100 UNIT/1 ML VIAL 1 Unit Inject into fatty tissue 3 TIMES DAILY BEFORE MEALS Days = 28 Instructions: Blood suger Below 80 Hypoglycemia protocol 80-150 no change 151-200 1 units 201-250 2 units 251-300 3 units 301-350 4 units 351-400 6 units More than 400 10 units call M.D. Comments: NOT GIVEN Aripiprazole (Abilify) 2 MG TABLET 1 Tablet ORAL Every night Comments: Last Taken: 12/10/16 Time: 9 AM Gabapentin (Gabapentin) 300 MG CAPSULE 300 Milligram ORAL EVERY 8 HOURS Qty = 90 Comments: Last Taken: 12/10/16 Time: 1:30 PM Tiotropium [place] (Spiriva) 18 MCG CAP.W.DEV 1 Puff Inhale through mouth DAILY Qty = 1 Oxycodone HCl (Oxycontin) 10 MG TAB.ER.12H 10 Milligram ORAL EVERY 12 HOURS Qty = 60 Comments: Last Taken: 12/10/16 Time: 9 AM Polyethylene Glycol 3350 (Miralax) 17 GRAM/DOSE POWDER 17 Gram ORAL DAILY NEEDED as needed for constipation Qty = 30 Sennosides/Docusate Sodium (Senna Plus Tablet) 8.6 MG-50 MG TABLET 1 Tablet ORAL TWICE DAILY as needed for CONSTIPATION Qty = 60 Oxycodone HCl/Acetaminophen (Oxycodone-Acetaminophen 10-325) 10 MG-325 MG TABLET 1 Tablet ORAL Every 4 hours as needed for PAIN Qty = 180 Comments: Last Taken: 12/10/16 Time: 2:37 PM Meropenem (Meropenem) 1 GRAM VIAL 1 G INTRAVEN EVERY 8 HOURS Qty = 90 Instructions: TILL 12/13/16 Comments: Last Taken: 12/10/16 Time: 1:30 PM Ascorbic Acid (Ascorbic Acid) 250 MG TABLET 1 Tablet ORAL TWICE DAILY Comments: Last Taken:12/10/16 Time: 9 AM Insulin Detemir (Levemir) 100 UNIT/ML VIAL 15 Units Inject into fatty tissue Every night Naloxegol Oxalate (Movantik) 25 MG TABLET 1 Tablet ORAL DAILY Days = 28 Start taking the following new medications: Oseltamivir Phosphate (Tamiflu) 75 MG CAPSULE 1 Capsule ORAL DAILY Qty = 9 No Refills Instructions: total days of prophylaxis : 10 days Comments: Last Taken:12/10/16 Time: 9 AM Furosemide (Lasix) 40 MG TABLET 1 Tablet ORAL DAILY Qty = 30 No Refills Comments: Last Taken:12/10/16 Time: 9 AM Copies To: SINA WINTER MD; Beatrice BELLE MD, MD, JOHN A.; Beatrice BELLE MD
[2016-12-08 10:29] LABS: ABSOLUTE BASOPHIL COUNT 0 /CUMM (0.0-0.2); ABSOLUTE EOSINOPHIL COUNT 0.2 /CUMM (0.0-0.7); ABSOLUTE GRANULOCYTE CT 3.7 /CUMM (1.4-6.5); ABSOLUTE LYMPH COUNT 1.6 /CUMM (1.2-3.4); ABSOLUTE MONOCYTE COUNT 0.7 /CUMM (0.10-0.60); BASOPHIL % 0.7 % (0.0-2.0); EOSINOPHIL % 3.1 % (0-5); GRANULOCYTE % 59.2 % (42.2-75.2); HEMATOCRIT 28.1 % (42-52); MEAN CORPUSCULAR HGB 27.5 PG (27.0-31.0); MEAN CORPUSCULAR HGB CONC 33.3 G/DL (33.0-37.0); MEAN CORPUSCULAR VOLUME 82.6 FL (80.0-94.0); MEAN PLATELET VOLUME 9.4 FL (7.4-10.4); PLATELET COUNT 246 /CUMM (130-400); RBC DISTRIBUTION WIDTH 16.5 % (11.5-14.5); WHITE BLOOD CELL COUNT 6.2 /CUMM (4.8-10.8)
--- NOTE | 2016-12-08 10:32 | Patient Discharge Instructions ---
Discharge Instructions General Discharge Information You were seen/treated for: CHF exacerbation Special Instructions: -Please follow-up with your primary care provider within 7 days after discharge. -please follow-up with your bonsai tender in 7 days after discharge -We have made changes to your home medications, please read the instructions carefully. -Please come back to the hospital if your symptoms got worse. Diet Recommended Diet: Diabetic, Heart Healthy Acute Coronary Syndrome Inclusion Criteria At DC or during hospital stay patient has or had the following: ACS DIAGNOSIS No Discharge Core Measures Meds if any: Prescribed or Continued at Discharge Meds if any: NOT Prescribed or Continued at Discharge Congestive Heart Failure Inclusion Criteria At DC or during hospital stay patient has or had the following: CHF DIAGNOSIS Yes Discharge Core Measures Meds if any: Prescribed or Continued at Discharge Meds if any: NOT Prescribed or Continued at Discharge Cerebrovascular accident Inclusion Criteria At DC or during hospital stay patient has or had the following: CVA/TIA Diagnosis No Discharge Core Measures Meds if any: Prescribed or Continued at Discharge Meds if any: NOT Prescribed or Continued at Discharge Venous thromboembolism Inclusion Criteria VTE Diagnosis No VTE Type NONE VTE Confirmed by (Test) NONE Discharge Core Measures - Per Current guidelines, there needs to be overlap - treatment for the first 5 days of Warfarin therapy. - If discharged on Warfarin prior to 5 days of - overlap therapy, the patient will need to be - assessed for post discharge needs including - *Post discharge parental anticoagulation - *Warfarin and/or parental anticoagulation education - *Follow up date to check INR post discharge At least 5 days overlap therapy as Inpatient No Meds if any: Prescribed or Continued at Discharge Note: Overlap Therapy is Warfarin and Anticoagulant Meds if any: NOT Prescribed or Continued at Discharge
--- NOTE | 2016-12-08 11:42 | PN- Cardiology ---
Subjective Subjective: During better today. Shortness of breath is improving. No chest pain. No palpitations. No diaphoresis. No lightheadedness or dizziness. No nausea or vomiting. Objective Vital Signs and I&Os Vital Signs Date Time Temp Pulse Resp B/P B/P Pulse O2 O2 Flow FiO2 Mean Ox Delivery Rate 12/08 1133 94 Nasal 1.0L Cannula 12/08 0933 60 170/80 12/08 0933 60 170/80 12/08 0821 97.8 60 20 170/80 98 Nasal 1.0L Cannula 12/08 0557 53 95 12/08 0332 57 96 12/08 0104 57 96 12/08 0102 97.9 55 18 140/60 95 Nasal 2.0L Cannula 12/08 0000 Nasal 2.0L Cannula 12/07 2120 60 152/68 12/07 1930 Nasal 2.0L Cannula 12/07 1930 98.2 64 20 152/68 96 Nasal 2.0L Cannula 12/07 1911 97.1 70 20 160/72 98 Nasal 1.0L Cannula 12/07 1711 60 167/72 05 1611 63 16 169/75 97 Nasal 1.0L Cannula 12/07 1515 98 Nasal 1.0L Cannula 12/07 1515 96.3 63 16 164/73 98 Nasal 1.0L Cannula 12/07 1259 98.3 62 18 153/72 96 Nasal 0.5L Cannula 12/07 1237 97.7 65 22 144/73 96 Nasal 0.5L Cannula Intake & Output 12/08 1600 / 0800 05/04 0000 / 1600 12/07 0800 05/ 0000 Intake Total 150 500 Output Total 800 1325 2300 1640 Balance -800 -1175 -1800 -1640 Intake, IV 20 Intake, Oral 150 480 Output, Urine 800 1325 2300 1640 Patient 297 lb 362 lb Weight Weight Renetta Lift Reported by Patient Measurement Method Physical Exam: Gen: NAD HEENT: normal Lungs: clear to auscultation, normal resp. effort Heart: RRR, S1, S2, no murmurs Abdomen: Soft, nontender, no masses Extremities: Right BKA. No clubbing, cyanosis, or edema. Neuro: Alert and oriented x 3, cranial nerves intact Current Medications: Current Medications Sig/Taylor Start time Last Medication Dose Route Stop Time Status Admin Albuterol Sulfate 3 ML BID 12/08 2200 AC 12/08 INH 1130 Amlodipine Besylate 10 MG DAILY 12/08 1000 AC 12/08 PO 0933 Aripiprazole 2 MG QPM / 2200 AC 12/07 PO 2237 Ascorbic Acid 250 MG BID 12/07 2200 AC 12/08 PO 0933 Atorvastatin Calcium 80 MG 1700 05/ 1700 AC 12/07 PO 1645 Budesonide/ 2 PUF BID 12/07 1504 AC 12/08 Formoterol Fumarate INH 0945 Calcium Carbonate 500 MG BID 12/07 2200 AC 12/08 PO 0934 Carisoprodol 0 .STK-MED ONE 12/07 1855 DC PO Carisoprodol 350 MG Q6-PRN PRN 12/07 1515 AC 12/07 PO 1855 Ferrous Sulfate 325 MG BID 12/07 2200 AC 12/08 PO 0933 Fluoxetine HCl 40 MG DAILY 12/08 1000 AC 12/08 PO 0933 Furosemide 40 MG DAILY 12/08 1000 AC 12/08 IV 0934 Furosemide 0 .STK-MED ONE 12/07 1642 DC IV Furosemide 20 MG ONCE ONE 12/07 1530 CAN IV 12/07 1531 Gabapentin 0 .STK-MED ONE 12/07 1641 DC PO Gabapentin 300 MG Q8 12/07 1508 AC 12/08 PO 0607 Heparin Sodium 5,000 UNIT Q8 12/07 2200 AC 12/08 (Porcine) SC 0607 Insulin Aspart 0 TIDAC 12/07 1700 AC SC Insulin Detemir 15 UNITS QPM 12/07 2200 AC 12/07 SC 2118 Losartan Potassium 25 MG DAILY 12/08 1030 AC PO Meropenem 1 GM Q8 12/07 1508 AC 05 IV 0607 Metoprolol Tartrate 50 MG BID 12/07 2200 AC 12/08 PO 0933 Multivitamins 1 TAB DAILY 12/08 1000 AC 12/08 Therapeutic PO 0933 Oxycodone HCl 10 MG Q12 12/07 2200 AC 12/08 PO 0950 Oxycodone/ 0 .STK-MED ONE 12/07 1642 DC Acetaminophen PO Oxycodone/ 1 TAB Q4P PRN 12/07 1515 AC 12/08 Acetaminophen PO 0757 Polyethylene Glycol 17 GM DAILY NEEDED PRN 12/07 1515 AC PO Senna/Docusate Sodium 1 TAB BID PRN 12/07 1515 AC PO Sucralfate 1,000 MG 4 TIMES/DAY 12/07 1800 AC 12/08 PO 0933 Results Last 48 Hrs of Labs/Mics: Laboratory Tests 12/08/16 0850: Anion Gap 9, Estimated GFR > 60, BUN/Creatinine Ratio 31.7 H, CBC w Diff NO MAN DIFF REQ, RBC 3.40 L, MCV 82.6, MCH 27.5, RDW 16.5 H, MPV 9.4, Gran % 59.2, Lymphocytes % 25.3, Monocytes % 11.7 H, Eosinophils % 3.1, Basophils % 0.7, Absolute Granulocytes 3.7, Absolute Lymphocytes 1.6, Absolute Monocytes 0.7 H, Absolute Eosinophils 0.2, Absolute Basophils 0, PUBS MCHC 33.3 12/08/16 0600: Total Bilirubin 0.5, Direct Bilirubin 0.3, AST 57, ALT 74 H, Alkaline Phosphatase 68, Total Protein 5.8 L, Albumin 2.7 L 12/07/16 2250: Troponin I < 0.01 12/07/16 2250: Lactic Acid 0.5 L 12/07/16 1732: Troponin I < 0.01 12/07/16 1115: Anion Gap 11, Estimated GFR 57 L, BUN/Creatinine Ratio 30.8 H, Glucose 85, Lactic Acid 0.7, Calcium 9.2, Total Bilirubin 0.3, AST 63 H, ALT 76 H, Alkaline Phosphatase 82, Troponin I < 0.01, Ktg-S-Czxrdyiasay Pept 3820 H, Total Protein 6.7, Albumin 3.1 L, Globulin 3.6, Albumin/Globulin Ratio 0.9 L, CBC w Diff NO MAN DIFF REQ, RBC 3.55 L, MCV 83.7, MCH 27.4, RDW 16.1 H, MPV 8.9, Gran % 74.0, Lymphocytes % 12.2 L, Monocytes % 10.8 H, Eosinophils % 2.7, Basophils % 0.3, Absolute Granulocytes 7.0 H, Absolute Lymphocytes 1.2, Absolute Monocytes 1.0 H, Absolute Eosinophils 0.3, Absolute Basophils 0, PUBS MCHC 32.8 L, Urinalysis LIGHT H, Urine Color YEL, Urine Clarity CLEAR, Urine pH 6.0, Ur Specific [place] 1.015, Urine Protein 30 H, Urine Ketones NEG, Urine Nitrite NEG, Urine Bilirubin NEG, Urine Urobilinogen 0.2, Ur Leukocyte Esterase NEG, Ur Microscopic SEDIMENT EXAMINED, Urine RBC 1-3, Urine WBC RARE, Ur Epithelial Cells RARE, Urine Hemoglobin SMALL H, Urine Glucose NEG Recent Imaging Studies: Chest x-ray: 1. Cardiomegaly and worsening mild interstitial pulmonary edema. 2. Worsening patchy consolidation at the right lung base and unresolved consolidation in the left retrocardiac region. These findings may reflect atelectasis but superimposed pneumonia is not excluded. Associated small left pleural effusion. Assessment/Plan Assessment/Plan Assessment: 1. Worsening dyspnea with evidence of acute on chronic HFpEF 2. Possible pneumonia on CXR. 3. History of moderate aortic stenosis. 4. History of CAD 5. History of osteo and recent right TMA 6. HTN 7. HLD 8. DM with neuropathy 9. Normocytic anemia 10. Renal insufficiency 11. Transaminitis. Plan: * Increase Lasix to 40 mg IV every 12 hours * Monitor input and output with daily weights * Check basic metabolic profile daily * Repeat echocardiogram to evaluate valvular heart disease Continue telemetry? Yes
[2016-12-08 16:00] VITALS: BP 134/70
[2016-12-09 00:24] VITALS: BP 130/70
--- NOTE | 2016-12-09 07:04 | PN- Housestaff ---
Subjective Follow-up For: Acute on chronic HFpEF Tele-Events Since Last Visit: Sinus bradycardia HR 48-58 No events Subjective: No acute events overnight. Patient seen and examined this morning. He feels much better today. Shortness of breath has improved. He is comfortable and satting on room air. Patient's roommate was found to have influenza yesterday and had to be switched to a different room. Patient currently denies any symptoms but is worried about the flu exposure. Review of Systems Constitutional: Reports: see HPI. Objective Last 24 Hrs of Vital Signs/I&O Vital Signs Date Time Temp Pulse Resp B/P B/P Pulse O2 O2 Flow FiO2 Mean Ox Delivery Rate 12/09 1558 98.7 63 20 126/60 95 Room Air 12/09 1405 Room Air Room Air 12/09 1054 98.6 94 Room Air 12/09 0915 97 Room Air Room Air 12/09 0800 20.0 53 18 120/70 95 Nasal Cannula 12/09 0336 56 96 12/09 0040 59 92 12/09 0024 99.2 57 20 130/70 93 Nasal 2.0L Cannula 12/09 0000 96 Room Air 1.0L 12/08 2212 64 96 12/08 2140 69 134/70 / 1850 96 Nasal 1.0L Cannula Intake & Output 12/09 1600 12/09 0800 05 0000 Intake Total 560 300 320 Output Total 4462 929 4815 Balance -840 -250 -2230 Intake, Oral 560 300 320 Output, Urine 9541 968 0411 Patient 130.635 kg Weight Weight Renetta Lift Measurement Method Physical Exam General Appearance: Alert, Oriented X3, No Acute Distress HEENT: Atraumatic, Mucous Membr. moist/pink Neck: Supple Cardiovascular: Regular Rate, Normal S1, Normal S2 Lungs: Clear to Auscultation Abdomen: Soft, No Tenderness, Positive Bowel Sounds Neurological: S/p Right BKA, Left Foot with Dressing in Place Current Medications: Current Medications Sig/Taylor Start time Last Medication Dose Route Stop Time Status Admin Albuterol Sulfate 3 ML BID 12/08 2199 AC 12/09 INH 0915 Amlodipine Besylate 10 MG DAILY 12/08 1000 AC 12/09 PO 0955 Aripiprazole 2 MG QPM 12/07 2199 AC 12/08 PO 2139 Ascorbic Acid 250 MG BID 12/07 2199 AC 12/09 PO 0956 Atorvastatin Calcium 80 MG 1700 12/07 1700 AC 12/09 PO 1706 Budesonide/ 2 PUF BID 12/07 1504 AC 12/09 Formoterol Fumarate INH 0956 Calcium Carbonate 500 MG BID 12/07 2200 AC 12/09 PO 0955 Carisoprodol 350 MG Q6-PRN PRN 12/07 1515 AC 12/07 PO 1855 Ferrous Sulfate 325 MG BID 12/07 2200 AC 12/09 PO 0955 Fluoxetine HCl 40 MG DAILY 12/08 1000 AC 12/09 PO 0955 Furosemide 40 MG DAILY 12/09 1100 AC 12/09 PO 1250 Furosemide 40 MG 7:30 AM, & 4:30 PM 12/08 1630 DC 12/08 IV 1645 Gabapentin 300 MG Q8 12/07 1508 AC 12/09 PO 1417 Heparin Sodium 5,000 UNIT Q8 12/07 2200 AC 12/09 (Porcine) SC 1418 Insulin Aspart 0 TIDAC 12/07 1700 AC SC Insulin Detemir 15 UNITS QPM 12/07 2200 AC 12/07 SC 2118 Losartan Potassium 25 MG DAILY 12/08 1030 AC 12/09 PO 0955 Meropenem 1 GM Q8 12/07 1508 AC 12/09 IV 1418 Metoprolol Tartrate 50 MG BID 12/07 2200 AC 12/09 PO 0955 Multivitamins 1 TAB DAILY 12/08 1000 AC 12/09 Therapeutic PO 0956 Oseltamivir Phosphate 75 MG DAILY 12/09 1000 AC 12/09 PO 12/13 0959 1054 Oxycodone HCl 10 MG Q12 12/07 2200 AC 12/09 PO 0955 Oxycodone/ 1 TAB Q4P PRN 12/07 1515 AC 12/09 Acetaminophen PO 1422 Polyethylene Glycol 17 GM DAILY NEEDED PRN 12/07 1515 AC PO Senna/Docusate Sodium 1 TAB BID PRN 12/07 1515 AC PO Sucralfate 1,000 MG 4 TIMES/DAY 12/07 1800 AC 12/09 PO 1706 Last 24 Hrs of Lab/Enrique Results Last 24 Hrs of Labs/Mics: Laboratory Tests 12/09/16 0615: Anion Gap 9, Estimated GFR 48 L, BUN/Creatinine Ratio 31.3 H Microbiology 12/09 1048 NASOPHARYN: Influenza Virus A & B Rapid Smear - COMP Rapid flu test (12/09/16): Negative Assessment/Plan Assessment: 61 y/o morbidly obese M with PMHx of chronic nonhealing foot ulcers c/b chronic osteomyelitis of bilateral feet s/p recent right BKA on meropenem, aortic valve disease and HFpEF and COPD/JOSÉ MIGUEL not on home oxygen who presents with shortness of breath. #Acute on chronic HFpEF: Recent ECHO in October 2016 with LVEF of 55% and moderate aortic stenosis. SOB has resolved with diuresis. Oxygenation improved, currently satting well on room air. * Continue telemetry monitoring. * Cardiology following. Appreciate their recs. * Repeat ECHO to evaluate for worsening valvular disease pending. * Monitor I/Os and daily weights. * Monitor lytes and kidney function. * Discontinue IV Lasix and switch to Lasix 40 mg PO daily given LAINA. #LAINA on CKD stage 3A: Slight increase in creatinine from 1.2 to 1.5 today. Likely prerenal secondary to IV diuresis. * Switch to PO Lasix as above. * Monitor lytes and kidney function daily. * Avoid nephrotoxic medications. #Influenza exposure: Exposed to flu through his roommate. Asymptomatic with negative rapid flu test. * Start tamiflu 75 mg PO daily for influenza prophylaxis with 10-day course planned. 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 Was discharged on IV meropenem for a total of four-weeks of antibiotics. Seen by wound care today. Per Dr. Zheng's recommendations, 4x4 cm nonhealing wound on left foot was cleaned with Dakin's solution and wet-to-dry dressing was applied. Approximately 28 dennise were removed from right stump which showed no evidence of infection or drainage. * Continue meropenem 1 g Q8H until 12/13/16 to complete course of antibiotics. * Patient should follow up with vascular surgery after discharge for clearance for prosthetics. * Cleanse wounds daily with normal saline and apply wet-to-dry dressings while inpatient. * Continue wound VAC upon discharge to [facility]. #Insulin-dependent T2DM: Takes Levemir 15 units SQ QPM and Novolog TIDAC as outpatient. * Continue bzsjp-ju-pbtqzqndc Levemir 15 units SQ QPM. * Accu-checks and low-dose sliding scale Novolog TIDAC. #HTN: * Continue cecaa-nm-uqxuizdzl amlodipine 10 mg PO daily. #HLD: * Continue cgvau-fw-lvgmcdujh atorvastatin 80 mg PO daily. #Depression: * Continue ztnzf-ux-wdycovbjl aripiprazole 2 mg PO QPM and fluoxetine 40 mg PO daily. #COPD: Not in acute exacerbation. * Continue anaxn-ci-tbipqgczw Symbicort 2 puffs BID. #Diabetic neuropathy: * Gabapentin 300 mg PO TID for pain. #Constipation: * Miralax and Senokot S daily PRN. Diet: Consistent Carbohydrate 3 with 2 g Na Restriction Pain: Oxycontin 10 mg PO BID Carisoprodol 350 mg PO Q6H PRN Percocet 1 tab PO Q4H PRN for mild pain (scale 1-3) DVT PPx: HSQ and ALPs CODE: FULL Problem List: 1. Acute renal failure superimposed on stage 3 chronic kidney disease 2. Diabetic neuropathy 3. Insulin dependent type 2 diabetes mellitus 4. COPD (chronic obstructive pulmonary disease) 5. Chronic osteomyelitis of left foot 6. Chronic osteomyelitis of right foot 7. (HFpEF) heart failure with preserved ejection fraction 8. Depression 9. Non-healing ulcer of foot Pain Ratin Pain Location: N/A Pain Goal: Remain pain free Pain Plan: Oxycontin 10 mg PO Q12H Carisoprodol 350 mg PO Q6H Percocet 1 tab PO Q4H PRN for mild pain (scale 1-3) Tomorrow's Labs & Rationales: BMP to monitor lytes and kidney function in the setting of LAINA on CKD Discharge Plan Discharge Disposition: STR/NH Anticipated Discharge (Day): tomorrow
[2016-12-09 08:00] VITALS: BP 120/70
[2016-12-09] MEDS ORDERED: LASIX40 M1 PO (08:58)
[2016-12-09] MEDS ORDERED: TAMIFLU75 M1 PO ×2 (09:02→10:58)
--- NOTE | 2016-12-09 09:32 | PN- Att Addend ---
Attending Addendum Attending Brief Note Patient reports improved breathing and currently is on room air General Appearance: Alert, No Acute Distress Skin: Grossly normal HEENT: PEERLA Neck: Supple, No JVD Cardiovascular: Regular Rate, Normal S1, Normal S2, No Murmurs Lungs: Clear to Auscultation, Normal Air Movement Abdomen: Normal Bowel Sounds, Soft, No Tenderness Neurological: Normal Speech, Strength at 5/5 X4 Ext, Cranial Nerves 3-12 NL, Reflexes 2+ Extremities: Right foot amputation and left foot dressing Vascular: Normal Pulses Assessment 61-year-old with history of chronic nonhealing foot ulcers, coronary disease, COPD, recent osteomyelitis right lower extremity requiring right BKA discharged on meropenem presents with complaints of shortness of breath. X-ray suggested pulmonary edema with patchy consolidation right lung base and persistent left retrocardiac opacification however patient does not have clinical pneumonia and his respiratory status has markedly improved with IV Lasix. Kidney function worsened to overdiuresis. We will switch him to oral Lasix and discharge. Acute hypoxic respiratory failure has improved. Plan Change to oral Lasix 40 mg once daily Repeat BMP in 2 days Continue meropenem Continue other home medications DVT prophylaxis Current Medications Sig/Taylor Start time Last Medication Dose Route Stop Time Status Admin Albuterol Sulfate 3 ML BID 12/08 220 AC 12/09 INH 0915 Amlodipine Besylate 10 MG DAILY 12/08 1000 AC 12/08 PO 0933 Aripiprazole 2 MG QPM 12/07 2200 AC 12/08 PO 2139 Ascorbic Acid 250 MG BID 12/07 2200 AC 12/08 PO 2139 Atorvastatin Calcium 80 MG 1700 12/07 1700 AC 12/08 PO 1645 Budesonide/ 2 PUF BID 12/07 1504 AC 12/08 Formoterol Fumarate INH 2151 Calcium Carbonate 500 MG BID 12/07 2200 AC 05 PO 2144 Carisoprodol 350 MG Q6-PRN PRN 12/07 1515 AC 05 PO 1855 Ferrous Sulfate 325 MG BID 12/07 2200 AC 12/08 PO 2139 Fluoxetine HCl 40 MG DAILY 12/08 1000 AC 05/ PO 0933 Furosemide 40 MG 7:30 AM, & 4:30 PM 12/08 1630 DC 05/04 IV 1645 Furosemide 40 MG DAILY 12/08 1000 DC 05/ IV 0934 Gabapentin 300 MG Q8 12/07 1508 AC 12/09 PO 0617 Heparin Sodium 5,000 UNIT Q8 12/07 2200 AC 12/09 (Porcine) SC 0616 Insulin Aspart 0 TIDAC 12/07 1700 AC SC Insulin Detemir 15 UNITS QPM 12/07 2200 AC 12/07 SC 2118 Losartan Potassium 25 MG DAILY 12/08 1030 AC 12/08 PO 1230 Meropenem 1 GM Q8 12/07 1508 AC 12/09 IV 0617 Metoprolol Tartrate 50 MG BID 12/07 2200 AC 12/08 PO 2140 Multivitamins 1 TAB DAILY 12/08 1000 AC 12/08 Therapeutic PO 0933 Oseltamivir Phosphate 75 MG DAILY 12/09 1000 AC PO 12/13 0959 Oxycodone HCl 10 MG Q12 12/07 2200 AC 12/08 PO 2151 Oxycodone/ 1 TAB Q4P PRN 12/07 1515 AC 12/09 Acetaminophen PO 0625 Patient Medication 1 ED .STK-MED ONE 12/08 1354 [place] Teaching ED 12/08 1355 Polyethylene Glycol 17 GM DAILY NEEDED PRN 12/07 1515 AC PO Senna/Docusate Sodium 1 TAB BID PRN 12/07 1515 AC PO Sucralfate 1,000 MG 4 TIMES/DAY 12/07 1800 AC 12/08 PO 2151 Laboratory Tests 12/09 0515 Chemistry Sodium (137 - 145 mmol/L) 140 Potassium (3.5 - 5.1 mmol/L) 4.9 Chloride (98 - 107 mmol/L) 101 Carbon Dioxide (22 - 30 mmol/L) 30 Anion Gap (5 - 16) 9 BUN (9 - 20 mg/dL) 47 H Creatinine (0.7 - 1.2 mg/dL) 1.5 H Estimated GFR (>60 ml/min) 48 L BUN/Creatinine Ratio (7 - 25 %) 31.3 H Vital Signs Date Time Temp Pulse Resp B/P B/P Pulse O2 O2 Flow FiO2 Mean Ox Delivery Rate 12/09 914 97 Room Air Room Air 12/09 0800 20.0 53 18 120/70 95 Nasal Cannula 12/09 0336 56 96 12/09 0040 59 92 12/09 0024 99.2 57 20 130/70 93 Nasal 2.0L Cannula 12/09 0000 96 Room Air 1.0L 12/08 2212 64 96 12/08 2140 69 134/70 12/08 1850 96 Nasal 1.0L Cannula 12/08 1600 Nasal 1.0L Cannula 12/08 1600 98.7 69 20 134/70 94 Nasal 1.0L Cannula 12/08 1230 57 132/66 12/08 1142 Nasal 2.0L Cannula 12/08 1133 94 Nasal 1.0L Cannula 12/08 0933 60 170/80 12/08 0933 60 170/80
--- NOTE | 2016-12-09 12:41 | PN- Cardiology ---
Subjective Subjective: Clinically, the patient is doing much better today. His respiratory status has improved. He denies any other cardio vascular symptoms. Objective Vital Signs and I&Os Vital Signs Date Time Temp Pulse Resp B/P B/P Pulse O2 O2 Flow FiO2 Mean Ox Delivery Rate 12/09 1054 98.6 94 Room Air 12/09 0915 97 Room Air Room Air 12/09 0800 20.0 53 18 120/70 95 Nasal Cannula 12/09 0336 56 96 12/09 0040 59 92 12/09 0024 99.2 57 20 130/70 93 Nasal 2.0L Cannula 12/09 0000 96 Room Air 1.0L 12/08 2212 64 96 / 2140 69 134/70 05 1850 96 Nasal 1.0L Cannula 12/08 1600 Nasal 1.0L Cannula 12/08 1600 98.7 69 20 134/70 94 Nasal 1.0L Cannula Intake & Output 12/09 1600 12/09 0800 05/05 0000 / 1600 12/08 0800 05 0000 Intake Total 300 320 150 500 Output Total 031 195 6655 2975 1325 2300 Balance -500 -250 -2230 -2975 -1175 -1800 Intake, IV 20 Intake, Oral 300 320 150 480 Output, Urine 705 187 5525 2975 1325 2300 Patient 288 lb 264 lb 297 lb Weight Weight Renetta Lift Renetta Lift Renetta Lift Measurement Method Physical Exam: General Appearance Lethargic but arousable; VSS Skin Normal HEENT Atraumatic, Mucous Membr. moist/pink Neck Supple, JVP normal, carotids normal bilaterally with bilateral murmur Cardiovascular Regular Rate, Normal S1, Normal S2, 2/6 MARGOT, 2/6 systolic murmur at apex Lungs Diminished Breath Sounds, No Wheezes or Crackles Abdomen Soft, No Tenderness, Positive Bowel Sounds Extremities Dressing in Place on BLE with 1-2+ Pitting Edema and Chronic Venous Stasis Change Current Medications: Current Medications Sig/Taylor Start time Last Medication Dose Route Stop Time Status Admin Albuterol Sulfate 3 ML BID 12/08 2199 AC 12/09 INH 0915 Amlodipine Besylate 10 MG DAILY 12/08 1000 AC 12/09 PO 0955 Aripiprazole 2 MG QPM 12/07 2199 AC 12/08 PO 2139 Ascorbic Acid 250 MG BID 12/07 2199 AC 12/09 PO 0956 Atorvastatin Calcium 80 MG 1700 12/07 1700 AC 12/08 PO 1645 Budesonide/ 2 PUF BID 12/07 1504 AC 12/09 Formoterol Fumarate INH 0956 Calcium Carbonate 500 MG BID 12/07 2200 AC 12/09 PO 0955 Carisoprodol 350 MG Q6-PRN PRN 12/07 1515 AC 12/07 PO 1855 Ferrous Sulfate 325 MG BID 12/07 2200 AC 12/09 PO 0955 Fluoxetine HCl 40 MG DAILY 12/08 1000 AC 12/09 PO 0955 Furosemide 40 MG DAILY 12/09 1100 AC PO Furosemide 40 MG 7:30 AM, & 4:30 PM 12/08 1630 DC 05 IV 1645 Gabapentin 300 MG Q8 12/07 1508 AC 12/09 PO 0617 Heparin Sodium 5,000 UNIT Q8 12/07 2200 AC 12/09 (Porcine) SC 0616 Insulin Aspart 0 TIDAC 12/07 1700 AC SC Insulin Detemir 15 UNITS QPM 12/07 2200 AC 12/07 SC 2118 Losartan Potassium 25 MG DAILY 12/08 1030 AC 12/09 PO 0955 Meropenem 1 GM Q8 12/07 1508 AC 12/09 IV 0617 Metoprolol Tartrate 50 MG BID 12/07 2200 AC 12/09 PO 0955 Multivitamins 1 TAB DAILY 12/08 1000 AC 12/09 Therapeutic PO 0956 Oseltamivir Phosphate 75 MG DAILY 12/09 1000 AC 12/09 PO 12/13 0959 1054 Oxycodone HCl 10 MG Q12 12/07 2200 AC 12/09 PO 0955 Oxycodone/ 1 TAB Q4P PRN 12/07 1515 AC 12/09 Acetaminophen PO 1036 Patient Medication 1 ED .STK-MED ONE 12/08 1354 [place] Teaching ED 12/08 1355 Polyethylene Glycol 17 GM DAILY NEEDED PRN 12/07 1515 AC PO Senna/Docusate Sodium 1 TAB BID PRN 12/07 1515 AC PO Sucralfate 1,000 MG 4 TIMES/DAY 12/07 1800 AC 12/09 PO 0955 Results Last 48 Hrs of Labs/Mics: Laboratory Tests 12/09/16 0615: Anion Gap 9, Estimated GFR 48 L, BUN/Creatinine Ratio 31.3 H 12/08/16 0850: Anion Gap 9, Estimated GFR > 60, BUN/Creatinine Ratio 31.7 H, CBC w Diff NO MAN DIFF REQ, RBC 3.40 L, MCV 82.6, MCH 27.5, RDW 16.5 H, MPV 9.4, Gran % 59.2, Lymphocytes % 25.3, Monocytes % 11.7 H, Eosinophils % 3.1, Basophils % 0.7, Absolute Granulocytes 3.7, Absolute Lymphocytes 1.6, Absolute Monocytes 0.7 H, Absolute Eosinophils 0.2, Absolute Basophils 0, PUBS MCHC 33.3 12/08/16 0600: Total Bilirubin 0.5, Direct Bilirubin 0.3, AST 57, ALT 74 H, Alkaline Phosphatase 68, Total Protein 5.8 L, Albumin 2.7 L 12/07/16 2250: Troponin I < 0.01 12/07/16 2250: Lactic Acid 0.5 L 12/07/16 1732: Troponin I < 0.01 Microbiology 12/09 1048 NASOPHARYN: Influenza Virus A & B Rapid Smear - COMP Assessment/Plan Assessment/Plan Assessment: 1. Worsening dyspnea with evidence of acute on chronic HFpEF 2. Possible pneumonia on CXR. 3. History of moderate aortic stenosis. 4. History of CAD 5. History of osteo and recent right TMA 6. HTN 7. HLD 8. DM with neuropathy 9. Normocytic anemia 10. Renal insufficiency 11. Transaminitis. Recommendations: -Continue current medication management. -Continue monitoring intakes, outputs, and daily weights. -Follow-up laboratories in the morning. -Out of bed as tolerated -Reassess in a.m. Continue telemetry? Yes
--- NOTE | 2016-12-09 13:32 | NUR ---
Physical Therapy: Consult received and chart reviewed. Pt is from [facility]. He is hoshamikaed SUSY as pt has a BKA and is NWB on other limb. At this time acute skilled PT is not indicated. Pt to return to [facility]- and is a husky bed hold. Will not follow. Thank you.
--- NOTE | 2016-12-09 14:27 | NUR ---
WOUND CARE: LATE ENTRY - PT SEEN MONDAY IN ER 2 PM FOR DRESSING CHANGE TO LEFT FOOT - ECF DID NOT SEND WOUND VAC - PER DR WHITAKER RECOMMENDATION 1/ STRENGTH DAKINS CLEANSING AND WET TO DRY DRESSING REAPPLIED TO 4X4 CM NONHEALING SX WOUND LEFT FOOT - LAURA REMOVED FROM RIGHT STUMP APPROX 28 TOTAL - INCISION LINE WELL APPROXIMATED - NO EVIDENCE OF INFECTION NON DRNG - DPD REAPPLIED - PT TO F/U WITH VASCULAR POST DC FOR CLEARANCE FOR PROSTHETIC RECOMMENDATION: CONT WITH WOUND VAC ONCE DC TO ECF - MAY APPLY WET TO DRY DRESSING AFTER NS CLEANSE DAILY WHILE INPT
[2016-12-09 15:58] VITALS: BP 126/60
--- NOTE | 2016-12-09 17:44 | ECHOCARDIOGRAM REPORT ---
JAH CABA Age: 61 : 1955 Gender: M Exam Date: 12/08/2016 19:42 Exam Location: [address] Ht (in): 72 Wt (lb): 264 BSA: 2.51 BP: 170 / 80 Ordering Physician: ENRIKE PAGE MD Referring Physician: Eduar Anders MD Technologist: Caryn Hairston [facility] Room Number: 174-02 Indications: VALVULAR DISEASE Rhythm: Sinus Technical Quality: Fair FINDINGS Left Ventricle Mild left ventricular dilatation. Mild concentric left ventricular hypertrophy. Low normal left ventricular ejection fraction visually estimated at 50-55%. Normal left ventricular wall motion. Right Ventricle Normal right ventricular size and function. Right Atrium Normal right atrial size. Left Atrium Mild left atrial dilatation. Mitral Valve Mitral valve thickened. Moderate mitral annular calcification. Mild mitral regurgitation. Aortic Valve Diffuse thickening of the aortic valve cusps with reduced excursion. Mild to moderate aortic stenosis. Tricuspid Valve Tricuspid valve not well visualized, grossly normal. Trace tricuspid regurgitation. Pulmonic Valve Pulmonic valve not well visualized, grossly normal. Mild pulmonic regurgitation. Pericardium No pericardial effusion. Great Vessels Normal size aortic root. CONCLUSIONS Mild left ventricular dilatation. Mild concentric left ventricular hypertrophy. Mild left atrial dilatation. Moderate mitral annular calcification. Mild mitral regurgitation. Low normal left ventricular ejection fraction visually estimated at 50-55%. Mild to moderate aortic stenosis. Eduar Anders M.D. (Electronically Signed) Final Date: 09 Dec 2016 17:44 MEASUREMENTS (Male / Female) Normal Values 2D ECHO LV Diastolic Diameter PLAX 5.5 cm 4.2 - 5.9 / 3.9 - 5.3 cm LV Systolic Diameter PLAX 3.7 cm 2.1 - 4.0 cm LV Fractional Shortening PLAX 32.7 % 25 - 46 % LV Ejection Fraction 2D Teich 60.6 % IVS Diastolic Thickness 1.3 cm LVPW Diastolic Thickness 1.2 cm LV Relative Wall Thickness 0.5 RV Internal Dim ED PLAX 3.6 cm 1.9 - 3.8 cm LVOT Diameter 1.9 cm Aortic Root Diameter 2.6 cm LA Systolic Diameter LX 4.1 cm 3.0 - 4.0 / 2.7 - 3.8 cm LA Volume 101.0 cm 18 - 58 / 22 - 52 cm Ascending Aorta Diameter 2.6 cm DOPPLER AV Peak Velocity 299.0 cm/s AV Peak Gradient 35.8 mmHg AV Mean Velocity 215.0 cm/s AV Mean Gradient 21.0 mmHg AV Velocity Time Integral 68.9 cm LVOT Peak Velocity 124.0 cm/s LVOT Peak Gradient 6.2 mmHg LVOT Mean Velocity 76.3 cm/s LVOT Mean Gradient 3.0 mmHg LVOT Velocity Time Integral 29.7 cm LVOT Stroke Volume 84.2 cm AV Area Cont Eq vti 1.2 cm AV Area Cont Eq pk 1.2 cm MV Peak Velocity 175.0 cm/s MV Peak Gradient 12.3 mmHg MV Mean Velocity 95.8 cm/s MV Mean Gradient 4.0 mmHg Mitral E Point Velocity 166.0 cm/s Mitral A Point Velocity 114.0 cm/s Mitral E to A Ratio 1.5 MV PHT Velocity 179.0 cm/s MV Deceleration Mineral 522.0 cm/s MV Pressure Half Time 102.9 ms MV Area PHT 2.1 cm MV Deceleration Time 354.0 ms TR Peak Velocity 327.0 cm/s TR Peak Gradient 42.8 mmHg Right Atrial Pressure 5.0 mmHg Pulmonary Artery Systolic Pressu 47.8 mmHg Right Ventricular Systolic Press 47.8 mmHg PV Peak Velocity 127.0 cm/s PV Peak Gradient 6.5 mmHg PV Mean Velocity 86.5 cm/s PV Mean Gradient 3.0 mmHg PV Velocity Time Integral 34.0 cm LV E' Lateral Velocity 8.6 cm/s Mitral E to LV E' Lateral Ratio 19.3 LV E' Septal Velocity 8.0 cm/s Mitral E to LV E' Septal Ratio 20.8
[2016-12-10 01:03] VITALS: BP 124/58
--- NOTE | 2016-12-10 08:46 | PN- Housestaff ---
Subjective Follow-up For: Acute on chronic HFpEF LAINA on CKD stage 3A Influenza exposure Tele-Events Since Last Visit: Sinus rhythm HR 51-57 Subjective: No acute events overnight. Patient seen and examined this morning. He feels well and offers no complaints. He denies shortness of breath, chest pain or palpitations. Review of Systems Constitutional: Reports: see HPI. Objective Last 24 Hrs of Vital Signs/I&O Vital Signs Date Time Temp Pulse Resp B/P B/P Pulse O2 O2 Flow FiO2 Mean Ox Delivery Rate 12/10 0910 61 128/72 05/06 0909 61 128/72 05/06 0909 61 128/72 05/06 0851 94 Room Air Room Air 05/06 0848 97.9 55 18 128/72 92 Room Air 05/ 0800 Room Air Room Air 05/ 0106 55 94 05/06 0103 97.8 57 12 124/58 94 Room Air 05/06 0000 BIPAP Intake & Output 12/10 1600 05/06 0800 05/06 0000 Intake Total 600 200 740 Output Total 559 258 7868 Balance -220 -500 -635 Intake, IV 20 Intake, Oral 600 200 720 Number 1 Bowel Movements Output, Stool 20 Output, Urine 761 020 0380 Patient 120.826 kg Weight Weight Renetta Lift Measurement Method Physical Exam General Appearance: Alert, Oriented X3, No Acute Distress HEENT: Atraumatic, Mucous Membr. moist/pink Cardiovascular: Regular Rate, Normal S1, Normal S2, No Murmurs, Gallops, Rubs Lungs: Clear to Auscultation Abdomen: Soft, No Tenderness, Positive Bowel Sounds Extremities: No Clubbing, No Cyanosis, No Edema, S/p R BKA Current Medications: Current Medications Sig/Taylor Start time Last Medication Dose Route Stop Time Status Admin Albuterol Sulfate 3 ML BID 12/08 2199 DCD 12/10 INH 0849 Amlodipine Besylate 10 MG DAILY 12/08 1000 DCD 05/ PO 0909 Aripiprazole 2 MG QPM 12/07 2199 DCD 05/05 PO 2114 Ascorbic Acid 250 MG BID 12/07 2199 DCD 05/06 PO 0910 Atorvastatin Calcium 80 MG 1700 12/07 1700 DCD 05/05 PO 1706 Budesonide/ 2 PUF BID 12/07 1504 DCD 05/06 Formoterol Fumarate INH 0909 Calcium Carbonate 500 MG BID 12/07 2200 DCD 05 PO 0910 Carisoprodol 350 MG Q6-PRN PRN 12/07 1515 DCD 05 PO 1855 Ferrous Sulfate 325 MG BID 12/07 2200 DCD 05/ PO 0909 Fluoxetine HCl 40 MG DAILY 12/08 1000 DCD 05/ PO 0909 Furosemide 40 MG DAILY 12/09 1100 DCD 05 PO 0909 Gabapentin 300 MG Q8 12/07 1508 DCD 05 PO 1340 Heparin Sodium 5,000 UNIT Q8 12/07 2200 DCD 05 (Porcine) SC 1340 Insulin Aspart 0 TIDAC 05 1700 DCD SC Insulin Detemir 15 UNITS QPM 12/07 2200 DCD 12/07 SC 2118 Losartan Potassium 25 MG DAILY 12/08 1030 DCD 05 PO 0909 Meropenem 1 GM Q8 12/07 1508 DCD 05 IV 1340 Metoprolol Tartrate 50 MG BID 12/07 2200 DCD 12/10 PO 0910 Multivitamins 1 TAB DAILY 12/08 1000 DCD 05 Therapeutic PO 0910 Oseltamivir Phosphate 75 MG DAILY 12/09 1000 DCD / PO 05/09 0959 0909 Oxycodone HCl 10 MG Q12 12/07 2200 DCD 12/10 PO 0910 Oxycodone/ 1 TAB Q4P PRN 12/07 1515 DCD 05 Acetaminophen PO 1437 Polyethylene Glycol 17 GM DAILY NEEDED PRN 12/07 1515 DCD PO Senna/Docusate Sodium 1 TAB BID PRN 12/07 1515 DCD PO Sucralfate 1,000 MG 4 TIMES/DAY 12/07 1800 DCD 05/ PO 1340 Last 24 Hrs of Lab/Enrique Results Last 24 Hrs of Labs/Mics: Laboratory Tests 12/10/16 0600: Anion Gap 9, Estimated GFR 48 L, BUN/Creatinine Ratio 34.7 H Orders ECHO Findings: Mild left ventricular dilatation. Mild concentric left ventricular hypertrophy. Mild left atrial dilatation. Moderate mitral annular calcification. Mild mitral regurgitation. Low normal left ventricular ejection fraction visually estimated at 50-55%. Mild to moderate aortic stenosis. Assessment/Plan Assessment: 61 y/o morbidly obese M with PMHx of chronic nonhealing foot ulcers c/b chronic osteomyelitis of bilateral feet s/p recent right BKA on meropenem, aortic valve disease and HFpEF and COPD/JOSÉ MIGUEL not on home oxygen who presents with shortness of breath. #Acute on chronic HFpEF: ECHO with normal LVEF estimated at 50-55%, mild LVH and [id number] aortic stenosis. SOB has resolved with diuresis. * Discharge to rehab facility today. * Continue Lasix 40 mg PO daily on discharge. #LAINA on CKD stage 3A: Creatinine remains elevated at 1.5. Likely prerenal secondary to IV diuresis. * Patient should have his BMP in two days of discharge. #Influenza exposure: Exposed to flu through his roommate. Asymptomatic with negative rapid flu test. * Continue tamiflu 75 mg PO daily on discharge for a total of 10 days. 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 Was discharged on IV meropenem for a total of four-weeks of antibiotics. * Continue meropenem 1 g Q8H until 12/13/16 to complete course of antibiotics. * Patient should follow up with vascular surgery after discharge for clearance for prosthetics. * Cleanse wounds daily with normal saline and apply wet-to-dry dressings. * Continue wound VAC [facility] Diet: Consistent Carbohydrate 3 with 2 g Na Restriction Pain: Oxycontin 10 mg PO BID Carisoprodol 350 mg PO Q6H PRN Percocet 1 tab PO Q4H PRN for mild pain (scale 1-3) DVT PPx: HSQ and ALPs CODE: FULL Problem List: 1. Non-healing ulcer of foot 2. Acute renal failure superimposed on stage 3 chronic kidney disease 3. Stage 3a chronic kidney disease 4. Diabetic neuropathy 5. Insulin dependent type 2 diabetes mellitus 6. COPD (chronic obstructive pulmonary disease) 7. Chronic osteomyelitis of left foot 8. Chronic osteomyelitis of right foot 9. (HFpEF) heart failure with preserved ejection fraction 10. Acute exacerbation of CHF (congestive heart failure) 11. Hypertension 12. Hyperlipidemia Pain Ratin Pain Location: N/A Pain Goal: Remain pain free Pain Plan: OxyCONTIN 10 mg PO Q12H Percocet 1 tab PO Q4H PRN for pain scale 1-5 Soma 350 mg PO Q6H PRN Gabapentin 300 mg PO Q8H Tomorrow's Labs & Rationales: None Discharge Plan Discharge Disposition: STR/NH Stable for Discharge? Yes Anticipated Discharge (Day): today
[2016-12-10 08:48] VITALS: BP 128/72
[2016-12-10 09:10] VITALS: BP 128/72
--- NOTE | 2016-12-10 14:01 | PN- Cardiology ---
Subjective Subjective: The patient reports that he is feeling better. Shortness of breath is significantly improved. No chest pain. No palpitations. No diaphoresis. No nausea or vomiting. Objective Vital Signs and I&Os Vital Signs Date Time Temp Pulse Resp B/P B/P Pulse O2 O2 Flow FiO2 Mean Ox Delivery Rate 12/10 0910 61 128/72 05/ 0909 61 128/72 / 0909 61 128/72 / 0851 94 Room Air Room Air 12/10 0848 97.9 55 18 128/72 92 Room Air / 0800 Room Air Room Air / 0106 55 94 / 0103 97.8 57 12 124/58 94 Room Air 12/10 0000 BIPAP 12/09 2240 76 96 12/09 2114 74 122/66 12/09 2029 95 Room Air 12/09 1558 98.7 63 20 126/60 95 Room Air 12/09 1405 Room Air Room Air Intake & Output 12/10 1600 12/10 0800 12/10 0000 12/09 1600 12/09 0000 Intake Total 200 740 560 300 320 Output Total 700 1375 2459 813 9477 Balance -500 -635 -840 -250 -2230 Intake, IV 20 Intake, Oral 200 720 560 300 320 Number 1 Bowel Movements Output, Urine 700 1375 6965 277 2246 Patient 266 lb 288 lb Weight Weight Renetta Lift Renetta Lift Measurement Method Physical Exam: Gen: NAD HEENT: normal Lungs: clear to auscultation, normal resp. effort Heart: RRR, S1, S2, no murmurs Abdomen: Soft, nontender, no masses Extremities: Right BKA. No clubbing, cyanosis, or edema. Neuro: Alert and oriented x 3, cranial nerves intact Current Medications: Current Medications Sig/Taylor Start time Last Medication Dose Route Stop Time Status Admin Albuterol Sulfate 3 ML BID 12/08 2199 AC 12/10 INH 0849 Amlodipine Besylate 10 MG DAILY 12/08 1000 AC 12/10 PO 0909 Aripiprazole 2 MG QPM 12/07 2200 AC 05 PO 2114 Ascorbic Acid 250 MG BID 12/07 2200 AC 05/ PO 0910 Atorvastatin Calcium 80 MG 1700 12/07 1700 AC 05 PO 1706 Budesonide/ 2 PUF BID 12/07 1504 AC 05 Formoterol Fumarate INH 0909 Calcium Carbonate 500 MG BID 12/07 2200 AC 12/10 PO 0910 Carisoprodol 350 MG Q6-PRN PRN 12/07 1515 AC 12/07 PO 1855 Ferrous Sulfate 325 MG BID 12/07 2200 AC 12/10 PO 0909 Fluoxetine HCl 40 MG DAILY 12/08 1000 AC 12/10 PO 0909 Furosemide 40 MG DAILY 12/09 1100 AC 12/10 PO 0909 Gabapentin 300 MG Q8 12/07 1508 AC 12/10 PO 1340 Heparin Sodium 5,000 UNIT Q8 12/07 2200 AC 12/10 (Porcine) SC 1340 Insulin Aspart 0 TIDAC 12/07 1700 AC SC Insulin Detemir 15 UNITS QPM 12/07 2200 AC 12/07 SC 2118 Losartan Potassium 25 MG DAILY 12/08 1030 AC 12/10 PO 0909 Meropenem 1 GM Q8 12/07 1508 AC 12/10 IV 1340 Metoprolol Tartrate 50 MG BID 12/07 2200 AC 12/10 PO 0910 Multivitamins 1 TAB DAILY 12/08 1000 AC 12/10 Therapeutic PO 0910 Oseltamivir Phosphate 75 MG DAILY 12/09 1000 AC 12/10 PO 05/ 0959 0909 Oxycodone HCl 10 MG Q12 12/07 2200 AC 12/10 PO 0910 Oxycodone/ 1 TAB Q4P PRN 12/07 1515 AC 12/10 Acetaminophen PO 1017 Polyethylene Glycol 17 GM DAILY NEEDED PRN 12/07 1515 AC PO Senna/Docusate Sodium 1 TAB BID PRN 12/07 1515 AC PO Sucralfate 1,000 MG 4 TIMES/DAY 12/07 1800 AC 12/10 PO 1340 Results Last 48 Hrs of Labs/Mics: Laboratory Tests 12/10/16 0600: Anion Gap 9, Estimated GFR 48 L, BUN/Creatinine Ratio 34.7 H 12/09/16 0615: Anion Gap 9, Estimated GFR 48 L, BUN/Creatinine Ratio 31.3 H Microbiology 12/09 1048 NASOPHARYN: Influenza Virus A & B Rapid Smear - COMP Recent Imaging Studies: Echocardiogram 12/08/16: Mild left ventricular dilatation. Mild concentric left ventricular hypertrophy. Mild left atrial dilatation. Moderate mitral annular calcification. Mild mitral regurgitation. Low normal left ventricular ejection fraction visually estimated at 50-55%. Mild to moderate aortic stenosis. Assessment/Plan Assessment/Plan Assessment: 1. Worsening dyspnea with evidence of acute on chronic HFpEF 2. Possible pneumonia on CXR. 3. History of moderate aortic stenosis. 4. History of CAD 5. History of osteo and recent right TMA 6. HTN 7. HLD 8. DM with neuropathy 9. Normocytic anemia 10. Renal insufficiency 11. Transaminitis. Plan: * Continue Lasix 40 mg by mouth daily * Okay for discharge from cardiac standpoint. * Follow up in the office with me in one week. Continue telemetry? No
--- NOTE | 2016-12-10 16:33 | PN- Att Addend ---
Attending Addendum Attending Brief Note Covering attending note. Patient's breathing is improved and was switched to Lasix by mouth vital signs are stable no fever but no new changes on physical(. Patient to return to rehabilitation started Ana discharge summary and C MR Laboratory Tests 12/10/16 0600: Anion Gap 9, Estimated GFR 48 L, BUN/Creatinine Ratio 34.7 H
== END 2016-12-10 15:30 | DRG 291 ==
LOC: ERH 10:42 → ERHI 14:53 → 1NO 14:53 → ENRESERV 17:04 → 1NO 20:02 → ENPENDDIS 12-10 13:16 → 1NO 12-10 15:30
PROVIDERS: Internal Medicine; Physician Assistant Medical; ADMIT Internal Medicine
DX: I13.0 Hypertensive heart and chronic kidney disease with heart failure and stage 1 through stage 4 chronic kidney disease, or unspecified chronic kidney disease (principal); I50.33 Acute on chronic diastolic (congestive) heart failure; J96.01 Acute respiratory failure with hypoxia; M86.671 Other chronic osteomyelitis, right ankle and foot; Z68.41 Body mass index [BMI] 40.0-44.9, adult; E11.40 Type 2 diabetes mellitus with diabetic neuropathy, unspecified; M86.672 Other chronic osteomyelitis, left ankle and foot; E66.01 Morbid (severe) obesity due to excess calories; N18.3 Chronic kidney disease, stage 3 (moderate); J44.9 Chronic obstructive pulmonary disease, unspecified; I25.10 Atherosclerotic heart disease of native coronary artery without angina pectoris; E78.5 Hyperlipidemia, unspecified; I25.2 Old myocardial infarction; I73.9 Peripheral vascular disease, unspecified; Z87.891 Personal history of nicotine dependence; Z89.511 Acquired absence of right leg below knee; Z79.4 Long term (current) use of insulin
CPT/HCPCS: 1NSP; 36415; 81001; 82436; 87040; 87804; 87804-59; 93005; 93010; 93306; J1644; J1940; J2185; J3490

== ENCOUNTER 2018-04-02 18:07 | Emergency (ER) | payer OTHER ==
[~2018-04-02] VITALS: Ht 188 cm; Wt 127.0 kg
[~2018-04-02 18:07] MED LIST changes: +ADVAIR 250-501 EACH INH; +ASCORBIC ACID250 MG PO; +FLUOXETINE HCL20 M2 PO; +FORTAZ2 G1 IV; +LASIX40 M1 PO; +MOVANTIK25 M1 PO; +POTASSIUM CHLO10 ME3 PO; +TAMIFLU75 M1 PO; +TUMS200 MG PO; +VANCO 1 GR1 GM/250 M IV
--- NOTE | 2018-04-02 18:32 | ED GENERAL ADULT ---
History of Present Illness General Chief Complaint: Male Genitourinary Problems Stated Complaint: TESTICAL PAIN Source: patient Exam Limitations: no limitations Vital Signs & Intake/Output Vital Signs & Intake/Output Vital Signs Date Time Temp Pulse Resp B/P B/P Pulse O2 O2 Flow FiO2 Mean Ox Delivery Rate 04/02 2101 97.6 65 20 163/74 99 Room Air 04/02 2050 97.4 66 18 160/73 99 Room Air 04/02 1814 97.6 60 18 162/75 100 Room Air ED Intake and Output 04/03 0000 04/02 1200 Intake Total Output Total 400 Balance -400 Output, Urine 400 Patient 280 lb Weight Weight Reported by Patient Measurement Method Allergies Coded Allergies: niacin (ITCHING 11/02/16) Reconcile Medications Albuterol Sulfate 0.63 MG/3 ML VIAL.NEB 1 Vial INH/CARON TID PRN BREATHING PROBLEMS (Reported) Amlodipine Besylate 10 MG TABLET 1 TAB PO DAILY HTN (Reported) Aripiprazole (Abilify) 2 MG TABLET 1 TAB PO QPM MENTAL HEALTH (Reported) Ascorbic Acid 250 MG TABLET 1 TAB PO BID VITAMIN SUPPORT (Reported) Budesonide/Formoterol Fumarate (Symbicort 160-4.5 Mcg Inhaler) 160 MCG-4.5 MCG/ ACTUATION HFA.AER.AD 2 PUF INH BID COPD (Reported) Calcium Carbonate (TUMS) 200 MG CALCIUM (500 MG) TAB.CHEW 1 TAB PO BID GI ( Reported) Carisoprodol (SOMA) 350 MG TABLET 1 TAB PO Q6-PRN PRN PAIN (Reported) Ferrous Sulfate 325 MG TABLET.DR 1 TAB PO BID Anemia Fluoxetine HCl (Prozac) 40 MG CAPSULE 1 CAP PO DAILY MENTAL HEALTH (Reported) Fluoxetine HCl 20 MG CAPSULE 1 CAP PO DAILY MENTAL HEALTH (Reported) Fluticasone/Salmeterol (Advair 250-50 Diskus) 250 MCG-50 MCG/DOSE BLST.W.DEV 1 PUF INH BID BREATHING PROBLEMS (Reported) Furosemide (Lasix) 40 MG TABLET 1 TAB PO DAILY FLUID RETENTION Gabapentin 300 MG CAPSULE 300 MG PO Q8 NEUROPATHIC PAIN Insulin Aspart (Novolog) (Unknown Strength) VIAL (Unknown Dose) SC MoTh DIABETES (Reported) Blood sugar Sliding scale Less then 80mg/dl No insulin 80-150mg/dl No insulin 151-200mg/dl 1 unit 201-250mg/dl 2 Units 251-300 mg/dl 3 Units 301-350mg/dl 4 Units 351-400mg/dl 6 Units More then 400mg/dl 8 Units Insulin Detemir (Levemir) 100 UNIT/ML VIAL 2 U SC QPM DIABETES (Reported) Metoprolol Tartrate 50 MG TABLET 1 TAB PO BID BLOOD PRESSURE (Reported) Multivitamin (One Daily Multivitamin) 1 EACH TABLET 1 TAB PO DAILY General Well being Naloxegol Oxalate (Movantik) 25 MG TABLET 1 TAB PO DAILY constipation ( Reported) Oxycodone HCl (Oxycontin) 10 MG TAB.ER.12H 10 MG PO Q12 PAIN Oxycodone HCl/Acetaminophen (Oxycodone-Acetaminophen 10-325) 10 MG-325 MG TABLET 1 TAB PO Q4 PRN PAIN Pantoprazole Sodium (Protonix) 40 MG TABLET.DR 1 TAB PO DAILY GERD Polyethylene Glycol 3350 (Miralax) 17 GRAM/DOSE POWDER 17 GM PO DAILY NEEDED PRN constipation Rosuvastatin Calcium (Crestor) 20 MG TABLET 1 TAB PO QPM CHOLESTEROL ( Reported) Tiotropium [place] (Spiriva) 18 MCG CAP.W.DEV 1 PUF INH DAILY COPD Triage Note: BIBA FOR 7/10 TESTICULAR PAIN. PT STATES THAT HE BELIEVES HE MAY HAVE SAT ON HIS TESTICALS LAST NIGHT. PT STATED THAT HE HAS A HX OF TESTICULAR TORSION AND IS WORRIED HE MAY BE EXPERIENCING THAT AGAIN. PT STATES THE PAIN IS LOCALIZED TO HIS TESTICALS AND DOES NOT RADIATE. Triage Nurses Notes Reviewed? yes HPI: 62-year-old man with past medical history of CAD, hypertension, hyperlipidemia, COPD, PUD, CKD, and diabetes mellitus brought in by ambulance for evaluation of testicular pain. He has a reported history of testicular torsion "about 25 years ago". Yesterday afternoon he reports that he noted that his right testicle was swollen "3 times normal size". He does not recall any trauma but suddenly noticed an 8/10 pain. He reportedly told the nursing staff at [facility] where he resides who reportedly said they will have a "urologist come look". The patient reports persistent pain throughout the night without any change in character. He told nursing staff about again this morning for which she was sent [place] [facility] [place]. Presently he states that his pain is still 8/10 and otherwise denies any other issues. Specifically he denies any dysuria, fever, chills. (Carmelo Knight MD) Past History Travel History Traveled to [place] past 21 day No Medical History Any Pertinent Medical History? 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 , Age 50-60; Cause: CVA (cerebral vascular accident). FH: CVA (cerebrovascular accident) MOTHER, , Age 60+; Cause: Natural . Relation not specified for: FH: CAD (coronary artery disease) FH: diabetes mellitus Hx Contributory? No (Carmelo Knight MD) Review of Systems Review of Systems Constitutional: Reports: see HPI. (Carmelo Knight MD) Physical Exam Physical Exam General Appearance: well developed/nourished, no apparent distress, alert, awake , comfortable Comments: General - well developed, obese middle-aged man in no acute distress HEENT - NCAT, PERRL, EOMI, anicteric sclera Neck- Supple, no JVD/HJR, no bruits, trachea midline, thyroid normal Cardio -2/6 systolic murmur at right sternal border; regular rate and rhythm Resp - Clear to auscultation bilaterally GI - Soft, nontender, nondistended, bowel sounds present Neuro - Awake and alert, CN II - XII grossly intact -swollen right testicle with moderate/severe tenderness without change in character upon palpation or elevation, normal-appearing left testicle, normal- appearing penis without discharge, no inguinal adenopathy, no palpable inguinal/ femoral hernias Extremities - No edema, pulses intact Core Measures ACS in differential dx? No CVA/TIA Diagnosis: No Sepsis Present: No Sepsis Focused Exam Completed? No (Carmelo Knight MD) Progress Differential Diagnoses I considered the following diagnoses in my evaluation of the patient: Testicular torsion, epididymitis, testicular trauma, spermatocele, hydrocele, orchitis Plan of Care: Orders Procedure Date/time Status URINALYSIS 04/02 1924 Complete Laboratory Tests 04/02/181929: Urine Color YEL, Urine Clarity CLEAR, Urine pH 6.0, Ur Specific [place] 1.015, Urine Protein TRACE H, Urine Ketones NEG, Urine Nitrite NEG, Urine Bilirubin NEG, Urine Urobilinogen 0.2, Ur Leukocyte Esterase NEG, Ur Microscopic SEDIMENT EXAMINED, Urine RBC RARE, Urine WBC RARE, Urine Bacteria RARE H, Urine Hemoglobin NEG, Urine Glucose NEG Initial ED EKG: none Comments: Patient with multiple medical problems and history of testicular torsion complaining of acute onset right testicular swelling and pain without obvious trauma. Vital signs remain within normal limits. Physical examination demonstrates a markedly swollen right testicle. Testicular ultrasound demonstrated a right-sided hydrocele. Urinalysis is unremarkable. Patient is discharged back to [facility] rehab with instruction to follow-up with urology as an outpatient as needed and to return should his symptoms worsen or if he develops signs of infection such as fever and chills. (Carmelo Knight MD) Departure Departure Disposition: HOME OR SELF CARE Condition: Stable Clinical Impression Primary Impression: Hydrocele Referrals: Yanira Spear APRN (PCP/Family) Additional Instructions: Please follow-up with urology as an outpatient for further evaluation of your hydrocele. Return to the ED should her symptoms worsen or if you develop any signs of infection such as fever or chills. Take acetaminophen as needed for pain. Apply warm compresses to the area as needed for pain relief. Departure Forms: Customer Survey General Discharge Information (Carmelo Knight MD) Resident Co-Sign Statement Statement: ED Attending supervision documentation- [] I saw and evaluated the patient. I have also reviewed all the pertinent lab results and diagnostic results. I agree with the findings and the plan of care as documented in the Resident's documentation. [X] I have reviewed the ED Record and agree with the Resident's documentation. [] Additions or exceptions (if any) to the Resident's note and plan are summarized below: [] (Drea SANCHEZ,Hiro Dumont) Critical Care Note Critical Care Note Critical Care Time: non-applicable (Eugene SANCHEZ,Carmelo)
--- NOTE | 2018-04-02 20:21 | ULTRASOUND REPORT ---
EXAMINATION: US SCROTUM CLINICAL INFORMATION: Pain right testicle. History of torsion. COMPARISON: No relevant prior imaging. TECHNIQUE: A sonogram of the scrotum was performed assessing vargas-scale appearance and color Doppler flow. Spectral analysis and Doppler interrogation was performed. FINDINGS: RIGHT: Right testicle measures 4.6 x 2.3 x 2.1 cm, volume 15.8 mL. Parenchymal echotexture is normal. No focal testicular parenchymal lesions are visualized. Normal symmetric intratesticular flow is visualized. Right epididymal head is normal in size. There is a multiseptated right-sided hydrocele measuring 4.4 x 3.2 x 2.4 cm. Normal arterial and venous waveforms are visualized within the right testis. LEFT: Left testicle measures 4.7 x 1.4 x 3.1 cm, volume 14.5 mL. Parenchymal echotexture is normal. No focal testicular parenchymal lesions are visualized. Normal symmetric intratesticular flow is visualized. Left epididymal head is normal in size. No left hydrocele. Normal arterial and venous waveforms are visualized within the left testis. IMPRESSION: There is a multiseptated right-sided hydrocele. Otherwise normal scrotal ultrasound. No evidence of testicular torsion.
[2018-04-02 21:01] VITALS: BP 163/74
== END 2018-04-02 21:31 ==
LOC: ERH 18:07
DX: N43.3 Hydrocele, unspecified (principal)
CPT/HCPCS: 81001